=== PATIENT | female | born 1970 | race Two or more races ===

== ENCOUNTER → 2019-12-14 14:39 | Outpatient (BNVA) | payer MEDICAID, SELFPAY | PROVIDERS: PCP Internal Medicine; Visit Provider Student in an Organized Health Care Education/Training Program | DX: L40.50 Arthropathic psoriasis, unspecified (principal); M75.52 Bursitis of left shoulder; Z79.899 Other long term (current) drug therapy | CPT/HCPCS: 99214 ==

== ENCOUNTER 2020-03-20 13:41 | Outpatient (REF) | payer MEDICAID, SELFPAY ==
[2020-03-20 14:32] LABS: MANUAL DIFF FLAG NO
[2020-03-20 14:38] LABS: Basophils Absolute Auto 0.1 X10*3/uL (0.0-0.2); Basophils Percent Auto 0.8 % (0-2); Eosinophils Absolute Auto 0.1 X10*3/uL (0.0-0.4); Eosinophils Percent Auto 1.2 % (0-4); Hematocrit 41.3 % (37-47); Hemoglobin 13.9 g/dl (12.0-16.0); Imm Gran Abs Auto 0.02 X10*3/uL (0.00-0.03); Imm Gran Pct Auto 0.3 % (0.0-0.4); Lymphocytes Absolute Auto 2.5 X10*3/uL (1.2-4.9); Lymphocytes Percent Auto 42.2 % (20-40); Mean Corpuscular HGB Conc 33.7 g/dl (31.0-35.0); Mean Corpuscular Hemoglobin 29.8 pg (27.0-33.0); Mean Corpuscular Volume 88.6 fL (80-98); Mean Platelet Volume 9.7 fL (9.4-12.3); Monocytes Absolute Auto 0.6 X10*3/uL (0.1-1.2); Monocytes Percent Auto 10.8 % (2-11); Neutrophils Absolute Auto 2.6 X10*3/uL (2.0-8.3); Neutrophils Percent Auto 44.7 % (45-73); Platelet Count 314 X10*3/uL (160-400); Red Blood Count 4.66 X10*6/uL (4.20-5.50); Red Cell Distribution Width 12.4 % (11.0-16.0); White Blood Count 5.9 X10*3/uL (4.8-10.8)
[2020-03-20 15:12] LABS: Alanine Aminotransferase 42 U/L (0-31); Albumin Level 4.2 g/dL (3.5-5.0); Alkaline Phosphatase 78 U/L (39-117); Anion Gap 13 (12-20); Aspartate Amino Transferase 42 U/L (5-31); Bilirubin Total 0.5 mg/dL (0.0-1.0); Blood Urea Nitrogen 8 mg/dL (9-16); C Reactive Protein 0.76 mg/dL (< or = 0.50); Calcium 8.6 mg/dL (8.4-10.2); Carbon Dioxide 28 mmol/L (22-29); Chloride 103 mmol/L (96-108); Estimated Glomerular Filt Rate > 60; Glucose Random 114 mg/dL (60-115); Potassium 4.1 mmol/l (3.3-5.1); Sodium 140 mmol/L (135-145); Total Protein 7.3 g/dL (6.5-8.0)
[2020-03-20 15:28] LABS: Erythrocyte Sedimentation Rate 5 MM/HR (0-20)
== END 2020-03-20 13:42 | disposition home or self-care (01) ==
LOC: HO.LAB 13:41
PROVIDERS: PCP Internal Medicine; Visit Provider Student in an Organized Health Care Education/Training Program
DX: L40.50 Arthropathic psoriasis, unspecified (principal)
CPT/HCPCS: 36415; 80053; 85025; 85652; 86140

== ENCOUNTER → 2020-03-22 08:42 | Outpatient (BNVA) | payer MEDICAID, SELFPAY | PROVIDERS: PCP Internal Medicine; Visit Provider Student in an Organized Health Care Education/Training Program | DX: Z76.89 Persons encountering health services in other specified circumstances (principal) ==

== ENCOUNTER → 2020-04-19 13:47 | Outpatient (BNVA) | payer MEDICAID, SELFPAY | PROVIDERS: PCP Internal Medicine; Visit Provider Orthopaedic Surgery | DX: M19.019 Primary osteoarthritis, unspecified shoulder (principal) | CPT/HCPCS: 20610; 99212; J1100 ==

== ENCOUNTER 2020-04-29 16:42 | Emergency (ER) | payer MEDICAID, SELFPAY ==
[2020-04-29 17:00] VITALS: BP 135/90; PULSE 97; RESP 18; TEMP 36.2; O2SAT 97; BMI 30.9
--- NOTE | 2020-04-29 21:01 | PC.NURSE ---
Pt called second time- no answer
== END 2020-04-29 21:02 | disposition left against medical advice (07) ==
PROVIDERS: Emergency Provider Emergency Medicine
DX: M54.5 Low back pain (principal)
CPT/HCPCS: 99281; 99282

== ENCOUNTER 2020-05-07 14:51 | Outpatient (REF) | payer MEDICAID, SELFPAY ==
--- NOTE | ~2020-05-07 | XR_ITS ---
EXAMINATION: XR LUMBAR SPINE XR ANKLE, BILATERAL XR HAND, BILATERAL CLINICAL INFORMATION: Arthropathic psoriasis. COMPARISON: None TECHNIQUE: Lumbar spine 4 views. Bilateral ankle 3 views each. Bilateral hands 3 views each. FINDINGS: LUMBAR SPINE: There is maintained normal lumbar lordosis. There is disc prosthesis at the L5-S1 disc level. Mild loss of L3-L4 disc height is noted. Rest of the disc heights are normal. There is no pars defect or listhesis on oblique views. No acute fracture or lytic process. RIGHT ANKLE: The ankle mortise and subtalar joints are normal. No bony erosive changes or spurring seen. The soft tissues are normal. LEFT ANKLE: The ankle mortise and subtalar joints are normal. No bony erosive changes seen. No bony effusion seen either. LEFT HAND: There is mild loss of joint space DIP joints 2nd through 5th digits. Rest of the PIP and MCP joint space is preserved. No bony erosive changes seen. The soft tissues are normal. No acute fracture or dislocation seen. RIGHT HAND: There is loss of DIP joints 1st, 4th and 5th digits with periarticular spurring. Similarly there is loss of PIP joint 5th digit with periarticular spurring. Rest of the joints are normal. No bony erosive changes. No abnormal joint effusion. XR/XR ankle RT 2V IMPRESSION: Degenerative arthritic changes PIP and DIP joints both 4th and 5th digits right hand. No bony erosive changes. These findings are suggestive of degenerative arthritis. Mild loss of DIP joint space 2nd through 5th digits left hand. Mild loss of L3-L4 disc height and L5-S1 disc fusion. Otherwise unremarkable lumbar spine exam. Unremarkable bilateral ankle exam
--- NOTE | ~2020-05-07 | XR_ITS ---
EXAMINATION: XR LUMBAR SPINE XR ANKLE, BILATERAL XR HAND, BILATERAL CLINICAL INFORMATION: Arthropathic psoriasis. COMPARISON: None TECHNIQUE: Lumbar spine 4 views. Bilateral ankle 3 views each. Bilateral hands 3 views each. FINDINGS: LUMBAR SPINE: There is maintained normal lumbar lordosis. There is disc prosthesis at the L5-S1 disc level. Mild loss of L3-L4 disc height is noted. Rest of the disc heights are normal. There is no pars defect or listhesis on oblique views. No acute fracture or lytic process. RIGHT ANKLE: The ankle mortise and subtalar joints are normal. No bony erosive changes or spurring seen. The soft tissues are normal. LEFT ANKLE: The ankle mortise and subtalar joints are normal. No bony erosive changes seen. No bony effusion seen either. LEFT HAND: There is mild loss of joint space DIP joints 2nd through 5th digits. Rest of the PIP and MCP joint space is preserved. No bony erosive changes seen. The soft tissues are normal. No acute fracture or dislocation seen. RIGHT HAND: There is loss of DIP joints 1st, 4th and 5th digits with periarticular spurring. Similarly there is loss of PIP joint 5th digit with periarticular spurring. Rest of the joints are normal. No bony erosive changes. No abnormal joint effusion. XR/XR lumbar spine 4V min IMPRESSION: Degenerative arthritic changes PIP and DIP joints both 4th and 5th digits right hand. No bony erosive changes. These findings are suggestive of degenerative arthritis. Mild loss of DIP joint space 2nd through 5th digits left hand. Mild loss of L3-L4 disc height and L5-S1 disc fusion. Otherwise unremarkable lumbar spine exam. Unremarkable bilateral ankle exam
--- NOTE | ~2020-05-07 | XR_ITS ---
EXAMINATION: XR LUMBAR SPINE XR ANKLE, BILATERAL XR HAND, BILATERAL CLINICAL INFORMATION: Arthropathic psoriasis. COMPARISON: None TECHNIQUE: Lumbar spine 4 views. Bilateral ankle 3 views each. Bilateral hands 3 views each. FINDINGS: LUMBAR SPINE: There is maintained normal lumbar lordosis. There is disc prosthesis at the L5-S1 disc level. Mild loss of L3-L4 disc height is noted. Rest of the disc heights are normal. There is no pars defect or listhesis on oblique views. No acute fracture or lytic process. RIGHT ANKLE: The ankle mortise and subtalar joints are normal. No bony erosive changes or spurring seen. The soft tissues are normal. LEFT ANKLE: The ankle mortise and subtalar joints are normal. No bony erosive changes seen. No bony effusion seen either. LEFT HAND: There is mild loss of joint space DIP joints 2nd through 5th digits. Rest of the PIP and MCP joint space is preserved. No bony erosive changes seen. The soft tissues are normal. No acute fracture or dislocation seen. RIGHT HAND: There is loss of DIP joints 1st, 4th and 5th digits with periarticular spurring. Similarly there is loss of PIP joint 5th digit with periarticular spurring. Rest of the joints are normal. No bony erosive changes. No abnormal joint effusion. XR/XR hand RT min 3V IMPRESSION: Degenerative arthritic changes PIP and DIP joints both 4th and 5th digits right hand. No bony erosive changes. These findings are suggestive of degenerative arthritis. Mild loss of DIP joint space 2nd through 5th digits left hand. Mild loss of L3-L4 disc height and L5-S1 disc fusion. Otherwise unremarkable lumbar spine exam. Unremarkable bilateral ankle exam
--- NOTE | ~2020-05-07 | XR_ITS ---
EXAMINATION: XR LUMBAR SPINE XR ANKLE, BILATERAL XR HAND, BILATERAL CLINICAL INFORMATION: Arthropathic psoriasis. COMPARISON: None TECHNIQUE: Lumbar spine 4 views. Bilateral ankle 3 views each. Bilateral hands 3 views each. FINDINGS: LUMBAR SPINE: There is maintained normal lumbar lordosis. There is disc prosthesis at the L5-S1 disc level. Mild loss of L3-L4 disc height is noted. Rest of the disc heights are normal. There is no pars defect or listhesis on oblique views. No acute fracture or lytic process. RIGHT ANKLE: The ankle mortise and subtalar joints are normal. No bony erosive changes or spurring seen. The soft tissues are normal. LEFT ANKLE: The ankle mortise and subtalar joints are normal. No bony erosive changes seen. No bony effusion seen either. LEFT HAND: There is mild loss of joint space DIP joints 2nd through 5th digits. Rest of the PIP and MCP joint space is preserved. No bony erosive changes seen. The soft tissues are normal. No acute fracture or dislocation seen. RIGHT HAND: There is loss of DIP joints 1st, 4th and 5th digits with periarticular spurring. Similarly there is loss of PIP joint 5th digit with periarticular spurring. Rest of the joints are normal. No bony erosive changes. No abnormal joint effusion. XR/XR hand LT min 3V IMPRESSION: Degenerative arthritic changes PIP and DIP joints both 4th and 5th digits right hand. No bony erosive changes. These findings are suggestive of degenerative arthritis. Mild loss of DIP joint space 2nd through 5th digits left hand. Mild loss of L3-L4 disc height and L5-S1 disc fusion. Otherwise unremarkable lumbar spine exam. Unremarkable bilateral ankle exam
--- NOTE | ~2020-05-07 | XR_ITS ---
EXAMINATION: XR LUMBAR SPINE XR ANKLE, BILATERAL XR HAND, BILATERAL CLINICAL INFORMATION: Arthropathic psoriasis. COMPARISON: None TECHNIQUE: Lumbar spine 4 views. Bilateral ankle 3 views each. Bilateral hands 3 views each. FINDINGS: LUMBAR SPINE: There is maintained normal lumbar lordosis. There is disc prosthesis at the L5-S1 disc level. Mild loss of L3-L4 disc height is noted. Rest of the disc heights are normal. There is no pars defect or listhesis on oblique views. No acute fracture or lytic process. RIGHT ANKLE: The ankle mortise and subtalar joints are normal. No bony erosive changes or spurring seen. The soft tissues are normal. LEFT ANKLE: The ankle mortise and subtalar joints are normal. No bony erosive changes seen. No bony effusion seen either. LEFT HAND: There is mild loss of joint space DIP joints 2nd through 5th digits. Rest of the PIP and MCP joint space is preserved. No bony erosive changes seen. The soft tissues are normal. No acute fracture or dislocation seen. RIGHT HAND: There is loss of DIP joints 1st, 4th and 5th digits with periarticular spurring. Similarly there is loss of PIP joint 5th digit with periarticular spurring. Rest of the joints are normal. No bony erosive changes. No abnormal joint effusion. XR/XR ankle LT 2V IMPRESSION: Degenerative arthritic changes PIP and DIP joints both 4th and 5th digits right hand. No bony erosive changes. These findings are suggestive of degenerative arthritis. Mild loss of DIP joint space 2nd through 5th digits left hand. Mild loss of L3-L4 disc height and L5-S1 disc fusion. Otherwise unremarkable lumbar spine exam. Unremarkable bilateral ankle exam
[2020-05-07 15:59] LABS: MANUAL DIFF FLAG NO
[2020-05-07 16:17] LABS: Basophils Percent Auto 0.4 % (0-2); Eosinophils Percent Auto 0.4 % (0-4); Hematocrit 38.3 % (37-47); Hemoglobin 13.2 g/dl (12.0-16.0); Imm Gran Abs Auto 0.02 X10*3/uL (0.00-0.03); Imm Gran Pct Auto 0.3 % (0.0-0.4); Lymphocytes Absolute Auto 2.1 X10*3/uL (1.2-4.9); Lymphocytes Percent Auto 27.5 % (20-40); Mean Corpuscular HGB Conc 34.5 g/dl (31.0-35.0); Mean Corpuscular Hemoglobin 30.2 pg (27.0-33.0); Mean Corpuscular Volume 87.6 fL (80-98); Mean Platelet Volume 9.7 fL (9.4-12.3); Monocytes Absolute Auto 0.9 X10*3/uL (0.1-1.2); Monocytes Percent Auto 11.7 % (2-11); Neutrophils Absolute Auto 4.5 X10*3/uL (2.0-8.3); Neutrophils Percent Auto 59.7 % (45-73); Platelet Count 233 X10*3/uL (160-400); Red Blood Count 4.37 X10*6/uL (4.20-5.50); Red Cell Distribution Width 12.2 % (11.0-16.0); White Blood Count 7.5 X10*3/uL (4.8-10.8)
[2020-05-07 16:23] LABS: Alanine Aminotransferase 90 U/L (0-31); Albumin Level 3.9 g/dL (3.5-5.0); Alkaline Phosphatase 88 U/L (39-117); Anion Gap 12 (12-20); Aspartate Amino Transferase 87 U/L (5-31); Bilirubin Total 0.5 mg/dL (0.0-1.0); Blood Urea Nitrogen 8 mg/dL (9-16); C Reactive Protein 1.32 mg/dL (< or = 0.50); Calcium 8.3 mg/dL (8.4-10.2); Carbon Dioxide 26 mmol/L (22-29); Chloride 106 mmol/L (96-108); Estimated Glomerular Filt Rate > 60; Glucose Random 106 mg/dL (60-115); Potassium 3.9 mmol/L (3.3-5.1); Sodium 140 mmol/L (135-145); Total Protein 6.8 g/dL (6.5-8.0)
[2020-05-07 17:48] LABS: Erythrocyte Sedimentation Rate 7 MM/HR (0-20)
== END 2020-05-07 14:52 | disposition home or self-care (01) ==
LOC: HO.XRAY 14:51
PROVIDERS: PCP Internal Medicine; Visit Provider Student in an Organized Health Care Education/Training Program
DX: L40.50 Arthropathic psoriasis, unspecified (principal); M54.5 Low back pain
CPT/HCPCS: 36415; 72110; 73130; 73600; 80053; 85025; 85652; 86140

== ENCOUNTER → 2020-06-05 16:14 | Outpatient (BNVA) | payer MEDICAID, SELFPAY | PROVIDERS: Visit Provider Student in an Organized Health Care Education/Training Program | DX: L40.50 Arthropathic psoriasis, unspecified (principal); R79.89 Other specified abnormal findings of blood chemistry | CPT/HCPCS: 99212 ==

== ENCOUNTER → 2020-06-11 11:24 | Outpatient (BNVA) | payer MEDICAID, SELFPAY | PROVIDERS: Visit Provider Orthopaedic Surgery | DX: L40.50 Arthropathic psoriasis, unspecified (principal); M19.012 Primary osteoarthritis, left shoulder | CPT/HCPCS: 99212 ==

== ENCOUNTER 2020-06-12 09:02 | Outpatient (REF) | payer MEDICAID, SELFPAY ==
--- NOTE | ~2020-06-12 | US_ITS ---
EXAMINATION: US ABDOMEN COMPLETE CLINICAL INFORMATION: Other specified abnormal findings of blood chemistry. COMPARISON: CT abdomen and pelvis 05/13/2019. Ultrasound abdomen complete 11/18/2018 and 04/26/2015. TECHNIQUE: Real-time imaging of the abdominal viscera. Examination mildly limited secondary to overlying bowel gas. FINDINGS: PANCREAS: Visualized portions of pancreas are normal in appearance. ABDOMINAL AORTA: The proximal, mid, and distal segments are normal in caliber. INFERIOR VENA CAVA: Visualized portions are normal. LIVER: The liver is normal in size. The liver contour is normal. Heterogeneously increased liver echogenicity. No focal hepatic lesion. There is no intrahepatic biliary duct dilatation seen. GALLBLADDER: Normal. The gallbladder is physiologically distended without evidence of stones, sludge, polyps, wall thickening or pericholecystic fluid. COMMON BILE DUCT: Normal in caliber measuring 0.5 cm in diameter. RIGHT KIDNEY: Normal. No hydronephrosis. No renal calculi or focal parenchymal lesions. The kidney measures 12.6 cm in maximum dimension. LEFT KIDNEY: Normal. No hydronephrosis. No renal calculi or focal parenchymal lesions. The kidney measures 12.5 cm in maximum dimension. SPLEEN: Normal. The spleen measures 10.7 cm in maximum dimension. FREE FLUID: None. US/US abdomen complete IMPRESSION: Heterogeneously increased liver echogenicity. This is a nonspecific finding but most suggestive of hepatic steatosis. Correlation with liver enzymes recommended.
== END 2020-06-12 09:03 | disposition home or self-care (01) ==
LOC: HO.US 09:02
PROVIDERS: Visit Provider Student in an Organized Health Care Education/Training Program
DX: R79.89 Other specified abnormal findings of blood chemistry (principal)
CPT/HCPCS: 76700

== ENCOUNTER 2020-06-14 18:15 | Outpatient (REF) | payer MEDICAID, SELFPAY ==
--- NOTE | ~2020-06-14 | MR_ITS ---
EXAMINATION: MRI RIGHT SHOULDER WITHOUT CONTRAST, LEFT CLINICAL INFORMATION: Left shoulder pain radiating to hand. Arthropathic psoriasis. COMPARISON: Left shoulder radiographs dated 11/24/2019. TECHNIQUE: Multisequence MR imaging of the left shoulder was obtained on a high-field strength scanner without contrast. FINDINGS: ROTATOR CUFF: Mild supraspinatus tendinosis with minimal anterior bursal surface fraying. Minimal distal subscapularis tendinosis. No measurable rotator cuff tendon defect. No muscle atrophy or fatty infiltration. BICEPS: Normal CORACOACROMIAL ARCH: The undersurface of the acromion is curved with no subacromial spur. Mild acromioclavicular osteoarthritis. Mild edema within the subacromial-subdeltoid bursa, consistent with minimal bursitis. LABRUM/CAPSULE: Attenuation of the anterior labrum, which may indicate degenerative tearing. No displaced undersurface labral tear. Intact joint capsule. GLENOHUMERAL JOINT/MARROW: Full-thickness articular cartilage loss at the anterior aspect of the glenoid with adjacent humeral head articular cartilage thinning and signal heterogeneity. Marginal osteophytes. Underlying subchondral cystic change within the glenoid. Findings appear similar when compared to the most recent radiographs. Small glenohumeral joint effusion. MR/MR shoulder LT wo con IMPRESSION: 1. Mild supraspinatus tendinosis with minimal anterior bursal surface fraying. Distal subscapularis tendinosis. No measurable rotator cuff tendon defect. 2. Mild acromioclavicular osteoarthritis and minimal subacromial-subdeltoid bursitis. 3. Probable degenerative tearing of the anterior labrum. No displaced undersurface labral tear. 4. Moderate glenohumeral osteoarthritis, similar when compared to the recent radiographs. Small joint effusion.
== END 2020-06-14 18:16 | disposition home or self-care (01) ==
LOC: HO.MRI 18:15
PROVIDERS: Visit Provider Orthopaedic Surgery
DX: M19.012 Primary osteoarthritis, left shoulder (principal); L40.50 Arthropathic psoriasis, unspecified
CPT/HCPCS: 73221

== ENCOUNTER 2020-06-16 19:05 | Emergency (ER) | payer MEDICAID, SELFPAY ==
[2020-06-16 19:09] VITALS: BP 138/85; PULSE 89; RESP 18; TEMP 36.4; O2SAT 97; BMI 30.1
--- NOTE | 2020-06-16 20:09 | ED.SKABFB ---
HPI - Skin/Abscess/Foreign Bdy General Chief complaint: Skin/Abscess/Foreign Body Stated complaint: Itching all over for 3 days Time Seen by Provider: 06/16/20 19:49 Source: patient Mode of arrival: ambulatory Limitations: no limitations History of Present Illness HPI narrative: States has been having intermittent itching over her body without rash or past couple months. On off gets better with allergy medication. No cough runny nose, recent illness, fever, abdominal pain or nausea vomiting. MD complaint: other (Itching) Tetanus up to date: no Location: generalized Severity: mild Relieving factors: none Context: none Associated symptoms: denies other symptoms Treatments prior to arrival: none Related Data Home Medications Medication Instructions Recorded Confirmed acetaminophen 500 mg tablet 1,000 mg PO Q6H PRN 12/14/19 06/05/20 baclofen 5 mg tablet 5 mg PO TID 12/14/19 06/05/20 clonazepam 0.5 mg tablet 0.5 mg PO BID PRN 12/14/19 06/05/20 duloxetine 60 mg capsule,delayed 60 mg PO BID 12/14/19 06/05/20 release fluticasone propionate 50 1 spray INTRANASAL DAILY 12/14/19 06/05/20 mcg/actuation nasal spray,suspension montelukast 10 mg tablet 10 mg PO DAILY 12/14/19 06/05/20 pregabalin 50 mg capsule 50 mg PO TID 12/14/19 06/05/20 zolpidem 5 mg tablet 5 mg PO BEDTIME PRN 12/14/19 06/05/20 fexofenadine 60 mg tablet 60 mg PO DAILY tab 03/22/20 06/05/20 cholecalciferol (vitamin D3) 125 125 mcg PO DAILY 06/05/20 06/05/20 mcg (5,000 unit) capsule Previous Rx's Medication Instructions Recorded nabumetone 750 mg tablet 750 mg PO DAILY PRN #30 tab 12/23/19 secukinumab 150 mg/mL subcutaneous 300 mg SUBCUT Q4W #1 ml 03/22/20 syringe hydroxyzine HCl 10 mg PO BID PRN #20 tab 06/16/20 Allergies Allergy/AdvReac Type Severity Reaction Status Date / Time dog dander [DOG] Allergy Unknown HIVES Verified 06/16/20 19:07 ENVIRONMENTAL Allergy Unknown HIVES Uncoded 11/24/19 15:36 Review of Systems Review of Systems: Constitutional: No Weight loss, No Fever, No Chills, No Night Sweats, No Fatigue, No Malaise ENT/Mouth: No Hearing loss, No Ear Pain, No Nasal Congestion, No Sinus Pain, No Hoarseness, No sore throat, No Rhinorrhea, No Swallowing Difficulty Eyes: No Eye Pain, No Swelling, No Redness, No Foreign Body, No Discharge, No Vision Changes Cardiovascular: No Chest Pain, No SOB, No Dyspnea on Exertion, No Orthopnea, No Edema, No Palpitations Respiratory: No Cough, No Sputum, No Wheezing, No Smoke Exposure, No Dyspnea Gastrointestinal: No Nausea, No Vomiting, No Diarrhea, No Constipation, No abdominal Pain, No Hematochezia, No Melena Genitourinary: no irregular bleeding, No Dysuria, No Urinary Frequency, No Hematuria, No Urinary Incontinence, No Urgency, No Flank Pain, No Urinary Flow Changes, No Hesitancy Musculoskeletal: No joint pain, No Myalgias, No Joint Swelling Skin: No Skin Lesions, No rash Neuro: No Weakness, No Numbness, No Paresthesias, No Loss of Consciousness, No Dizziness, No Headache Psych: No Social Issues Heme/Lymph: No Bruising, No Bleeding,No Lymphadenopathy Endocrine: No Polyuria, No Polydipsia, No Temperature Intolerance Yes all other systems are reviewed and are negative [facility] Past Medical History Medical History Arthritis Fibromyalgia Osteoarthritis of left shoulder Family History Family History Mother No problems noted. 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 Physical Exam Vital Signs: Vital Signs: Last Vital Signs Temp 97.6 F 06/16/20 19:09 Pulse 89 06/16/20 19:09 Resp 18 06/16/20 19:09 BP 138/85 06/16/20 19:09 Pulse Ox 97 06/16/20 19:09 Body Mass Index 30.1 Reviewed Const: General: cooperative and healthy appearing; No acute distress or intoxicated appearing Nutritional Appearance: average body habitus Orientation/consciousness: patient oriented x3 HENMT: Head: Yes normal to inspection Ears: hearing grossly normal bilaterally Eyes: General: appearance normal, both eyes and all related structures Visual Stapleton: normal visual stapleton by confrontation Neck: Neck: Yes normal visual inspection, No positive Brudzinski's sign, No positive Kernig's sign and No tender Thyroid: Thyroid normal Chest: Chest palpation & inspection: normal inspection of the chest Resp: Effort & Inspection: normal respiratory effort Cardio: Jugular venous distension: no JVD Rhythm: regular rhythm Heart sounds: S1 normal heart sound present and S2 normal heart sound present GI: Inspection: Yes normal to inspection Palpation (GI): Soft to palpation Percussion: Yes normal to percussion Auscultation: normal bowel sounds : General: Yes no CVA tenderness Back/Spine/Pelvis: Back: no CVA tenderness Skin: General skin exam: no rashes or lesions noted Neuro: General: patient oriented x3 Extrem: General: Yes normal to inspection Course Course Course Narrative: No obvious rash on exam. Labs reviewed from previous. Hydroxyzine work well. Will likely benefit from follow-up with assistant corporate secretary question underlying anxiety as contributing factor. NAD. DIOMEDES Has appointment with her GP in 2 days. Stable for discharge. Discharge Plan Discharge Clinical Impression: Pruritus Patient Disposition: Home, Self-Care Instructions: Itchy Skin (ED) Prescriptions: New hydroxyzine HCl 10 mg tablet 10 mg PO BID PRN (Reason: itching) Qty: 20 RF: 0 No Action nabumetone 750 mg tablet 750 mg PO DAILY PRN (Reason: pain) Qty: 30 RF: 3 pregabalin [Lyrica] 50 mg capsule 50 mg PO TID RF: 0 baclofen 5 mg tablet 5 mg PO TID RF: 0 zolpidem 5 mg tablet 5 mg PO BEDTIME PRNRF: 0 montelukast [Singulair] 10 mg tablet 10 mg PO DAILY RF: 0 clonazepam 0.5 mg tablet 0.5 mg PO BID PRNRF: 0 duloxetine [Cymbalta] 60 mg capsule,delayed release(DR/EC) 60 mg PO BID RF: 0 fluticasone propionate [Flonase Allergy Relief] 50 mcg/actuation spray,suspension 1 spray intranasal DAILY RF: 0 acetaminophen [Tylenol Extra Strength] 500 mg tablet 1,000 mg PO Q6H PRNRF: 0 fexofenadine [Yamile Allergy] 60 mg tablet 60 mg PO DAILY RF: 0 Cosentyx 150 mg/mL syringe 300 mg subcut Q4W Qty: 1 RF: 3 cholecalciferol (vitamin D3) 125 mcg (5,000 unit) capsule 125 mcg PO DAILY RF: 0 Referrals: Christiana Thomas MD [Primary Care Provider] - 1 week
== END 2020-06-16 21:09 | disposition home or self-care (01) ==
PROVIDERS: Emergency Provider Internal Medicine; PCP Internal Medicine
DX: L29.9 Pruritus, unspecified (principal)
CPT/HCPCS: 99283; 99284

== ENCOUNTER → 2020-07-05 09:13 | Outpatient (BNVA) | payer MEDICAID, SELFPAY | PROVIDERS: PCP Internal Medicine; Visit Provider Orthopaedic Surgery | DX: M19.012 Primary osteoarthritis, left shoulder (principal); L40.50 Arthropathic psoriasis, unspecified; M79.7 Fibromyalgia | CPT/HCPCS: 99212 ==

== ENCOUNTER 2020-07-17 19:13 | Outpatient (REF) | payer MEDICAID, SELFPAY ==
--- NOTE | ~2020-07-17 | MR_ITS ---
EXAMINATION: MR LUMBAR SPINE WITHOUT CONTRAST CLINICAL INFORMATION: Low back pain. COMPARISON: None available. TECHNIQUE: MRI of the lumbar spine was obtained using routine sequences without contrast. FINDINGS: There are postoperative findings related to interbody fusion at the L5-S1 level. Mild disc height loss is seen at L3-L4 and L4-L5. There is no bone marrow edema. The distal spinal cord appears normal. The conus medullaris terminates normally at the L2 level. The extraspinal soft tissues appear normal. SPINAL LEVELS: L1-L2: No posterior disc abnormality. No spinal canal or neural foraminal stenosis. L2-L3: No posterior disc abnormality. Mild facet arthropathy. No spinal canal or neural foraminal stenosis. L3-L4: Disc bulging with left foraminal protrusion causing mild mass effect on the exiting left L3 nerve root. Left subarticular zone is minimally narrowed. Mild facet arthropathy. No spinal canal stenosis. No right-sided neural foraminal narrowing. L4-L5: Central extrusion results in focal indentation on the ventral thecal sac and mass effect on the traversing left L5 nerve root. Mild narrowing of the neural foramina without foraminal nerve root compression. Mild to moderate facet arthropathy. L5-S1: Interbody fusion. Osteophytic ridging narrows the left subarticular zone. Moderate facet arthropathy. No spinal canal stenosis. Osteophytic ridging narrows the left neural foramen with abutment of the exiting left L5 nerve root. MR/MR lumbar spine wo con IMPRESSION: At L5-S1 there are postoperative findings of interbody fusion. Osteophytic ridging narrows the left subarticular zone and left neural foramen. At L4-L5 there is central extrusion causing indentation on the ventral thecal sac and mass effect on the traversing left L5 nerve root. At L3-L4 there is left foraminal protrusion causing mild mass effect on the exiting left L3 nerve root.
== END 2020-07-17 19:14 | disposition home or self-care (01) ==
LOC: HO.MRI 19:13
PROVIDERS: Visit Provider Internal Medicine
DX: M54.5 Low back pain (principal)
CPT/HCPCS: 72148

== ENCOUNTER → 2020-09-05 12:43 | Outpatient (BNVA) | payer MEDICAID, SELFPAY | PROVIDERS: PCP Internal Medicine; Referring Provider Internal Medicine; Visit Provider Physician Assistant | DX: L40.50 Arthropathic psoriasis, unspecified (principal); R79.89 Other specified abnormal findings of blood chemistry; M77.12 Lateral epicondylitis, left elbow; E66.9 Obesity, unspecified; Z68.31 Body mass index [BMI] 31.0-31.9, adult | CPT/HCPCS: 99202; 99212 ==

== ENCOUNTER 2020-09-27 13:30 | Outpatient (RCR) | payer MEDICAID, SELFPAY ==
--- NOTE | 2020-09-13 14:00 | MHC.OT.OEV ---
[address] [phone] F: [phone] Occupational Therapy Evaluation Diagnosis: Left Lateral Epicondylitis Date of Onset: 03/09/20 Attending Provider: Dr Wilkins History of Current Condition: Pt reports pain in her elbow on and off again, increasing over the past six months. She has tried a nighttime brace with no relief. Referred to OT for assessment and management. 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) Enjoys doing arts and crafts (home decor) and spending time w/ grandkids (11, 10, 7, 5, 4 and 1) Living Situation, Family and/or Social Support: Lives w/ boyfriend Current Level of Function and Occupation Self Care, Employment, Leisure: Difficulty w/ lifting objects, picking up groceries, cleaning the bathtub, opening a jar Boyfriend assists w/ homecare and shopping Sleep: Painful sleeping Driving: Pain in left UE w/ steering wheel Vision: Balance: Pain Assessment Pain Score: 7 Pain Scale Used: Numeric (0 - 10) Pain Location and Description: Left lateral and posterior elbow, radiates to upper arm and down to forearm Tenderness in dorsal forearm and posterior elbow at distal tricep and between lat epi and olecronon Aggravating Factors: Forceful use of hand and arm, lifting/gripping Alleviating Factors: Using [place] No relief w/ elbow brace/sleeve Skin and Soft Tissue Assessment Skin and Soft Tissue: Comments: WNL Nerve assessment Ulnar Nerve: WFL Median Nerve: WFL Radial Nerve: WFL Comments: Sensory Assessment Temperature: Light Touch: Proprioception: Vibration: Comments: Reports nighttime numbness in radial forearm/wrist Keller Saud 3.61 B/L hands except 4.31 left ulnar nerve distribution Edema Assessment Upper Extremity: Lower Extremity: Comments: Arm circumference around elbow R 26.2 cm L 27.8 cm Dexterity Assessment Dexterity: WNL Comments: Special Tests Comments: (-) wrist extension test (+) middle finger extension test AROM(PROM) Strength Cervical Cervical Flexion: Cervical Extension: Cervical Lateral Flexion: Cervical Rotation: Comments: WFL Shoulder Flexion: R 160 L 135 Extension: Abduction: Internal Rotation: External Rotation: Comments: Tight w/ end range left shoulder int and ext rotation Hx of left shoulder bursitis Flexion: Extension: Abduction: Internal Rotation: External Rotation: Comments: Elbow Flexion: Extension: Pronation: Supination: Comments: WFL Flexion: Extension: Pronation: Supination: Comments: Wrist Flexion: Extension: Ulnar Deviation: Radial Deviation: Comments: WFL Flexion: Extension: Ulnar Deviation: Radial Deviation: Comments: Thumb Thumb CMC Flexion: Thumb MCP Flexion: Thumb IP Flexion: Radial Abduction: Palmar Abduction: [place] (K[place]andji 0-10): Comments: Digits Index MCP: PIP: DIP: Long MCP: PIP: DIP: Ring MCP: PIP: DIP: Small MCP: PIP: DIP: Comments: WFL Gross Grasp: R 43 L 20 Lateral Pinch: Two-Point Pinch: Three-Jaw Nolan: Comments: Increased pain/decreased strength w/ elbow flexed Patient Education Primary Language: Turkish Roll Picker Required: No Current Knowledge: Understands information with skills for self-management Teaching Method: Demonstration Handouts Verbal Education Needs Identified on Evaluation: ADL's Disease Information Equipment Use Exercise Pain Safety How did patient/family demonstrate learning? Patient demonstrates Patient verbalizes Barriers to Learning: None Readiness for Learning: Accepting Who was educated? Patient Comments: Plan of Care Assessment: 49 yo female right hand dominant female presents w/ left arm pain persistant over the past six months. She reports tenderness and sharp pain in dorsal forearm at mobile wad and radiate past lateral epicondyle to upper arm. 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 She has diminished protective sensation in ulnar aspect of left hand/palm and reports nighttime numbness in dorsal radial forearm. S/S may be consistent w/ radial tunnel syndrome or extensor tendinitis. She will benefit from continued therapy services for progression of stretching and strengthening w/ ed on joint protection, activity modification and pain management. STG Duration: 1 week Short Term Goals: Ind w/ HEP Ind w/ joint protection and activity modification Decreased forearm and upper arm radiating pain 5/10 resting pain in dorsal forearm and post elbow LTG Duration: 4 week Javascript Application Developer Goals: Left gross grasp >35lb <2/10 at rest Pt to report ease w/ sleeping Left shoulder flex to 150 degrees Quickdash score <40 pts Frequency and Duration: The patient will be seen 2x/wk for 4 weeks Treatment Plan: Therapeutic Exercise Therapeutic Activity Home Exercise Program Patient Education Edema Control ADL Training Ultrasound Iontophoresis MHP Cold Packs Soft Tissue Mobilization Kinesiotaping Electronically Signed By: Donna Humphrey OTR/L Reviewed/agree with student documentation: N/A Therapist: Please sign and return to therapist, Thank you for your referral.
--- NOTE | 2020-10-24 10:15 | MHC.OT.DC ---
[address] [phone] F: [phone] Occupational Therapy Discharge Note Provider: Dr Wilkins Diagnosis: Left Lateral Epicondylitis Date of Evaluation: 09/13/20 Date of Discharge: 10/24/20 Treatments to Date: 4 Cancellations to Date: 4 No Shows to Date: 2 Discharge Status: Visit Non-compliance Discharge Summary: At time of last OT visit, Yumiko had been noting decreased left arm pain over, all but still grading moderately. Good follow through w/ HEP and CFB. She has missed several appointments and we will discharge from therapy at this time. Electronically Signed By: Donna Humphrey OTR/L Please Sign and return to therapist, thank you for your referral.
== END 2020-10-24 10:15 | disposition home or self-care (01) ==
LOC: HO.OT 13:30
PROVIDERS: PCP Internal Medicine; Visit Provider Student in an Organized Health Care Education/Training Program
DX: M77.12 Lateral epicondylitis, left elbow (principal)
CPT/HCPCS: 97035; 97110; 97140; 97165

== ENCOUNTER 2020-10-04 12:02 | Outpatient (REF) | payer MEDICAID, SELFPAY ==
[2020-10-04 13:21] LABS: MANUAL DIFF FLAG NO
[2020-10-04 13:30] LABS: Basophils Absolute Auto 0.1 X10*3/uL (0.0-0.2); Basophils Percent Auto 0.9 % (0-2); Eosinophils Absolute Auto 0.1 X10*3/uL (0.0-0.4); Eosinophils Percent Auto 1.6 % (0-4); Hemoglobin 13.7 g/dl (12.0-16.0); Imm Gran Abs Auto 0.01 X10*3/uL (0.00-0.03); Imm Gran Pct Auto 0.2 % (0.0-0.4); Lymphocytes Percent Auto 35.4 % (20-40); Mean Corpuscular HGB Conc 33.4 g/dl (31.0-35.0); Mean Corpuscular Hemoglobin 29.5 pg (27.0-33.0); Mean Corpuscular Volume 88.4 fL (80-98); Mean Platelet Volume 9.8 fL (9.4-12.3); Monocytes Absolute Auto 0.6 X10*3/uL (0.1-1.2); Monocytes Percent Auto 10.1 % (2-11); Neutrophils Percent Auto 51.8 % (45-73); Platelet Count 317 X10*3/uL (160-400); Red Blood Count 4.64 X10*6/uL (4.20-5.50); Red Cell Distribution Width 12.6 % (11.0-16.0); White Blood Count 5.7 X10*3/uL (4.8-10.8)
[2020-10-04 14:12] LABS: Erythrocyte Sedimentation Rate 7 MM/HR (0-20)
[2020-10-04 14:31] LABS: Alanine Aminotransferase 46 U/L (0-31); Albumin Level 4.1 g/dL (3.5-5.0); Alkaline Phosphatase 80 U/L (39-117); Anion Gap 15 (12-20); Aspartate Amino Transferase 46 U/L (5-31); Bilirubin Total 0.7 mg/dL (0.0-1.0); Blood Urea Nitrogen 9 mg/dL (9-16); C Reactive Protein 0.83 mg/dL (< or = 0.50); Calcium 8.9 mg/dL (8.4-10.2); Carbon Dioxide 23 mmol/L (22-29); Chloride 107 mmol/L (96-108); Estimated Glomerular Filt Rate > 60; Glucose Random 115 mg/dL (60-115); Potassium 4.2 mmol/L (3.3-5.1); Sodium 141 mmol/L (135-145); Total Protein 7.3 g/dL (6.5-8.0)
== END 2020-10-04 12:03 | disposition home or self-care (01) ==
LOC: HO.LAB 12:02
PROVIDERS: PCP Internal Medicine; Visit Provider Student in an Organized Health Care Education/Training Program
DX: L40.50 Arthropathic psoriasis, unspecified (principal)
CPT/HCPCS: 36415; 80053; 85025; 85652; 86140

== ENCOUNTER 2020-11-06 14:05 | Outpatient (REF) | payer MEDICAID, SELFPAY ==
--- NOTE | ~2020-11-06 | US_ITS ---
EXAMINATION: US PELVIC AND TRANSVAGINAL CLINICAL INFORMATION: Pelvic pain. COMPARISON: Previous pelvic ultrasound most recent June [address] of the abdomen and pelvis May 2019 TECHNIQUE: Ultrasound of the pelvis is performed using both transabdominal and transvaginal transducers along with Doppler. Transvaginal imaging is performed due to inadequate visualization transabdominally. Exam is limited due to bowel gas. FINDINGS: The uterus is anteverted and measures 8.6 x 3.6 x 4.4 cm. There are 2 focal uterine lesions suggestive of fibroids measuring 1.3 x 1.4 x 1.2 cm in the anterior uterine fundus and 1.8 x 1.4 x 1.7 cm in the right uterine body. Additional fibroids seen on the previous exam are not appreciated. Endometrial thickness is normal measuring 0.6 cm. There are nabothian cysts in the cervix. The ovaries are normal-appearing. The right ovary measures 2.2 x 1.9 x 1.7 cm. The left ovary measures 1.8 x 1.6 x 1.7 cm. There is no fluid in the pelvis. US/US pelvic and transvaginal IMPRESSION: Limited exam. Fibroid uterus. Normal-appearing ovaries.
== END 2020-11-06 14:06 | disposition home or self-care (01) ==
LOC: HO.US 14:05
PROVIDERS: PCP Internal Medicine; Visit Provider Advanced Practice Midwife
DX: R10.2 Pelvic and perineal pain (principal); D25.9 Leiomyoma of uterus, unspecified
CPT/HCPCS: 76830; 76856

== ENCOUNTER → 2020-12-04 14:25 | Outpatient (BNVA) | payer MEDICAID, SELFPAY | PROVIDERS: PCP Internal Medicine; Visit Provider Nurse Practitioner Family | DX: L40.50 Arthropathic psoriasis, unspecified (principal); R79.89 Other specified abnormal findings of blood chemistry | CPT/HCPCS: 99212 ==

== ENCOUNTER 2021-03-18 12:04 | Outpatient (REF) | payer MEDICAID, SELFPAY ==
--- NOTE | ~2021-03-18 | XR_ITS ---
EXAMINATION: XR SHOULDER, LEFT CLINICAL INFORMATION: Pain. COMPARISON: MR of the left shoulder dated from 06/14/2020. TECHNIQUE: Three views of the left shoulder. FINDINGS: No acute fractures or malalignment. Mild acromioclavicular osteoarthritis and moderate glenohumeral osteoarthritis, best appreciated on a recent MRI of the left shoulder. Subacute to chronic appearing left posterior sixth rib fracture. Normal appearance of the soft tissues. Indeterminate overlying external foreign bodies. XR/XR shoulder LT min 2V IMPRESSION: No acute fractures or malalignment. Degenerative osteoarthritis as above. Subacute to chronic left-sided rib fracture.
== END 2021-03-18 12:05 | disposition home or self-care (01) ==
LOC: HO.HOSX 12:04
PROVIDERS: Visit Provider Orthopaedic Surgery
DX: M19.012 Primary osteoarthritis, left shoulder (principal)
CPT/HCPCS: 20610; 73030; 99212; J1100

== ENCOUNTER 2021-03-27 14:55 | Outpatient (REF) | payer MEDICAID, SELFPAY ==
[2021-03-27 15:19] LABS: MANUAL DIFF FLAG NO
[2021-03-27 15:36] LABS: Basophils Percent Auto 0.6 % (0-2); Eosinophils Absolute Auto 0.1 X10*3/uL (0.0-0.4); Eosinophils Percent Auto 1.7 % (0-4); Hematocrit 42.4 % (37.0-47.0); Hemoglobin 14.5 g/dl (12.0-16.0); Imm Gran Abs Auto 0.02 X10*3/uL (0.00-0.03); Imm Gran Pct Auto 0.3 % (0.0-0.4); Lymphocytes Absolute Auto 2.6 X10*3/uL (1.2-4.9); Lymphocytes Percent Auto 39.9 % (20-40); Mean Corpuscular HGB Conc 34.2 g/dl (31.0-35.0); Mean Corpuscular Hemoglobin 30.4 pg (27.0-33.0); Mean Corpuscular Volume 88.9 fL (80.0-98.0); Mean Platelet Volume 9.4 fL (9.4-12.3); Monocytes Absolute Auto 0.7 X10*3/uL (0.1-1.2); Monocytes Percent Auto 10.3 % (2-11); Neutrophils Absolute Auto 3.1 x10*3/uL (2.0-8.3); Neutrophils Percent Auto 47.2 % (45-73); Platelet Count 323 X10*3/uL (160-400); Red Blood Count 4.77 X10*6/uL (4.20-5.50); Red Cell Distribution Width 11.9 % (11.0-16.0); White Blood Count 6.5 X10*3/uL (4.8-10.8)
[2021-03-27 16:06] LABS: Alanine Aminotransferase 37 U/L (0-31); Albumin Level 4.1 g/dL (3.5-5.0); Alkaline Phosphatase 74 U/L (39-117); Anion Gap 11 (12-20); Aspartate Amino Transferase 31 U/L (5-31); Bilirubin Total 0.4 mg/dL (0.0-1.0); Blood Urea Nitrogen 8 mg/dL (9-16); C Reactive Protein 0.71 mg/dL (< or = 0.50); Calcium 9.7 mg/dL (8.4-10.2); Carbon Dioxide 27 mmol/L (22-29); Chloride 106 mmol/L (96-108); Estimated Glomerular Filt Rate > 60; Glucose Random 82 mg/dL (60-115); Potassium 4.3 mmol/L (3.3-5.1); Sodium 140 mmol/L (135-145); Total Protein 7.3 g/dL (6.5-8.0)
[2021-03-27 16:15] LABS: Erythrocyte Sedimentation Rate 7 MM/HR (0-20)
== END 2021-03-27 14:56 | disposition home or self-care (01) ==
LOC: HO.LAB 14:55
PROVIDERS: PCP Internal Medicine; Visit Provider Nurse Practitioner Family
DX: L40.50 Arthropathic psoriasis, unspecified (principal)
CPT/HCPCS: 36415; 80053; 85025; 85652; 86140

== ENCOUNTER → 2021-04-16 14:30 | Outpatient (BNVA) | payer MEDICAID, SELFPAY | PROVIDERS: PCP Internal Medicine; Visit Provider Nurse Practitioner Family | DX: L40.50 Arthropathic psoriasis, unspecified (principal); R79.89 Other specified abnormal findings of blood chemistry; Z79.899 Other long term (current) drug therapy | CPT/HCPCS: 99212 ==

== ENCOUNTER 2021-05-23 10:22 | Outpatient (REF) | payer MEDICAID, SELFPAY ==
--- NOTE | 2021-05-23 10:26 | EMG_ITS ---
Left median and ulnar motor and sensory studies were performed. Left radial sensory study was performed and paraspinal muscles were tested. IMPRESSION: Mild left median neuropathy across carpal tunnel. MD JOHANA Patterson/HEMALATHA / [id number]
== END 2021-05-23 10:23 | disposition home or self-care (01) ==
LOC: HO.NEURO 10:22
PROVIDERS: Visit Provider Internal Medicine
DX: R20.0 Anesthesia of skin (principal)
CPT/HCPCS: 95886; 95909

== ENCOUNTER → 2021-05-27 10:07 | Outpatient (BNVA) | payer MEDICAID, SELFPAY | PROVIDERS: PCP Internal Medicine; Visit Provider Anesthesiology | DX: M96.1 Postlaminectomy syndrome, not elsewhere classified (principal); M51.36 Other intervertebral disc degeneration, lumbar region; M54.16 Radiculopathy, lumbar region; G89.4 Chronic pain syndrome | CPT/HCPCS: 99202 ==

== ENCOUNTER 2021-06-15 10:29 | Emergency (ER) | payer MEDICAID, SELFPAY ==
[2021-06-15 10:31] VITALS: BP 132/80; PULSE 74; RESP 18; TEMP 36.1; O2SAT 97; BMI 31.8
--- NOTE | 2021-06-15 10:45 | ED.URI ---
HPI - URI/Sore Throat General Chief Complaint: Upper Respiratory Symptoms Stated Complaint: Sore throat/Cough/Headache Time Seen by Provider: 06/15/21 10:45 Source: patient Mode of arrival: ambulatory Limitations: no limitations History of Present Illness HPI Narrative: Patient is a 50 year old female presenting to the emergency department today with a cough. Patient states that she has had a productive cough and felt generally unwell over the last 6 days. Patient denies any dizziness, lightheadedness, abdominal pain, nausea, vomiting, fever, chills, blurry vision, double vision, loss of vision, chest pain, difficulty breathing, shortness of breath, back pain, night sweats, pain with urination, increased urinary frequency, increased urinary urgency, blood in her urine or stool, syncope or a near syncopal episode, recent trauma or falls, bowel incontinence, bladder incontinence, bowel retention, bladder retention, or any other complaints at this time. MD elicited complaint: cough Onset (ago): day(s) Consistency: constant Exacerbating factors: nothing Relieving factors: nothing Associated symptoms: cough Treatments prior to arrival: none Related Data Home Medications Medication Instructions Recorded Confirmed acetaminophen 500 mg tablet 1,000 mg PO Q6H PRN 12/14/19 04/16/21 (Tylenol Extra Strength) clonazepam 0.5 mg tablet 0.5 mg PO BID PRN 12/14/19 04/16/21 duloxetine 60 mg capsule,delayed 60 mg PO BID 12/14/19 04/16/21 release (Cymbalta) fluticasone propionate 50 1 spray INTRANASAL DAILY 12/14/19 04/16/21 mcg/actuation nasal spray,suspension (Flonase Allergy Relief) montelukast 10 mg tablet 10 mg PO DAILY 12/14/19 04/16/21 (Singulair) pregabalin 50 mg capsule (Lyrica) 50 mg PO TID 12/14/19 04/16/21 zolpidem 5 mg tablet 5 mg PO BEDTIME PRN 12/14/19 04/16/21 fexofenadine 60 mg tablet (Yamile 60 mg PO DAILY tab 03/22/20 04/16/21 Allergy) cholecalciferol (vitamin D3) 125 125 mcg PO DAILY 06/05/20 04/16/21 mcg (5,000 unit) capsule tizanidine 2 mg tablet 2 mg PO Q6-8H PRN 04/16/21 04/16/21 Previous Rx's Medication Instructions Recorded hydroxyzine HCl 10 mg tablet 10 mg PO BID PRN #20 tab 06/16/20 nabumetone 750 mg tablet 750 mg PO DAILY PRN #30 tab 10/05/20 secukinumab 150 mg/mL subcutaneous 300 mg (2 mL) SUBCUT Q4W #2 ml 04/01/21 syringe (Cosentyx 300 mg/2 Syringes () azithromycin 250 mg tablet See Rx Instructions .ROUTE 06/15/21 .COMPLEX #6 tab prednisone 20 mg tablet 20 mg PO DAILY 12 Days #26 tab 06/15/21 Allergies Allergy/AdvReac Type Severity Reaction Status Date / Time dog dander [DOG] Allergy Unknown HIVES Verified 05/27/21 10:39 pollen extracts AdvReac Severe Hives Verified 05/27/21 10:39 tree and shrub pollen AdvReac Intermediate Itchy Eyes Verified 05/27/21 10:39 ENVIRONMENTAL Allergy Unknown HIVES Uncoded 05/27/21 10:39 Review of Systems Constitutional: Constitutional: Reports no additional constitutional complaints, Denies chills, Denies fever(s) and Denies night sweats Eyes: Eyes: Reports no additional eye complaints, Denies blurry vision, Denies change in vision, Denies diplopia, Denies eye discharge, Denies loss of vision and Denies eye pain ENT: Denies dizziness Cardiovascular: Cardiovascular: Reports no additional cardiovascular complaints, Denies chest pain, Denies lightheadedness, Denies Loss of Consciousness and Denies dyspnea Respiratory: Respiratory: Reports no additional respiratory complaints, Reports cough and Denies dyspnea Gastrointestinal: Gastrointestinal: Reports no additional gastrointestinal complaints, Denies abdominal pain, Denies melena, Denies hematochezia, Denies change in bowel habits and Denies change in stool character Genitourinary: Genitourinary: Denies hematuria, Denies urinary frequency, Denies dysuria, Denies urinary incontinence, Denies urinary hesitancy and Denies urinary urgency Musculoskeletal: Musculoskeletal: Reports no additional musculoskeletal complaints, Denies numbness and Denies tingling Neurologic: Denies dizziness, Denies loss of vision, Denies numbness and Denies tingling Psychiatric: Psychiatric: Reports no additional psychiatric complaints Endocrine: Endocrine: Reports no additional endocrine complaints Hematologic/Lymphatic: Hematologic/Lymphatic: Reports no additional hematologic/lymphatic complaints Allergic/Immunologic: Allergic/Immunologic: Reports no additional allergic/immunologic complaints [facility] Past Medical History Attestation statement: The following information was validated with the patient. Source: old records reviewed Medical History Arthritis Chronic pain syndrome Disc degeneration, lumbar Fibromyalgia Osteoarthritis of left shoulder Postlaminectomy syndrome of lumbosacral region Radiculopathy, lumbar region Surgical History History of back surgery Hx of straightening of nasal septum Family History Family History Mother No problems noted. Mother Advanced cirrhosis of liver Diabetes Low blood pressure Colon polyps Father Aneurysm Sister No problems noted. Sister No problems noted. Brother No problems noted. Son No problems noted. Son No problems noted. Daughter No problems noted. 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 Physical Exam Vital Signs: Vital Signs: Last Vital Signs Temp 96.9 F 06/15/21 10:31 Pulse 74 06/15/21 10:31 Resp 18 06/15/21 10:31 BP 132/80 06/15/21 10:31 Pulse Ox 97 06/15/21 10:31 BMI result Body Mass Index 31.8 Const: General: cooperative, no acute distress, alert and awake Nutritional Appearance: well nourished Orientation/consciousness: patient oriented x3 Limitations: no limitations HEENT: Head: Yes normal to inspection and Yes atraumatic Ears: hearing grossly normal bilaterally and external ears normal General nose exam: Normal external nose present, no nasal discharge noted and no epistaxis Face and sinus: Yes normal facial exam, No abrasion and No laceration Mouth: Normal oral and palatal mucosa present, no drooling and no muffled voice Eyes: General: appearance normal, both eyes and all related structures Periorbital: periorbital findings normal Eyelids: Yes eyelids normal Conjunctivae: conjunctivae normal Pupils: Equal, round and reactive pupils present EOM: EOMs intact bilaterally Neck: Neck: Yes normal visual inspection, Yes full ROM and Yes no lymphadenopathy Chest: Chest palpation & inspection: normal inspection of the chest Resp: Effort & Inspection: normal respiratory effort and able to speak in complete sentences Auscultation: clear to auscultation bilaterally Cardio: Rate: regular rate Rhythm: regular rhythm GI: Inspection: Yes normal to inspection Neuro: General: patient oriented x3 and moves all extremities Cranial nerves: Yes Equal, round and reactive pupils present Cognition (Neuro): normal cognition Motor exam (neuro): 5/5 motor strength present throughout Sensory Exam: Normal double simultaneous stimulation for sensation Coordination: [id number] test normal Extrem: General: Yes normal to inspection, Yes full ROM and Yes capillary refill normal Psych: Appearance: grossly normal Mental Status: mental status grossly normal Affect: normal affect Attitude: cooperative Thought process: Normal thought process present Thought content: Normal thought content present Insight: Good insight present (Psych) MDM - URI/Sore Throat MDM Narrative Medical decision making narrative: Patient is a 50 year old female presenting to the emergency department today with a cough. Patient's physical exam was unremarkable. Patient's rapid COVID-19 and influenza swabs were negative. I explained my physical exam findings as well as all test results to the patient. I answered all questions asked by the patient. I stressed the importance of the patient taking her medication as prescribed. I stressed the importance of the patient following up with her primary care provider. I stressed the importance of the patient returning to the emergency department immediately if her symptoms were to worsen or if she were to develop any dizziness, shortness of breath, difficulty breathing, chest pain, blurry vision, loss of vision, nausea, vomiting, abdominal pain, fever, chills, back pain, or any other complaints. Patient verbalized agreement and understanding with this treatment plan and discharge. Differential Diagnosis Differential diagnosis: Likely upper respiratory infection and bronchitis Medical Records Attestation: I reviewed the patient's medical records. Lab Data Attestation: I reviewed the patient's lab results. Labs: Lab Results 06/15/21 06/15/21 Range/Units 10:58 10:58 COVID-19 (LINDA) Negative (Negative) COVID-19 Clin Com See Note Influenza Type A (ANUP) Negative (Negative) Influenza Type B (ANUP) Negative (Negative) Influenza A & B Note See Note Discharge Plan Discharge Clinical Impression: Bronchitis Patient Disposition: Home, Self-Care Instructions: Acute Bronchitis (ED) Additional Instructions: Follow up with your primary care provider. Return to the emergency department immediately if your symptoms worsen or if you develop any dizziness, shortness of breath, difficulty breathing, chest pain, blurry vision, loss of vision, nausea, vomiting, abdominal pain, fever, chills, back pain, or any other complaints. Prescriptions: New azithromycin 250 mg tablet See Rx Instructions .ROUTE .COMPLEX Qty: 6 0RF Rx Instructions: For 250 mg dose pack: take 500 mg today (day 1), then 250 mg for 4 days (days 2-5) prednisone 20 mg tablet 20 mg PO DAILY 12 Days Qty: 26 0RF Rx Instructions: Take 3 tablets for 5 days THEN; Take 2 tablets for 4 days THEN; Take 1 tablet for 3 days No Action nabumetone 750 mg tablet 750 mg PO DAILY PRN (Reason: for pain) Qty: 30 3RF Cosentyx (2 Syringes) 150 mg/mL syringe 300 mg subcut Q4W Qty: 2 3RF hydroxyzine HCl 10 mg tablet 10 mg PO BID PRN (Reason: itching) Qty: 20 0RF pregabalin [Lyrica] 50 mg capsule 50 mg PO TID 0RF zolpidem 5 mg tablet 5 mg PO BEDTIME PRN0RF montelukast [Singulair] 10 mg tablet 10 mg PO DAILY 0RF clonazepam 0.5 mg tablet 0.5 mg PO BID PRN0RF duloxetine [Cymbalta] 60 mg capsule,delayed release(DR/EC) 60 mg PO BID 0RF fluticasone propionate [Flonase Allergy Relief] 50 mcg/actuation spray,suspension 1 spray intranasal DAILY 0RF Rx Instructions: administer into each nostril acetaminophen [Tylenol Extra Strength] 500 mg tablet 1,000 mg PO Q6H PRN0RF fexofenadine [Yamile Allergy] 60 mg tablet 60 mg PO DAILY 0RF cholecalciferol (vitamin D3) 125 mcg (5,000 unit) capsule 125 mcg PO DAILY 0RF tizanidine 2 mg tablet 2 mg PO Q6-8H PRN0RF Referrals: Physician,Unknown J [Primary Care Provider] - (Follow up with your PCP. ) Print Language: Comoran
[2021-06-15 11:37] LABS: COVID-19 Test Negative (Negative); IDNOW Serial# 55D5AD1C; Influenza A Negative (Negative); Influenza B2 Negative (Negative)
== END 2021-06-15 11:49 | disposition home or self-care (01) ==
PROVIDERS: Physician Assistant Medical; Emergency Provider Emergency Medicine
DX: J40 Bronchitis, not specified as acute or chronic (principal); Z20.822 Contact with and (suspected) exposure to COVID-19; J02.9 Acute pharyngitis, unspecified
CPT/HCPCS: 87502; 87635; 99283

== ENCOUNTER 2021-06-18 06:14 | Outpatient (REF) | payer MEDICAID, SELFPAY | END 2021-06-18 06:15 | disposition home or self-care (01) | LOC: HO.RADIR 06:14 | PROVIDERS: Visit Provider Anesthesiology | DX: Z13.89 Encounter for screening for other disorder (principal) ==

== ENCOUNTER 2021-07-23 08:56 | Outpatient (REF) | payer MEDICAID, SELFPAY ==
--- NOTE | ~2021-07-23 | XR_ITS ---
EXAMINATION: XR WRIST, LEFT CLINICAL INFORMATION: Pain COMPARISON: Previous x-ray of the left hand May 2020 TECHNIQUE: PA, lateral, and oblique views of the left wrist. FINDINGS: Bone alignment is normal. No fracture or dislocation is seen. Joint spaces are normal. Soft tissues are normal. XR/XR wrist LT min 3V IMPRESSION: Normal left wrist.
== END 2021-07-23 08:57 | disposition home or self-care (01) ==
LOC: HO.HOSX 08:56
PROVIDERS: Visit Provider Orthopaedic Surgery
DX: G56.02 Carpal tunnel syndrome, left upper limb (principal)
CPT/HCPCS: 73110; 99212

== ENCOUNTER → 2021-07-25 12:25 | Outpatient (BNVA) | payer MEDICAID, SELFPAY | PROVIDERS: PCP Internal Medicine; Visit Provider Nurse Practitioner Family | DX: L40.50 Arthropathic psoriasis, unspecified (principal); M51.36 Other intervertebral disc degeneration, lumbar region; R79.89 Other specified abnormal findings of blood chemistry | CPT/HCPCS: 99212 ==

== ENCOUNTER 2021-08-12 14:53 | Outpatient (REF) | payer MEDICAID, SELFPAY ==
[2021-08-12 15:12] LABS: MANUAL DIFF FLAG NO
[2021-08-12 16:10] LABS: Basophils Percent Auto 0.7 % (0-2); Eosinophils Absolute Auto 0.1 X10*3/uL (0.0-0.4); Eosinophils Percent Auto 1.7 % (0-4); Hematocrit 40.1 % (37.0-47.0); Hemoglobin 13.4 g/dl (12.0-16.0); Imm Gran Abs Auto 0.01 X10*3/uL (0.00-0.03); Imm Gran Pct Auto 0.2 % (0.0-0.4); Lymphocytes Percent Auto 36.2 % (20-40); Mean Corpuscular HGB Conc 33.4 g/dl (31.0-35.0); Mean Corpuscular Hemoglobin 29.4 pg (27.0-33.0); Mean Corpuscular Volume 87.9 fL (80.0-98.0); Mean Platelet Volume 9.6 fL (9.4-12.3); Monocytes Absolute Auto 0.4 X10*3/uL (0.1-1.2); Monocytes Percent Auto 7.8 % (2-11); Neutrophils Absolute Auto 2.9 x10*3/uL (2.0-8.3); Neutrophils Percent Auto 53.4 % (45-73); Platelet Count 271 X10*3/uL (160-400); Red Blood Count 4.56 X10*6/uL (4.20-5.50); Red Cell Distribution Width 12.2 % (11.0-16.0); White Blood Count 5.4 X10*3/uL (4.8-10.8)
[2021-08-12 16:35] LABS: Alanine Aminotransferase 37 U/L (0-31); Albumin Level 3.9 g/dL (3.5-5.0); Alkaline Phosphatase 80 U/L (39-117); Anion Gap 13 (12-20); Aspartate Amino Transferase 45 U/L (5-31); Bilirubin Total 0.6 mg/dL (0.0-1.0); Blood Urea Nitrogen 4 mg/dL (9-16); Calcium 8.5 mg/dL (8.4-10.2); Carbon Dioxide 24 mmol/L (22-29); Chloride 104 mmol/L (96-108); Estimated Glomerular Filt Rate > 60; Glucose Random 157 mg/dL (60-115); Sodium 137 mmol/L (135-145); Total Protein 6.9 g/dL (6.5-8.0)
[2021-08-12 16:59] LABS: Erythrocyte Sedimentation Rate 6 MM/HR (0-20)
== END 2021-08-12 14:54 | disposition home or self-care (01) ==
LOC: HO.LAB 14:53
PROVIDERS: PCP Internal Medicine; Visit Provider Nurse Practitioner Family
DX: L40.50 Arthropathic psoriasis, unspecified (principal)
CPT/HCPCS: 36415; 80053; 85025; 85652; 86140

== ENCOUNTER 2021-09-17 18:08 | Emergency (ER) | payer MEDICAID, SELFPAY ==
--- NOTE | ~2021-09-17 | XR_ITS ---
EXAMINATION: XR CHEST CLINICAL INFORMATION: Chest pain COMPARISON: None TECHNIQUE: 2 views of the chest were obtained. FINDINGS: No significant abnormality is noted involving the heart, lungs, mediastinum, bony thorax or soft tissues. XR/XR chest 2V IMPRESSION: Unremarkable examination.
--- NOTE | 2021-09-17 18:10 | ECG_ITS ---
Test Reason : CHEST PAIN Blood Pressure : / mmHG Vent. Rate : 073 BPM Atrial Rate : 073 BPM P-R Int : 116 ms QRS Dur : 076 ms QT Int : 386 ms P-R-T Axes : -29 -28 -39 degrees QTc Int : 425 ms Normal sinus rhythm Minimal voltage criteria for LVH, may be normal variant ( R in aVL ) Borderline ECG When compared to the previous EKG of No significant changes seen Referred By: Generic ED Physician Electronically Signed By:ZEB HOLT MD
[2021-09-17 18:32] VITALS: BP 126/50; PULSE 77; RESP 28; TEMP 37.1; O2SAT 100; BMI 32.9
[2021-09-17 21:01] LABS: MANUAL DIFF FLAG NO
[2021-09-17 21:03] LABS: Basophils Absolute Auto 0.1 X10*3/uL (0.0-0.2); Basophils Percent Auto 0.8 % (0-2); Eosinophils Absolute Auto 0.2 X10*3/uL (0.0-0.4); Eosinophils Percent Auto 2.1 % (0-4); Hematocrit 39.3 % (37.0-47.0); Hemoglobin 13.3 g/dl (12.0-16.0); Imm Gran Abs Auto 0.02 X10*3/uL (0.00-0.03); Imm Gran Pct Auto 0.3 % (0.0-0.4); Lymphocytes Percent Auto 38.9 % (20-40); Mean Corpuscular HGB Conc 33.8 g/dl (31.0-35.0); Mean Corpuscular Hemoglobin 29.7 pg (27.0-33.0); Mean Corpuscular Volume 87.7 fL (80.0-98.0); Mean Platelet Volume 9.1 fL (9.4-12.3); Monocytes Absolute Auto 0.8 X10*3/uL (0.1-1.2); Monocytes Percent Auto 10.4 % (2-11); Neutrophils Absolute Auto 3.7 x10*3/uL (2.0-8.3); Neutrophils Percent Auto 47.5 % (45-73); Platelet Count 351 X10*3/uL (160-400); Red Blood Count 4.48 X10*6/uL (4.20-5.50); Red Cell Distribution Width 12.2 % (11.0-16.0); White Blood Count 7.8 X10*3/uL (4.8-10.8)
[2021-09-17 21:19] LABS: Alanine Aminotransferase 33 U/L (0-31); Albumin Level 4.1 g/dL (3.5-5.0); Alkaline Phosphatase 85 U/L (39-117); Anion Gap 10 (12-20); Aspartate Amino Transferase 38 U/L (5-31); Bilirubin Total 0.3 mg/dL (0.0-1.0); Blood Urea Nitrogen 9 mg/dL (9-16); Calcium 8.6 mg/dL (8.4-10.2); Carbon Dioxide 28 mmol/L (22-29); Chloride 105 mmol/L (96-108); Creatinine Clr Calc Pharmacy 98.7; Estimated Glomerular Filt Rate > 60; Glucose Random 120 mg/dL (60-115); Potassium 3.7 mmol/L (3.3-5.1); Sodium 139 mmol/L (135-145); Total Protein 6.9 g/dL (6.5-8.0)
[2021-09-17 21:23] LABS: Troponin-I High Sensitivity < 3.5 ng/L (<3.5-17.0)
== END 2021-09-18 01:40 | disposition left against medical advice (07) ==
LOC: HO.ED 09-18 01:34
PROVIDERS: Emergency Provider Emergency Medicine; PCP Internal Medicine
DX: R07.9 Chest pain, unspecified (principal)
CPT/HCPCS: 36415; 71046; 80053; 84484; 85025; 93005; 99283

== ENCOUNTER → 2021-10-30 13:28 | Outpatient (BNVA) | payer MEDICAID, SELFPAY | PROVIDERS: PCP Internal Medicine; Visit Provider Nurse Practitioner Family | DX: L40.50 Arthropathic psoriasis, unspecified (principal); R79.89 Other specified abnormal findings of blood chemistry; M51.36 Other intervertebral disc degeneration, lumbar region; M19.012 Primary osteoarthritis, left shoulder; G56.02 Carpal tunnel syndrome, left upper limb; Z79.899 Other long term (current) drug therapy | CPT/HCPCS: 99212 ==

== ENCOUNTER → 2021-12-12 12:48 | Outpatient (BNVA) | payer MEDICAID, SELFPAY | PROVIDERS: PCP Internal Medicine; Referring Provider Internal Medicine; Visit Provider Internal Medicine Cardiovascular Disease | DX: R07.2 Precordial pain (principal); R00.2 Palpitations | CPT/HCPCS: 99202 ==

== ENCOUNTER → 2022-01-06 09:41 | Outpatient (REF) | payer MEDICAID, SELFPAY ==
--- NOTE | 2022-01-06 09:46 | CA_ITS ---
Transthoracic Echocardiogram Patient (Last, First, Middle): Yumiko Pugh, Gender: Female Date of : 1970 Age: 51 Procedure Date: 01/06/2022 Procedure Type: Transthoracic Echocardiogram Location: OP Height: 160.02 cm Weight: 80.74 kg BSA: 1.84 m2 Heart Rate: bpm BP: 118 / 70 mmHg Tube Backer: MURPHY Referring MD: Mohit Vargas MD Symptoms: R00.2 - Palpitations Study Quality: Fair/contrast ECG Rhythm: Sinus Conclusions: - The left ventricular systolic function is normal. The calculated ejection fraction is 59% by biplane method. - No obvious valvular pathology seen on this study. Findings Procedure Information Contrast agent, definity, is being given per protocol without apparent complications. Left Ventricle Normal left ventricular cavity size. The left ventricular systolic function is normal. The calculated ejection fraction is 59% by biplane method. There is no evidence of regional wall motion abnormalities. Diastolic function is normal for age. There is mild septal asymmetric hypertrophy. Right Ventricle Normal right ventricular cavity size and systolic function. Atria Both atria are normal in size. Aortic Valve There is a normal trileaflet aortic valve. There is no aortic valve stenosis. There is no aortic valve regurgitation. Mitral Valve The mitral valve appears normal. There is no mitral valve regurgitation. There is no mitral valve stenosis. Pulmonic Valve The pulmonic valve is likely normal. Tricuspid Valve Normal tricuspid valve structure. There is trace tricuspid valve regurgitation. There is no evidence of pulmonary hypertension. Great Vessels The aortic annulus, sinuses of valsalva, and asc aorta are normal in size. Venous The inferior vena cava is normal in size and collapses greater than 50% with inspiration. Pericardium/Pleural There is no evidence of pericardial effusion. Prior Study Comparison No significant change compared to prior study dated: 02/24/2013. Recommendations, Care & Conclusions No obvious valvular pathology seen on this study. Measurements 2D Linear Measurements IVSd: 1.15 0.6-0.9/0.6-1.0 cm LVIDd: 4.59 3.9-5.3/4.2-5.9 cm LVIDd Index: 2.49 2.4-3.2/2.2-3.1 cm/m2 LVIDs: 3.04 2.0-3.6 cm LVPWd: 0.94 0.7-1.1 cm LA Diam: 3.60 2.7-3.8/3.0-4.0 cm LAIDs Index: 1.96 1.5-2.3 cm/m2 LV Mass: 209.57 67-162/88-224 g LV Mass Index: 113.90 43-95/49-115 g/m2 LVOT Diam: 2.10 3.0+(-)1.3 cm 2D Systolic Function EF 4C: 56.90 >55% EF 2C: 59.50 >55% EF BiP: 59.00 >55% Mitral Valve MV Pk E: 0.88 MV PK A: 0.78 MV Decel Time: 235.00 E/A: 1.10 E'Lateral: 11.90 E'Medial: 8.92 E/E' Med: 9.90 E/E' Lat: 7.40 PHT: 69.00 MVA PHT: 3.19 Decel Milam: 3.75 Aortic Valve AoV Pk Sotero: 1.23 AoV Mn Sotero: 0.88 AoV VTI: 0.28 AoV Pk Grad: 6.00 Aov Mn Grad: 3.00 FRANNY Cont.VTI: 2.52 LVOT LVOT Pk Sotero: 0.98 LVOT Mn Sotero: 0.64 LVOT VTI: 0.20 LVOT Pk Grad: 4.00 LVOT Mn Grad: 2.00 LVOT Diam: 2.10 LVOT Area: 3.46 Diastolic Function MV Pk E: 0.88 MV Pk A: 0.78 E/A: 1.10 E'Medial: 8.92 E/E' Med: 9.90 E' Laterial: 11.90 E/E' Lat: 7.40 Right Ventricle TAPSE (mm): 26.70 TVS' Sotero: 12.50 Tricuspid Valve TR Pk Sotero: 1.41 TR Pk Grad: 8.00 RA Press: 3.00 RVSP: 11.00 Great Vessels Aorta Sinus of Valsalva: 3.19 2.0-3.[address] [place]: 2.79 1.7-3.4 cm Ao Asc: 3.10 2.1-3.4 cm Updated in Other Vendor System with Status of Final Pedrito Peterson MD electronically signed on 01/07/2022 11:07:05 AM with status of Final
== END ==
LOC: HO.CARD 09:41
PROVIDERS: PCP Internal Medicine; Visit Provider Internal Medicine Cardiovascular Disease
DX: R07.2 Precordial pain (principal); R00.2 Palpitations
CPT/HCPCS: 93306; Q9957

== ENCOUNTER 2022-01-24 12:41 | Outpatient (REF) | payer MEDICAID, SELFPAY ==
--- NOTE | ~2022-01-24 | MM_ITS ---
EXAMINATION: MM SCREENING DIGITAL BREAST TOMOSYNTHESIS, BILATERAL CLINICAL INFORMATION: Screening. Asymptomatic. The lifetime risk of breast cancer based on the Tyrer-Cuzick Model is 7%. COMPARISON: Mammography: 04/14/2018, 09/04/2016, 07/10/2015, 11/29/2014 TECHNIQUE: Digital breast tomosynthesis is performed in both the craniocaudal and mediolateral oblique views along with computer-aided detection (CAD). Synthesized 2D images are generated from the tomosynthesis. FINDINGS: There are scattered areas of fibroglandular density (ACR BI-RADS breast composition Category b). There are no significant masses, abnormal calcifications, or other abnormalities. Parenchymal pattern is similar to prior studies. MM/MM tomosynthesis screening BI IMPRESSION: No mammographic evidence of malignancy. ASSESSMENT: BI-RADS 1: Negative RECOMMENDATION: Routine annual mammography screening. This patient's information was entered into a reminder system with a target due date for their next mammogram.
== END 2022-01-24 12:42 | disposition home or self-care (01) ==
LOC: HO.MAMMO 12:41
PROVIDERS: PCP Internal Medicine; Visit Provider Internal Medicine
DX: Z12.31 Encounter for screening mammogram for malignant neoplasm of breast (principal)
CPT/HCPCS: 77063; 77067

== ENCOUNTER → 2022-04-03 10:00 | Outpatient (BNVA) | payer MEDICAID, SELFPAY | PROVIDERS: Visit Provider Orthopaedic Surgery | DX: M19.012 Primary osteoarthritis, left shoulder (principal) | CPT/HCPCS: 20610; 99212; J1100 ==

== ENCOUNTER → 2022-04-08 10:08 | Outpatient (REF) | payer MEDICAID, SELFPAY ==
--- NOTE | 2022-04-08 10:12 | CA_ITS ---
Acquisition Time: 2022-04-08 10:38:33 Total Exercise Time: 00:06:22 Test Indications: R07.2 - Precordial pain Medications: Protocol: RICARDO Max HR: 146 BPM 85% of Pred: 171 BPM Max BP: 140/070 mmHG Max Work Load: 7.5 METS Exercise stress test with exercise 6 min 22 sec of Ricardo protocol, achieving 85% MPHR, with moderate sob, no chest discomfort, without arrythmia, with normotensive response to exercise, without EKG changes meeting criteria for ischemia. Test reviewed with Dr Armijo Referred By: Mohit Vargas Overread By: EMIL MAGAÑA
== END ==
LOC: HO.CARD 10:08
PROVIDERS: PCP Internal Medicine; Visit Provider Internal Medicine Cardiovascular Disease
DX: R07.2 Precordial pain (principal)
CPT/HCPCS: 93017

== ENCOUNTER → 2022-04-14 09:29 | Outpatient (REF) | payer MEDICAID, SELFPAY ==
[2022-04-14 09:47] LABS: MANUAL DIFF FLAG NO
[2022-04-14 10:22] LABS: Basophils Absolute Auto 0.1 X10*3/uL (0.0-0.2); Basophils Percent Auto 1.1 % (0-2); Eosinophils Absolute Auto 0.2 X10*3/uL (0.0-0.4); Eosinophils Percent Auto 2.4 % (0-4); Hematocrit 43.4 % (37.0-47.0); Hemoglobin 14.5 g/dl (12.0-16.0); Imm Gran Abs Auto 0.01 X10*3/uL (0.00-0.03); Imm Gran Pct Auto 0.2 % (0.0-0.4); Lymphocytes Absolute Auto 2.6 X10*3/uL (1.2-4.9); Lymphocytes Percent Auto 41.2 % (20-40); Mean Corpuscular HGB Conc 33.4 g/dl (31.0-35.0); Mean Corpuscular Hemoglobin 29.2 pg (27.0-33.0); Mean Corpuscular Volume 87.5 fL (80.0-98.0); Mean Platelet Volume 9.5 fL (9.4-12.3); Monocytes Absolute Auto 0.6 X10*3/uL (0.1-1.2); Monocytes Percent Auto 8.8 % (2-11); Neutrophils Absolute Auto 2.9 x10*3/uL (2.0-8.3); Neutrophils Percent Auto 46.3 % (45-73); Platelet Count 306 X10*3/uL (160-400); Red Blood Count 4.96 X10*6/uL (4.20-5.50); Red Cell Distribution Width 12.1 % (11.0-16.0); White Blood Count 6.2 X10*3/uL (4.8-10.8)
[2022-04-14 11:11] LABS: Erythrocyte Sedimentation Rate 5 MM/HR (0-20)
[2022-04-14 11:18] LABS: Alanine Aminotransferase 34 U/L (0-31); Aspartate Amino Transferase 39 U/L (5-31); C Reactive Protein 0.66 mg/dL (< or = 0.50); Estimated Glomerular Filt Rate > 60
--- NOTE | 2022-04-14 14:02 | HM_ITS ---
* Total monitoring dates 04/14/2022 to 04/15/2022- (however, described as 30 day monitor). * Overall monitoring time only 2 days. * Average ventricular rate 73/Min. Range 54 to 120/Min. * Rare supraventricular ectopy. * No sustained arrhythmias. * Patient activity the symptom button 3 times correlating with normal sinus rhythm. MTDD
== END ==
LOC: HO.CARD 09:29
PROVIDERS: Absent Provider Nurse Practitioner Family; PCP Internal Medicine; Visit Provider Internal Medicine Cardiovascular Disease
DX: R00.2 Palpitations (principal); L40.50 Arthropathic psoriasis, unspecified; Z79.899 Other long term (current) drug therapy
CPT/HCPCS: 36415; 82565; 84450; 84460; 85025; 85652; 86140; 93270

== ENCOUNTER → 2022-04-15 13:05 | Outpatient (BNVA) | payer MEDICAID, SELFPAY | PROVIDERS: PCP Internal Medicine; Visit Provider Nurse Practitioner Family | DX: L40.50 Arthropathic psoriasis, unspecified (principal); M51.36 Other intervertebral disc degeneration, lumbar region; M19.012 Primary osteoarthritis, left shoulder; G56.02 Carpal tunnel syndrome, left upper limb; Z79.899 Other long term (current) drug therapy | CPT/HCPCS: 99212 ==

== ENCOUNTER 2022-05-27 06:12 | Outpatient (REF) | payer MEDICAID, SELFPAY | END 2022-05-27 06:13 | disposition home or self-care (01) | LOC: CF 06:12 | PROVIDERS: Visit Provider Anesthesiology | DX: Z13.89 Encounter for screening for other disorder (principal) ==

== ENCOUNTER 2022-06-24 06:05 | Outpatient (REF) | payer MEDICAID, SELFPAY | END 2022-06-24 06:06 | disposition home or self-care (01) | LOC: CF 06:05 | PROVIDERS: Visit Provider Anesthesiology | DX: Z13.89 Encounter for screening for other disorder (principal) | CPT/HCPCS: J3301 ==

== ENCOUNTER → 2022-07-03 09:16 | Outpatient (BNVA) | payer MEDICAID, SELFPAY | PROVIDERS: PCP Internal Medicine; Visit Provider Nurse Practitioner Family | DX: L40.50 Arthropathic psoriasis, unspecified (principal); M79.641 Pain in right hand; M79.642 Pain in left hand; G56.02 Carpal tunnel syndrome, left upper limb; M19.012 Primary osteoarthritis, left shoulder; M51.36 Other intervertebral disc degeneration, lumbar region | CPT/HCPCS: 99212 ==

== ENCOUNTER 2022-07-15 07:32 | Outpatient (REF) | payer MEDICAID, SELFPAY | END 2022-07-15 07:33 | disposition home or self-care (01) | LOC: CF 07:32 | PROVIDERS: Visit Provider Anesthesiology | DX: M19.012 Primary osteoarthritis, left shoulder (principal); Z53.9 Procedure and treatment not carried out, unspecified reason | CPT/HCPCS: J2795; J3301; Q9965 ==

== ENCOUNTER → 2022-08-11 09:57 | Outpatient (BNVA) | payer MEDICAID, SELFPAY | PROVIDERS: PCP Internal Medicine; Visit Provider Internal Medicine Rheumatology | DX: L40.50 Arthropathic psoriasis, unspecified (principal); M96.1 Postlaminectomy syndrome, not elsewhere classified; M19.012 Primary osteoarthritis, left shoulder; M19.041 Primary osteoarthritis, right hand; M19.042 Primary osteoarthritis, left hand; M79.7 Fibromyalgia; G56.02 Carpal tunnel syndrome, left upper limb; Z79.60 Long term (current) use of unspecified immunomodulators and immunosuppressants | CPT/HCPCS: 99212 ==

== ENCOUNTER 2022-08-12 05:56 | Outpatient (REF) | payer MEDICAID, SELFPAY ==
--- NOTE | ~2022-08-12 | FL_ITS ---
EXAMINATION: XR FLUOROSCOPY WITH IMAGES CLINICAL INFORMATION: Primary osteoarthritis, left shoulder. COMPARISON: None available. TECHNIQUE: Fluoroscopy Supervised By: Dr. Carmona. Fluoroscopy Time: 0.2. Cumulative Dose: 0.715 mGy. DAP: 0.0124 Gycm2. Images: 1. FINDINGS: Images demonstrate needle placement and contrast injection of the left shoulder joint. FL/FL guidance in treatment room IMPRESSION: Thoracic findings for left shoulder injection.
== END 2022-08-12 05:57 | disposition home or self-care (01) ==
LOC: CF 05:56
PROVIDERS: Visit Provider Anesthesiology
DX: M19.012 Primary osteoarthritis, left shoulder (principal)
CPT/HCPCS: 20610; J3301

== ENCOUNTER 2022-09-15 13:42 | Outpatient (AMB) | payer MEDICAID, SELFPAY ==
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
[2022-09-15 13:59] VITALS: BP 138/62; PULSE 75; RESP 16; O2SAT 98
== END 2022-09-15 14:15 | disposition home or self-care (01) ==
PROVIDERS: PCP Internal Medicine; Visit Provider Anesthesiology
DX: M96.1 Postlaminectomy syndrome, not elsewhere classified (principal); M51.36 Other intervertebral disc degeneration, lumbar region; M54.16 Radiculopathy, lumbar region; G89.4 Chronic pain syndrome; M46.1 Sacroiliitis, not elsewhere classified; M53.3 Sacrococcygeal disorders, not elsewhere classified; M16.12 Unilateral primary osteoarthritis, left hip
CPT/HCPCS: 99214

== ENCOUNTER → 2022-09-15 13:42 | Outpatient (BNVA) | payer MEDICAID, SELFPAY | PROVIDERS: PCP Internal Medicine; Visit Provider Anesthesiology | DX: M19.012 Primary osteoarthritis, left shoulder (principal); M16.12 Unilateral primary osteoarthritis, left hip; M51.16 Intervertebral disc disorders with radiculopathy, lumbar region; M79.7 Fibromyalgia; M46.1 Sacroiliitis, not elsewhere classified; M53.3 Sacrococcygeal disorders, not elsewhere classified; M96.1 Postlaminectomy syndrome, not elsewhere classified | CPT/HCPCS: 99212 ==

== ENCOUNTER 2022-09-29 12:52 | Outpatient (REF) | payer MEDICAID, SELFPAY ==
--- NOTE | ~2022-09-29 | XR_ITS ---
EXAMINATION: XR WRIST, LEFT CLINICAL INFORMATION: Pain COMPARISON: Wrist radiographs 07/23/2021 TECHNIQUE: PA, lateral, and oblique views of the left wrist. FINDINGS: Suspect a possible nondisplaced fracture of the waist of the scaphoid suboptimally evaluated given lack of dedicated scaphoid views. Joint spaces are maintained. Soft tissues are unremarkable. XR/XR wrist LT min 3V IMPRESSION: Suspect a possible nondisplaced fracture of the waist of the scaphoid suboptimally evaluated. Recommend correlation with point tenderness and dedicated scaphoid views.
== END 2022-09-29 12:53 | disposition home or self-care (01) ==
LOC: HO.HOSX 12:52
PROVIDERS: Visit Provider Orthopaedic Surgery
DX: Z13.89 Encounter for screening for other disorder (principal)

== ENCOUNTER 2022-10-01 10:26 | Outpatient (AMB) | payer MEDICAID, SELFPAY ==
--- NOTE | 2022-10-01 10:40 | MHC.OFFVIS ---
Intake Vital Signs 10/01/22 10:50 Height 5 ft 5 in Weight 180 lb BMI 30.0 Intake Visit Reasons: Ov- left wrist pain Intake Note: Yumiko 51 yr old female presents today for her left CTS and dequervain pain. States numbness has increase and cont's to have pain in wrist. States she uses her comfort cool brace with some relief. Patient would like to discuss treatment vs surgical intervention. Allergies dog dander [DOG] Allergy (Unknown, Verified 10/01/22 10:51) HIVES pollen extracts Adverse Reaction (Severe, Verified 10/01/22 10:51) Hives tree and shrub pollen Adverse Reaction (Intermediate, Verified 10/01/22 10:51) Itchy Eyes ENVIRONMENTAL Allergy (Unknown, Uncoded 10/01/22 10:51) HIVES HPI Ov- left wrist pain HPI Details Yumiko is a 51 year old right hand dominant woman who presents to discuss her left carpal tunnel syndrome. She complains today of numbness in the median nerve distribution of her left hand. Symptoms intermittent and occasional, worse with some activity. At her last visit she was given a Comfort Cool brace for symptoms of de Quervain tenosynovitis. She refused an injection. She is not complaining of pain in the radial aspect of her left wrist today She reports a small lump on the volar radial of her right wrist. She also had a bump on the dorsal aspect of her right ring finger and says this has ruptured and a clear jelly comes out sometimes. She has a hx of Fibromyalgia and chronic pain syndrome, as well as lumbar spine issues. She follows with Pain management for this [facility] Medical History Arthritis Chronic pain syndrome Disc degeneration, lumbar Fibromyalgia Osteoarthritis of left shoulder Postlaminectomy syndrome of lumbosacral region Radiculopathy, lumbar region Surgical History History of back surgery Hx of straightening of nasal septum Family History Mother No problems noted. Mother Advanced cirrhosis of liver Diabetes Low blood pressure Colon polyps Father Aneurysm Sister No problems noted. Sister No problems noted. Brother No problems noted. Son No problems noted. Son No problems noted. Daughter No problems noted. 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 Review of Systems Const All systems reviewed & are unremarkable except as noted in HPI and below Physical Exam Vital Signs: BMI result Body Mass Index 30.0 Const General: no acute distress and alert Orientation/consciousness: patient oriented x3 Neuro General: patient oriented x3 Extrem Other: Evaluation of Left Upper Extremity: The patient is alert, oriented, and in no acute distress Neuro: Median, Ulnar, Radial nerves motor and sensory intact and sensation is normal to the tips of all digits No thenar or intrinsic wasting Good APB muscle belly firing and good finger cross Vascular: Cap refill brisk ROM: She can make a fist and extend all her digits No locking or catching No tenderness over the 1st dorsal compartment Negative Jama test Mass on the dorsal ulnar side of the right ring finger, just distal to DIP joint, measuring ~3mm in diameter. this appears to be a mucous cyst that ruptured several days ago and is healing. Small mass over the left wrist FCR tendon, just proximal to the distal wrist crease, measuring ~2-3mm in diameter. Most likely consistent with a small ganglion, possibly associated with the FCR tendon. Radiographs: 3 views of left wrist reviewed by me today in clinic. No fractures or dislocations. Shows mild early arthritic changes in the radial carpal joint & mild early arthritic changes in the basal joint Nerve Conduction study: Mild left median neuropathy across carpal tunnel. Skylar Valadez MD 05/27/21 Psych Appearance: grossly normal Affect: normal affect Attitude: cooperative Assessment & Plan Assessment & Plan (1) Carpal tunnel syndrome of left wrist: Code(s): G56.02 - Carpal tunnel syndrome, left upper limb (2) Digital mucous cyst of finger of right hand: Code(s): M67.441 - Ganglion, right hand (3) Mass of left wrist: Code(s): R22.32 - Localized swelling, mass and lump, left upper limb (4) De Quervain's tenosynovitis, left: Code(s): M65.4 - Radial styloid tenosynovitis [de Quervain] Plan Assessment & Plan 1. Left Carpal Tunnel syndrome, mild Symptoms intermittent and occasional, perhaps a couple times a week I educated her about this condition I discussed operative and non-operative treatment options No surgical intervention warranted at this time If her symptoms persist or worsen she can follow up to discuss treatment. 2. Right ring finger mucous cyst Measuring ~3mm in diameter, dorsal ulnar side just distal to DIP joint The patient states this ruptures on its own before draining, and is now healing I educated her about this condition I discussed operative and non-operative treatment options If this returns she can follow up to discuss treatment 3. Left De Quervain Tenosynovitis Negative Jama test This appears to have resolved on its own 4. Small left volar wrist mass Over the FCR tendon, just proximal to the distal wrist crease Measuring ~2mm in diameter This may be a small ganglion associated with the FCR tendon. Again it is perhaps 2 mm in diameter. I am recommending conservative management at this time. Scribed for Rosanna Cardona MD by Phillip Doyle, medical laboratory specialist, on 10/01/22 at 11:20 AM, EST. Orders: Orders XR wrist LT min 3V Today M25.532 - Pain in left wrist Coding Level of Care Code Est Pt Level 4 (61649) Diagnoses Carpal tunnel syndrome of left wrist G56.02 Digital mucous cyst of finger of right hand M67.441 Mass of left wrist R22.32 De Quervain's tenosynovitis, left M65.4
== END 2022-10-01 11:42 | disposition home or self-care (01) ==
PROVIDERS: PCP Internal Medicine; Visit Provider Orthopaedic Surgery
DX: G56.02 Carpal tunnel syndrome, left upper limb (principal); M67.441 Ganglion, right hand; R22.32 Localized swelling, mass and lump, left upper limb; M65.4 Radial styloid tenosynovitis [de Quervain]
CPT/HCPCS: 99214

== ENCOUNTER → 2022-10-01 10:26 | Outpatient (BNVA) | payer MEDICAID, SELFPAY | PROVIDERS: PCP Internal Medicine; Visit Provider Orthopaedic Surgery | DX: G56.02 Carpal tunnel syndrome, left upper limb (principal); M67.441 Ganglion, right hand; M65.4 Radial styloid tenosynovitis [de Quervain]; R22.32 Localized swelling, mass and lump, left upper limb | CPT/HCPCS: 73110; 99212 ==

== ENCOUNTER 2022-10-02 14:25 | Outpatient (REF) | payer MEDICAID, SELFPAY ==
[2022-10-02 16:11] LABS: MANUAL DIFF FLAG NO
[2022-10-02 16:22] LABS: Basophils Absolute Auto 0.1 X10*3/uL (0.0-0.2); Basophils Percent Auto 1.5 % (0-2); Eosinophils Absolute Auto 0.1 X10*3/uL (0.0-0.4); Eosinophils Percent Auto 2.3 % (0-4); Hematocrit 43.3 % (37.0-47.0); Hemoglobin 14.6 g/dl (12.0-16.0); Imm Gran Abs Auto 0.02 X10*3/uL (0.00-0.03); Imm Gran Pct Auto 0.3 % (0.0-0.4); Lymphocytes Absolute Auto 2.4 X10*3/uL (1.2-4.9); Lymphocytes Percent Auto 40.1 % (20-40); Mean Corpuscular HGB Conc 33.7 g/dl (31.0-35.0); Mean Corpuscular Hemoglobin 29.4 pg (27.0-33.0); Mean Corpuscular Volume 87.1 fL (80.0-98.0); Monocytes Absolute Auto 0.6 X10*3/uL (0.1-1.2); Monocytes Percent Auto 9.8 % (2-11); Neutrophils Absolute Auto 2.8 x10*3/uL (2.0-8.3); Platelet Count 284 X10*3/uL (160-400); Red Blood Count 4.97 X10*6/uL (4.20-5.50); Red Cell Distribution Width 11.9 % (11.0-16.0)
[2022-10-02 17:21] LABS: Alanine Aminotransferase 41 U/L (0-31); Albumin Level 4.1 g/dL (3.5-5.0); Alkaline Phosphatase 87 U/L (39-117); Anion Gap 18 (12-20); Aspartate Amino Transferase 51 U/L (5-31); Bilirubin Total 0.5 mg/dL (0.0-1.0); Blood Urea Nitrogen 8 mg/dL (9-16); C Reactive Protein 0.91 mg/dL (< or = 0.50); Calcium 9.6 mg/dL (8.4-10.2); Carbon Dioxide 24 mmol/L (22-29); Chloride 102 mmol/L (96-108); Estimated Glomerular Filt Rate > 60; Glucose Random 123 mg/dL (60-115); Potassium 3.8 mmol/L (3.3-5.1); Sodium 140 mmol/L (135-145); Total Protein 7.7 g/dL (6.5-8.0)
[2022-10-02 17:25] LABS: Cholesterol 237 mg/dL; HDL Cholesterol 47 mg/dL; LDL Cholesterol Calculated 164 mg/dl; Triglycerides 134 mg/dL
[2022-10-02 17:28] LABS: Creatinine Urine 181.67 mg/dL; Microalbum/Creatinine Ratio Ur 9.9 ug/mg cr
[2022-10-02 17:50] LABS: Erythrocyte Sedimentation Rate 12 MM/HR (0-20)
== END 2022-10-02 14:26 | disposition home or self-care (01) ==
LOC: HO.HHCL 14:25
PROVIDERS: Nurse Practitioner Family; Visit Provider Registered Nurse
DX: L40.50 Arthropathic psoriasis, unspecified (principal); E11.65 Type 2 diabetes mellitus with hyperglycemia
CPT/HCPCS: 36415; 80053; 80061; 82043; 85025; 85652; 86140

== ENCOUNTER 2022-10-21 06:01 | Outpatient (REF) | payer MEDICAID, SELFPAY ==
--- NOTE | ~2022-10-21 | FL_ITS ---
EXAMINATION: XR FLUOROSCOPY WITH IMAGES CLINICAL INFORMATION: Sacrococcygeal disorders, not elsewhere classified. Left SI injection. COMPARISON: None available. TECHNIQUE: Fluoroscopy Supervised By: Dr. Roc Carmona. Fluoroscopy Time: 0.1 minutes. Cumulative Dose: 5.12 mGy. DAP: 0.0890 mGy-m2. Images: 1. FINDINGS: Image demonstrates needle placement and contrast injection of the left sacroiliac joint. There are postsurgical changes to the visualized spine. FL/FL guidance in treatment room IMPRESSION: Fluoroscopy guidance for pain management procedure.
== END 2022-10-21 06:02 | disposition home or self-care (01) ==
LOC: CF 06:01
PROVIDERS: Visit Provider Anesthesiology
DX: M53.3 Sacrococcygeal disorders, not elsewhere classified (principal); M96.1 Postlaminectomy syndrome, not elsewhere classified; M51.36 Other intervertebral disc degeneration, lumbar region; M54.16 Radiculopathy, lumbar region; M46.1 Sacroiliitis, not elsewhere classified
CPT/HCPCS: 27096; J2795; J3301

== ENCOUNTER 2022-10-21 10:35 | Outpatient (AMB) | payer MEDICAID, SELFPAY ==
[2022-10-21 10:46] VITALS: BP 108/58; PULSE 77; RESP 16; O2SAT 95
--- NOTE | 2022-10-21 10:46 | MHC.OFFVIS ---
Intake Vital Signs 10/21/22 10:46 10/21/22 11:40 Height 5 ft 5 in 5 ft 5 in Weight 180 lb 180 lb BMI 30.0 30.0 BP 108/58 L 114/72 Blood Pressure Location Lt brachial Rt brachial Position Sitting Sitting Respiration 16 16 Pulse 77 71 Pulse Source Pulse Oximeter Pulse Oximeter Pulse Oximetry (%) 95 96 Oxygen Delivery Method Room Air Room Air Comment pre-op post-op Intake Visit Reasons: LEFT SIJ INJECTION Allergies dog dander [DOG] Allergy (Unknown, Verified 10/21/22 10:46) HIVES pollen extracts Adverse Reaction (Severe, Verified 10/21/22 10:46) Hives tree and shrub pollen Adverse Reaction (Intermediate, Verified 10/21/22 10:46) Itchy Eyes ENVIRONMENTAL Allergy (Unknown, Uncoded 10/01/22 10:51) HIVES [facility] Medical History Arthritis Chronic pain syndrome Disc degeneration, lumbar Fibromyalgia Osteoarthritis of left shoulder Postlaminectomy syndrome of lumbosacral region Radiculopathy, lumbar region Surgical History History of back surgery Hx of straightening of nasal septum Family History Mother No problems noted. Mother Advanced cirrhosis of liver Diabetes Low blood pressure Colon polyps Father Aneurysm Sister No problems noted. Sister No problems noted. Brother No problems noted. Son No problems noted. Son No problems noted. Daughter No problems noted. 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 Jacinto August 2021. Code(s): M96.1 - Postlaminectomy syndrome, not elsewhere classified (2) Disc degeneration, lumbar: Code(s): M51.36 - Other intervertebral disc degeneration, lumbar region (3) Radiculopathy, lumbar region: Code(s): M54.16 - Radiculopathy, lumbar region (4) Chronic pain syndrome: Code(s): G89.4 - Chronic pain syndrome (5) Sacroiliitis: Code(s): M46.1 - Sacroiliitis, not elsewhere classified (6) Sacroiliac joint dysfunction of left side: Code(s): M53.3 - Sacrococcygeal disorders, not elsewhere classified Plan: Left therapeutic sacroiliac joint injection. Informed consent was explained thoroughly to the patient. All questions about benefits and risks for the procedure were answered. Patient came to the operating room and was positioned prone on the operating table with the pillow under the pelvis. Time out was performed delineating name and of the patient, allergies and the nature of the procedure. The lower back and buttocks of the patient were prepped with ChloraPrep prepped and draped with sterile utility towels. C-arm was brought over the operating field and sq picture of patient's pelvis was demonstrated on the screen. For the left joint tilting C-arm contralateral to the site of the joint the most posterior portion of the joints was superimposed with anterior silhouette of the joint. Skin was injected in the projection of the joint slightly medial to the location of the joint with 25 gauge 1/2 inch needle using local lidocaine 2% .After that 22 gauge 3 and 1/2 inch needle was driven to the right joint in tunnel vision fashion. When needle entered the joint capsule injection of the contrast was performed demonstrating intra-articular and minimally periarticular spread of the contrast. After that 4 cc. of ropivacaine 0.5% mixed with kenalog 40 mg was injected into the joint. Upon completion of the injections the needle was removed Sterile dressing was applied. (7) Arthritis of left hip: Code(s): M16.12 - Unilateral primary osteoarthritis, left hip Plan This patient is suffering from postlaminectomy syndrome L5-S1 as well as degenerative disc disease of levels above the fusion. Was planning - to perform L3-L4 and L4-5 transforaminal epidural steroid injection on the left. She wanted to discuss the situation in her spine with her spinal surgeon. She went to Dr. Jacinto who performed bilateral CT-guided SI joint injection. Patient reports 3 months of pain relief. I offered her today no sticks sacroiliac joint injection on the left because I see sacroiliac signs only on the left side. She also may suffer from left hip arthritis.. In the past we discussed spinal cord stimulator as well. As of left shoulder injection results are acceptable more than 50% pain improvement. Patient is informed that she can continue to have injections as long they were helping her more than once in 3 months. Orders: Orders FL guidance in treatment room Today M53.3 - Sacrococcygeal disorders, not elsewhere classified Coding Level of Care Code Procedure Only Diagnoses Postlaminectomy syndrome of lumbosacral region M96.1 Disc degeneration, lumbar M51.36 Radiculopathy, lumbar region M54.16 Chronic pain syndrome G89.4 Sacroiliitis M46.1 Sacroiliac joint dysfunction of left side M53.3 Arthritis of left hip M16.12
[2022-10-21 11:40] VITALS: BP 114/72; PULSE 71; RESP 16; O2SAT 96
== END 2022-10-21 11:33 | disposition home or self-care (01) ==
PROVIDERS: PCP Nurse Practitioner Primary Care; Visit Provider Anesthesiology
DX: M46.1 Sacroiliitis, not elsewhere classified (principal); M53.3 Sacrococcygeal disorders, not elsewhere classified
CPT/HCPCS: 27096

== ENCOUNTER 2022-11-17 10:44 | Outpatient (AMB) | payer MEDICAID, SELFPAY ==
[2022-11-17 11:00] VITALS: BP 165/95; PULSE 64; O2SAT 98; BMI 29.0
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
== END 2022-11-17 11:28 | disposition home or self-care (01) ==
PROVIDERS: PCP Nurse Practitioner Primary Care; Visit Provider Anesthesiology
DX: M96.1 Postlaminectomy syndrome, not elsewhere classified (principal); M51.36 Other intervertebral disc degeneration, lumbar region; M54.16 Radiculopathy, lumbar region; G89.4 Chronic pain syndrome; M46.1 Sacroiliitis, not elsewhere classified; M53.3 Sacrococcygeal disorders, not elsewhere classified; M16.12 Unilateral primary osteoarthritis, left hip; M25.512 Pain in left shoulder; M19.012 Primary osteoarthritis, left shoulder
CPT/HCPCS: 99214

== ENCOUNTER → 2022-11-17 10:44 | Outpatient (BNVA) | payer MEDICAID, SELFPAY | PROVIDERS: PCP Nurse Practitioner Primary Care; Visit Provider Anesthesiology | DX: M96.1 Postlaminectomy syndrome, not elsewhere classified (principal); M51.36 Other intervertebral disc degeneration, lumbar region; M54.16 Radiculopathy, lumbar region; G89.4 Chronic pain syndrome; M46.1 Sacroiliitis, not elsewhere classified; M53.3 Sacrococcygeal disorders, not elsewhere classified; M16.12 Unilateral primary osteoarthritis, left hip; M19.012 Primary osteoarthritis, left shoulder | CPT/HCPCS: 99212 ==

== ENCOUNTER 2022-12-02 06:02 | Outpatient (REF) | payer MEDICAID, SELFPAY ==
--- NOTE | ~2022-12-02 | FL_ITS ---
EXAMINATION: XR FLUOROSCOPY WITH IMAGES CLINICAL INFORMATION: Primary osteoarthritis, left shoulder. COMPARISON: None available. TECHNIQUE: Fluoroscopy Supervised By: Dr. Roc Carmona. Fluoroscopy Time: 0.1 minute. Cumulative Dose: 1.54 mGy. DAP: 0.0267 Gycm2. Images: 1. FINDINGS: Images demonstrate needle placement and contrast injection of the left shoulder FL/FL guidance in treatment room IMPRESSION: Fluoroscopy guidance for pain management procedure
== END 2022-12-02 06:03 | disposition home or self-care (01) ==
LOC: CF 06:02
PROVIDERS: Visit Provider Anesthesiology
DX: M19.012 Primary osteoarthritis, left shoulder (principal)
CPT/HCPCS: 20610; J2795; J3301

== ENCOUNTER 2022-12-02 10:13 | Outpatient (AMB) | payer MEDICAID, SELFPAY ==
--- NOTE | 2022-12-02 10:34 | MHC.OFFVIS ---
Intake Vital Signs 12/02/22 10:49 12/02/22 10:50 Height 5 ft 5 in 5 ft 5 in Weight 174 lb 174 lb BMI 29.0 29.0 BP 112/88 120/60 Blood Pressure Location Rt brachial Rt brachial Position Sitting Sitting Respiration 16 16 Pulse 83 71 Pulse Source Pulse Oximeter Pulse Oximeter Pulse Oximetry (%) 97 99 Oxygen Delivery Method Room Air Room Air Comment pre-op post-op Intake Visit Reasons: L SHOULDER STEROID INJ/LOCAL Allergies dog dander [DOG] Allergy (Unknown, Verified 12/02/22 10:50) HIVES pollen extracts Adverse Reaction (Severe, Verified 12/02/22 10:50) Hives tree and shrub pollen Adverse Reaction (Intermediate, Verified 12/02/22 10:50) Itchy Eyes ENVIRONMENTAL Allergy (Unknown, Uncoded 11/17/22 11:01) HIVES [facility] Medical History Arthritis Chronic pain syndrome Disc degeneration, lumbar Fibromyalgia Osteoarthritis of left shoulder Postlaminectomy syndrome of lumbosacral region Radiculopathy, lumbar region Surgical History History of back surgery Hx of straightening of nasal septum Family History Mother No problems noted. Mother Advanced cirrhosis of liver Diabetes Low blood pressure Colon polyps Father Aneurysm Sister No problems noted. Sister No problems noted. Brother No problems noted. Son No problems noted. Son No problems noted. Daughter No problems noted. 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 Informed consent was explained to the patient. All questions were explained and answered. The patient was taken inside of the operating room where she was positioned prone on operating table.. Time-out was performed delineating patient's name and date of , correct site, side, the nature of the procedure, patient's allergy, preoperative antibiotic if needed, need for VT prophylaxis.. All operating room staff was participating in OR time-out procedure. Left shoulder and the left upper back area of the patient was prepped with ChloraPrep and draped with sterile towels. C-arm was brought over the operating field and picture of left glenohumeral joint was delineated on the screen. Projection of the upper medial portion of the humeral head to the skin was chosen as the initial needle insertion point. After that the skin and subcutaneous tissues was anesthetized with 2% lidocaine 2.5 mL. 22 gauge 3.5 in long needle was inserted through the skin and started to advance to the joint space under ianterior posterior views. When needle entered the capsule of the joint small amount of the contrast was injected delineating intra-articular space. After that treatment solution containing 3 ropivacaine 0.5% and 40 mg of Kenalog was injected into the joint. The needle was withdrawn sterile dressing was applied.The patient tolerated procedure well Orders: Orders FL guidance in treatment room Today M19.012 - Primary osteoarthritis, left shoulder Coding Level of Care Code Procedure Only Diagnoses Arthritis of left shoulder region M19.012 Left shoulder pain M25.512
[2022-12-02 10:49] VITALS: BP 112/88; PULSE 83; RESP 16; O2SAT 97; BMI 29.0
[2022-12-02 10:50] VITALS: BP 120/60; PULSE 71; RESP 16; O2SAT 99; BMI 29.0
== END 2022-12-02 10:40 | disposition home or self-care (01) ==
LOC: HO.PMCPRC 10:13
PROVIDERS: PCP Nurse Practitioner Primary Care; Visit Provider Anesthesiology
DX: M19.012 Primary osteoarthritis, left shoulder (principal); M25.512 Pain in left shoulder
CPT/HCPCS: 20610; 77002

== ENCOUNTER 2022-12-23 09:03 | Outpatient (AMB) | payer MEDICAID, SELFPAY ==
[2022-12-23 09:06] VITALS: BP 130/92; PULSE 79; TEMP 36.2; O2SAT 98; BMI 28.8
--- NOTE | 2022-12-23 09:06 | A.OFFVIS_ITS ---
Intake Vital Signs 12/23/22 09:06 Height 5 ft 5 in Weight 172 lb 13.478 oz BMI 28.8 BP 130/92 H Blood Pressure Location Lt brachial Position Sitting Pulse 79 Pulse Source Pulse Oximeter Temp 97.2 F Temp Source Skin Pulse Oximetry (%) 98 Oxygen Delivery Method Room Air Intake Visit Reasons: PSA Intake Note: Patient presents today to follow up on PsA. c/o left sided low back pain, neck pain, left shoulder pain Director [employer] Required: No Accompanied by: Self / Same As Patient Allergies dog dander [DOG] Allergy (Unknown, Verified 12/23/22 09:08) HIVES pollen extracts Adverse Reaction (Severe, Verified 12/23/22 09:08) Hives tree and shrub pollen Adverse Reaction (Intermediate, Verified 12/23/22 09:08) Itchy Eyes ENVIRONMENTAL Allergy (Unknown, Uncoded 12/23/22 09:08) HIVES Medication List - Last Reconciled 12/23/22 by Justus Quijano MD acetaminophen (Tylenol Extra Strength) 1,000 mg PO Q6H PRN cholecalciferol (vitamin D3) 50 mcg PO DAILY clonazepam 0.5 mg PO BID PRN dulaglutide (Trulicity) mg subcut QWEEK duloxetine (Cymbalta) 60 mg PO BID fexofenadine 180 mg PO DAILY fluticasone propionate 50 mcg/actuation (Flonase Allergy Relief) 1 spray intranasal DAILY hydroxyzine HCl 25 - 50 mg PO Q6H PRN lidocaine 5% (Lidoderm) 1 - 2 patches topical DAILY PRN montelukast (Singulair) 10 mg PO DAILY naproxen 500 mg PO BID pregabalin (Lyrica) 50 mg PO BID secukinumab (Cosentyx 300 mg/2 Syringes () 300 mg (2 mL) subcut Q4W HPI HPI Comments History of Present Illness Details The patient returns for evaluation of her psoriatic arthritis, osteoarthritis, and fibromyalgia. She remains on the Cosentyx at 300 mg every 4 weeks, 60 mg daily duloxetine, tizanidine, Lyrica 50 b.i.d. and naproxen 500 mg twice a day. The nabumetone was switched to the naproxen by her primary doctor. She does not recall any recent problems with psoriasis. Her joint pain symptoms seemingly are worse with more active use. These include pain in the lower back and base of the thumbs. She did receive a corticosteroid injection in the back from pain management but found it very painful so does not want to receive any further injections. She says it gave her about 6 weeks of moderate relief. [facility] Medical History (Updated 12/23/22 @ 09:31 by Justus Quijano MD) Chronic pain syndrome Radiculopathy, lumbar region Disc degeneration, lumbar Postlaminectomy syndrome of lumbosacral region Osteoarthritis of left shoulder Fibromyalgia Arthritis Surgical History Hx of straightening of nasal septum History of back surgery Family History Mother No problems noted. Mother Advanced cirrhosis of liver Diabetes Low blood pressure Colon polyps Father Aneurysm Sister No problems noted. Sister No problems noted. Brother No problems noted. Son No problems noted. Son No problems noted. Daughter No problems noted. 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 Negative for appetite change, weight change, fever, chills, malaise Eyes Details: Negative for vision change, dry eyes,headaches and dizziness GI Details: Negative indigestion/heartburn, nausea, abdominal pain, bowel changes, diarrhea, constipation and bloody stool. Skin/Breast Details: Negative for itching, rash, hives, Raynaud's symptoms, sun sensitivity, and skin cancer Endo Details: Negative for polyuria and polydypsia Minh/Lymph Details: Negative for excessive bruising or bleeding. Physical Exam Vital Signs: Last Vital Signs Temp 97.2 F 12/23/22 09:06 Pulse 79 12/23/22 09:06 BP 130/92 H 12/23/22 09:06 Pulse Ox 98 12/23/22 09:06 Oxygen Delivery Method Room Air 12/23/22 09:06 BMI result Body Mass Index 28.8 APPEARANCE: Patient in no acute distress EYES no redness, pupils equal and reactive to light, eyelids normal EXTREMITIES: No edema, no calf tenderness, normal peripheral pulses. Gait normal. SKIN: No inflammatory or neoplastic lesions. Normal color and turgor JOINT EXAM: Cervical Spine:.? Full range of motion without pain; no tenderness. Thoracic Spine:.? No scoliosis.? No tenderness on palpation. Lumbar Spine:.? Alignment normal.? lumbar pain with flexion at 45 degrees with some paraspinal muscle tenderness. Straight leg raising on the left causes some left buttock and thigh pain.. Chest Wall:.? No tenderness, swelling, increased warmth or erythema. Hands: Right: Mild pain with range of motion of the thumb. There is mild tenderness at the base of the thumb with no swelling. There is no triggering, thenar atrophy or sensory loss. There is some slight tenderness across the MCPs without swelling. Left: Mild pain with range of motion of the thumb. There is tenderness along the thumb extensor tendon at the base of the thumb. There is slight tenderness across the MCPs without swelling. There is no other areas of tenderness or swelling. There is no thenar atrophy or sensory loss. Wrists:.? Normal pain-free range of motion without tenderness, swelling, increased warmth or erythema. Elbows:. Normal pain-free range of motion without tenderness, swelling, increased warmth or erythema. Shoulders: Left: Moderate pain with abduction 75 degrees more than 10 degrees of internal or external rotation. There is mild anterior, posterior and subacromial tenderness. There is no axillary or supraclavicular adenopathy. Right:? Full range of motion without pain. No tenderness, weakness, swelling, increased warmth or erythema. Hips:.? Full range of motion without pain. Hip bursa:.? No tenderness. Knees:.?? Normal pain-free range of motion without tenderness, swelling, increased warmth or erythema.? There is no effusion or crepitation Ankles:.? Left: Slight pain with extremes of range of motion with some mild medial and lateral tenderness but no swelling. Right: Normal pain-free range of motion without tenderness, swelling, increased warmth or erythema. Feet:.? Left: Mild tenderness in the instep anteriorly and medially. No apparent soft tissue swelling, redness or warmth. Right: Normal pain-free range of motion without tenderness, swelling, increased warmth or erythema. Tender points: Mild tenderness to digital palpation at the occiput, left t rapezius, both second rib, both knees, greater trochanterl area bilaterally. Results Reviewed Results Reviewed: Laboratory Tests 10/02/22 14:30 WBC 6.0 Hgb 14.6 ESR 12 Creatinine 0.69 AST 51 H ALT 41 H C-Reactive Protein 0.91 H Assessment & Plan Assessment & Plan (1) Osteoarthritis of hands, bilateral: Code(s): M19.041 - Primary osteoarthritis, right hand; M19.042 - Primary osteoarthritis, left hand (2) Long-term use of immunosuppressant medication: Code(s): Z79.60 - assisted (current) use of unspecified immunomodulators and immunosuppressants (3) Postlaminectomy syndrome of lumbosacral region: Comment: Left-sided L4-5 minimally invasive microdiscectomy with Dr. Jacinto August 2021. Code(s): M96.1 - Postlaminectomy syndrome, not elsewhere classified (4) Psoriatic arthritis: Comment: methotrexate 02/2017-04/2017 (hair loss), Humira 05/2017-09/2017 (ineffective), Enbrel 09/2017-10/2018 (failed).Cosentyx 300mg monthly since August 2018 Code(s): L40.50 - Arthropathic psoriasis, unspecified Plan So it does not appear like she has much in the way of active inflammatory arthritis from the psoriatic arthritis. Much of her pain syndrome is due to post-laminectomy osteoarthritis in the lower back. She also has certainly some element of fibromyalgia. She already is receiving pregabalin, naproxen, lidocaine patches and 2 antidepressants so I do not think we have additional medicines right now that would be advisable. Light aerobic activity is encouraged. A follow-up in 5 months or so seems reasonable. Coding Level of Care Code Est Pt Level 3 (48675) Diagnoses Osteoarthritis of hands, bilateral M19.041; M19.042 Long-term use of immunosuppressant medication Z79.60 Postlaminectomy syndrome of lumbosacral region M96.1 Psoriatic arthritis L40.50
== END 2022-12-23 09:46 | disposition home or self-care (01) ==
LOC: HO.RHE 09:04
PROVIDERS: PCP Nurse Practitioner Primary Care; Visit Provider Internal Medicine Rheumatology
DX: M19.041 Primary osteoarthritis, right hand (principal); M19.042 Primary osteoarthritis, left hand; Z79.60 Long term (current) use of unspecified immunomodulators and immunosuppressants; M96.1 Postlaminectomy syndrome, not elsewhere classified; L40.50 Arthropathic psoriasis, unspecified
CPT/HCPCS: 99213

== ENCOUNTER → 2022-12-23 09:03 | Outpatient (BNVA) | payer MEDICAID, SELFPAY | PROVIDERS: PCP Nurse Practitioner Primary Care; Visit Provider Internal Medicine Rheumatology | DX: L40.50 Arthropathic psoriasis, unspecified (principal); M96.1 Postlaminectomy syndrome, not elsewhere classified; M19.042 Primary osteoarthritis, left hand; M19.041 Primary osteoarthritis, right hand; G89.4 Chronic pain syndrome; Z79.60 Long term (current) use of unspecified immunomodulators and immunosuppressants | CPT/HCPCS: 99212 ==

== ENCOUNTER 2023-01-05 10:12 | Outpatient (AMB) | payer MEDICAID, SELFPAY ==
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
[2023-01-05 10:44] VITALS: BP 140/80; PULSE 60; RESP 16; O2SAT 99; BMI 29.0
== END 2023-01-05 10:48 | disposition home or self-care (01) ==
PROVIDERS: PCP Nurse Practitioner Primary Care; Visit Provider Anesthesiology
DX: G89.4 Chronic pain syndrome (principal); M96.1 Postlaminectomy syndrome, not elsewhere classified; M51.36 Other intervertebral disc degeneration, lumbar region; M54.16 Radiculopathy, lumbar region; M46.1 Sacroiliitis, not elsewhere classified; M53.3 Sacrococcygeal disorders, not elsewhere classified; M16.12 Unilateral primary osteoarthritis, left hip; M25.512 Pain in left shoulder; M19.012 Primary osteoarthritis, left shoulder
CPT/HCPCS: 99214

== ENCOUNTER → 2023-01-05 10:12 | Outpatient (BNVA) | payer MEDICAID, SELFPAY | PROVIDERS: PCP Nurse Practitioner Primary Care; Visit Provider Anesthesiology | DX: M96.1 Postlaminectomy syndrome, not elsewhere classified (principal); M51.36 Other intervertebral disc degeneration, lumbar region; M54.16 Radiculopathy, lumbar region; M46.1 Sacroiliitis, not elsewhere classified; M53.3 Sacrococcygeal disorders, not elsewhere classified; M16.12 Unilateral primary osteoarthritis, left hip; M25.512 Pain in left shoulder; M19.012 Primary osteoarthritis, left shoulder; G89.4 Chronic pain syndrome | CPT/HCPCS: 99212 ==

== ENCOUNTER 2023-02-16 11:29 | Outpatient (AMB) | payer MEDICAID, SELFPAY ==
--- NOTE | 2023-02-16 11:31 | A.OFFVIS_ITS ---
Intake Intake Visit Reasons: OV- LT shoulder OA Intake Note: Yumiko is a 52 year old right hand dominant female who presnets today for a follow up of her left shoulder OA. Last injection done 04/03/22. She reports that this injection was not helpful. She did have an injection done with Dr. Carmona but she is unable to repeat this injection until Mar. She explains that she is having severe pain in the left shoulder. She also complaints of left sided shoulder pain, she explains that both shoulders radiate to the neck. Allergies dog dander [DOG] Allergy (Unknown, Verified 01/05/23 10:45) HIVES pollen extracts Adverse Reaction (Severe, Verified 01/05/23 10:45) Hives tree and shrub pollen Adverse Reaction (Intermediate, Verified 01/05/23 10:45) Itchy Eyes ENVIRONMENTAL Allergy (Unknown, Uncoded 12/23/22 09:08) HIVES HPI OV- LT shoulder OA HPI Details Yumiko is a 52 year old Diabetic woman who returns to discuss her left shoulder OA. She was last seen, and injected, on 04/03/22, which she says was not helpful. She was seen by Pain Management for a left GH joint injection on 12/02/22, with good relief according to the note by Dr. Carmona. She says she is unable to have an injection done by Pain Management again until at least next month. She complains of severe pain in her shoulder with daily activity, which she says occasionally radiates into her neck. She says her pain is unbearable and she wants to discuss surgery. She finds limited relief from topical creams such as Biofreeze, and is concerned that her shoulder is becoming more stiff. She says her pain has been present for years, and it hurts constantly . She reports doing heavy lifting in the past and is unsure if this has caused her shoulder pain. She is no longer doing any lifting activities, she says she struggles to lift a bag of potatoes without pain & difficulty. She says she is moving in March. She has a hx of Fibromyalgia and chronic pain syndrome, as well as lumbar spine issues. She follows with Pain management for this. [facility] Medical History (Updated 02/16/23 @ 12:00 by Bobo Orta MD) Osteoarthritis of left shoulder Chronic pain syndrome Radiculopathy, lumbar region Disc degeneration, lumbar Postlaminectomy syndrome of lumbosacral region Fibromyalgia Arthritis Surgical History Hx of straightening of nasal septum History of back surgery Family History Mother No problems noted. Mother Advanced cirrhosis of liver Diabetes Low blood pressure Colon polyps Father Aneurysm Sister No problems noted. Sister No problems noted. Brother No problems noted. Son No problems noted. Son No problems noted. Daughter No problems noted. Social History Alcohol intake: former Year quit: 7 Patient Tobacco Use Status: Former Tobacco user Years Smoked: 10 YEARS e-Cigarette/Vaping Use: Never Used Current occupational status: employed Current occupation: works as [employer] part-time- right handed Review of Systems Const All systems reviewed & are unremarkable except as noted in HPI and below Physical Exam Const General: no acute distress, alert and awake Orientation/consciousness: patient oriented x3 HEENT Head: Yes normocephalic and Yes atraumatic Eyes EOM: EOMs intact bilaterally Resp Effort & Inspection: normal respiratory effort and able to speak in complete sentences Cardio Jugular venous distension: no JVD Skin General skin exam: turgor normal Rashes: no rashes Neuro General: patient oriented x3 Extrem Other: Pain with ER to 30 deg. pain in mid arc of abduction Psych Appearance: grossly normal Affect: normal affect Attitude: cooperative Results Reviewed Results Reviewed: I personally reviewed relevant radiographs. I personally reviewed the MR images. Glenohumeral osteoarthritis./Moderate with severe.. Moderate AC joint arthritis. Assessment & Plan Assessment & Plan (1) Osteoarthritis of left shoulder: Code(s): M19.012 - Primary osteoarthritis, left shoulder Plan: Chronic left shoulder osteoarthritis that has been assisted with injections but they are short-lived and she has been dealing with this for years. She would like to have some permanent relief that would lower to get through her day without pain and would allow her to sleep at night. We had a long discussion regarding treatment options and I recommend left shoulder arthroplasty. I discussed the risks benefits and alternatives including but not limited to the risk of pain, infection, stiffness, need for further surgery as well as potential medical complications such as blood clots, pulmonary embolism and cardiac complications. Plan Scribed for Bobo Orta MD by Phillip Doyle, medical technologist microbiology, on 02/16/23 at 11:50 AM, EST. Coding Level of Care Code Est Pt Level 4 (16799) Diagnoses Osteoarthritis of left shoulder M19.012
== END 2023-02-16 12:31 | disposition home or self-care (01) ==
PROVIDERS: PCP Nurse Practitioner Primary Care; Visit Provider Orthopaedic Surgery
DX: M19.012 Primary osteoarthritis, left shoulder (principal)
CPT/HCPCS: 99214

== ENCOUNTER → 2023-02-16 11:29 | Outpatient (BNVA) | payer MEDICAID, SELFPAY | PROVIDERS: PCP Nurse Practitioner Primary Care; Visit Provider Orthopaedic Surgery | DX: M19.012 Primary osteoarthritis, left shoulder (principal) | CPT/HCPCS: 99212 ==

== ENCOUNTER 2023-04-07 06:09 | Outpatient (REF) | payer MEDICAID, SELFPAY | END 2023-04-07 06:10 | disposition home or self-care (01) | LOC: CF 06:09 | PROVIDERS: Visit Provider Anesthesiology | DX: Z13.89 Encounter for screening for other disorder (principal) ==

== ENCOUNTER 2023-04-14 09:39 | Outpatient (REF) | payer MEDICAID, SELFPAY ==
[2023-04-14 11:46] LABS: Estimated Average Glucose 108 mg/dL; Hemoglobin A1c % 5.4 % (<6.0)
[2023-04-14 12:00] LABS: HIV AB/AG Nonreactive (Nonreactive); HIV Num 1 0.06 S/CO (0.00-0.99)
[2023-04-14 12:03] LABS: Alanine Aminotransferase 14 U/L (0-31); Albumin Level 3.9 g/dL (3.5-5.0); Alkaline Phosphatase 81 U/L (39-117); Anion Gap 12 (12-20); Aspartate Amino Transferase 24 U/L (5-31); Bilirubin Total 0.2 mg/dL (0.0-1.0); Blood Urea Nitrogen 8 mg/dL (9-16); Calcium 8.9 mg/dL (8.4-10.2); Carbon Dioxide 24 mmol/L (22-29); Chloride 108 mmol/L (96-108); Cholesterol 210 mg/dL (<200); Estimated Glomerular Filt Rate > 60; Glucose Random 112 mg/dL (60-115); HDL Cholesterol 50 mg/dL (>40); LDL Cholesterol Calculated 132 mg/dL (<100); Potassium 3.9 mmol/L (3.3-5.1); Sodium 140 mmol/L (135-145); Total Protein 6.8 g/dL (6.5-8.0); Triglycerides 142 mg/dL (<150)
[2023-04-14 12:05] LABS: TSH reflex Free T4 1.11 uIU/mL (0.32-4.0)
[2023-04-14 12:14] LABS: Creatinine Urine 149.93 mg/dL; Microalbum/Creatinine Ratio Ur 7.3 ug/mg cr (<30)
== END 2023-04-14 09:40 | disposition home or self-care (01) ==
LOC: HO.HHCL 09:39
PROVIDERS: Referring Provider Orthopaedic Surgery; Visit Provider Registered Nurse
DX: Z01.812 Encounter for preprocedural laboratory examination (principal); Z11.4 Encounter for screening for human immunodeficiency virus [HIV]; E11.65 Type 2 diabetes mellitus with hyperglycemia
CPT/HCPCS: 36415; 80053; 80061; 82043; 82570; 83036; 84443; 87389

== ENCOUNTER 2023-05-01 15:39 | Outpatient (REF) | payer MEDICAID, SELFPAY ==
--- NOTE | ~2023-05-01 | XR_ITS ---
EXAMINATION: XR KNEE, RIGHT CLINICAL INFORMATION: 2 weeks of pain with flexion COMPARISON: None available. TECHNIQUE: Four views of the right knee. FINDINGS: There is mild loss of medial and patellofemoral compartment joint space. No bony erosive changes, loose bodies or joint effusion seen. No visible acute fracture or dislocation seen. XR/XR knee RT 3V IMPRESSION: Mild degenerative changes medial and patellofemoral compartment. No visible acute fracture or dislocation seen.
== END 2023-05-01 15:40 | disposition home or self-care (01) ==
LOC: HO.HHCX 15:39
PROVIDERS: Visit Provider Emergency Medicine
DX: M25.561 Pain in right knee (principal)
CPT/HCPCS: 73562

== ENCOUNTER 2023-05-05 14:16 | Outpatient (AMB) | payer MEDICAID, SELFPAY ==
--- NOTE | 2023-05-05 14:22 | MHC.OFFVIS ---
Intake Vital Signs 05/05/23 14:23 Height 5 ft 5 in Weight 178 lb 2.136 oz BMI 29.6 BP 142/90 H Blood Pressure Location Lt brachial Position Sitting Pulse 64 Pulse Source Monitor Intake Visit Reasons: Preop clearance Architectural Representative Required: No Allergies dog dander [DOG] Allergy (Unknown, Verified 05/05/23 14:24) HIVES pollen extracts Adverse Reaction (Severe, Verified 05/05/23 14:24) Hives tree and shrub pollen Adverse Reaction (Intermediate, Verified 05/05/23 14:24) Itchy Eyes ENVIRONMENTAL Allergy (Unknown, Uncoded 05/05/23 14:24) HIVES Medication List - Last Reconciled 05/05/23 by BEREKET Mensah acetaminophen (Tylenol Extra Strength) 1,000 mg PO Q6H PRN cholecalciferol (vitamin D3) 50 mcg PO DAILY clonazepam 0.5 mg PO BID PRN dulaglutide (Trulicity) mg subcut QWEEK duloxetine (Cymbalta) 60 mg PO BID fexofenadine 180 mg PO DAILY fluticasone propionate 50 mcg/actuation (Flonase Allergy Relief) 1 spray intranasal DAILY hydroxyzine HCl 25 - 50 mg PO Q6H PRN lidocaine 5% (Lidoderm) 1 - 2 patches topical DAILY PRN montelukast (Singulair) 10 mg PO DAILY pregabalin 50 mg PO BID secukinumab (Cosentyx 300 mg/2 Syringes () 300 mg (2 mL) subcut Q4W tizanidine 2 mg PO Q6-8H PRN HPI Preop clearance HPI Details Yumiko is a 52-year-old female with past medical history of obesity, fibromyalgia, left shoulder osteoarthritis who was previously evaluated for chest discomfort without cardiac findings. She now presents for follow-up. Her last cardiology office visit was 12/12/2021. Today she reports that she continues to get a cold sensation in her body with a pain in her left chest region then heart palpitations when she is anxious and upset. She says this symptom has been going on intermittently for the last 30 years, since her child was a baby. She says it is the same symptom that she has always had an it has not changed recently. She knows that it is related to anxiety as she has had other tests in the past as well. She describes herself as active and is currently moving from the 2nd floor up to the 3rd floor apartment. She has been climbing stairs and carrying boxes. She is complaining of significant discomfort in her left shoulder and tells me that she will be needing surgery in the near future. She does not get her chest symptom with stair climbing or other physical activity. She has some shortness of breath with exertion which is not new. No lightheadedness, presyncope, syncope, falls. No PND, orthopnea or edema. Young grandchild is present. [facility] Medical History Osteoarthritis of left shoulder Chronic pain syndrome Radiculopathy, lumbar region Disc degeneration, lumbar Postlaminectomy syndrome of lumbosacral region Fibromyalgia Arthritis Surgical History Hx of straightening of nasal septum History of back surgery Family History Mother No problems noted. Mother Advanced cirrhosis of liver Diabetes Low blood pressure Colon polyps Father Aneurysm Sister No problems noted. Sister No problems noted. Brother No problems noted. Son No problems noted. Son No problems noted. Daughter No problems noted. 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 Review of Systems Const All systems reviewed & are unremarkable except as noted in HPI and below ENT Denies dizziness Card Details: palpitations when anxious Reports chest pain, Denies chest pain at rest, Denies chest pain with activity, Denies rapid heart rate, Denies pedal edema, Denies edema, Denies leg edema, Denies lightheadedness, Denies palpitations, Denies dyspnea, Reports dyspnea on exertion and Denies orthopnea Resp Denies cough, Denies dyspnea and Reports dyspnea on exertion GI Denies hematochezia and Denies change in stool character Musc Denies abnormal gait, Denies limited range of motion, Denies muscle cramps, Denies muscle weakness, Denies numbness, Reports radiating pain into limb (left shoulder pain), Reports stiffness and Denies tingling Neuro Denies abnormal gait, Denies dizziness, Denies numbness and Denies tingling Endo Denies palpitations Physical Exam Vital Signs: Last Vital Signs Pulse 64 05/05/23 14:23 BP 142/90 H 05/05/23 14:23 BMI result Body Mass Index 29.6 Const General: cooperative, healthy appearing, comfortable and no acute distress Orientation/consciousness: patient oriented x3 Neck Neck: Yes normal visual inspection and Yes no JVD Resp Effort & Inspection: normal respiratory effort Auscultation: clear to auscultation bilaterally, no crackles, no rales, no rhonchi and no wheezes Cardio Jugular venous distension: no JVD Rate: regular rate Rhythm: regular rhythm Heart sounds: S1 normal heart sound present, S2 normal heart sound present, no murmurs and no rubs Neuro General: patient oriented x3 Extrem Other: limited ROM left shoulder due to pain General: Yes normal to inspection and No no pedal edema Psych Appearance: grossly normal Mental Status: mental status grossly normal Speech and movement: Normal speech and movement present Office Procedures EKG Details: Today, read by me, normal sinus rhythm, no acute ST or T-wave abnormalities, rate 64, QTC 433 millisecond [id number], Complete Assessment & Plan Assessment & Plan (1) Chest pain: Code(s): R07.9 - Chest pain, unspecified Plan: Atypical sounding chest discomfort as described above. No chest discomfort clearly brought on by exertional activities. She is cardiac risk factors of age and female. Prior cardiac evaluation with echocardiogram 01/06/2022 showed EF 59%, no regional wall motion abnormalities and no valve abnormalities. Exercise stress test done 04/08/2022 with exercise over 6 minutes with moderate shortness of breath and no EKG changes of ischemia. She did have a Holter monitor done 04/14/2022 for 2 days showing sinus rhythm with average heart rate 73, rare SVE. EKG done today showing normal sinus rhythm, no acute ST or T-wave abnormalities, rate 64. Patient has reports of chronic chest discomfort which seems atypical for angina. Her symptom is brought on by stress and anxiety. Cardiac testing reviewed with her in detail. No need for further testing at present time as her symptom is unchanged in the last 30 years according to her. Signs and symptoms of angina reviewed. Emergency care if ever needed for her symptoms. (2) Palpitation: Code(s): R00.2 - Palpitations Plan: Reported heart palpitation along with her symptoms during stress and anxiety. Holter monitor as above. Echocardiogram had shown normal EF. No history presyncope, syncope, falls. Offered reassurance that symptoms are likely related to sinus tachycardia and could be possible extrasystoles as rare SVE seen on Holter monitor. (3) Osteoarthritis of left shoulder: Code(s): M19.012 - Primary osteoarthritis, left shoulder Plan: Report of significant left shoulder discomfort and need for upcoming surgery. (4) Preop cardiovascular exam: Code(s): Z01.810 - Encounter for preprocedural cardiovascular examination Plan: Patient reports having upcoming orthopedic surgery left shoulder with Dr. Orta. No date yet. Patient has no known history of CAD. May proceed with low cardiac risk. Call/consult Cardiology if needed (5) Elevated blood pressure reading: Code(s): R03.0 - Elevated blood-pressure reading, without diagnosis of hypertension Plan: Blood pressure this visit mildly elevated at 140 2/90. Recheck done by me after sitting for greater than 10 minutes was 136/62. She tells me she is on olmesartan for blood pressure control but is unsure of the dose. This is managed by her PCP. No med changes made Plan Time spent on chart review, documentation, interview and assessment Coding Level of Care Code Est Pt Level 4 (21675) Diagnoses Chest pain R07.9 Palpitation R00.2 Osteoarthritis of left shoulder M19.012 Preop cardiovascular exam Z01.810 Elevated blood pressure reading R03.0 CPT Codes EKG - CPT: 30190-[id number], Complete ([id number]) Time Spent (min) 30
[2023-05-05 14:23] VITALS: BP 142/90; PULSE 64; BMI 29.6
== END 2023-05-05 14:57 | disposition home or self-care (01) ==
PROVIDERS: PCP Registered Nurse; Visit Provider Nurse Practitioner Family
DX: R07.9 Chest pain, unspecified (principal); R00.2 Palpitations; M19.012 Primary osteoarthritis, left shoulder; Z01.810 Encounter for preprocedural cardiovascular examination; R03.0 Elevated blood-pressure reading, without diagnosis of hypertension
CPT/HCPCS: 93010; 99214

== ENCOUNTER → 2023-05-05 14:16 | Outpatient (BNVA) | payer MEDICAID, SELFPAY | PROVIDERS: PCP Nurse Practitioner Primary Care; Visit Provider Nurse Practitioner Family | DX: Z01.810 Encounter for preprocedural cardiovascular examination (principal); R07.9 Chest pain, unspecified; R00.2 Palpitations; R03.0 Elevated blood-pressure reading, without diagnosis of hypertension; M19.012 Primary osteoarthritis, left shoulder | CPT/HCPCS: 93005; 99212 ==

== ENCOUNTER 2023-05-12 06:14 | Outpatient (REF) | payer MEDICAID, SELFPAY ==
--- NOTE | ~2023-05-12 | FL_ITS ---
EXAMINATION: XR FLUOROSCOPY WITH IMAGES CLINICAL INFORMATION: Left shoulder pain injection. COMPARISON: Fluoroscopy dated 12/02/2022. TECHNIQUE: Fluoroscopy Supervised By: Dr. Lauren Mccarthy. Fluoroscopy Time: 0.1 minutes. Cumulative Dose: 0.66 mGy. DAP: 0.128 Gycm2. Images: 2. FINDINGS: The 2 submitted images show an injection needle and injected contrast, situated in the vicinity of the left subacromial/subdeltoid bursa. FL/FL guidance in treatment room IMPRESSION: Intraoperative fluoroscopy is provided during left shoulder pain injection. Please see the patient's Operative Report for full procedural details.
== END 2023-05-12 06:15 | disposition home or self-care (01) ==
LOC: CF 06:14
PROVIDERS: Visit Provider Anesthesiology
DX: M19.012 Primary osteoarthritis, left shoulder (principal)
CPT/HCPCS: 20610; J2795; J3301; Q9967

== ENCOUNTER 2023-05-12 10:52 | Outpatient (AMB) | payer MEDICAID, SELFPAY ==
[2023-05-12 11:02] VITALS: BP 120/78; PULSE 78; RESP 16; O2SAT 97; BMI 29.0
--- NOTE | 2023-05-12 11:02 | MHC.OFFVIS ---
Intake Vital Signs 05/12/23 11:02 05/12/23 11:19 Height 5 ft 5 in 5 ft 5 in Weight 174 lb 174 lb BMI 29.0 29.0 BP 120/78 120/72 Blood Pressure Location Lt brachial Lt brachial Position Sitting Sitting Respiration 16 16 Pulse 78 79 Pulse Source Pulse Oximeter Pulse Oximeter Pulse Oximetry (%) 97 98 Oxygen Delivery Method Room Air Room Air Comment Pre-Op Post-Op Intake Visit Reasons: LEFT SHOULDER INJECTION Marketing Data Specialist Required: No Accompanied by: Self / Same As Patient Allergies dog dander [DOG] Allergy (Unknown, Verified 05/12/23 11:04) HIVES pollen extracts Adverse Reaction (Severe, Verified 05/12/23 11:04) Hives tree and shrub pollen Adverse Reaction (Intermediate, Verified 05/12/23 11:04) Itchy Eyes ENVIRONMENTAL Allergy (Unknown, Uncoded 05/05/23 14:24) HIVES [facility] Medical History Osteoarthritis of left shoulder Chronic pain syndrome Radiculopathy, lumbar region Disc degeneration, lumbar Postlaminectomy syndrome of lumbosacral region Fibromyalgia Arthritis Surgical History Hx of straightening of nasal septum History of back surgery Family History Mother No problems noted. Mother Advanced cirrhosis of liver Diabetes Low blood pressure Colon polyps Father Aneurysm Sister No problems noted. Sister No problems noted. Brother No problems noted. Son No problems noted. Son No problems noted. Daughter No problems noted. Social History Alcohol intake: former Year quit: 7 Patient Tobacco Use Status: Former Tobacco user Years Smoked: 10 YEARS e-Cigarette/Vaping Use: Never Used Current occupational status: employed Current occupation: works as [employer] part-time- right handed Physical Exam Vital Signs: Last Vital Signs Pulse 79 05/12/23 11:19 Resp 16 05/12/23 11:19 BP 120/72 05/12/23 11:19 Pulse Ox 98 05/12/23 11:19 Oxygen Delivery Method Room Air 05/12/23 11:19 BMI result Body Mass Index 29.0 Assessment & Plan Assessment & Plan (1) Arthritis of shoulder region, left, degenerative: Code(s): M19.012 - Primary osteoarthritis, left shoulder (2) Left shoulder pain: Code(s): M25.512 - Pain in left shoulder Plan Left shoulder injection therapeutic. ? ?Informed consent was explained to the patient. All questions were explained and? answered.? The patient was taken inside the operating room where she was positioned prone on the operating table. Time-out was performed delineating correct site, side, the nature of the procedure, patient's allergy, . All operating room staff was participating in OR time-out procedure. ? ? The back of the left shoulder was prepped with ChloraPrep and draped with self adhesive utility towels. C-arm was brought over the operating field and the picture of the silhouette of the right glenohumeral joint was demonstrated on the screen.? Projection of the glenohumeral joint silhouette the skin was injected with small amount of lidocaine. After that 22 gauge during 1/2 inch needle was inserted through the skin and advanced to the silhouette of the glenohumeral joint. When loss of resistance felt and the tip of the needle went into the joint injections of the contrast was performed demonstrating intra-articular spread of the contrast. After that 4 cc of ropivacaine mixed with Kenalog 40 mg was injected into the joint. The patient tolerated procedure well. The needle was removed Band-Aid was applied. Orders: Orders FL guidance in treatment room Today M19.012 - Primary osteoarthritis, left shoulder Coding Level of Care Code Procedure Only Diagnoses Arthritis of shoulder region, left, degenerative M19.012 Left shoulder pain M25.512
[2023-05-12 11:19] VITALS: BP 120/72; PULSE 79; RESP 16; O2SAT 98; BMI 29.0
== END 2023-05-12 11:14 | disposition home or self-care (01) ==
LOC: HO.PMCPRC 10:52
PROVIDERS: PCP Registered Nurse; Visit Provider Anesthesiology
DX: M19.012 Primary osteoarthritis, left shoulder (principal); M25.512 Pain in left shoulder
CPT/HCPCS: 20610; 77002

== ENCOUNTER 2023-06-10 12:35 | Outpatient (REF) | payer MEDICAID, SELFPAY ==
--- NOTE | ~2023-06-10 | XR_ITS ---
EXAMINATION: XR KNEE, RIGHT CLINICAL INFORMATION: Primary osteoarthritis of right knee, right knee arthritis. COMPARISON: 05/01/2023. TECHNIQUE: Four views of the right knee. FINDINGS: Moderate joint effusion. Moderate narrowing of the medial compartment. Small medial marginal osteophytes. XR/XR knee RT 3V IMPRESSION: Moderate joint effusion. Moderate degenerative changes.
== END 2023-06-10 12:36 | disposition home or self-care (01) ==
LOC: HO.HHCX 12:35
PROVIDERS: Visit Provider Internal Medicine
DX: M17.11 Unilateral primary osteoarthritis, right knee (principal)
CPT/HCPCS: 73562

== ENCOUNTER 2023-06-15 10:40 | Outpatient (AMB) | payer MEDICAID, SELFPAY ==
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
[2023-06-15 11:07] VITALS: BP 134/90; PULSE 84; RESP 16; O2SAT 98; BMI 28.1
== END 2023-06-15 11:53 | disposition home or self-care (01) ==
PROVIDERS: PCP Registered Nurse; Visit Provider Anesthesiology
DX: M96.1 Postlaminectomy syndrome, not elsewhere classified (principal); M51.36 Other intervertebral disc degeneration, lumbar region; M54.16 Radiculopathy, lumbar region; G89.4 Chronic pain syndrome; M46.1 Sacroiliitis, not elsewhere classified; M53.3 Sacrococcygeal disorders, not elsewhere classified; M16.12 Unilateral primary osteoarthritis, left hip; M25.512 Pain in left shoulder; M19.012 Primary osteoarthritis, left shoulder
CPT/HCPCS: 99213

== ENCOUNTER → 2023-06-15 10:40 | Outpatient (BNVA) | payer MEDICAID, SELFPAY | PROVIDERS: PCP Registered Nurse; Visit Provider Anesthesiology | DX: M96.1 Postlaminectomy syndrome, not elsewhere classified (principal); M51.36 Other intervertebral disc degeneration, lumbar region; M54.16 Radiculopathy, lumbar region; M46.1 Sacroiliitis, not elsewhere classified; M53.3 Sacrococcygeal disorders, not elsewhere classified; M16.12 Unilateral primary osteoarthritis, left hip; M25.512 Pain in left shoulder; M19.012 Primary osteoarthritis, left shoulder; G89.4 Chronic pain syndrome | CPT/HCPCS: 99212 ==

== ENCOUNTER 2023-07-06 10:38 | Outpatient (RCR) | payer MEDICAID, SELFPAY ==
--- NOTE | 2023-07-06 12:03 | MHC.PT.EP ---
[facility] [place] Office [place] Office [place] Office [address] Toan Thomas [address] [phone] F: [phone] F: [phone] F: [phone] F: [phone] Physical Therapy Plan of Care Date of Evaluation: 07/06/23 Date of Surgery: N/A Diagnosis: OA of R knee (RL) Assessment: pt is a 52 y/o female presenting to physical therapy w/ referring diagnosis of OA of R knee. Impairments include pain, decreased range of motion, decreased strength, impaired functional mobility, impaired postural awareness, and altered ambulation mechanics. pt is a good candidate for skilled PT due to age, potential remediation of impairments, typical disease/condition progression and prognosis, comorbidities, and motivation. pt would benefit from skilled PT intervention to provide a tailored strengthening and stretching exercise program, functional training, gait training, postural re-training, neuromuscular re-education, modalities as needed for pain, equipment safety demonstration. Frequency and Duration: The patient will be seen 2x/wk for 6 wks Short Term Goals: pt will be I w/ HEP to promote self-management of condition. pt will improve R knee extension to 0 degrees to normalize gait on even ground. Residential Goals: pt will report a statistically significant improvement in self-reported outcome measure, LEFI, to promote return to PLOF. pt will ascend/descend 12 stairs using railing and reciprocal pattern to access her apartment. Treatment Plan: Modalities to reduce pain, spasms and effusion. Manual therapy to restore motion and function. Therapeutic exercise to improve strength and flexibility. Neuromuscular re-education for posture and balance. Therapeutic activities to return to functional activities of daily living. Electronically signed by: Lizzy Lewis PT, DPT Please sign and return to therapist. Thank you for your referral.
--- NOTE | 2023-07-31 08:37 | MHC.PT.DC ---
[facility] [place] [facility] [place] Office [place] Office [address] Toan Thomas 140 [facility] [phone] F: [phone] F: [phone] F: [phone] F: [phone] Physical Therapy Discharge Report Diagnosis: OA of R knee (RL) Date of Surgery: N/A Date of Evaluation: 07/06/23 Date of Discharge: 07/31/23 Treatments to Date: 1 Cancellations to Date: 2 No Shows to Date: 3 Discharge Status: Visit Non-compliance Discharge Summary: The patient did not attend any scheduled appointments after her initial evaluation. She is discharged for non-compliance. Electronically signed by: Lizzy Lewis PT, DPT Please sign and return to therapist. Thank you for your referral.
== END 2023-07-31 08:37 | disposition home or self-care (01) ==
LOC: HO.PT 10:38
PROVIDERS: PCP Registered Nurse; Visit Provider Internal Medicine
DX: M17.11 Unilateral primary osteoarthritis, right knee (principal)
CPT/HCPCS: 97110; 97162

== ENCOUNTER 2023-07-08 12:54 | Outpatient (AMB) | payer MEDICAID, SELFPAY ==
--- NOTE | 2023-07-08 13:04 | A.OFFVIS_ITS ---
Vital Signs 07/08/23 13:05 Height 5 ft 5 in Weight 169 lb 12.095 oz BMI 28.2 BP 122/68 Blood Pressure Location Rt brachial Position Sitting Pulse 80 Pulse Source Pulse Oximeter Pulse Oximetry (%) 98 Oxygen Delivery Method Room Air Intake Visit Reasons: PSA Intake Note: Pt last seen by Dr Quijano 12/23/22 presents today with complaints of bl shoulder pain worse when relaxed . Doing PT for her knee Photo Technician Required: No Accompanied by: Self / Same As Patient Allergies dog dander [DOG] Allergy (Unknown, Verified 07/08/23 13:07) HIVES pollen extracts Adverse Reaction (Severe, Verified 07/08/23 13:07) Hives tree and shrub pollen Adverse Reaction (Intermediate, Verified 07/08/23 13:07) Itchy Eyes ENVIRONMENTAL Allergy (Unknown, Uncoded 07/08/23 13:07) HIVES Medication List - Last Reconciled 07/08/23 by Kenan Foster MD acetaminophen (Tylenol Extra Strength) 1,000 mg PO Q6H PRN albuterol sulfate 90 mcg/actuation (Ventolin HFA) 2 puffs inhalation Q6H PRN cholecalciferol (vitamin D3) 50 mcg PO DAILY clonazepam 0.5 mg PO BID PRN dulaglutide (Trulicity) mg subcut QWEEK duloxetine (Cymbalta) 60 mg PO BID fexofenadine 180 mg PO DAILY fluticasone propionate 50 mcg/actuation (Flonase Allergy Relief) 1 spray intranasal DAILY hydroxyzine HCl 25 - 50 mg PO Q6H PRN ibuprofen 600 mg PO Q8H PRN lidocaine 5% (Lidoderm) 1 - 2 patches topical DAILY PRN montelukast (Singulair) 10 mg PO DAILY olmesartan 5 mg PO QAM pregabalin 50 mg PO BID secukinumab (Cosentyx 300 mg/2 Syringes () 300 mg (2 mL) subcut Q4W tizanidine 2 mg PO Q6-8H PRN zolpidem 5 mg PO BEDTIME PRN HPI Comments Details: 52-year-old female with psoriasis and psoriatic arthritis who returns for follow-up. Pains on Cosentyx 300 mg every 4 weeks. States that her psoriasis and psoriatic arthritis have been well controlled recently. 05/05 she was walking to her car in the parking lot when suddenly her right knee snapped, she did not fall, there was no injury she did not slip and fall. Since then her right knee has been painful and swollen. She to physical therapy, she went to 1 session so far and is working on quadriceps strengthening exercises. She is limping and sometimes uses a cane to walk. Sometimes she feels that her right knee arabella especially as she is getting up from her bed. She states that she has pain in the anterior aspect of both shoulders, worse on the right. Left shoulder replacement was recommended by Orthopedics but patient could not proceed as she has to take care of her mother who has liver cirrhosis. Most recent history by Dr. Quijano 12/2022: The patient returns for evaluation of her psoriatic arthritis, osteoarthritis, and fibromyalgia. She remains on the Cosentyx at 300 mg every 4 weeks, 60 mg daily duloxetine, tizanidine, Lyrica 50 b.i.d. and naproxen 500 mg twice a day. The nabumetone was switched to the naproxen by her primary doctor. She does not recall any recent problems with psoriasis. Her joint pain symptoms seemingly are worse with more active use. These include pain in the lower back and base of the thumbs. She did receive a corticosteroid injection in the back from pain management but found it very painful so does not want to receive any further injections. She says it gave her about 6 weeks of moderate relief. FORMERLY [facility] Medical History Osteoarthritis of left shoulder Chronic pain syndrome Radiculopathy, lumbar region Disc degeneration, lumbar Postlaminectomy syndrome of lumbosacral region Fibromyalgia Arthritis Surgical History Hx of straightening of nasal septum History of back surgery Family History Mother No problems noted. Mother Advanced cirrhosis of liver Diabetes Low blood pressure Colon polyps Father Aneurysm Sister No problems noted. Sister No problems noted. Brother No problems noted. Son No problems noted. Son No problems noted. Daughter No problems noted. 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 Review of Systems Musc Reports arthralgias, Reports joint swelling, Reports limited range of motion and Reports stiffness Skin/Breast Details: Dry skin Neuro Reports Sensory deficit (Neuro) Physical Exam Vital Signs: Last Vital Signs Pulse 80 07/08/23 13:05 BP 122/68 07/08/23 13:05 Pulse Ox 98 07/08/23 13:05 Oxygen Delivery Method Room Air 07/08/23 13:05 BMI result Body Mass Index 28.2 Const General: cooperative, healthy appearing and comfortable Nutritional Appearance: overweight Orientation/consciousness: patient oriented x3 Limitations: no limitations HEENT Head: Yes normocephalic and Yes atraumatic Mouth: moist mucous membranes Resp Effort & Inspection: normal respiratory effort and able to speak in complete sentences Auscultation: clear to auscultation bilaterally Cardio Rate: regular rate Rhythm: regular rhythm Skin Other: Dry skin patches on extensor aspect of both hands Neuro General: patient oriented x3 Sensory Exam: Sensory deficit (Neuro) Extrem Other: Normal range of motion of both shoulders Positive Speed's test bilaterally Left shoulder muscle weakness with all maneuvers Significant right knee swelling and warmth and pain with any range of motion Equivocal Laurel's madai on the right Assessment & Plan Assessment & Plan (1) Psoriatic arthritis: Comment: methotrexate 02/2017-04/2017 (hair loss), Humira 05/2017-09/2017 (ineffective), Enbrel 09/2017-10/2018 (failed).Cosentyx 300mg monthly since August 2018 Code(s): L40.50 - Arthropathic psoriasis, unspecified Category: Medical Plan: 52-year-old female with psoriasis and psoriatic arthritis returns for follow-up. This is her 1st visit with me. She used to follow-up with Dr. Quijano. On exam I do not see any active psoriasis. Do not see any swollen joints except for the right knee which was recently injured. Continue with Cosentyx 300 mg monthly Labs today. Follow-up in 2 months (2) Osteoarthritis of hands, bilateral: Code(s): M19.041 - Primary osteoarthritis, right hand; M19.042 - Primary osteoarthritis, left hand Category: Medical Qualifiers: Osteoarthritis type: primary Qualified Code(s): M19.041 - Primary osteoarthritis, right hand; M19.042 - Primary osteoarthritis, left hand Plan: Minimal symptoms. Mild morning stiffness and pain (3) Internal derangement of right knee: Code(s): M23.91 - Unspecified internal derangement of right knee Category: Medical Plan: 05/05/2023 patient was walking to her car in the parking lot when suddenly her right knee snapped without any injury or fall. Since then her right knee has been swollen associated with intermittent buckling. Right knee x-ray showed moderate joint effusion as well as osteoarthritis. She started doing PT. On exam patient is limping and has significant swelling. I would like to rule out internal derangement such as a meniscal tear. Right knee MRI ordered Plan I spent 48 minutes reviewing patient's chart, looking at old records, evaluating patient, ordering diagnostic workup, counseling patient and documenting in the chart Orders: Orders Complete Blood Count Auto Diff Today L40.50 - Arthropathic psoriasis, unspecified Comprehensive Met. Panel Today L40.50 - Arthropathic psoriasis, unspecified C Reactive Protein Today L40.50 - Arthropathic psoriasis, unspecified MR knee RT wo con Today M23.91 - Unspecified internal derangement of right knee Erythrocyte Sedimentation Rate Today L40.50 - Arthropathic psoriasis, unspecified Hepatitis A,B,C Profile Today L40.50 - Arthropathic psoriasis, unspecified T Spot TB Today L40.50 - Arthropathic psoriasis, unspecified Coding Level of Care Code Est Pt Level 5 (96610) Diagnoses Psoriatic arthritis L40.50 Primary osteoarthritis of both hands M19.041; M19.042 Osteoarthritis type: primary Internal derangement of right knee M23.91
[2023-07-08 13:05] VITALS: BP 122/68; PULSE 80; O2SAT 98; BMI 28.2
== END 2023-07-08 13:36 | disposition home or self-care (01) ==
PROVIDERS: PCP Registered Nurse; Referring Provider Nurse Practitioner Primary Care; Visit Provider Student in an Organized Health Care Education/Training Program
DX: L40.50 Arthropathic psoriasis, unspecified (principal); M19.041 Primary osteoarthritis, right hand; M19.042 Primary osteoarthritis, left hand; M23.91 Unspecified internal derangement of right knee
CPT/HCPCS: 99215

== ENCOUNTER → 2023-07-08 12:54 | Outpatient (BNVA) | payer MEDICAID, SELFPAY | PROVIDERS: PCP Registered Nurse; Visit Provider Student in an Organized Health Care Education/Training Program | DX: L40.50 Arthropathic psoriasis, unspecified (principal); M19.041 Primary osteoarthritis, right hand; M19.042 Primary osteoarthritis, left hand; M23.91 Unspecified internal derangement of right knee; M25.561 Pain in right knee | CPT/HCPCS: 99212 ==

== ENCOUNTER 2023-08-21 18:33 | Outpatient (REF) | payer MEDICAID, SELFPAY ==
[2023-08-22 03:06] LABS: CT PCR NOT DETECTED (Not Detect.); NG PCR NOT DETECTED (Not Detect.)
[2023-08-22 11:00] LABS: Bacterial Vaginosis PCR POSITIVE (Negative); Candida Group PCR NOT DETECTED (Not Detect); Candida glab krusei PCR NOT DETECTED (Not Detect); Trichomonas vaginalis PCR NOT DETECTED (Not Detect)
[2023-08-26 20:44] LABS: HPV mRNA E6/E7 rflx Not Detected (Not Detected)
== END 2023-08-21 18:34 | disposition home or self-care (01) ==
LOC: HO.HHCLNP 18:33
PROVIDERS: Visit Provider Registered Nurse
DX: Z12.4 Encounter for screening for malignant neoplasm of cervix (principal)
CPT/HCPCS: 0352U; 0353U; 87624; 88142

== ENCOUNTER 2023-08-31 11:48 | Emergency (ER) | payer MEDICAID, SELFPAY ==
[2023-08-31 12:37] VITALS: BP 154/95; PULSE 70; RESP 18; TEMP 36.5; O2SAT 98; BMI 29.6
--- NOTE | 2023-08-31 12:37 | ED.GENADULT ---
HPI - General Adult General Chief complaint: Upper Respiratory Symptoms Stated complaint: Body pain 3 days Time Seen by Provider: 08/31/23 15:19 Source: patient Mode of arrival: ambulatory Limitations: no limitations History of Present Illness HPI narrative: 52-year-old female with a past medical history of fibromyalgia and arthritis presents to the emergency department with complaints of generalized body pain for the past 3 days. She reports she has been having primarily joint pain in her shoulders, wrists, knees, ankles, and feet. She states she has been taking her prescribed Cymbalta and Lyrica in addition to as needed Tylenol with little relief of symptoms. She denies any known sick contacts or recent illnesses, recent travel, or insect bites. She also denies any headache, vision changes, dizziness, lightheadedness, shortness of breath, chest pain, abdominal pain Pertinent positives and negatives discussed in HPI Related Data Home Medications ?Medication ?Instructions ?Recorded ?Confirmed acetaminophen 500 mg tablet 1,000 mg PO Q6H PRN 12/14/19 07/08/23 (Tylenol Extra Strength) clonazepam 0.5 mg tablet 0.5 mg PO BID PRN 12/14/19 07/08/23 duloxetine 60 mg capsule,delayed 60 mg PO BID 12/14/19 07/08/23 release (Cymbalta) fluticasone propionate 50 1 spray intranasal DAILY 12/14/19 07/08/23 mcg/actuation nasal spray,suspension (Flonase Allergy Relief) montelukast 10 mg tablet 10 mg PO DAILY 12/14/19 07/08/23 (Singulair) fexofenadine 180 mg tablet 180 mg PO DAILY 07/23/21 07/08/23 hydroxyzine HCl 25 mg tablet 25 - 50 mg PO Q6H PRN anxiety 04/15/22 07/08/23 lidocaine 5 % topical patch 1 - 2 patch topical DAILY PRN pain 04/15/22 07/08/23 (Lidoderm) cholecalciferol (vitamin D3) 50 50 mcg PO DAILY 12/05/22 07/08/23 mcg (2,000 unit) tablet dulaglutide 1.5 mg/0.5 mL mg subcut QWEEK 12/05/22 07/08/23 subcutaneous pen injector (Trulicity) tizanidine 2 mg tablet 2 mg PO Q6-8H PRN muscle spasm 05/05/23 07/08/23 albuterol sulfate 90 mcg/actuation 2 puff inhalation Q6H PRN wheezing 05/12/23 07/08/23 aerosol inhaler (Ventolin HFA) ibuprofen 600 mg tablet 600 mg PO Q8H PRN fever 05/12/23 07/08/23 olmesartan 5 mg tablet 5 mg PO QAM 05/12/23 07/08/23 zolpidem 5 mg tablet 5 mg PO BEDTIME PRN insomnia 06/15/23 07/08/23 Previous Rx's ?Medication ?Instructions ?Recorded pregabalin 50 mg capsule 50 mg PO BID #60 caps 02/17/23 secukinumab 150 mg/mL subcutaneous 300 mg (2 mL) subcut Q4W #2 mL 03/03/23 syringe (Cosentyx 300 mg/2 Syringes () prednisone 20 mg tablet 20 mg PO DAILY 7 days #7 tabs 08/31/23 Allergies Allergy/AdvReac Type Severity Reaction Status Date / Time dog dander [DOG] Allergy Unknown HIVES Verified 08/31/23 12:39 pollen extracts AdvReac Severe Hives Verified 08/31/23 12:39 tree and shrub pollen AdvReac Intermediate Itchy Eyes Verified 08/31/23 12:39 ENVIRONMENTAL Allergy Unknown HIVES Uncoded 07/08/23 13:07 Review of Systems Review of Systems: Yes all other systems are reviewed and are negative FORMERLY [facility], [facility] Past Medical History Medical History Osteoarthritis of left shoulder Chronic pain syndrome Radiculopathy, lumbar region Disc degeneration, lumbar Postlaminectomy syndrome of lumbosacral region Fibromyalgia Arthritis Surgical History Hx of straightening of nasal septum History of back surgery Family History Family History Mother No problems noted. Mother Advanced cirrhosis of liver Diabetes Low blood pressure Colon polyps Father Aneurysm Sister No problems noted. Sister No problems noted. Brother No problems noted. Son No problems noted. Son No problems noted. Daughter No problems noted. 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 GENERAL APPEARANCE: A&0 x 4, generally well appearing, no acute distress HENMT: Normal to inspection, atraumatic, face symmetrical. Normal external ears, nose, and oropharynx clear. EYE: PERRLA, EOM intact, structures appear normal NECK: Supple without stiffness or restricted ROM. HEART: Normal rate and regular rhythm, normal S1/S2, no M/R/G LUNGS: LS CTA, moving air well. Able to speak in complete sentences. No crackles, wheezes, or rhonchi auscultated BACK: No CVAT, no obvious deformity EXTREMITIES: Moving all extremities without difficulty. Normal capillary refill. NEUROLOGICAL: Alert and oriented, moving all 4 extremities with equal strength. CN not formally tested but appearing grossly intact. Observed to ambulate with normal gait. Cognition normal SKIN: Warm and dry without any lesions, rash, or visible sores Course Course Course Narrative: This is a Rapid Medical Exam performed in triage by Donna Roldan PA-C. Full HPI, ROS and PE to be performed by primary ED provider. 52 year-old F w/ PMHx psoriatic arthritis, fibromyalgias presenting to the ED c/o diffuse body pain, chills & sore throat. denies sick contacts PE: oropharynx wnl, congested Plan: viral testing, rapid strep Medications Administered Discontinued Medications Generic Name Dose Route Start Last Admin Trade Name Freq PRN Reason Stop Dose Admin Acetaminophen 975 mg 08/31/23 16:16 08/31/23 16:22 Acetaminophen 325 Mg Tablet PO 08/31/23 16:17 975 mg ONCE ONE Administration Prednisone 40 mg 08/31/23 16:25 08/31/23 16:28 Prednisone 20 Mg Tablet PO 08/31/23 16:26 40 mg ONCE ONE Administration Medical Decision Making Medical Decision Making [facility] Narrative: Old records reviewed for previous imaging, lab studies, ECGs, and notes. Patient was assessed the emergency department with no acute distress or toxicity noted. Serology negative COVID, flu, and RSV, and strep and patient's symptoms are consistent with an acute viral syndrome with associated arthralgias. Low-dose prednisone sent to patient's preferred pharmacy for further management of pain and patient educated to follow-up with her PCP in addition to any specialists. Patient is safe for discharge at this time with plan for [id number] Tylenol and/or NSAID such as ibuprofen or naproxen for fever/discomfort with dosing as per packaging. HPI, PE, diagnostics, and plan discussed with patient and family with no unanswered questions at this time. Strict return precautions given to return to the emergency department with new, worsening, or concerning emergent symptoms. Recommended to follow-up with there primary care provider in 24-48 hours for further treatment and management. Differential Diagnosis Differential Diagnoses: The differential diagnosis associated with the presentation includes But not limited to viral syndrome, pneumonia, peritonsillar abscess, tonsillitis, pharyngitis, myositis, Lyme disease, insect borne illness, arthritis, sepsis, malignancy Lab Data [facility] Lab Attestation statement: I reviewed the patient's lab results. Labs: Lab Results 08/31/23 Range/Units 15:36 COVID-19 (LINDA) Negative (Negative) COVID-19 Clin Com See Note Influenza Type A (ANUP) Negative (Negative) Influenza Type B (ANUP) Negative (Negative) Influenza A & B Note See Note S. pyogenes GrpA ANUP Negative (Negative) External Record Review External record reviewed: Prior outpatient labs Prescription Management I considered prescription management with: Pain Medication Narcotic pain medication was considered, however; based on exam, side effects, and high-risk of addiction was deemed necessary at this time. Discharge Plan Discharge Clinical Impression: Acute viral syndrome, Arthralgia Patient Disposition: Home, Self-Care Instructions: Viral Syndrome (ED), Arthralgia (ED), Warm Compress or Soak (ED) Prescriptions: New prednisone 20 mg tablet 20 mg PO DAILY 7 Days Qty: 7 0RF No Action pregabalin 50 mg capsule 50 mg PO BID Qty: 60 2RF Cosentyx (2 Syringes) 150 mg/mL syringe 300 mg subcut Q4W Qty: 2 5RF montelukast [Singulair] 10 mg tablet 10 mg PO DAILY clonazepam 0.5 mg tablet 0.5 mg PO BID PRN duloxetine [Cymbalta] 60 mg capsule,delayed release(DR/EC) 60 mg PO BID fluticasone propionate [Flonase Allergy Relief] 50 mcg/actuation spray,suspension 1 spray intranasal DAILY Rx Instructions: administer into each nostril acetaminophen [Tylenol Extra Strength] 500 mg tablet 1,000 mg PO Q6H PRN fexofenadine 180 mg tablet 180 mg PO DAILY lidocaine [Lidoderm] 5 % adhesive patch,medicated 1 - 2 patch topical DAILY PRN (Reason: pain) hydroxyzine HCl 25 mg tablet 25 - 50 mg PO Q6H PRN (Reason: anxiety) Trulicity 1.5 mg/0.5 mL pen injector subcut QWEEK cholecalciferol (vitamin D3) 50 mcg (2,000 unit) tablet 50 mcg PO DAILY ibuprofen 600 mg tablet 600 mg PO Q8H PRN (Reason: fever) olmesartan 5 mg tablet 5 mg PO QAM albuterol sulfate [Ventolin HFA] 90 mcg/actuation HFA aerosol inhaler 2 puff inhalation Q6H PRN (Reason: wheezing) tizanidine 2 mg tablet 2 mg PO Q6-8H PRN (Reason: muscle spasm) zolpidem 5 mg tablet 5 mg PO BEDTIME PRN (Reason: insomnia) Interventions: ED Discharge Assessment Last Done: 08/31/23 16:31 Discharge Date/Time: 08/31/23 16:38 Print Language: Chinese
[2023-08-31 15:28] VITALS: BP 148/88; PULSE 72; RESP 18; TEMP 36.8; O2SAT 98
[2023-08-31 15:53] LABS: IDNOW Serial# 08D9AD1C; Strep A Nucleic Acid Negative (Negative)
[2023-08-31 16:12] LABS: COVID-19 Test Negative (Negative); IDNOW Serial# 152EDE1D; IDNOW Serial# 9DB6401D; Influenza A Negative (Negative); Influenza B2 Negative (Negative)
[2023-08-31] MEDS: Acetaminophen 325 MG TABLET 975 MG PO (16:22)
[2023-08-31] MEDS: predniSONE 20 MG TABLET 40 MG PO (16:28)
[2023-08-31 16:31] VITALS: BP 148/88; PULSE 72; RESP 18; TEMP 36.8; O2SAT 98
== END 2023-08-31 16:38 | disposition home or self-care (01) ==
PROVIDERS: Physician Assistant; Emergency Provider Emergency Medicine; PCP Registered Nurse
DX: B34.9 Viral infection, unspecified (principal); M79.10 Myalgia, unspecified site; Z11.52 Encounter for screening for COVID-19; Z79.899 Other long term (current) drug therapy
CPT/HCPCS: 87502; 87635; 87651; 99283; 99284

== ENCOUNTER 2023-09-07 10:46 | Outpatient (REF) | payer MEDICAID, SELFPAY ==
--- NOTE | ~2023-09-07 | XR_ITS ---
EXAMINATION: XR BILATERAL WRISTS/HANDS XR BILATERAL ANKLES/FEET CLINICAL INFORMATION: Bilateral hand/wrist and ankle/foot pain. Patient states she is dealing with osteoarthritis, especially in her hands and wrists. COMPARISON: Left wrist 10/01/2022 and 07/23/2021. Bilateral hands 05/07/2020. Bilateral ankles 05/07/2020. TECHNIQUE: 4 views of each hand. 2 views of each ankle. 3 views of each foot. RIGHT ANKLE: Bone mineralization is normal. Ankle mortise is maintained. Mild soft tissue swelling at the ankle. No displaced fracture appreciated. LEFT ANKLE: Bone mineralization is normal. Ankle mortise is maintained. Mild soft tissue swelling at the ankle. No displaced fracture appreciated. RIGHT FOOT: Bone mineralization is normal. Moderate degenerative changes with joint space narrowing and hypertrophic change in the first metatarsophalangeal joint. LEFT FOOT: Bone mineralization is normal. Moderate degenerative changes with joint space narrowing and hypertrophic change in the first metatarsophalangeal joint. Concavity along the lateral aspect of the left third metatarsal head is suggestive of ulceration. RIGHT HAND: Moderate degenerative changes in the first carpometacarpal joint with joint space narrowing and hypertrophic change. Advanced degenerative changes in the DIP joints with joint space narrowing and hypertrophic change. Amorphous calcifications with focal soft tissue swelling adjacent to the second digit DIP joint. Amorphous calcifications adjacent to the second metacarpophalangeal joint. LEFT HAND: Moderate degenerative changes in the first carpometacarpal joint with joint space narrowing and hypertrophic change. Mild degenerative changes with loss of joint spaces in the DIP joints. Amorphous calcifications adjacent to the DIP joint of the third digit. XR/XR ankle LT min 3V IMPRESSION: 1. Moderate degenerative changes bilateral first metatarsophalangeal joints. 2. Moderate degenerative changes bilateral first carpometacarpal joints. 3. Amorphous calcifications adjacent to the DIP joints of the second digit right hand and third digit left hand. 4. Amorphous calcifications adjacent to the second metacarpophalangeal joint of the right hand. 5. Concavity along the lateral aspect of the left third metatarsal head is suggestive of ulceration.
--- NOTE | ~2023-09-07 | XR_ITS ---
EXAMINATION: XR BILATERAL WRISTS/HANDS XR BILATERAL ANKLES/FEET CLINICAL INFORMATION: Bilateral hand/wrist and ankle/foot pain. Patient states she is dealing with osteoarthritis, especially in her hands and wrists. COMPARISON: Left wrist 10/01/2022 and 07/23/2021. Bilateral hands 05/07/2020. Bilateral ankles 05/07/2020. TECHNIQUE: 4 views of each hand. 2 views of each ankle. 3 views of each foot. RIGHT ANKLE: Bone mineralization is normal. Ankle mortise is maintained. Mild soft tissue swelling at the ankle. No displaced fracture appreciated. LEFT ANKLE: Bone mineralization is normal. Ankle mortise is maintained. Mild soft tissue swelling at the ankle. No displaced fracture appreciated. RIGHT FOOT: Bone mineralization is normal. Moderate degenerative changes with joint space narrowing and hypertrophic change in the first metatarsophalangeal joint. LEFT FOOT: Bone mineralization is normal. Moderate degenerative changes with joint space narrowing and hypertrophic change in the first metatarsophalangeal joint. Concavity along the lateral aspect of the left third metatarsal head is suggestive of ulceration. RIGHT HAND: Moderate degenerative changes in the first carpometacarpal joint with joint space narrowing and hypertrophic change. Advanced degenerative changes in the DIP joints with joint space narrowing and hypertrophic change. Amorphous calcifications with focal soft tissue swelling adjacent to the second digit DIP joint. Amorphous calcifications adjacent to the second metacarpophalangeal joint. LEFT HAND: Moderate degenerative changes in the first carpometacarpal joint with joint space narrowing and hypertrophic change. Mild degenerative changes with loss of joint spaces in the DIP joints. Amorphous calcifications adjacent to the DIP joint of the third digit. XR/XR hand wrist RT IMPRESSION: 1. Moderate degenerative changes bilateral first metatarsophalangeal joints. 2. Moderate degenerative changes bilateral first carpometacarpal joints. 3. Amorphous calcifications adjacent to the DIP joints of the second digit right hand and third digit left hand. 4. Amorphous calcifications adjacent to the second metacarpophalangeal joint of the right hand. 5. Concavity along the lateral aspect of the left third metatarsal head is suggestive of ulceration.
--- NOTE | ~2023-09-07 | XR_ITS ---
EXAMINATION: XR BILATERAL WRISTS/HANDS XR BILATERAL ANKLES/FEET CLINICAL INFORMATION: Bilateral hand/wrist and ankle/foot pain. Patient states she is dealing with osteoarthritis, especially in her hands and wrists. COMPARISON: Left wrist 10/01/2022 and 07/23/2021. Bilateral hands 05/07/2020. Bilateral ankles 05/07/2020. TECHNIQUE: 4 views of each hand. 2 views of each ankle. 3 views of each foot. RIGHT ANKLE: Bone mineralization is normal. Ankle mortise is maintained. Mild soft tissue swelling at the ankle. No displaced fracture appreciated. LEFT ANKLE: Bone mineralization is normal. Ankle mortise is maintained. Mild soft tissue swelling at the ankle. No displaced fracture appreciated. RIGHT FOOT: Bone mineralization is normal. Moderate degenerative changes with joint space narrowing and hypertrophic change in the first metatarsophalangeal joint. LEFT FOOT: Bone mineralization is normal. Moderate degenerative changes with joint space narrowing and hypertrophic change in the first metatarsophalangeal joint. Concavity along the lateral aspect of the left third metatarsal head is suggestive of ulceration. RIGHT HAND: Moderate degenerative changes in the first carpometacarpal joint with joint space narrowing and hypertrophic change. Advanced degenerative changes in the DIP joints with joint space narrowing and hypertrophic change. Amorphous calcifications with focal soft tissue swelling adjacent to the second digit DIP joint. Amorphous calcifications adjacent to the second metacarpophalangeal joint. LEFT HAND: Moderate degenerative changes in the first carpometacarpal joint with joint space narrowing and hypertrophic change. Mild degenerative changes with loss of joint spaces in the DIP joints. Amorphous calcifications adjacent to the DIP joint of the third digit. XR/XR hand wrist LT IMPRESSION: 1. Moderate degenerative changes bilateral first metatarsophalangeal joints. 2. Moderate degenerative changes bilateral first carpometacarpal joints. 3. Amorphous calcifications adjacent to the DIP joints of the second digit right hand and third digit left hand. 4. Amorphous calcifications adjacent to the second metacarpophalangeal joint of the right hand. 5. Concavity along the lateral aspect of the left third metatarsal head is suggestive of ulceration.
[2023-09-07 11:10] LABS: MANUAL DIFF FLAG NO
[2023-09-07 12:04] LABS: Basophils Absolute Auto 0.1 X10*3/uL (0.0-0.2); Basophils Percent Auto 0.5 % (0-2); Eosinophils Absolute Auto 0.1 X10*3/uL (0.0-0.4); Eosinophils Percent Auto 0.7 % (0-4); Hematocrit 39.7 % (37.0-47.0); Hemoglobin 13.4 g/dl (12.0-16.0); Imm Gran Abs Auto 0.05 X10*3/uL (0.00-0.03); Imm Gran Pct Auto 0.5 % (0.0-0.4); Mean Corpuscular HGB Conc 33.8 g/dl (31.0-35.0); Mean Corpuscular Hemoglobin 29.2 pg (27.0-33.0); Mean Corpuscular Volume 86.5 fL (80.0-98.0); Mean Platelet Volume 9.5 fL (9.4-12.3); Monocytes Absolute Auto 0.8 X10*3/uL (0.1-1.2); Monocytes Percent Auto 7.5 % (2-11); Neutrophils Absolute Auto 4.7 x10*3/uL (2.0-8.3); Neutrophils Percent Auto 43.8 % (45-73); Platelet Count 319 X10*3/uL (160-400); Red Blood Count 4.59 X10*6/uL (4.20-5.50); Red Cell Distribution Width 12.5 % (11.0-16.0); White Blood Count 10.6 X10*3/uL (4.8-10.8)
[2023-09-07 12:54] LABS: Erythrocyte Sedimentation Rate 5 MM/HR (0-20)
[2023-09-07 12:57] LABS: Alanine Aminotransferase 14 U/L (0-31); Albumin Level 3.7 g/dL (3.5-5.0); Alkaline Phosphatase 64 U/L (39-117); Anion Gap 12 (12-20); Aspartate Amino Transferase 19 U/L (5-31); Bilirubin Total 0.4 mg/dL (0.0-1.0); Blood Urea Nitrogen 10 mg/dL (9-16); C Reactive Protein 0.21 mg/dL (< or = 0.50); Calcium 8.6 mg/dL (8.4-10.2); Carbon Dioxide 28 mmol/L (22-29); Chloride 105 mmol/L (96-108); Estimated Glomerular Filt Rate > 60; Glucose Random 117 mg/dL (60-115); Potassium 3.1 mmol/L (3.3-5.1); Sodium 142 mmol/L (135-145); Total Protein 6.5 g/dL (6.5-8.0)
[2023-09-07 13:03] LABS: Free T4 (Free Thyroxine) 0.73 ng/dL (0.71-1.85); Thyroid Stimulating Hormone 2.61 uIU/mL (0.32-4.0)
[2023-09-07 13:05] LABS: Free T4 (Free Thyroxine) 0.75 ng/dL (0.71-1.85); Thyroid Stimulating Hormone 2.58 uIU/mL (0.32-4.0)
[2023-09-08 07:33] LABS: HBS Num1 2.98 mIU/mL (0-7.99); HBc Num1 0.14 S/CO (0.00-0.79); HBsAGNum1 0.35 S/CO (0.00-0.99); Hepatitis A Antibody IgM 0.17 Index (0-0.79); Hepatitis B Core Antibody Nonreactive (Nonreactive); Hepatitis B Surface Antigen Negative (Negative); ~HepC Num1 0.09 S/CO (0.00-0.79); ~Hepatitis A Antibody IgM Nonreactive (Nonreactive); ~Hepatitis B Surface Antibody NONREACTIVE (Nonreactive); ~Hepatitis C Antibody Nonreactive (Nonreactive)
[2023-09-09 19:24] LABS: TS Negative Control Passed; TS Panel A 0; TS Panel B 0; TS Positive Control Passed; TSpotTB Negative (Negative)
== END 2023-09-07 10:47 | disposition home or self-care (01) ==
LOC: HO.XRAY 10:46
PROVIDERS: Registered Nurse; Absent Provider Family Medicine; PCP Family Medicine; Visit Provider Student in an Organized Health Care Education/Training Program
DX: L40.50 Arthropathic psoriasis, unspecified (principal); M25.50 Pain in unspecified joint; L65.9 Nonscarring hair loss, unspecified
CPT/HCPCS: 36415; 73110; 73130; 73610; 73630; 80053; 84439; 84443; 85025; 85652; 86140; 86481; 86704; 86706; 86709; 86803; 87340

== ENCOUNTER 2023-09-08 10:15 | Outpatient (AMB) | payer MEDICAID, SELFPAY ==
--- NOTE | 2023-09-08 10:16 | A.OFFVIS_ITS ---
Vital Signs 09/08/23 10:18 Height 5 ft 3 in Weight 168 lb 10.458 oz BMI 29.9 BP 132/80 Blood Pressure Location Lt brachial Position Sitting Respiration 18 Pulse 66 Pulse Source Pulse Oximeter Pulse Oximetry (%) 97 Oxygen Delivery Method Room Air Intake Visit Reasons: PsA /CONFIRMED Intake Note: Patient presents for PsA. Allergies dog dander [DOG] Allergy (Unknown, Verified 08/31/23 12:39) HIVES pollen extracts Adverse Reaction (Severe, Verified 08/31/23 12:39) Hives tree and shrub pollen Adverse Reaction (Intermediate, Verified 08/31/23 12:39) Itchy Eyes ENVIRONMENTAL Allergy (Unknown, Uncoded 07/08/23 13:07) HIVES Medication List - Last Reconciled 09/08/23 by Kenan Foster MD acetaminophen (Tylenol Extra Strength) 1,000 mg PO Q6H PRN albuterol sulfate 90 mcg/actuation (Ventolin HFA) 2 puffs inhalation Q6H PRN cholecalciferol (vitamin D3) 50 mcg PO DAILY clonazepam 0.5 mg PO BID PRN dulaglutide (Trulicity) mg subcut QWEEK duloxetine (Cymbalta) 60 mg PO BID fexofenadine 180 mg PO DAILY fluticasone propionate 50 mcg/actuation (Flonase Allergy Relief) 1 spray intranasal DAILY hydroxyzine HCl 25 - 50 mg PO Q6H PRN ibuprofen 600 mg PO Q8H PRN lidocaine 5% (Lidoderm) 1 - 2 patches topical DAILY PRN montelukast (Singulair) 10 mg PO DAILY olmesartan 5 mg PO QAM prednisone 20 mg PO DAILY 7 days pregabalin 50 mg PO BID secukinumab (Cosentyx 300 mg/2 Syringes () 300 mg (2 mL) subcut Q4W tizanidine 2 mg PO Q6-8H PRN zolpidem 5 mg PO BEDTIME PRN HPI Comments Details: 52-year-old female with psoriasis and psoriatic arthritis who returns for follow-up. Remains n Cosentyx 300 mg every 4 weeks. States that her psoriasis has been well controlled. She continues to have diffuse pain. She has pain in her lower back bilaterally as well as upper back pain in her muscles. The swelling of her right knee has come down. Patient is under plenty of stress recently as she has to take care of her mother. She also has to walk a friend's dog twice a day. She denied any recent vomiting or diarrhea. No new medications. Most recent history by Dr. Quijano 12/2022: The patient returns for evaluation of her psoriatic arthritis, osteoarthritis, and fibromyalgia. She remains on the Cosentyx at 300 mg every 4 weeks, 60 mg daily duloxetine, tizanidine, Lyrica 50 b.i.d. and naproxen 500 mg twice a day. The nabumetone was switched to the naproxen by her primary doctor. She does not recall any recent problems with psoriasis. Her joint pain symptoms seemingly are worse with more active use. These include pain in the lower back and base of the thumbs. She did receive a corticosteroid injection in the back from pain management but found it very painful so does not want to receive any further injections. She says it gave her about 6 weeks of moderate relief. [facility] Medical History Osteoarthritis of left shoulder Chronic pain syndrome Radiculopathy, lumbar region Disc degeneration, lumbar Postlaminectomy syndrome of lumbosacral region Fibromyalgia Arthritis Surgical History Hx of straightening of nasal septum History of back surgery Family History Mother No problems noted. Mother Advanced cirrhosis of liver Diabetes Low blood pressure Colon polyps Father Aneurysm Sister No problems noted. Sister No problems noted. Brother No problems noted. Son No problems noted. Son No problems noted. Daughter No problems noted. 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 Review of Systems ENT Reports neck pain Musc Reports back pain, Reports arthralgias, Reports neck pain and Reports stiffness Neuro Reports Sensory deficit (Neuro) Physical Exam Vital Signs: Last Vital Signs Pulse 66 09/08/23 10:18 Resp 18 09/08/23 10:18 BP 132/80 09/08/23 10:18 Pulse Ox 97 09/08/23 10:18 Oxygen Delivery Method Room Air 09/08/23 10:18 BMI result Body Mass Index 29.9 Const General: cooperative, healthy appearing and comfortable Nutritional Appearance: overweight Orientation/consciousness: patient oriented x3 Limitations: no limitations HEENT Head: Yes normocephalic and Yes atraumatic Mouth: moist mucous membranes Resp Effort & Inspection: normal respiratory effort and able to speak in complete sentences Auscultation: clear to auscultation bilaterally Cardio Rate: regular rate Rhythm: regular rhythm Skin Other: Dry skin patches on extensor aspect of both hands Neuro General: patient oriented x3 Sensory Exam: Sensory deficit (Neuro) Extrem Other: Normal range of motion of both shoulders Few fibromyalgia tender points Assessment & Plan Assessment & Plan (1) Psoriatic arthritis: Comment: methotrexate 02/2017-04/2017 (hair loss), Humira 05/2017-09/2017 (ineffective), Enbrel 09/2017-10/2018 (failed).Cosentyx 300mg monthly since August 2018 Code(s): L40.50 - Arthropathic psoriasis, unspecified Category: Medical Plan: 52-year-old female with psoriasis and psoriatic arthritis returns for follow-up. On exam I do not see any active psoriasis. I Do not see any swollen joints. Inflammatory markers are normal. Continue with Cosentyx 300 mg monthly Labs before next visit in 3 months (2) Internal derangement of right knee: Code(s): M23.91 - Unspecified internal derangement of right knee Category: Medical Plan: 05/05/2023 patient was walking to her car in the parking lot when suddenly her right knee snapped without any injury or fall. Since then her right knee has been swollen associated with intermittent buckling. Right knee x-ray showed moderate joint effusion as well as osteoarthritis. She started doing PT. right knee MRI scheduled to rule out internal derangement (3) Fibromyalgia: Code(s): M79.7 - Fibromyalgia Category: Medical Plan: Think the majority of patient's complaints today are due to fibromyalgia. Advised patient to start speak with her therapist. She is on duloxetine 60 mg daily, tizanidine 2 mg twice daily and Lyrica 50 mg Twice daily She states that she had a sleep study over the last 2 years and it was unremarkable. (4) Hypokalemia: Code(s): E87.6 - Hypokalemia Category: Medical Plan: Mild hypokalemia 3.1 No recent history of vomiting, diarrhea or new medications. Will recheck next visit Plan I spent 45 minutes reviewing patient's chart, looking at old records, evaluating patient, ordering diagnostic workup, counseling patient and documenting in the chart Orders: Orders Complete Blood Count Auto Diff 3 Months L40.50 - Arthropathic psoriasis, unspecified Comprehensive Met. Panel 3 Months L40.50 - Arthropathic psoriasis, unspecified C Reactive Protein 3 Months L40.50 - Arthropathic psoriasis, unspecified Erythrocyte Sedimentation Rate 3 Months L40.50 - Arthropathic psoriasis, unspecified Coding Level of Care Code Est Pt Level 5 (19683) Diagnoses Psoriatic arthritis L40.50 Internal derangement of right knee M23.91 Fibromyalgia M79.7 Hypokalemia E87.6
[2023-09-08 10:18] VITALS: BP 132/80; PULSE 66; RESP 18; O2SAT 97; BMI 29.9
== END 2023-09-08 10:41 | disposition home or self-care (01) ==
PROVIDERS: PCP Registered Nurse; Referring Provider Registered Nurse; Visit Provider Student in an Organized Health Care Education/Training Program
DX: L40.50 Arthropathic psoriasis, unspecified (principal); M23.91 Unspecified internal derangement of right knee; M79.7 Fibromyalgia; E87.6 Hypokalemia
CPT/HCPCS: 99215

== ENCOUNTER → 2023-09-08 10:15 | Outpatient (BNVA) | payer MEDICAID, SELFPAY | PROVIDERS: PCP Registered Nurse; Visit Provider Student in an Organized Health Care Education/Training Program | DX: L40.50 Arthropathic psoriasis, unspecified (principal); M23.91 Unspecified internal derangement of right knee; M79.7 Fibromyalgia; E87.6 Hypokalemia | CPT/HCPCS: 99212 ==

== ENCOUNTER 2023-10-01 18:51 | Outpatient (REF) | payer MEDICAID, SELFPAY ==
--- NOTE | ~2023-10-01 | MR_ITS ---
EXAMINATION: MR KNEE WITHOUT CONTRAST, RIGHT CLINICAL INFORMATION: Right knee pain. COMPARISON: Radiographs 06/10/2023. TECHNIQUE: MRI of the knee without contrast was performed using routine sequences on a high-field scanner. FINDINGS: MENISCI: Medial Meniscus: Ill-defined degenerative tearing at the root of the posterior horn with inner margin tearing extending medially approximately 1.4 cm. The meniscal body is extruded with a portion of the periphery displaced into the meniscotibial recess. Lateral Meniscus: Intact. LIGAMENTS: Cruciate: Intact. Collateral: Intact. EXTENSOR MECHANISM: Intact. ARTICULAR CARTILAGE/BONE: Patellofemoral Compartment: Mild cartilage thinning and surface irregularity of the medial patellar facet and medial trochlea. Medial Compartment: Cartilage thinning with [id number] loss at the peripheral weightbearing aspect medially with subchondral edema and marginal osteophyte formation. Lateral Compartment: Focal cartilage irregularity at the posterior weightbearing aspect of the femoral condyle. JOINT FLUID AND BURSAE: Moderate joint effusion. MR/MR knee RT wo con IMPRESSION: 1. Ill-defined degenerative tearing at the root of the posterior horn of the medial meniscus with inner margin tearing extending along the posterior horn, with extrusion of the meniscal body. 2. Moderate-severe medial compartment and mild patellofemoral/lateral compartment osteoarthritis. Moderate joint effusion.
== END 2023-10-01 18:52 | disposition home or self-care (01) ==
LOC: HO.MRI 18:51
PROVIDERS: PCP Family Medicine; Visit Provider Student in an Organized Health Care Education/Training Program
DX: M23.91 Unspecified internal derangement of right knee (principal)
CPT/HCPCS: 73721

== ENCOUNTER 2023-12-07 10:36 | Outpatient (REF) | payer MEDICAID, SELFPAY ==
[2023-12-07 11:08] LABS: MANUAL DIFF FLAG NO
[2023-12-07 12:21] LABS: Basophils Percent Auto 0.8 % (0-2); Eosinophils Absolute Auto 0.1 X10*3/uL (0.0-0.4); Eosinophils Percent Auto 2.3 % (0-4); Hematocrit 39.7 % (37.0-47.0); Hemoglobin 13.1 g/dl (12.0-16.0); Imm Gran Abs Auto 0.01 X10*3/uL (0.00-0.03); Imm Gran Pct Auto 0.2 % (0.0-0.4); Lymphocytes Absolute Auto 2.1 X10*3/uL (1.2-4.9); Lymphocytes Percent Auto 41.9 % (20-40); Mean Corpuscular Hemoglobin 29.1 pg (27.0-33.0); Mean Corpuscular Volume 88.2 fL (80.0-98.0); Mean Platelet Volume 9.7 fL (9.4-12.3); Monocytes Absolute Auto 0.5 X10*3/uL (0.1-1.2); Monocytes Percent Auto 10.4 % (2-11); Neutrophils Absolute Auto 2.3 x10*3/uL (2.0-8.3); Neutrophils Percent Auto 44.4 % (45-73); Platelet Count 264 X10*3/uL (160-400); Red Cell Distribution Width 12.4 % (11.0-16.0); White Blood Count 5.1 X10*3/uL (4.8-10.8)
[2023-12-07 12:36] LABS: Alanine Aminotransferase 11 U/L (0-31); Albumin Level 3.4 g/dL (3.5-5.0); Alkaline Phosphatase 55 U/L (39-117); Anion Gap 9 (12-20); Aspartate Amino Transferase 18 U/L (5-31); Bilirubin Total 0.3 mg/dL (0.0-1.0); Blood Urea Nitrogen 6 mg/dL (9-16); C Reactive Protein 0.26 mg/dL (< or = 0.50); Calcium 8.8 mg/dL (8.4-10.2); Carbon Dioxide 28 mmol/L (22-29); Chloride 107 mmol/L (96-108); Estimated Glomerular Filt Rate > 60; Glucose Random 109 mg/dL (60-115); Potassium 3.6 mmol/L (3.3-5.1); Sodium 140 mmol/L (135-145); Total Protein 5.7 g/dL (6.5-8.0)
[2023-12-07 13:00] LABS: Erythrocyte Sedimentation Rate 2 MM/HR (0-20)
== END 2023-12-07 10:37 | disposition home or self-care (01) ==
LOC: HO.LAB 10:36
PROVIDERS: PCP Registered Nurse; Visit Provider Student in an Organized Health Care Education/Training Program
DX: L40.50 Arthropathic psoriasis, unspecified (principal)
CPT/HCPCS: 36415; 80053; 85025; 85652; 86140

== ENCOUNTER 2023-12-08 06:21 | Outpatient (REF) | payer MEDICAID, SELFPAY | END 2023-12-08 06:22 | disposition home or self-care (01) | LOC: CF 06:21 | PROVIDERS: Visit Provider Anesthesiology | DX: M25.512 Pain in left shoulder (principal) | CPT/HCPCS: 20610; J2003; J2795; J3301; Q9967 ==

== ENCOUNTER 2023-12-08 14:41 | Outpatient (AMB) | payer MEDICAID, SELFPAY ==
--- NOTE | 2023-12-08 14:42 | MHC.OFFVIS ---
Vital Signs 12/08/23 15:12 12/08/23 15:13 Height 5 ft 3 in 5 ft 3 in Weight 168 lb 168 lb BMI 29.8 29.8 BP 105/89 120/88 Blood Pressure Location Lt brachial Lt brachial Position Sitting Sitting Respiration 14 14 Pulse 92 95 Pulse Source Pulse Oximeter Pulse Oximeter Pulse Oximetry (%) 100 94 Oxygen Delivery Method Room Air Room Air Comment pre-op post-op Intake Visit Reasons: LEFT GLENOHUMERAL JOINT INJECTION Allergies dog dander [DOG] Allergy (Unknown, Verified 12/08/23 15:14) HIVES pollen extracts Adverse Reaction (Severe, Verified 12/08/23 15:14) Hives tree and shrub pollen Adverse Reaction (Intermediate, Verified 12/08/23 15:14) Itchy Eyes ENVIRONMENTAL Allergy (Unknown, Uncoded 07/08/23 13:07) HIVES [facility] Medical History (Updated 10/07/23 @ 12:42 by Kenan Foster MD) Osteoarthritis of left shoulder Chronic pain syndrome Radiculopathy, lumbar region Disc degeneration, lumbar Postlaminectomy syndrome of lumbosacral region Fibromyalgia Arthritis Surgical History Hx of straightening of nasal septum History of back surgery Family History Mother No problems noted. Mother Advanced cirrhosis of liver Diabetes Low blood pressure Colon polyps Father Aneurysm Sister No problems noted. Sister No problems noted. Brother No problems noted. Son No problems noted. Son No problems noted. Daughter No problems noted. 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 The patient came to the operating room and was positioned prone on the operating table with left shoulder slightly elevated. Informed consent was explained thoroughly to the patient.? All questions about benefits and risks for the procedure were answered. Time-out was performed and name and date of of the patient's, patient's allergies were stated. The patient came to the operating room and was positioned prone on the operating table with a small pillow under the left shoulder. The left neck and left shoulder were prepped with ChloraPrep and draped with sterile utility towels. Sterilely draped C-arm was brought over the operating field and picture of the left shoulder joint/glenohumeral joint was demonstrated on the screen. 22 gauge 3 and 1/2 inch needle was driven to the left joint in tunnel vision fashion.? When needle entered the joint capsule injection of the contrast was performed demonstrating intra-articular and minimally periarticular spread of the contrast.? After that 4 cc. of ropivacaine 0.5% mixed with Kenalog 40 mg was injected into the joint.? Upon completion of the injections the needles were removed and sterile dressing was applied.? Upon completion of the injection patient was taken outside of the operating room to the recovery room where she recovered uneventfully. Orders: Orders FL guidance in treatment room 12/08/23 M25.512 - Pain in left shoulder Coding Level of Care Code Procedure Only Diagnoses Left shoulder pain M25.512
[2023-12-08 15:12] VITALS: BP 105/89; PULSE 92; RESP 14; O2SAT 100; BMI 29.8
[2023-12-08 15:13] VITALS: BP 120/88; PULSE 95; RESP 14; O2SAT 94; BMI 29.8
== END 2023-12-08 15:10 | disposition home or self-care (01) ==
LOC: HO.PMCPRC 14:41
PROVIDERS: PCP Registered Nurse; Visit Provider Anesthesiology
DX: M25.512 Pain in left shoulder (principal)
CPT/HCPCS: 20610; 77002

== ENCOUNTER 2024-01-04 14:02 | Outpatient (AMB) | payer MEDICAID, SELFPAY ==
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
[2024-01-04 14:07] VITALS: BP 134/78; PULSE 62; RESP 16; O2SAT 98; BMI 29.8
== END 2024-01-04 14:18 | disposition home or self-care (01) ==
LOC: HO.PMC 14:02
PROVIDERS: PCP Registered Nurse; Visit Provider Anesthesiology
DX: M96.1 Postlaminectomy syndrome, not elsewhere classified (principal); M51.369 Other intervertebral disc degeneration, lumbar region without mention of lumbar back pain or lower extremity pain; M54.16 Radiculopathy, lumbar region; G89.4 Chronic pain syndrome; M46.1 Sacroiliitis, not elsewhere classified; M53.3 Sacrococcygeal disorders, not elsewhere classified; M16.12 Unilateral primary osteoarthritis, left hip; M25.512 Pain in left shoulder; M19.012 Primary osteoarthritis, left shoulder
CPT/HCPCS: 99213

== ENCOUNTER → 2024-01-04 14:02 | Outpatient (BNVA) | payer MEDICAID, SELFPAY | PROVIDERS: PCP Registered Nurse; Visit Provider Anesthesiology | DX: M96.1 Postlaminectomy syndrome, not elsewhere classified (principal); M51.369 Other intervertebral disc degeneration, lumbar region without mention of lumbar back pain or lower extremity pain; M54.16 Radiculopathy, lumbar region; G89.4 Chronic pain syndrome; M46.1 Sacroiliitis, not elsewhere classified; M53.3 Sacrococcygeal disorders, not elsewhere classified; M16.12 Unilateral primary osteoarthritis, left hip; M19.012 Primary osteoarthritis, left shoulder | CPT/HCPCS: 99212 ==

== ENCOUNTER 2024-01-15 15:05 | Outpatient (AMB) | payer MEDICAID, SELFPAY ==
[2024-01-15 15:26] VITALS: BP 132/74; PULSE 78; O2SAT 98; BMI 30.1
--- NOTE | 2024-01-15 15:26 | A.OFFVIS_ITS ---
Vital Signs 01/15/24 15:26 Height 5 ft 3 in Weight 169 lb 12.095 oz BMI 30.1 BP 132/74 Blood Pressure Location Lt brachial Position Sitting Pulse 78 Pulse Source Pulse Oximeter Pulse Oximetry (%) 98 Oxygen Delivery Method Room Air Intake Visit Reasons: PsA/CM Intake Note: Patient last seen by Doctor Kenan Foster on 09/08/23. Presents today for PsA follow up and test results. Allergies dog dander [DOG] Allergy (Unknown, Verified 01/15/24 15:27) HIVES pollen extracts Adverse Reaction (Severe, Verified 01/15/24 15:27) Hives tree and shrub pollen Adverse Reaction (Intermediate, Verified 01/15/24 15:27) Itchy Eyes ENVIRONMENTAL Allergy (Unknown, Uncoded 01/15/24 15:27) HIVES Medication List - Last Reconciled 01/15/24 by Kenan Foster MD acetaminophen (Tylenol Extra Strength) 1,000 mg PO Q6H PRN albuterol sulfate 90 mcg/actuation (Ventolin HFA) 2 puffs inhalation Q6H PRN bupropion HCl 300 mg PO BID cholecalciferol (vitamin D3) 50 mcg PO DAILY clonazepam 0.5 mg PO BID PRN Cosentyx (2 Syringes) (secukinumab) 300 mg (2 mL) subcut Q4W NS dulaglutide (Trulicity) mg subcut QWEEK duloxetine (Cymbalta) 60 mg PO BID fexofenadine 180 mg PO DAILY fluticasone propionate 50 mcg/actuation (Flonase Allergy Relief) 1 spray intranasal DAILY hydroxyzine HCl 25 - 50 mg PO Q6H PRN ibuprofen 600 mg PO Q8H PRN lidocaine 5% (Lidoderm) 1 - 2 patches topical DAILY PRN montelukast (Singulair) 10 mg PO DAILY olmesartan 5 mg PO QAM pregabalin 75 mg PO TID tizanidine 2 mg PO Q6-8H PRN zolpidem 5 mg PO BEDTIME PRN HPI Comments Details: 53-year-old female with psoriasis and psoriatic arthritis who returns for follow-up. Remains on Cosentyx 300 mg every 4 weeks. States that her psoriasis has been well controlled. She continues to have diffuse pain. I had referred her to Orthopedics for her right knee meniscal tear. She states that she was evaluated by [facility] and had right knee arthrocentesis and steroid injection 3 months ago, the injection was repeated yesterday. She states that the injections helpful. She states that she continues to have left shoulder pain she had she has been evaluated by pain management. She is going back for another injection soon. She states that she takes Lyrica 50 mg t.i.d.. Most recent history by Dr. Quijano 12/2022: The patient returns for evaluation of her psoriatic arthritis, osteoarthritis, and fibromyalgia. She remains on the Cosentyx at 300 mg every 4 weeks, 60 mg daily duloxetine, tizanidine, Lyrica 50 b.i.d. and naproxen 500 mg twice a day. The nabumetone was switched to the naproxen by her primary doctor. She does not recall any recent problems with psoriasis. Her joint pain symptoms seemingly are worse with more active use. These include pain in the lower back and base of the thumbs. She did receive a corticosteroid injection in the back from pain management but found it very painful so does not want to receive any further injections. She says it gave her about 6 weeks of moderate relief. [facility] Medical History Osteoarthritis of left shoulder Chronic pain syndrome Radiculopathy, lumbar region Disc degeneration, lumbar Postlaminectomy syndrome of lumbosacral region Fibromyalgia Arthritis Surgical History Hx of straightening of nasal septum History of back surgery Family History Mother No problems noted. Mother Advanced cirrhosis of liver Diabetes Low blood pressure Colon polyps Father Aneurysm Sister No problems noted. Sister No problems noted. Brother No problems noted. Son No problems noted. Son No problems noted. Daughter No problems noted. 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 Review of Systems ENT Reports neck pain Musc Reports back pain, Reports arthralgias, Reports neck pain and Reports stiffness Skin/Breast Denies rash Neuro Reports Sensory deficit (Neuro) Physical Exam Vital Signs: Last Vital Signs Pulse 78 01/15/24 15:26 BP 132/74 01/15/24 15:26 Pulse Ox 98 01/15/24 15:26 Oxygen Delivery Method Room Air 01/15/24 15:26 BMI result Body Mass Index 30.1 Const General: cooperative, healthy appearing and comfortable Nutritional Appearance: overweight Orientation/consciousness: patient oriented x3 Limitations: no limitations HEENT Head: Yes normocephalic and Yes atraumatic Mouth: moist mucous membranes Resp Effort & Inspection: normal respiratory effort and able to speak in complete sentences Auscultation: clear to auscultation bilaterally Cardio Rate: regular rate Rhythm: regular rhythm Skin General skin exam: no rashes or lesions noted Neuro General: patient oriented x3 Sensory Exam: Sensory deficit (Neuro) Extrem Other: Normal range of motion of significant osteoarthritic changes both shoulders Significant osteoarthritic changes of both hands with no active synovitis No knee swelling, warmth or pain with full flexion-extension bilaterally Few fibromyalgia tender points Assessment & Plan Assessment & Plan (1) Psoriatic arthritis: Comment: methotrexate 02/2017-04/2017 (hair loss), Humira 05/2017-09/2017 (ineffective), Enbrel 09/2017-10/2018 (failed).Cosentyx 300mg monthly since August 2018 Code(s): L40.50 - Arthropathic psoriasis, unspecified Category: Medical Plan: 52-year-old female with psoriasis and psoriatic arthritis returns for follow-up. On exam I do not see any active psoriasis. I Do not see any swollen joints. Inflammatory markers are normal. Continue with Cosentyx 300 mg every 4 weeks Labs before next visit in 3 months (2) Internal derangement of right knee: Code(s): M23.91 - Unspecified internal derangement of right knee Category: Medical Plan: Right knee meniscal tear, she was evaluated by [facility]. She had right knee arthrocentesis followed by steroid injection 3 months ago and another injection yesterday with improvement (3) Fibromyalgia: Code(s): M79.7 - Fibromyalgia Category: Medical Plan: I Think the majority of patient's complaints today are due to fibromyalgia. Patient has a psychotherapist. Advised patient to seek evaluation by a psychiatrist. She is on duloxetine 60 mg mau Twice daily, tizanidine 2 mg twice daily and Lyrica 50 mg t.i.d.. Increase Lyrica to 75 mg t.i.d. Advised patient to try to exercise. She states that she can not exercise much due to her right knee pain. We discussed pool exercises. She states that she is allergic. Advised patient to do some light home exercises. Follow along a you tube video, try to exercise 30-40 minutes 4 times a week She states that she had a sleep study over the last 2 years and it was unremarkable. Plan I spent 30 minutes reviewing patient's chart, evaluating patient, ordering diagnostic workup, counseling patient and documenting in the chart Orders: Orders Complete Blood Count Auto Diff 3 Months L40.50 - Arthropathic psoriasis, unspecified C Reactive Protein 3 Months L40.50 - Arthropathic psoriasis, unspecified Comprehensive Met. Panel 3 Months L40.50 - Arthropathic psoriasis, unspecified Erythrocyte Sedimentation Rate 3 Months L40.50 - Arthropathic psoriasis, unspecified Medications: Changed From pregabalin 50 mg PO DAILY 30 caps 2RF M79.7 - Fibromyalgia To pregabalin 75 mg PO TID 90 caps 2RF M79.7 - Fibromyalgia Discontinued prednisone Discontinued Reason: Patient Completed Course 20 mg PO DAILY 7 days 7 tabs 0RF Coding Level of Care Code Est Pt Level 4 (75170) Complex EM visit Add On G2211 Diagnoses Psoriatic arthritis L40.50 Internal derangement of right knee M23.91 Fibromyalgia M79.7
== END 2024-01-15 16:24 | disposition home or self-care (01) ==
PROVIDERS: PCP Registered Nurse; Visit Provider Student in an Organized Health Care Education/Training Program
DX: L40.50 Arthropathic psoriasis, unspecified (principal); M23.91 Unspecified internal derangement of right knee; M79.7 Fibromyalgia
CPT/HCPCS: 99214

== ENCOUNTER → 2024-01-15 15:05 | Outpatient (BNVA) | payer MEDICAID, SELFPAY | PROVIDERS: PCP Registered Nurse; Visit Provider Student in an Organized Health Care Education/Training Program | DX: L40.50 Arthropathic psoriasis, unspecified (principal); M23.91 Unspecified internal derangement of right knee; M79.7 Fibromyalgia | CPT/HCPCS: 99212 ==

== ENCOUNTER 2024-02-15 08:02 | Outpatient (REF) | payer MEDICAID, SELFPAY | END 2024-02-15 08:03 | disposition home or self-care (01) | LOC: HO.US 08:02 | PROVIDERS: PCP Registered Nurse; Visit Provider Internal Medicine | DX: K76.0 Fatty (change of) liver, not elsewhere classified (principal); R10.13 Epigastric pain | CPT/HCPCS: 76700; 76981 ==

== ENCOUNTER → 2024-02-15 08:06 | Outpatient (BNV) | payer MEDICAID, SELFPAY | PROVIDERS: PCP Registered Nurse; Visit Provider Radiology Diagnostic Radiology | DX: K76.0 Fatty (change of) liver, not elsewhere classified (principal) | CPT/HCPCS: 76700 ==

== ENCOUNTER 2024-02-16 18:03 | Outpatient (REF) | payer MEDICAID, SELFPAY | END 2024-02-16 18:04 | disposition home or self-care (01) | LOC: HO.HHCLNP 18:03 | PROVIDERS: Visit Provider Internal Medicine | DX: J02.0 Streptococcal pharyngitis (principal) | CPT/HCPCS: 87070 ==

== ENCOUNTER 2024-02-17 17:59 | Outpatient (REF) | payer MEDICAID, SELFPAY | END 2024-02-17 18:00 | disposition home or self-care (01) | LOC: HO.HHCLNP 17:59 | PROVIDERS: Visit Provider Emergency Medicine | DX: R21 Rash and other nonspecific skin eruption (principal) | CPT/HCPCS: 36415; 87255 ==

== ENCOUNTER 2024-02-24 12:00 | Outpatient (REF) | payer MEDICAID, SELFPAY ==
[2024-02-24 14:02] LABS: Hematocrit 40.8 % (37.0-47.0); Hemoglobin 13.7 g/dl (12.0-16.0); Mean Corpuscular HGB Conc 33.6 g/dl (31.0-35.0); Mean Corpuscular Hemoglobin 28.7 pg (27.0-33.0); Mean Corpuscular Volume 85.5 fL (80.0-98.0); Mean Platelet Volume 9.6 fL (9.4-12.3); Platelet Count 308 X10*3/uL (160-400); Red Blood Count 4.77 X10*6/uL (4.20-5.50); Red Cell Distribution Width 12.5 % (11.0-16.0); White Blood Count 4.8 X10*3/uL (4.8-10.8)
[2024-02-24 14:08] LABS: Anion Gap 12 (12-20); Blood Urea Nitrogen 7 mg/dL (9-16); Calcium 8.5 mg/dL (8.4-10.2); Carbon Dioxide 26 mmol/L (22-29); Chloride 107 mmol/L (96-108); Estimated Glomerular Filt Rate > 60; Glucose Random 163 mg/dL (60-115); Potassium 3.5 mmol/L (3.3-5.1); Sodium 141 mmol/L (135-145)
== END 2024-02-24 12:01 | disposition home or self-care (01) ==
LOC: HO.HHCL 12:00
PROVIDERS: Visit Provider Family Medicine
DX: M25.50 Pain in unspecified joint (principal)
CPT/HCPCS: 36415; 80048; 85027

== ENCOUNTER 2024-02-25 09:24 | Outpatient (REF) | payer MEDICAID, SELFPAY | END 2024-02-25 09:25 | disposition home or self-care (01) | LOC: HO.HHCL 09:24 | PROVIDERS: Visit Provider Emergency Medicine | DX: R30.0 Dysuria (principal) | CPT/HCPCS: 87086; 87147 ==

== ENCOUNTER 2024-03-15 06:17 | Outpatient (REF) | payer MEDICAID, SELFPAY ==
--- NOTE | ~2024-03-15 | FL_ITS ---
EXAMINATION: FLUOROSCOPY GUIDANCE FOR NEEDLE PLACEMENT CLINICAL INFORMATION: M25.512 - Pain in left shoulder COMPARISON: None available. TECHNIQUE: Intraoperative fluoroscopy guidance, left shoulder. 2 images provided. FINDINGS: Physician present. Patient positioning prone. Intraoperative fluoroscopy guidance for a left shoulder procedure. FLUOROSCOPY TIME: 0.2 minutes. DOSE AREA PRODUCT: 1.39 uGy-m2 (microgray-meter squared) FL/FL guidance in treatment room IMPRESSION: Intraoperative fluoroscopy guidance for a left shoulder procedure. Electronically signed by: Haroldo Hess MD 03/23/2024 02:51 PM JACOBY MENENDEZ
== END 2024-03-15 06:18 | disposition home or self-care (01) ==
LOC: CF 06:17
PROVIDERS: Visit Provider Anesthesiology
DX: M25.512 Pain in left shoulder (principal)
CPT/HCPCS: 64418; J2003; J2795; Q9967

== ENCOUNTER 2024-03-15 08:09 | Outpatient (AMB) | payer MEDICAID, SELFPAY ==
--- NOTE | 2024-03-15 08:10 | MHC.OFFVIS ---
Vital Signs 03/15/24 08:13 03/15/24 08:51 BP 134/82 129/82 Blood Pressure Location Rt brachial Lt brachial Position Sitting Sitting Pulse 65 64 Pulse Source Pulse Oximeter Pulse Oximeter Pulse Oximetry (%) 100 99 Oxygen Delivery Method Room Air Room Air Comment Pre procedure Post procedure Intake Visit Reasons: LEFT DIAGNOSTIC SUPRASCAPULAR NERVE INJECTION Allergies environmental allergies Allergy (Intermediate, Verified 01/20/24 13:17) hives/eye itchiness dog dander [DOG] Allergy (Unknown, Verified 01/15/24 15:27) HIVES [facility] Medical History (Updated 01/20/24 @ 13:20 by Pauline Hanks RN) Hepatic steatosis Psoriatic arthritis Palpitations GERD (gastroesophageal reflux disease) Fatty liver Chronic pain syndrome Radiculopathy, lumbar region Disc degeneration, lumbar Postlaminectomy syndrome of lumbosacral region Osteoarthritis of left shoulder Fibromyalgia Arthritis Surgical History Hx of straightening of nasal septum History of back surgery Family History Mother No problems noted. Mother Advanced cirrhosis of liver Diabetes Low blood pressure Colon polyps Father Aneurysm Sister No problems noted. Sister No problems noted. Brother No problems noted. Son No problems noted. Son No problems noted. Daughter No problems noted. 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 The patient came to the operating room and was positioned prone on the operating table with left shoulder slightly elevated. Informed consent was explained thoroughly to the patient.? All questions about benefits and risks for the procedure were answered. Time-out was performed and name and date of of the patient's, patient's allergies were stated. The patient came to the operating room and was positioned prone on the operating table with a small pillow under the left shoulder. The left neck and left shoulder were prepped with ChloraPrep and draped with sterile utility towels. Sterilely draped C-arm was brought over the operating field and picture of the left shoulder joint/glenohumeral joint was demonstrated on the screen. Scapular spine on the left and suprascapular notch were demonstrated on the screen. 22 gauge 3 and 1/2 inch needle was driven to the suprascapular notch in tunnel vision fashion.? When the needle was positioned in the suprascapular notch injection of the contrast was performed demonstrating no intravascular spread of the contrast, no pleural spread of the contrast was not as well? After that 5 cc. of ropivacaine 0.5% was injected into the area.? Upon completion of the injections the needles were removed and sterile dressing was applied.? Upon completion of the injection patient was taken outside of the operating room to the recovery room where she recovered uneventfully. Orders: Orders FL guidance in treatment room Today M25.512 - Pain in left shoulder Coding Level of Care Code Procedure Only Diagnoses Left shoulder pain M25.512
[2024-03-15 08:13] VITALS: BP 134/82; PULSE 65; O2SAT 100
[2024-03-15 08:51] VITALS: BP 129/82; PULSE 64; O2SAT 99
== END 2024-03-15 08:54 | disposition home or self-care (01) ==
LOC: HO.PMCPRC 08:09
PROVIDERS: PCP Registered Nurse; Visit Provider Anesthesiology
DX: M25.512 Pain in left shoulder (principal)
CPT/HCPCS: 64418; 77002

== ENCOUNTER 2024-05-13 09:23 | Outpatient (AMB) | payer MEDICAID, SELFPAY ==
[2024-05-13 09:37] VITALS: BP 138/82; PULSE 61; BMI 29.2
--- NOTE | 2024-05-13 09:37 | MHC.OFFVIS ---
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 Accompanied by: Self / Same As Patient Allergies environmental allergies Allergy (Intermediate, Verified 01/20/24 13:17) hives/eye itchiness dog dander [DOG] Allergy (Unknown, Verified 01/15/24 15:27) HIVES Medication List - Last Reconciled 05/13/24 by BEREKET Mensah acetaminophen (Tylenol Extra Strength) 1,000 mg PO Q6H PRN albuterol sulfate 90 mcg/actuation (Ventolin HFA) 2 puffs inhalation Q6H PRN bupropion HCl 300 mg PO ONCE cholecalciferol (vitamin D3) 50 mcg PO DAILY clonazepam 0.5 mg PO BID PRN dulaglutide (Trulicity) 1.5 mg subcut QWEEK duloxetine (Cymbalta) 60 mg PO BID fexofenadine 180 mg PO DAILY fluticasone propionate 50 mcg/actuation (Flonase Allergy Relief) 1 spray intranasal DAILY hydroxyzine HCl 25 - 50 mg PO Q6H PRN ibuprofen 600 mg PO Q8H PRN lidocaine 5% (Lidoderm) 1 - 2 patches topical DAILY PRN montelukast (Singulair) 10 mg PO DAILY pregabalin 75 mg PO TID secukinumab (Cosentyx 300 mg/2 Syringes () 300 mg (2 mL) subcut Q4W tizanidine 4 mg PO Q6-8H PRN zolpidem 5 mg PO BEDTIME PRN HPI HPI 1 yr f/up: Details: Yumiko is a 53-year-old female with past medical history of obesity, fibromyalgia, left shoulder osteoarthritis who was previously evaluated for chest discomfort without cardiac findings. She now presents for follow-up. Her last cardiology office visit was 05/05/2023. Today she reports that she has been getting heart palpitations where she feels her heart beating fast and hard. She does state that her mother on [place] and her symptoms have been occurring since that time. She has not had any lightheadedness, presyncope, syncope. No chest discomfort at rest or with activity. No shortness of breath, PND, orthopnea or edema. She he does report high stress and anxiety levels. She lives on the 3rd floor and has to climb 2 flights of stairs to get to her apartment which she tolerates well. Grandchild is present. [facility] Medical History Hepatic steatosis Psoriatic arthritis Palpitations GERD (gastroesophageal reflux disease) Fatty liver Chronic pain syndrome Radiculopathy, lumbar region Disc degeneration, lumbar Postlaminectomy syndrome of lumbosacral region Osteoarthritis of left shoulder Fibromyalgia Arthritis Surgical History Hx of straightening of nasal septum History of back surgery Family History Mother No problems noted. Mother Advanced cirrhosis of liver Diabetes Low blood pressure Colon polyps Father Aneurysm Sister No problems noted. Sister No problems noted. Brother No problems noted. Son No problems noted. Son No problems noted. Daughter No problems noted. Social History Alcohol intake: former Year quit: 7 Patient Tobacco Use Status: Former Tobacco user Years Smoked: 10 YEARS e-Cigarette/Vaping Use: Never Used Current occupational status: employed Current occupation: works as [employer] part-time- right handed Review of Systems Const All systems reviewed & are unremarkable except as noted in HPI and below Denies chills, Denies fatigue, Denies fever(s), Denies weight gain and Denies weight loss ENT Denies dizziness Card Denies chest pain, Reports rapid heart rate, Denies leg edema, Denies lightheadedness, Denies palpitations, Denies dyspnea on exertion, Denies orthopnea and Denies other Resp Denies cough and Denies dyspnea on exertion GI Denies hematochezia and Denies change in stool character Musc Denies abnormal gait, Denies muscle weakness, Denies numbness, Denies radiating pain into limb and Denies tingling Neuro Denies abnormal gait, Denies dizziness, Denies numbness and Denies tingling Endo Denies fatigue and Denies palpitations Physical Exam Vital Signs: Last Vital Signs Pulse 61 05/13/24 09:37 BP 138/82 05/13/24 09:37 BMI result Body Mass Index 29.2 Const General: cooperative, healthy appearing, comfortable and no acute distress Orientation/consciousness: patient oriented x3 Neck Neck: Yes normal visual inspection and Yes no JVD Resp Effort & Inspection: normal respiratory effort Auscultation: clear to auscultation bilaterally, no crackles, no rales, no rhonchi and no wheezes Cardio Rate: regular rate Rhythm: regular rhythm Heart sounds: S1 normal heart sound present, S2 normal heart sound present, no gallops, no murmurs and no rubs Neuro General: patient oriented x3 Extrem General: Yes normal to inspection, No no pedal edema and No calf tenderness Psych Appearance: grossly normal Mental Status: mental status grossly normal Speech and movement: Normal speech and movement present Office Procedures EKG Details: Today, read by me, normal sinus rhythm, minimal voltage criteria for LVH, rate 61, QTC 455 milliseconds [id number], Complete Assessment & Plan Assessment & Plan (1) Palpitation: Code(s): R00.2 - Palpitations Category: Medical Plan: Reported heart palpitations that feel like her heart is beating fast and hard. She has recently been under high stress and reports feelings of anxiety, which she is on medication for. She was previously evaluated for heart palpitations without any concerning findings. Holter monitor done 04/14/2022 for 2 days showing sinus rhythm with average heart rate 73, rare SVE. No indication to repeat monitor at this time. Offered reassurance that symptoms are likely related to sinus tachycardia and could be possible extrasystoles as rare SVE seen on Holter monitor. Reduce caffeinated beverages, maintain good hydration, stress reduction activities reviewed, exercise as tolerated. Cardiology follow-up as needed. (2) Chest pain: Code(s): R07.9 - Chest pain, unspecified Category: Medical Plan: Previous reports of atypical chest discomfort with cardiac evaluation showing no significant abnormalities. She has cardiac risk factors of age and female. Echocardiogram 01/06/2022 showed EF 59%, no regional wall motion abnormalities and no valve abnormalities. Exercise stress test done 04/08/2022 with exercise over 6 minutes with moderate shortness of breath and no EKG changes of ischemia. Currently no concerning symptoms. Signs and symptoms of angina reviewed. Emergency care if ever needed for her symptoms. Plan Time spent on chart review, documentation, interview and assessment Coding Level of Care Code Est Pt Level 3 (30118) Complex EM visit Add On G2211 Diagnoses Palpitation R00.2 Chest pain R07.9 CPT Codes EKG - CPT: 96018-[id number], Complete ([id number]) Time Spent (min) 24
--- OUTSIDE RECORDS SUMMARY | 2024-05-13 10:08 | XMS_ITS ---
Author Organization [facility] Address [address] [place] [id number] Care Team Providers Care Desk Top Publisher Name Role Phone [facility] SERVICE GIRL, Flor Primary Care Provider Unava Chaz Roberts Unavailable [phone] REASON FOR VISIT r/f request omeprazole Medications Medication SIG (Take, Route, Fr equency, Duration) Notes Start Date End Date Status Omeprazole 40 MG 1 Orally Once a day in the morning for 30 day(s) 09/22/2023 Active Encounters Encounter Location Date Provider Diagnosis [facility] [address] [phone] 04/19/2024 Chaz Reynaga GERD (gastroesophageal reflux disease) K21.9 Assessments Encounter Date Diagnosis (ICD Code) Assessment Notes Treatment Notes Treatment Clinical Notes Section Notes 04/19/2024 GERD (gastroesophage al reflux disease) (ICD-10 - K21.9) Plan Of Treatment Medication Medication Name Sig Start Date Stop Date Notes Omeprazole 40 MG 1 Orally Once a day in the morning for 30 day(s) 09/22/2023 Next Appt Details Provider Name:Chaz Reynaga , 08/29/2024 09:30:00 AM, [address] [place] [address] , [place], [place], [phone], Progress Notes * GISELL PARKSDOB:1970 (53 yo F)Acc No.[id number]:04/19/2024 Patient:?PARKSSELENAGISELL :1970???Age:53 Y???Sex:Female Address:[address] [place] [id number] * Refills? Refill Omeprazole Capsule Delayed Release, 40 MG, Orally, 30, 1, Once a day in the morning, 30 day(s), Refills=6 * true * Date:? Generated for Cherise mehta/Joe/Stephonsmitting on:?05/13/2024 10:08 AM EST
--- OUTSIDE RECORDS SUMMARY | 2024-05-13 10:08 | XMS_ITS | Encounter Summary ---
Author Organization [employer] Address [address] [place] [address] Care Team Providers Care Games Dealer Name Role Phone Viktoria Gage MD Primary Care Provide r [facility] COMPRESSOR STATIONS SUPERINTENDENT Primary Care Provider Devi Live COMPRESSOR STATIONS SUPERINTENDENT Primary Care Provider [phone] [facility] COMPRESSOR STATIONS SUPERINTENDENT Primary Care Provider [phone] Elder Wheatley COMPRESSOR STATIONS SUPERINTENDENT Unavailable Unavailable Reason for Visit * Reason Onset Date Comments Appointment Request 05/30/2022 Encounter Details Date Type Department Care Team (Late st Contact Info) Description 05/30/2022 Telephone [facility] [address] [place], [place] [phone] Viktoria Gage MD [address] [place], [place] [phone] Appointment Request Social History Tobacco Use Types Packs/Day Years Used Date Smoking Tobacco: Never Passive Smoke Exposure: Never Smokeless Tobacco: Never Comments Unknown Sex and Gender Information Value Date Recorded Sex Assigned at Female 01/06/2022 10:14 AM EDT Legal Sex Female 10:14 AM EDT Gender Identity Female 01/06/2022 10:14 AM EDT Sexual Orientation Straight 01/06/2022 10 :14 AM EDT COVID-19 Exposure Response Date Recorded In the last 10 days, have yo u been in contact with someone who was confirmed or suspected to have Coronavirus/COVID-19? No / Unsure 05/21/2022 5:35 PM EDT documented as of this encounter Miscellaneous Notes * Telephone Encounter - Sher Coles - 05/30/2022 8:27 AM EDT Tc from pt requesting to r/s appt for 05/30/2022 at 9:00 AM. Please contact pt at [phone] documented in this encounter Plan of Treatment Upcoming Encounters Date Type Department Care Team (Late st Contact Info) Description 05/13/2024 11:15 AM EST Office Visit [facility] [address] [place] [address] Flor Jacinto FNP [address] [place] [address] documented as of this encounter Visit Diagnoses Not on filedocumented in this encounter Additional Health Concerns Assessment Noted Time PHQ-9 Depression Total Score: 5 04/10/19 11:06 AM EST documented as of this encounter Care Teams Games Dealer Relationship Specialty Start Date End Date Viktoria Gage MD [address] [place] [id number] PCP - General Internal Medicine 05/23/22 06/23/22 Flor Jacinto FNP [address] [place] [phone] PCP - General Family Medicine 06/24/22 08/07/22 Devi Live FNP [address] [place] [phone] PCP - General Family Medicine 08/08/22 08/12/22 Flor Jacinto FNP [address] [place] [phone] PCP - General Family Medicine 08/13/22 Elder Wheatley FNP [address] [place] [address] Nurse Practitioner Family Medicine 02/10/23 Marisela Bowling Resolution ManagerRecords Associate 08/06/23 documented as of this encounter
--- OUTSIDE RECORDS SUMMARY | 2024-05-13 10:08 | XMS_ITS | Patient Health Record ---
Author Organization [facility] Address [address] [place] [address] Care Team Providers Care Geophysics Professor Name Role Phone [facility] Primary Care Provider Chaz Garcia [phone] Allergies Allergen (clinical drug ingredient) Drug/Non Drug Allergy documented on EMR Reaction Allergy Type Onset Date Status pet dander (uncoded) Unknown Allergy Active enviromental allergi es (uncoded) Unknown Allergy Active Results Component Value Reference Range Notes US abdomen comp w elastograp hy (Not yet reviewed by provider) Interpretation: Performing Lab: Notes/Report: [address] [address] Ultrasound Report Signed Patient: Gisell Pugh MR #: [id number] : 1970 Acct:[id number] Age/Sex: 53 / F ADM Date: 02/15/24 Loc: HO.US Attending Dr: Chaz Reynaga MD Ordering Physician: Chaz Reynaga MD Date of Service: 02/15/24 Procedure(s): US abdomen comp w elastography Accession Number(s): [id number] cc: Chaz Reynaga MD; [facility] EXAMINATION: US COMPLETE ABDOMEN WITH LIVER ELASTOGRAPHY CLINICAL INFORMATION: History of fatty liver and epigastric abdominal pain. COMPARISON: 06/12/2020, 11/18/2018. No prior elastography. TECHNIQUE: Real-time imaging of the abdominal viscera. Noninvasive ultrasound liver fibrosis assessment is performed using Siemens shear wave elastography (pSWE) with a C5-2 MHz transducer. Multiple elastography samples are obtained. Exam submitted for review 04/01/2024 3:05 PM ATTORNEY LAW CLERK. FINDINGS: PANCREAS: The visualized pancreatic head and body are normal in appearance. The remainder of the pancreas is obscured from visualization by the overlying bowel gas. ABDOMINAL AORTA: No aortic aneurysm is seen. INFERIOR VENA CAVA: Visualized portions are normal. LIVER: The liver demonstrates normal size, contour and mildly increased diffuse echogenicity. No focal lesion or intrahepatic biliary duct dilatation. The right lobe measures 16.1 cm in length. The left lobe measures 11.4 cm in length. Portal flow is hepatopedal. Shear wave liver elastography median stiffness is 1.42 m/s (reference: normal median stiffness is 1.2 m/s or less). IQR/median stiffness to assess sampling precision is 0.09 (reference: good quality data set is IQR/median stiffness of 0.3 or less). GALLBLADDER: The gallbladder is physiologically distended without evidence of stones, sludge, polyps, wall thickening or pericholecystic fluid. COMMON BILE DUCT: Normal in caliber measuring 0.4 cm in diameter. RIGHT KIDNEY: No hydronephrosis. No renal calculi or focal parenchymal lesions. The kidney measures 12.7 cm in maximum dimension. LEFT KIDNEY: No hydronephrosis. No renal calculi or focal parenchymal lesions. The kidney measures 12.1 cm in maximum dimension. SPLEEN: Unremarkable. The spleen measures 10.0 cm in maximum dimension. FREE FLUID: None seen. US/US abdomen comp w elastography IMPRESSION: 1. Mildly increased hepatic echogenicity, findings suggestive of diffuse fatty infiltration. No suspicious focal hepatic lesion. Normal hepatic size. 2. Liver elastography: In the absence of other known clinical signs, measurements rule out compensated advanced chronic liver disease. If there are known clinical signs, further testing may be needed for confirmation. 3. Remainder of the examination is normal. REFERENCE: Society of Radiologists in Ultrasound Liver Stiffness Thresholds (2020): (Siemens unit) LIVER STIFFNESS THRESHOLDS: *Liver Stiffness equal or less than 1.2 m/s: High probability of being normal. *Liver Stiffness less than 1.5 m/s: In the absence of other known clinical signs, rules out compensated advanced chronic liver disease. *Liver Stiffness between 1.5 and 1.7 m/s: Suggestive of compensated advanced chronic liver disease but need further test for confirmation. *Liver Stiffness over or equal to 1.7 m/s: Rules in compensated advanced chronic liver disease. QUALITY OF DATA SET: *IQR/Median value equal or less than 0.3 implies a quality data set. *IQR/Median value over 0.3 implies a poor quality data set. SIGNIFICANT CHANGE FROM PRIOR EXAM: Significant change if liver stiffness measurement is 10% or greater from prior exam. OTHER CONSIDERATIONS: The stage of liver fibrosis may be overestimated in the setting of acute hepatitis, liver inflammation, elevated liver function tests, hepatic vascular congestion, obstructive cholestasis, non-fasting state, and infiltrative diseases such as amyloidosis and lymphoma. In some patients with NAFLD, the liver stiffness thresholds for compensated advanced chronic liver disease may be lower. In causes other than viral hepatitis and NAFLD, liver stiffness thresholds are not well established. Electronically signed by: Anup Jarrett MD 04/01/2024 04:[address] [facility] Dictated By: Anup Jarrett MD Signed By: <Electronically signed by Anup Jarrett MD in OV> 04/01/24 1606 DD/ 0811 TD/TT: 02/15/24 0836 Veterinarian Helper: [place] [address] Ultrasound Report Signed Patient: Gisell Pugh MR #: [id number] : 1970 Acct:[id number] Age/Sex: 53 / F ADM Date: 02/15/24 Loc: HO.US Attending Dr: Chaz Reynaga MD Ordering Physician: Chaz Reynaga MD Date of Service: 02/15/24 Procedure(s): US abd omen comp w elastography Accession Number(s): [id number] cc: Chaz Reynaga MD; [facility] EXAMINATION: US COMPLETE ABDOMEN WITH LIVER ELASTOGRAPHY CLINICAL INFORMATION: History of fatty cherie er and epigastric abdominal pain. COMPARISON: 06/12/2020, 11/18/2018. No prior elastography. TECHNIQUE: Real-time imaging of the abdominal viscera. Noninvasive ultrasound liver fibrosis asses sment is performed using Siemens shear wave elastography (pSWE) with a C5-2 MHz transducer. Multiple elastography samples are obtained. Exam submitted for shaina carterw 04/01/2024 3:05 PM ATTORNEY LAW CLERK. FINDINGS: PANCREAS: The visual ized pancreatic head and body are normal in appearance. The mayra zac of the pancreas is obscured from visualization by the overlying bowel gas. ABDOMINAL AORTA: No aortic aneurysm is seen. INFERIOR VENA CAVA: Visualized portions are normal. LIVER: The liver dem onstrates normal size, contour and mildly increased diffuse echogenicity . No focal lesion or intrahepatic biliary duct dilatation. The right lobe measu res 16.1 cm in length. The left lobe measures 11.4 cm in length. Portal flow is hepatopedal. Shear wave liver tala stography median stiffness is 1.42 m/s (reference: normal median stiffn ess is 1.2 m/s or less). IQR/median stiffness to assess sampling precision is 0.09 (reference: good quality data se t is IQR/median stiffness of 0.3 or less). GALLBLADDER: The gal lbladder is physiologically distended without evidence of stones, sludge, polyps, wall thickening or pericholecystic fluid. COMMON BILE DUCT: No rmal in caliber measuring 0.4 cm in diameter. RIGHT KIDNEY: No hydronephrosis. No renal calculi or focal parenchymal lesions. The kidney measures 12.7 cm in maximum dimension. LEFT KIDNEY: No hydr onephrosis. No renal calculi or focal parenchymal lesions. The kidney measures 12.1 cm in maximum dimension. SPLEEN: Unremarkable . The spleen measures 10.0 cm in maximum dimension. FREE FLUID: None seen. U S/US abdomen comp w elastography IMPRESSION: 1. Mildly increased hepatic echogenicity, findings suggestive of diffuse fatty infilt ration. No suspicious focal hepatic lesion. Normal hepatic size. 2. Liver elastograph y: In the absence of other known clinical signs, measurements rule ou t compensated advanced chronic liver disease. If there are known clin ical signs, further testing may be needed for confirmation. 3. Remainder of the examination is normal. REFERENCE: Society of Radiologi sts in Ultrasound Liver Stiffness Thresholds (2020): (Siemens unit) LIVER STIFFNESS THRESHOLDS: *Liver Stiffness equ al or less than 1.2 m/s: High probability of being normal. *Liver Stiffness les s than 1.5 m/s: In the absence of other known clinical signs, rule s out compensated advanced chronic liver disease. *Liver Stiffness bet ween 1.5 and 1.7 m/s: Suggestive of compensated advanced chronic cherie er disease but need further test for confirmation. *Liver Stiffness ove r or equal to 1.7 m/s: Rules in compensated advanced chronic liver disease. QUALITY OF DATA SET: *IQR/Median value eq ual or less than 0.3 implies a quality data set. *IQR/Median value ov er 0.3 implies a poor quality data set. SIGNIFICANT CHANGE F ROM PRIOR EXAM: Significant change i f liver stiffness measurement is 10% or greater from prior exam. OTHER CONSIDERATIONS: The stage of liver f ibrosis may be overestimated in the setting of acute hepatitis, cherie er inflammation, elevated liver function tests, hepatic vascular con gestion, obstructive cholestasis, non-fasting state, and infiltrat carmelo diseases such as amyloidosis and lymphoma. In some patients with N AFLD, the liver stiffness thresholds for compensated advanced chronic liver disease may be lower. In causes other than viral hep atitis and NAFLD, liver stiffness thresholds are not well established. Electronically blas d by: Anup Jarrett MD 04/01/2024 04:[address] [facility] Dictated By: Anup Jarrett MD Signed By: <Mary Alice clark signed by Anup Jarrett MD in OV> 04/01/24 1606 DD/ 0811 TD/TT: 02/15/24 0836 Veterinarian Helper: Reason For Referral No Information Medications Medication SIG (Take, Route, Frequency, Duration) Notes Start Date End Date Status Trulicity 1.5 MG/0.5ML INJECT ONE PEN (=1.5MG) SUBCUTANEOUSLY ONCE A WEEK DIRECTED Subcutaneous for 28 E1165,Unavaila ble Active Cosentyx (300 MG Dose) 150 MG/ML Subcutaneous for 28 Activ e Cymbalta 60 MG 1 capsule Orally Twi ce a day Active Fexofenadine HCl 180 MG TAKE 1 TABLET BY MOUTH ONCE DAILY Oral for 30 Active Omeprazole 40 MG 1 Orally Once a day in the morning for 30 day(s) 09/22/2023 Active tiZANidine HCl Activ e buPROPion HCl Active Lyrica Active Immunizations Vaccine Route Administration Date Status Comme nts Influenza Unknown 11/11/2018 Refused Influenza Unknown 03/14/2020 Refused Social History Tobacco Use: Social History Observation Description Date Details (start date - stop date) Former Smoker NA - NA Tobacco Use/Smoking Question Answer Notes Patient is a former smoker How long has it been since you last smoked? 5-10 years Section Notes: Nonsmoker; no alcohol Nonsmoker; no alcohol Nonsmoker; no alcohol 3 cans of regular Coke every day Nonsmoker; no alcohol 3 cans of regular Coke every day Nonsmoker; no alcohol 1 or 2 cans of regular Coke every day Problems Problem Type SNOMED Code ICD Code Onset Dates Problem Status W/U Status Risk Notes Problem Colon cancer screening (755619158) Colon cancer screening (Z12.11) Active confirmed Problem 14921716 Epigastric abdominal pain (R10.13) Active confirmed Problem 418675643 Abdominal bloating (R14.0) Active confirmed Problem 07846857 Abdominal pain, epigastric (R10.13) Active confirmed Problem 260937188 Blood in stool (K92.1) Active confirmed Problem 826550613 Elevated liver enzymes (R74.8) Active confirmed Problem 682429727 Fatty liver (K76.0) Active confirmed Problem Family History of Cancer of Colon (Situation) (888749426) Family history of colon cancer (Z80.0) Active confirmed Problem 372300039 Helicobacter pylori ab+ (R76.8) Active confirmed Problem 40481291 Constipation, unspecified constipation type (K59.00) Active confirmed Problem Gastroesophageal reflux disease (224144218) GERD (gastroesophage al reflux disease) (K21.9) Active confirmed Problem 779521258 Irritable bowel syndrome with constipation (K58.1) Active confirmed Problem 451625255 RUQ pain (R10.11) Active confirmed Vital Signs Blood pressure diastolic 00 mm Hg 09/22/2023 Height 62 in 09/22/2023 Blood pressure systolic 00 mm Hg 09/22/2023 Weight 169 lbs 09/22/2023 BMI 30.91 kg/m2 09/22/2023 Encounters Encounter Location Date Provider Diagnosis [facility] [address] [place] [address] 09/22/2023 Chaz Reynaga Fatty liver K76.0 ; Abdominal pain, epigastric R10.13 ; Family history of colon cancer Z80.0 ; GERD (gastroesophageal reflux disease) K21.9 and Colon cancer screening Z12.11 [facility] [address] [place] [address] 05/19/2023 Chaz Reynaga [facility] [address] [place] [address] 10/01/2023 Chaz Reynaga [facility] [address] [place] [address] 01/21/2024 Chaz Reynaga [facility] [address] [place] [address] 04/19/2024 Chaz Reynaga GERD (gastroesophageal reflux disease) K21.9 [facility] [address] [place], [place] [address] [place] [address] 05/04/2024 Chaz Reynaga Assessments Encounter Date Diagnosis (ICD Code) Assessment Notes Treatment Notes Treatment Clinical Notes Section Notes 09/22/2023 Abdominal pain, epigastric (ICD-10 - R10.13) Overall, Gisell appears well from a clinical standpoint. We did review that her current symptoms seem most consistent with chronic reflux. I shall start her on omeprazole 40 mg daily to see if that can give her some symptomatic improvement. She did have a negative upper endoscopy in 2015 and I did recommend that we repeat that given her ongoing and persistent symptoms. I also recommended a screening colonoscopy the same day given her last exam being 8 years ago and her family history of colorectal cancer and polyps. We did review the rationale for that in regard to colon cancer prevention. The procedures will be done with monitored anesthesia care. She was advised to be sure to stay off her Trulicity at least 7 days before the procedure. All her recent laboratories look very reassuring, as does her physical exam. However, I shall check a followup abdominal ultrasound, alpha-fetoprotei n level, and liver fibrosis panel. I did advise her to contact me prior to procedures if she has any problems or questions I can be of assistance with. Gisell was comfortable with this plan. Thank you again for allowing me to participate in Gisell's care. I shall continue to keep you advised of her progress. 09/22/2023 Fatty liver (ICD-10 - K76.0) Overall, Gisell appears well from a clinical standpoint. We did review that her current symptoms seem most consistent with chronic reflux. I shall start her on omeprazole 40 mg daily to see if that can give her some symptomatic improvement. She did have a negative upper endoscopy in 2015 and I did recommend that we repeat that given her ongoing and persistent symptoms. I also recommended a screening colonoscopy the same day given her last exam being 8 years ago and her family history of colorectal cancer and polyps. We did review the rationale for that in regard to colon cancer prevention. The procedures will be done with monitored anesthesia care. She was advised to be sure to stay off her Trulicity at least 7 days before the procedure. All her recent laboratories look very reassuring, as does her physical exam. However, I shall check a followup abdominal ultrasound, alpha-fetoprotei n level, and liver fibrosis panel. I did advise her to contact me prior to procedures if she has any problems or questions I can be of assistance with. Gisell was comfortable with this plan. Thank you again for allowing me to participate in Gisell's care. I shall continue to keep you advised of her progress. 04/19/2024 GERD (gastroesophag eal reflux disease) (ICD-10 - K21.9) 09/22/2023 Family history of colon cancer (ICD-10 - Z80.0) Overall, Gisell appears well from a clinical standpoint. We did review that her current symptoms seem most consistent with chronic reflux. I shall start her on omeprazole 40 mg daily to see if that can give her some symptomatic improvement. She did have a negative upper endoscopy in 2016 and I did recommend that we repeat that given her ongoing and persistent symptoms. I also recommended a screening colonoscopy the same day given her last exam being 8 years ago and her family history of colorectal cancer and polyps. We did review the rationale for that in regard to colon cancer prevention. The procedures will be done with monitored anesthesia care. She was advised to be sure to stay off her Trulicity at least 7 days before the procedure. All her recent laboratories look very reassuring, as does her physical exam. However, I shall check a followup abdominal ultrasound, alpha-fetoprotei n level, and liver fibrosis panel. I did advise her to contact me prior to procedures if she has any problems or questions I can be of assistance with. Gisell was comfortable with this plan. Thank you again for allowing me to participate in Gisell's care. I shall continue to keep you advised of her progress. 09/22/2023 GERD (gastroesophag eal reflux disease) (ICD-10 - K21.9) Overall, Gisell appears well from a clinical standpoint. We did review that her current symptoms seem most consistent with chronic reflux. I shall start her on omeprazole 40 mg daily to see if that can give her some symptomatic improvement. She did have a negative upper endoscopy in 2016 and I did recommend that we repeat that given her ongoing and persistent symptoms. I also recommended a screening colonoscopy the same day given her last exam being 8 years ago and her family history of colorectal cancer and polyps. We did review the rationale for that in regard to colon cancer prevention. The procedures will be done with monitored anesthesia care. She was advised to be sure to stay off her Trulicity at least 7 days before the procedure. All her recent laboratories look very reassuring, as does her physical exam. However, I shall check a followup abdominal ultrasound, alpha-fetoprotei n level, and liver fibrosis panel. I did advise her to contact me prior to procedures if she has any problems or questions I can be of assistance with. Gisell was comfortable with this plan. Thank you again for allowing me to participate in Gisell's care. I shall continue to keep you advised of her progress. 09/22/2023 Colon cancer screening (ICD-10 - Z12.11) STOP TRULICITY FOR 1 WEEK BEFORE THE PROCEDURES Overall, Gisell appears well from a clinical standpoint. We did review that her current symptoms seem most consistent with chronic reflux. I shall start her on omeprazole 40 mg daily to see if that can give her some symptomatic improvement. She did have a negative upper endoscopy in 2016 and I did recommend that we repeat that given her ongoing and persistent symptoms. I also recommended a screening colonoscopy the same day given her last exam being 8 years ago and her family history of colorectal cancer and polyps. We did review the rationale for that in regard to colon cancer prevention. The procedures will be done with monitored anesthesia care. She was advised to be sure to stay off her Trulicity at least 7 days before the procedure. All her recent laboratories look very reassuring, as does her physical exam. However, I shall check a followup abdominal ultrasound, alpha-fetoprotei n level, and liver fibrosis panel. I did advise her to contact me prior to procedures if she has any problems or questions I can be of assistance with. Gisell was comfortable with this plan. Thank you again for allowing me to participate in Gisell's care. I shall continue to keep you advised of her progress. Plan Of Treatment Pending Test Test Name Order Date LIVER PROFILE 04/18/2019 AMYLASE 04/18/2019 LIPASE 04/18/2019 CBC w DIFF 04/18/2019 PROTHROMBIN TIME (PT, INR) 11/11/2018 ALPHA-FETOPROTEIN,TUMOR MARKER 9 ALPHA-FETOPROTEIN,TUMOR MARKER 0 NUC HIDA SCAN 11/05/2015 HCV LIVER FIBROSIS, FIBRO TEST 9 Alpha Fetoprotein 09/22/2023 Liver Fibrosis Pnl 09/22/2023 US abdomen comp w elastography 4 US abdomen comp w elastography 4 Future Test Test Name Order Date UPPER GI ENDOSCOPY 09/20/2015 UPPER GI ENDOSCOPY 09/22/2023 COLONOSCOPY 09/22/2023 Next Appt Details Provider Name:Chaz Reynaga , 08/29/2024 09:30:00 AM, [address] [place] [address] , [place], [place], [phone], Insurance Providers Payer Name Payer Address Payer Phone Subscriber Number Group Number Insured Name Patient Relationship to Insured Coverage Start Date Coverage End Date MEDICAID OF [employer] [address] [place] [address] [phone] [id number] careplus plan LUANN Dominic GISELL Self - patient is the insured Medical (General) History Medical History History ICD Code 4-7-2007 Colonoscopy--small internal hem orrhoids Fatty liver-biopsy in 2003-- the workup for her liver disease was otherwise negative including viral serologies, autoimmune studies, iron studies, and ceruloplasmin level--- her liver biopsy in 2003 showed fatty changes, mild portal chronic inflammation, centrilobular sclerosis, and portal fibrosis----negative liver ultrasound, normal alpha-fetoprotein level, and normal liver profile in 2016; she had been on Jami in the past. Denies TN,DM,CVA,Lung disease,renal dise ase Fibromyalgia Psoriasis Anxiety/depression Colonoscopy in May of 2015 revealed on ly external hemorrhoids Positive H. pylori serology in July Osteoarthritis Bursitis in left shoulder EGD in 10/2015--small HH, otherwise WNL-- normal gastric biopies--no H.pylori Neg GB U/S and HIDA with CCK in 2016 allergies Surgical History Surgery Date(Month/Year) Lower back surgeries x 3--transabdominal approach in 2009 Hemorrhoidectomy in 11/[address] Keenan garcia
--- OUTSIDE RECORDS SUMMARY | 2024-05-13 10:09 | XMS_ITS ---
Author Organization [facility] Address [address] [place] [address] Care Team Providers Care Television Engineer Name Role Phone Hosmer` TOOL PLANNER, Flor Primary Care Provider Unava ilable Chaz Reynaga Unavailable [phone] Encounters Encounter Location Date Provider Diagnosis [facility] [address] [place] [address] 05/04/2024 Chaz Reynaga Plan Of Treatment Next Appt Details Provider Name:Chaz Reynaga , 08/29/2024 09:30:00 AM, [address] [place] [address] , [place], [place], [phone], Progress Notes * SELENA PARKSVIRGINIADOB:1970 (53 yo F)Acc No.[id number]:05/04/2024 Patient:?GISELL PARKS :1970???Age:53 Y???Sex:Female Address:[address] [place] [address] [address], [place] [address] * true * Date:? Generated for Reynaldoi janine/Joe/eTransmitting on:?05/13/2024 10:09 AM EST
--- OUTSIDE RECORDS SUMMARY | 2024-05-13 10:09 | XMS_ITS | Encounter Summary ---
Author Organization [employer] Address [address] [facility] 7t [place] [address] Care Team Providers Care Weaving Supervisor Name Role Phone LaddFlor [facility] Primary Care Provider [phone] Elder Wheatley Unavailable Unavailable Reason for Visit * Reason Onset Date Comments Nurse Triage 01/01/2023 Encounter Details Date Type Department Care Team (Late st Contact Info) Description 01/01/2023 Telephone [facility] MEDICINE [address] [place] [address] Ladd Flor, [facility] [address] [place] [address] Nurse Triage Social History Tobacco Use Types Packs/Day Years Used Date Smoking Tobacco: Never Passive Smoke Exposure: Never Smokeless Tobacco: Never Alcohol Use Standard Drinks/Week Comments Never 0 (1 standard drink = 0.6 oz pur e alcohol) Depression Answer Date Recorded Patient Health Questionnaire-9 Score 0 01/05/2023 Patient Health Questionnaire-9 Score 0 01/05/2023 Last PHQ-9: Questionnaire Data Not on file 1 Housing Stability Answer Date Recorded What is your housing situation today? I am not s ure 12/23/[address] you li ve. Do you have problems with any of the following? None of the above 12/23/2022 Food Insecurity Answer Date Recorded Within the past 12 months, y ou worried that your food would run out before you got money to buy more: Never True 12/23/2022 Within the past 12 months,th e food you bought just didn't last and you didn't have enough money to get more: Never True Transportation Answer Date Recorded In the past 12 months, has l ack of transportation kept you from medical appts, meetings, work or from getting things needed for daily living? No 12/23/2022 Utilities Answer Date Recorded In the past 12 months, has t he electric, gas, oil or water company threatened to shut off services in your home? No 12/23/2022 Depression Answer Date Recorded Patient Health Questionnaire-2 Score 0 01/05/2023 Comments Unknown Sex and Gender Information Value Date Recorded Sex Assigned at Female 01/06/2022 10:14 AM EDT Legal Sex Female 10:14 AM EDT Gender Identity Female 01/06/2022 10:14 AM EDT Sexual Orientation Straight 01/06/2022 10 :14 AM EDT documented as of this encounter Miscellaneous Notes * Telephone Encounter - Chloe Whitehead - 01/01/2023 1:22 PM EDT Symptom: High Blood Pressure - Caller Reports Outcome: Transfer to a nurse or provider NOW! Reason: Chest pain The caller accepted this outcome documented in this encounter Plan of Treatment Upcoming Encounters Date Type Department Care Team (Late st Contact Info) Description 05/13/2024 11:15 AM EST Office Visit [facility] MEDICINE [address] [place] [address] Flor Jacinto FNP [address] [place] [address] documented as of this encounter Visit Diagnoses Not on filedocumented in this encounter Additional Health Concerns Assessment Noted Time PHQ-9 Depression Total Score: 1 10/21/19 9:11 AM EDT documented as of this encounter Care Teams Weaving Supervisor Relationship Specialty Start Date End Date Flor Jacinto FNP [address] [place] [id number] PCP - General Family Medicine 08/13/22 Elder Wheatley FNP [address] [place] [address] Nurse Practitioner Family Medicine 02/10/23 Marisela Bowling Cable SplicerVocational Auto Body Instructor 08/06/23 documented as of this encounter
--- OUTSIDE RECORDS SUMMARY | 2024-05-13 10:09 | XMS_ITS | Clinical Summary ---
Author Organization [facility] Address [address] [place] [address] Phone Care Team Providers Care Blasting Entryman Name Role Phone Monika Nagelfer Skyla STRONG Primary Care Provider [phone] Allergies No known active allergies Medications dexAMETHasone (DECADRON) 4 mg tablet Take 1 Tablet by mouth 4 Times daily with meals and nightly for 16 days. 10/30/2021 Active DULoxetine (CYMBALTA) [address] capsule Take 30 mg by mouth daily. Active famotidine (PEPCID) 20 mg tablet Take 1 Tablet by mouth 2 times daily for 10 days. 08/13/2021 Active nabumetone (RELAFEN) 500 mg tablet Take 500 mg by mouth 2 times daily. Active pregabalin (LYRICA) 25 mg capsule Take 25 mg by mouth 2 times daily. Active tiZANidine (ZANAFLEX) 2 mg tablet Take 2 mg by mouth every 6 hours as needed. Active Active Problems Problem Noted Date Diagnosed Date Bilateral sacroiliitis 03/17/2022 Overview (02/07/2024): Last Assessment & Plan: Ms. Taylor is reporting ongoing transverse lower back pain and demonstrates this below the lumbosacral junction. She had short-term improvement on oral steroids. She has trouble on stairs, describes that her legs hurt doing a stationary bicycle and that she is unable to sleep on her sides at night. This is different than what she was experiencing prior to her microdiscectomy last year. This is unremitting and though she continues to take tizanidine, there seems to be no relief from it. On exam, she is acutely tender over the SI joints right greater than left. There is no tenderness in the midline of her spine. Seated SLR is positive bilaterally at 90 degrees, strength 5/5, gait is slow and steady. I am going to send her for bilateral SI joint injections as this is fairly common after an L5-S1 fusion and is in keeping with her exam. Fibromyalgia 09/03/2021 Lumbar disc herniation with radiculopathy 2021 Overview (02/07/2024): Last Assessment & Plan: Patient reports significant improvement after her left L4-5 minimally invasive microdiscectomy. Some good days and some bad, but overall much better. She will f/u on an as needed basis. Immunizations Name Administration Dates Next Due Hepatitis A Adult (Havrix; V aqta) 19yo and older 01/25/2004,08/24/2003,03/09/2003 Hepatitis B (Xkdgyqh-V-Krfgs , Recombivax HB-Adult) 19yo and older 01/08/2004,10/03/2003,08/24/2003,2003,08/08/2002 Influenza trivalent, 0.5mL, preservative free (Fluarix; FluLaval; Fluzone) ages 6mo and older (Afluria) 3 years and older 12/27/2007 Pneumococcal conjugate 13 va lent (Prevnar 13, PCV13) 2mo and older 11/25/2017 Td Tetanus diptheria (Tdvax) 7yo and older 01/25/2004,03/09/1993 Tdap Tetanus diptheria acell ular pertussis (Boostrix; Adacel) 7yo and older 01/14/2013 Surgical History Surgery Date Site/Laterality Comments BACK SURGERY N/A PROCEDURE: HISTORICAL BACK SURGERY Medical History Medical History Date Comments Arthritis DX:Arthritis Chronic pain syndrome DX:Chronic pain syndrome Disc degeneration, lumbar DX:Dis c degeneration, lumbar Fibromyalgia DX:Fibromyalgia Osteoarthritis of left shoulder DX:Osteoarthritis of left shoulder Postlaminectomy syndrome of lumbosacral region DX:Postlaminectomy syndrome of lumbosacral region Lumbar radiculopathy DX:Lumbar r adiculopathy Family History Medical History Relation Name Comments Other: Other Father Diabetes Mother Hypertension Mother Other: Other Mother Relation Name Status Comments Father Mother Social History Tobacco Use Types Packs/Day Years Used Date Smoking Tobacco: Former Smokeless Tobacco: Former Alcohol Use Standard Drinks/Week Comments Not Currently 0 (1 standard drink = 0.6 oz pur e alcohol) Comments Unknown Sex and Gender Information Value Date Recorded Sex Assigned at Not on file Legal Sex Female 11:13 PM EST Gender Identity Not on file Sexual Orientation Not on file Obstetrics History Last Filed Vital Signs Vital Sign Reading Time Taken Comments Blood Pressure - - Pulse - - Temperature - - Respiratory Rate - - Oxygen Saturation - - Inhaled Oxygen Concentration - - Weight 81.6 kg (180 lb) 03/17/2022 4:11 PM EST Height 160 cm (5' 3 ) 09/03/2021 1:21 PM EDT Body Mass Index 31.89 09/03/2021 1:21 PM EDT Plan of Treatment Health Maintenance Due Date Last Done Comments Breast Cancer Screening 1972 Cervical Cancer Screening: Pap Smear 1993 Colorectal Cancer Screening: Colonoscopy 02/09/2022 Depression Screening 02/09/2022 HIV Screening 02/09/2022 Hepatitis C Screening 02/09/2022 Social Influencers of Health Screening 02/09/2022 Pneumococcal Vaccine: 50+ Years (2 of 2 - PPSV23) 2022 11/25/2017 Zoster Vaccines (1 of 2) 2022 DTaP,Tdap,and Td Vaccines (4 - Td or Tdap) 01/14/2023 01/14/2013, 01/25/2004, 03/09/1993 COVID-19 Vaccine ( - season) 2023 Influenza Vaccine (#1) 2023 12/27/2007 Hepatitis B Vaccines Completed 01/08/2004, 10/03/2003, 08/24/2003, Additional history exists Hepatitis A Vaccines Aged Out 01/25/2004, 08/24/2003, 03/09/2003 No longer eligible based on patient's age to complete this topic Pneumococcal Vaccine: Pediatrics (0 to 5 Years) and At-Risk Patients (6 to 64 Years) Aged Out 11/25/2017 No longer eligible based on patient's age to complete this topic HIB Vaccines Aged Out No longer eligi ble based on patient's age to complete this topic HPV Vaccines Aged Out No longer eligi ble based on patient's age to complete this topic IPV Vaccines Aged Out No longer eligi ble based on patient's age to complete this topic MMR Vaccines Aged Out No longer eligi ble based on patient's age to complete this topic Meningococcal ACWY Vaccine Aged Out N o longer eligible based on patient's age to complete this topic Meningococcal B Vacine Aged Out No lo nger eligible based on patient's age to complete this topic RSV Immunization Patients Under 20 months Aged Out No longer eligible based on patient's age to complete this topic Varicella Vaccines Aged Out No longer eligible based on patient's age to complete this topic Insurance MEDICAID - [place] Care Teams Blasting Entryman Relationship Specialty Start Date End Date Alessandra Nagel DO [address] [place], [place] PCP - General 11/17/23
--- OUTSIDE RECORDS SUMMARY | 2024-05-13 10:09 | XMS_ITS ---
Author Organization [facility] Address [address] [place] [address] Care Team Providers Care Labor Utilization Superintendent Name Role Phone Ella العلي, Flor Primary Care Provider Unava Chaz Roberts [phone] REASON FOR VISIT epigastric pain,gerd Encounters Encounter Location Date Provider Diagnosis [facility] Outpatient [address] [place] [id number] 05/04/2024 Chaz Reynaga Plan Of Treatment Next Appt Details Provider Name:Chaz Reynaga , 08/29/2024 09:30:00 AM, [address] [place] [address], [phone], Progress Notes * GISELL PARKSDOB:1970 (53 yo F)Acc No.[id number]:05/04/2024 EGD&COL/MAC Patient:?SELENA PARKSARIS Provider:?Chaz Reynaga MD :1970???Age:53 Y???Sex:Female D ate:05/04/2024 Address:[address] [place] [address] [address], [place], [place] Pcp:ZOHRA Michael Subjective: * Chief Complaints: * ???1. Epigastric pain,gerd. * Medical History:? Objective: * Vitals:? Assessment: Plan: * Treatment: * * The named appointment provid er may or may not be the originator of this progress note, and it is not deemed complete until electronically signed by the appointment provider. Sign off status: Pending * Provider:?Chaz Reynaga MD Date:? 025 Generated for Cherise mehta/Joe/Wooditting on:?05/13/2024 10:08 AM EST
--- OUTSIDE RECORDS SUMMARY | 2024-05-13 10:09 | XMS_ITS | Encounter Summary ---
Author Organization [employer] Address [address] [facility] 7 [place] [address] Care Team Providers Care Cd Manufacturing Supervisor Name Role Phone Christiana Thomas MD Primary Care Provider Kirstie Gould Primary Care Provider Viktoria Gage MD Primary Care Provide r Viktoria Gage MD Primary Care Provide r [facility] Primary Care Provider [phone] Devi Live SENIOR PROJECT LEADER/TEAM LEAD Primary Care Provider [phone] [facility] Primary Care Provider [phone] Elder Wheatley [facility] Unavailable Unavailable Reason for Visit * Reason Onset Date Comments Med Refill 03/11/2022 Encounter Details Date Type Department Care Team (Late st Contact Info) Description 03/11/[address] [facility] MEDICINE [address] [place] [address] Christiana Thomas MD Med Refill Social History Tobacco Use Types Packs/Day Years Used Date Smoking Tobacco: Never Assessed Comments Unknown Sex and Gender Information Value Date Recorded Sex Assigned at Female 01/06/2022 10:14 AM EDT Legal Sex Female 10:14 AM EDT Gender Identity Female 01/06/2022 10:14 AM EDT Sexual Orientation Straight 01/06/2022 10 :14 AM EDT documented as of this encounter Miscellaneous Notes * Telephone Encounter - Bryan Koch - 03/11/2022 9:29 AM EST Tc from pt requesting med refill Tizanidine 2 mg documented in this encounter Plan of Treatment Upcoming Encounters Date Type Department Care Team (Late st Contact Info) Description 05/13/2024 11:15 AM EST Office Visit [facility] MEDICINE [address] [place] [address] Flor Jacinto FNP [address] [place] [address] documented as of this encounter Visit Diagnoses Not on filedocumented in this encounter Care Teams Cd Manufacturing Supervisor Relationship Specialty Start Date End Date Christiana Thomas MD PCP - General Family Medicine 09/28/19 03/19/22 K[place] [address] PCP - General Family Medicine 03/20/22 05/05/22 Vik[place] [address] PCP - General Internal Medicine 05/06/22 05/22/22 Viktoria Gage MD [address] [place] [address] PCP - General Internal Medicine 05/23/22 06/23/22 OrvilleFlor motley FNP [address] [place] [address] PCP - General Family Medicine 06/24/22 08/07/22 Devi Live FNP [address] [place] [address] PCP - General Family Medicine 08/08/22 08/12/22 ColwellFlor FNP [address] [place] [address] PCP - General Family Medicine 08/13/22 Elder Wheatley FNP [address] [place] [address] Nurse Practitioner Family Medicine 02/10/23 Marisela Bowling Oil Heater OperatorPatents Examiner 08/06/23 documented as of this encounter
--- OUTSIDE RECORDS SUMMARY | 2024-05-13 10:09 | XMS_ITS | Clinical Summary ---
Author Organization [facility] Address [address] [place] [address] Care Team Providers Care Director Employment Name Role Phone Unavailable Primary Care Provider Unavailabl e Source Comments PLEASE NOTE, if this patient is a minor, it may be UNLAWFUL to discuss sensitive information that is contained in these records (such as FAMILY PLANNING, MENTAL HEALTH or SUBSTANCE ABUSE) with the minor patient's parent or other person without the patient's specific authorization.[facility] Allergies No known active allergies Medications clonazePAM (KLONOPIN) 0.5 mg tablet Take 0.5 mg by mouth 2 (two) times daily as needed for anxiety 09/22/2023 Active hydrOXYzine HCL (ATARAX) 25 mg tablet Take 50 mg by mouth nightly at bedtime as needed for sleep or anxiety 09/22/2023 Active buPROPion XL (WELLBUTRIN XL) 150 mg 24 hr tablet Take 150 mg by mouth every morning 09/22/2023 Active DULoxetine (CYMBALTA) [address] capsule Take 60 mg by mouth twice a day 09/22/2023 Active zolpidem (AMBIEN) 5 mg tablet Take 5 mg by mouth nightly at bedtime as needed for sleep 09/22/2023 Active pregabalin (LYRICA) 50 mg capsule Take 50 mg by mouth 2 (two) times daily Active TRULICITY 1.5 mg/0.5 mL pen injector Inject 1.5 mg into the skin once a week 10/23/2023 Active omeprazole (PRILOSEC) [address] capsule Take 20 mg by mouth 2 (two) times daily 07/10/2023 Active tiZANidine (ZANAFLEX) 4 mg capsule Take 4 mg by mouth 3 (three) times daily as needed 09/02/2023 5 Active Active Problems Problem Noted Date Diagnosed Date Chronic low back pain 07/09/2023 Overview (11/25/2023): postlaminectomy syndrome L5-S1 as well as degenerative disc disease of levels above the fusion - Followed by [facility] Healthcare maintenance 04/13/2023 Overview (11/25/2023): Mammo: Upcoming 01/2023 [facility]: [facility]. No hx of abnormal pap. Need records C-scope: UTD thorugh [facility]. Need records BMD: Routine age 67 Fibromyalgia 02/10/2023 Overview (11/25/2023): ? Chronic pain/fibromyalgia-neck/back/feet/shoulders. Followed by [facility]. Sx improvement with left SI joint injection 06/2022. On duloxetine, tizandine, pregabalin Assessment & Plan (11/25/2023 7:50 AM EDT): Per pt well controlled with medication. No changes made today. Essential hypertension 09/24/2022 Overview (11/25/2023): - echocardiogram 01/06/2022 showed EF 59%, no regional wall motion abnormalities and no valve abnormalities. Exercise stress test done 04/08/2022 with exercise over 6 minutes with moderate shortness of breath and no EKG changes of ischemia. She did have a Holter monitor done 04/14/2022 for 2 days showing sinus rhythm with average heart rate 73, rare SVE. EKG done today showing normal sinus rhythm, no acute ST or T-wave abnormalities, rate 64. Patient has reports of chronic chest discomfort which seems atypical for angina. Her symptom is brought on by stress and anxiety. No need for further testing at present time as her symptom is unchanged in the last 30 years according to her. Signs and symptoms of angina reviewed. Last Assessment & Plan: ?? Pt meets diagnostic criteria for HTN. Discussed dx ?? START olmesartan 5mg once daily. Reviewed administration, risks, side effects ?? RN BP check 2 weeks ?? Reviewed ED precautions to include chest pain, shortness of breath, severe headache, sudden vision changes or BP ?180/?120 mmHg. Contact HC if three or more BP readings >140/90. ?? 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 Grieving the recent murder of a close friend. Reviewed that new Wellbutrin XL 150 mg should be taken in the morning. Continue Duloxetine 60 mg BID and Zolpidem 5 mg prn at bedtime, Hydroxyzine prn anxiety, and may also take Clonazepam 0.5 mg 1/2 or 1 tab BID. F/U with therapist as usual. Since this provider will be retiring, patient will be referred to new [facility] psychiatric provider. Pt is aware that appts will be via [facility] and that provider will not be an employee of [facility]. She gives permission to share PHI. Any issues or concerns, contact the health center. All her questions were answered and I have wished her well. She agrees with the plan. Assessment & Plan (11/25/2023 7:58 AM EDT): Reports feeling overwhelmed with caring for others but denies current depressed mood or acute anxiety. Mood improved since adding Wellbutrin-XL 150 mg qam in September 2023. Will continue Wellbutrin XL 150 mg po qam. Continue Duloxetine 60 mg BID for mood, anxiety and fibromyalgia. Continue Zolpidem 5 mg prn qhs prn sleep, Hydroxyzine 25-50 mg qhs prn anxiety or sleep. Rarely taking Clonazepam 0.5 mg 1/2 or 1 tab BID prn anxiety/panic. Pt wishes to defer therapy due to time constraints. Pt is welcome to return should she need med adjustments. Family History Medical History Relation Name Comments Depression Father Depression Mother Anxiety disorder Sister Bipolar disorder Sister Relation Name Status Comments Father Mother Alive Sister Social History Tobacco Use Types Packs/Day Years Used Date Smoking Tobacco: Never Assessed Smokeless Tobacco: Former Comments:Stopped to care for grandughter, 13 years ago Alcohol Use Standard Drinks/Week Comments Not Currently 0 (1 standard drink = 0.6 oz pure alcohol) 12 yrs ago, socially; hitial hernia Social Connections Answer Date Recorded Connectedness 0 11/23/2023 Financial Resource Strain Answer Date R ecorded Financial Resource Strain 0 2023 Stress Answer Date Recorded Stress 0 10/19/2023 Physical Activity Answer Date Recorded Physical Activity 0 10/19/2023 Food Insecurity Answer Date Recorded Food 0 12/03/2023 Transportation Needs Answer Date Record ed Transportation 0 10/19/2023 Housing Stability Answer Date Recorded Housing 0 10/19/2023 Safety and Environment Answer Date Marco Antonio rded Safety 0 10/19/2023 Utilities Answer Date Recorded Utilities 0 10/19/2023 Employment Answer Date Recorded Stress 0 11/23/2023 Comments Unknown Sex and Gender Information Value Date Recorded Sex Assigned at Female 10/19/2023 6:49 AM PDT Legal Sex Female 6:49 AM PDT Gender Identity Female 10/19/2023 6:49 AM PDT Sexual Orientation Not on file Plan of Treatment Health Maintenance Due Date Last Done Comments Depression Monitoring 1970 HPV Screening 1972 Hepatitis C Screening 1972 Pap + HPV 1972 Cervical Cancer Screening 1993 Pap Smear 1993 Breast Cancer Screening (Mammogram) 2012 CT Colonography 2017 Colonoscopy 2017 Colorectal Cancer Screening 2017 FIT/gFOBT 2017 Fecal DNA 2017 Flexible Sigmoidoscopy 2017 Imm-Zoster, Recombinant (1 of 2) 2022 Imm-DTaP/Tdap/Td (2 - Td or Tdap) 01/14/2023 01/14/2013, 01/25/2004, 03/09/1993 Vut-UTMLD-13 ( - ) 11/08/2023 Imm-Influenza (#1) 2023 12/27/2007 Alcohol and Drug Screen 03/09/2024 Tobacco Screening 11/23/2024 11/24/2023 Diabetes Screening 04/14/2026 04/14/2023 Lipid Screening 04/14/2026 04/14/2023 Imm-Hepatitis B Completed 01/08/2004, 09/07, 08/24/2003, Additional history exists HIV Screening Completed 04/14/2023, 04/14/2023 Cervical Ablation/Cold-Knife Conization Discontinued Cervical Cryotherapy Discontinued Colposcopy Discontinued Endometrial Biopsy Discontinued Excision/Leep Discontinued HPV Genotyping Discontinued Vaginal Pap Discontinued Vulvoscopy Discontinued Insurance ID MEDICAID [facility]
--- OUTSIDE RECORDS SUMMARY | 2024-05-13 10:09 | XMS_ITS | Encounter Summary ---
Author Organization [employer] Address [address] [facility] 7t [place] [address] Care Team Providers Care Barrel And Receiver Aligner Name Role Phone [facility] Primary Care Provider [phone] Elder Wheatley Unavailable Unavailable Reason for Visit * Reason Onset Date Comments Referral 08/31/2023 Encounter Details Date Type Department Care Team (Late st Contact Info) Description 08/31/2023 Telephone [facility] MEDICINE [address] [place] [address] Falkner [facility] [address] [place] [address] Referral Social History Tobacco Use Types Packs/Day Years Used Date Smoking Tobacco: Never Passive Smoke Exposure: Never Smokeless Tobacco: Never Alcohol Use Standard Drinks/Week Comments Never 0 (1 standard drink = 0.6 oz pur e alcohol) Depression Answer Date Recorded Patient Health Questionnaire-9 Score 0 07/10/2023 Patient Health Questionnaire-9 Score 0 07/10/2023 Last PHQ-9: Questionnaire Data Not on file 0 07/10/2023 Housing Stability Answer Date Recorded What is your housing situation today? I have ulises lam 07/03/[address] you li ve. Do you have problems with any of the following? None of the above 07/03/2023 Food Insecurity Answer Date Recorded Within the [...] Date Recorded Patient Health Questionnaire-2 Score 0 07/10/2023 Comments Unknown Sex and Gender Information Value Date Recorded Sex Assigned at Female 01/06/2022 10:14 AM EDT Legal Sex Female 10:14 AM EDT Gender Identity Female 01/06/2022 10:14 AM EDT Sexual Orientation Straight 01/06/2022 10 :14 AM EDT documented as of this encounter Miscellaneous Notes * Telephone Encounter - Rosangela Gaines - 08/31/2023 3:41 PM EDT Tc from pt requesting for orthopedic referral to be faxed to [phone] documented in this encounter Plan of Treatment Upcoming Encounters Date Type Department Care Team (Late st Contact Info) Description 05/13/2024 11:15 AM EST Office Visit [facility] MEDICINE [address] [place] [address] Flor Jacinto FNP [address] [place] [address] documented as of this encounter Visit Diagnoses Not on filedocumented in this encounter Additional Health Concerns Assessment Noted Time PHQ-9 Depression Total Score: 0 07/10/19 24 2:37 PM EDT documented as of this encounter Care Teams Barrel And Receiver Aligner Relationship Specialty Start Date End Date Flor Jacinto FNP [address] [place] [address] PCP - General Family Medicine 08/13/22 Elder Wheatley FNP [address] [place] [address] Nurse Practitioner Family Medicine 02/10/23 Marisela Bowling White Sugar BoilerUrologist Physician 08/06/23 documented as of this encounter
--- OUTSIDE RECORDS SUMMARY | 2024-05-13 10:09 | XMS_ITS | Clinical Summary ---
Author Organization [employer] Address [address] [facility] [address] [facility] [address] [place] [address] Care Team Providers Care [employer] Name Role Phone Flor Jacinto PULLEY MORTISER OPERATOR Primary Care Provider [phone] Elder Wheatley PULLEY MORTISER OPERATOR Unavailable Unavailable Allergies No known active allergies Medications * This document contains information received from the source organization and may not represent a complete record from that organization. pregabalin (Lyrica) 50 MG capsule take 1 capsule by oral route 3 times every day 90 capsule 1 3 Active secukinumab (Cosentyx) 150 MG/ML syringe Inject under the skin. 2 Active Alcohol Swabs (Alcohol Prep) padsIndications :Type 2 diabetes mellitus with hyperglycemia, without long-term current use of insulin ([facility]) Use one pad each to prep skin prior to injection as directed 100 each 11 3 Active montelukast (Singulair) 10 MG tablet Take 1 tablet (10 mg) by mouth in the evening. 90 tablet 3 3 Active fexofenadine (Allergy Relief) 180 MG tablet TAKE 1 TABLET BY MOUTH EVERY DAY 90 tablet 1 3 Active olmesartan (Benicar) 5 MG tabletIndicatio ns:Type 2 diabetes mellitus with hyperglycemia, without long-term current use of insulin (CMS/HCC) Take 1 tablet (5 mg) by mouth in the morning. 90 tablet 3 4 Active albuterol 108 (90 Base) MCG/ACT inhalerIndicati ons:Cough in adult Inhale 2 puffs every 6 (six) hours if needed for wheezing. 18 g 11 4 Active Spacer/Aero-Hol ding Chambers deviceIndicatio ns:Cough in adult Use with inhaler 1 each 4 Active Cholecalciferol (Vitamin D) 50 MCG (2000 UT) capsule TAKE 1 TABLET BY MOUTH EVERY DAY 90 capsule 1 4 Active fluticasone (Flonase) 50 MCG/ACT nasal spray Administer 2 sprays into each nostril in the morning. Shake gently. Before first use, prime pump. After use, clean tip and replace cap. 16 g 2 4 Active azithromycin (Zithromax Z-Vasquez) 250 MG tablet Take 2 tabs day 1 and then 1 tab daily to finish 6 tablet 4 Active albuterol 108 (90 Base) MCG/ACT inhaler Inhale 2 puffs every 4 (four) hours if needed for wheezing. 18 g 4 05/29/19 25 Active Omeprazole 20 MG tablet delayed-release Indications:Dys pepsia Take 20 mg by mouth 2 times daily. 30 tablet 2 4 07/10/19 25 Active dulaglutide (Trulicity) 1.5 MG/0.5ML solution pen-injectorInd ications:Type 2 diabetes mellitus with hyperglycemia, without long-term current use of insulin ([facility]) Inject 1.5 mg under the skin 1 (one) time per week. 4 pen 11 4 Active Diclofenac Sodium 1 % gel Apply 2 g topically if needed in the morning, at noon, in the evening, and at bedtime (pain). 150 g 3 4 Active tiZANidine (Zanaflex) 4 MG capsule Take 1 capsule (4 mg) by mouth if needed in the morning, at noon, and at bedtime for muscle spasms. 60 capsule 3 4 09/02/19 25 Active lidocaine (Lidoderm) 5 % patch Apply 2 patches topically Once per day. Remove & discard patch within 12 hours or as directed by MD. 60 patch 3 4 Active TRUEplus Lancets 33G miscIndications :Type 2 diabetes mellitus with hyperglycemia, without long-term current use of insulin (CMS/HCC) USE DIRECTED TO TEST BLOOD SUGAR FOUR TIMES DAILY 100 each 11 4 Active clonazePAM (KlonoPIN) 0.5 MG tabletIndicatio ns:Anxious depression Take 1 tablet (0.5 mg) by mouth every 12 (twelve) hours if needed for anxiety. 60 tablet 5 4 Active DULoxetine (Cymbalta) [address] capsuleIndicati ons:Anxious depression Take 1 capsule (60 mg) by mouth 2 times daily. 180 capsule 3 4 Active zolpidem (Ambien) 5 MG tabletIndicatio ns:Anxious depression Take 1 tablet (5 mg) by mouth if needed at bedtime for sleep. 30 tablet 5 4 Active hydrOXYzine HCl (Atarax) 25 MG tabletIndicatio ns:Anxious depression Take 1-2 tablets (25-50 mg) by mouth every 6 (six) hours if needed for anxiety. 150 tablet 5 4 Active buPROPion XL (Wellbutrin XL) 300 MG 24 hr tabletIndicatio ns:Mixed anxiety and depressive disorder Take 1 tablet (300 mg) by mouth in the morning. Do not crush, chew, or split. 90 tablet 3 4 01/04/20 25 Active acetaminophen (Tylenol) 500 MG tablet Take 2 tablets (1,000 mg) by mouth every 6 (six) hours if needed for moderate pain or fever for up to 25 doses. 50 tablet 4 Active dexAMETHasone (Decadron) 4 MG tablet Take 4 mg by mouth with breakfast, with lunch, with evening meal, and at bedtime. 2 Active famotidine (Pepcid) 20 MG tablet Take 1 tablet by mouth 2 times daily. 2 Active nabumetone (Relafen) 500 MG tablet Take 500 mg by mouth 2 times daily. Active [employer] (BD [employer]) [facility] 4 Active Active Problems Problem Noted Date Diagnosed Date Chronic left shoulder pain 03/23/2024 Assessment & Plan (03/23/2024 9:53 AM EST): Advised pt to continue with RICE She may continue taking motrin 200 mg q4-6 hrs prn, tizanidine at bedtime, topical lidocaine patches and topical diclofenac gel for pain control. Pt plans to attend ortho appointment 04/18/24 for evaluation and will RTC prn for new or worsening condition. 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 Due to symptoms, advised pt to elevate her legs and apply ice for at least 15 minutes daily. Use hinged knee brace with straps. Use Meloxicam daily for one or two weeks. Refer to PT and follow up with PCP. Healthcare maintenance 04/13/2023 Overview (04/13/2023): Mammo: Upcoming 01/2023 Pap: [facility]. No hx of abnormal pap. Need records C-scope: [facility]. Need records BMD: Routine age 67 Fibromyalgia 02/10/2023 02/10/2023 Overview (04/13/2023): ? Chronic pain/fibromyalgia-neck/back/feet/shoulders. Followed by [facility] pain mngmt. Sx improvement with left SI joint injection 06/2022. On duloxetine, tizandine, pregabalin Essential hypertension 09/24/2022 Overview (07/14/2023): - echocardiogram 01/06/2022 showed EF 59%, no [...] her. Signs and symptoms of angina reviewed. Assessment & Plan (04/13/2023 9:48 AM EST): ?? Pt meets diagnostic criteria for HTN. Discussed dx ?? START olmesartan 5mg once daily. Reviewed administration, risks, side effects ?? RN BP check 2 weeks ?? Reviewed ED precautions to include chest pain, shortness of breath, severe headache, sudden vision changes or BP >=180/>=120 mmHg. Contact HC if three or more BP readings >140/90. ?? Assessment & Plan (09/24/2022 11:50 AM EDT): no history of HTN, seems to have elevated BPs this month Counseled re low salt diet/increase moderate physical activity. Check home BP BIW and prn CP/STOCKTON/HYATT Non smoking patient. FU with PCP next week Muscle spasm 09/24/2022 Assessment & Plan (09/24/2022 11:53 AM EDT): Most likely lumbar sprain/ r/o lumbar disc herniation FU with pain clinic next month use nabumentone + tizanidine 2-4 mg Bid x 1 week with meals and then PRN cautioned with GI toxicity Recommended to come to acupunture clinic FU with neurosurgery [facility] 09/23/2022 Type 2 diabetes mellitus 05/05/2022 Overview (04/13/2023): ?? New dx-09/2022 ?? Trulicity 1.5mg Microalbumin: negative Foot Exam: Complete at follow up Eye Exam: Discuss at follow up ASCVD: 5.0% Statin: No, borderline risk ASA: No CHANCE/ARB: Yes Encouraged regular aerobic exercise for improved glycemic control Encouraged daily foot checks Encouraged lean protein snacks and to avoid foods high in sugar and simple carbohydrates Treatment Goals: A1c goal: <7% FBG goal: <130 2 hour post prandial goal: <180 Assessment & Plan (04/13/2023 9:13 AM EST): Lab Results Component Value Date HGBA1C 6.0 04/03/2023 Well controlled Continue current regimen ?? Repeat fasting lipid panel. If remain elevated will consider statin start at follow up Assessment & Plan (09/24/2022 11:54 AM EDT): Uncontrolled, she hasn't seen her primary in more than 6 months FU with primary next week Counseled re more frequent low calorie/carb meals. Encouraged physical activity as tolerated. 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 Grieving [...] as usual. Since this provider will be retiringm, patient will be referred to new [facility] psychiatric provider. Pt is aware that appts will be via televisit and that provider will not be an employee of [facility]. She gives permission to share PHI. Any issues or concerns, contact the health center. All her questions were answered and I have wished her well. She agrees with the plan. Assessment & Plan (07/09/2023 4:25 PM EDT): With chronic pain and mobility limitations. Not doing as well with depressed mood. Will add Wellbutrin XL 150 mg in the morning. Continue Duloxetine 60 mg BID and Zolpidem 5 mg prn at bedtime, Hydroxyzine prn anxiety, and may also take Clonazepam 0.5 mg 1/2 or 1 tab BID. F/U with therapist as usual. On 01/05/2023 provider informed pt that I would be retiring. At our next appt in 6 weeks will review plan for continuity of care. She agrees with the plan. Assessment & Plan (05/07/2023 2:54 PM EST): With chronic pain and mobility limitations. Continue Duloxetine 60 mg BID and Zolpidem 5 mg prn at bedtime, Hydroxyzine prn anxiety, and may also take Clonazepam 0.5 mg 1/2 or 1 tab BID. F/U with therapist as usual. On 01/05/2023 provider informed pt that I would be retiring. At our next appt in 2 months will review plan for continuity of care. She agrees with the plan. Assessment & Plan (03/05/2023 11:08 AM EST): With chronic pain and mobility limitations. Stress and anxiety r/t family and friends. No med changes, continue Hydroxyzine prn anxiety, and may also take Clonazepam 0.5 mg 1/2 or 1 tab BID. She also has Duloxetine 60 mg BID and Zolpidem 5 mg prn at bedtime. F/U with therapist as usual. On 01/05/2023 provider informed pt that I would be retiring. At our next appt in 2 months will review plan for continuity of care. She agrees with the plan. Assessment & Plan (01/05/2023 9:35 AM EDT): With chronic pain and mobility limitations. Needs to move from current apartment r/t environmental allergies and would not tolerate studio apartment r/t anxiety. We will write a letter for her as desired. No med changes, continue Hydroxyzine prn anxiety, and may also take Clonazepam 0.5 mg 1/2 or 1 tab BID. She also has Duloxetine 60 mg BID and Zolpidem 5 mg prn at bedtime. Will refer for counseling. Today 01/05/2023 provider informed pt that I would be retiring within the next year or so, but we would make every effort to ensure smooth transition of care. F/U with me in 2 months. She agrees with the plan. Assessment & Plan (10/20/2022 9:35 AM EDT): With chronic pain and mobility limitations, also stress r/t her mother's advanced cancer and need for extensive care and support. No med changes, vontinue Hydroxyzine prn anxiety, and may also take Clonazepam 0.5 mg 1/2 or 1 tab BID. She also has Duloxetine 60 mg BID and Zolpidem 5 mg prn at bedtime. She plans to look on her own for counseling. F/U with me in 2-3 months. She agrees with the plan. Assessment & Plan (08/18/2022 12:16 PM EDT): With chronic pain and mobility limitations, also stress r/t her mother's advanced cancer and need for extensive care and support. No med changes, but urged to take the Hydroxyzine prn anxiety, and may also take Clonazepam 0.5 mg 1/2 or 1 tab BID. She will F/U for counseling when convenient. F/U with me in 2 months. She agrees with the plan. Assessment & Plan (06/12/2022 10:02 AM EDT): With chronic pain and mobility limitations, also stress r/t her mother's advanced cancer and need for extensive care and support. No med changes. Referring for outpatient counseling. F/U with me in 2 months. She agrees with the plan. Assessment & Plan (04/10/2022 11:24 AM EST): With chronic pain and mobility limitations, also stress r/t her mother's advanced cancer and need for extensive care and support. No med changes. We will give her the list of local counseling agencies so she can call if she would like to access counseling. F/U with me in 2 months. She agrees with the plan. Bilateral sacroiliitis 03/17/2022 Overview (03/23/2024): Last Assessment & Plan: Ms. Taylor is [...] and is in keeping with her exam. Lumbar disc herniation with radiculopathy 2021 Overview (03/23/2024): Last Assessment & Plan: Patient reports significant improvement after her left L4-5 minimally invasive microdiscectomy. Some good days and some bad, but overall much better. She will f/u on an as needed basis. Steatosis of liver 01/08/2015 Hemorrhoids 01/08/2015 Hypercholesterolemia 01/08/2015 Psoriasis 01/08/2015 Vitamin D deficiency 01/08/2015 Mixed anxiety and depressive disorder 01/08/2015 Resolved Problems Problem Noted Date Diagnosed Date Resolved Date Influenza-like symptoms 09/23/2022/2 05/2023 Fibromyositis 01/08/2015 09/02/2023 Encounters Date Type Department Care Team Description 03/23/2024 9:45 AM EST Office Visit [facility] [address] [place] [phone] Sweta Donato, PRASHANTH Chronic left shoulder pain (Primary Dx) 03/22/2024 Telephone [facility] [address] [place] [phone] Flor Jacinto FNP Chart Prep 03/22/[address] [address] Flor Jacinto FNP Nurse Triage; No Show (Pt no show to sick on site for Worsened pain with left shoulder and no relief from recent injection.Current pain medication not helpful. Message forward to [facility] red team nurses. ) 03/21/2024 Telephone [facility] [address] [place] [phone] Flor Jacinto FNP Nurse Triage 02/26/[address] [address] Flor Jacinto FNP Results 02/24/2024 [facility] [address] [address] Jason Nguyen MD Dysuria (Primary Dx) 02/24/2024 [facility] [address] [address] Jason Nguyen MD 02/24/2024 Telephone [facility] [address] [address] Jason Nguyen MD 02/22/[address] [address] Flor Jacinto FNP ER Follow-up 02/17/2024 11:00 AM EST [facility] [address] [address] Jason Nguyen MD Acute conjunctivitis of left eye, unspecified acute conjunctivitis type (Primary Dx); Rash; Pain of gingiva; Pharyngitis, unspecified etiology 02/17/[address] [address] Flor Jacinto FNP Nurse Triage 02/16/2024 3:00 PM EST [facility] [address] [address] Elizabeth Lyles MD Viral URI (Primary Dx) 02/15/2024 Orders Only [facility] External Provider, [facility] from Last 3 Months Immunizations Name Administration Dates Next Due Hep A, Adult 01/25/2004,08/24/2003,03/09/2003 Hep B, adult 01/08/2004, 4,08/24/2003,2003,08/08/2002 Influenza, IIV3, injectable 12/27/2007 Influenza, seasonal, injecta ble, preservative free 12/27/2007 Pneumococcal Conjugate PCV 13 11/25/2017 Pneumococcal Conjugate PCV 20 10/21/2022 TD (adult), 2 Lf tetanus tox oid, preservative free, adsorbed 01/25/2004,03/09/1993 Tdap 01/14/2013 Social History Tobacco Use Types Packs/Day Years Used Date Smoking Tobacco: Never Passive Smoke Exposure: Never Smokeless Tobacco: Never Tobacco Cessation:Counseling Given: Not Answered Alcohol Use Standard Drinks/Week Comments Never 0 (1 standard drink = 0.6 oz pur e alcohol) Depression Answer Date Recorded Patient Health Questionnaire-9 Score 17 01/04/2024 Patient Health Questionnaire-9 Score 17 01/04/2024 Last PHQ-9: Questionnaire Data Not on file [...] Answer Date Recorded Patient Health Questionnaire-2 Score 5 01/04/2024 Comments Unknown Sex and Gender Information Value Date Recorded Sex Assigned at Female 01/06/2022 10:14 AM EDT Legal Sex Female 10:14 AM EDT Gender Identity Female 01/06/2022 10:14 AM EDT Sexual Orientation Straight 01/06/2022 10 :14 AM EDT Last Filed Vital Signs Vital Sign Reading Time Taken Comments Blood Pressure 133/94 03/23/2024 9:14 AM EST Pulse 80 03/23/2024 9:14 AM EST Temperature 36.7 ??C (98 ??F) 03/23/2024 9:14 AM EST Respiratory Rate 18 03/23/2024 9:14 AM EST Oxygen Saturation 99% 03/23/2024 9:14 AM EST Inhaled Oxygen Concentration - - Weight 77 kg (169 lb 12.8 oz) 03/23/2024 9:14 AM EST Height 160 cm (5' 3 ) 01/04/2024 11:27 AM EDT Body Mass Index 30.08 01/04/2024 11:27 AM EDT Plan of Treatment Upcoming Encounters Date Type Department Care Team (Late st Contact Info) Description 05/13/2024 11:15 AM EST Office Visit [facility] [address] [place] [address] [facility], [facility] [address] [place] [address] Health Maintenance Due Date Last Done Comments CT Colonography 1972 Colonoscopy 1972 Colorectal Cancer Screening 1972 FIT DNA/Cologuard 1972 FIT 1972 FOBT 1972 Sigmoidoscopy 1972 Eye Exam 1982 Family Planning (PISQ) 01/01/1988 Zoster Vaccines (1 of 2) 2022 DTaP/Tdap/Td Vaccines (2 - Td or Tdap) 01/14/2023 01/14/2013, 01/25/2004, 03/09/1993 COVID-19 Vaccine (1 - season) 2023 Influenza Vaccine (#1) 2023 12/27/2007, 2007 Mammogram 01/25/2024 01/24/2022, 04/15/2018 Diabetes: Urine Protein Screening 04/14/2024 04/14/2023, 10/02/2022 Lipid Panel 04/14/2024 04/14/2023, 10/02/2022 Depression Monitoring (PHQ-9) 07/04/2024 01/04/2024, 01/04/2024 Diabetes: Hemoglobin A1C 07/04/2024 024, 07/10/2023, 04/14/2023, Additional history exists Alcohol/Substance Use Screening 07/09/2024 07/10/2023 Diabetes: Foot Exam 07/09/2024 07/10/2023, 07/10/2023, 07/10/2023, Additional history exists SDOH Screening 07/09/2024 07/10/2023 Depression Screening 01/03/2025 01/04/2024, 01/04/20 Tobacco Screening 03/23/2025 03/23/2024 Cervical Cancer Screening 08/20/2028 HPV/Cotest 08/20/2028 08/21/2023, 08/07, 06/23/2018 Pap Smear 08/20/2028 08/21/2023 RSV Patients and Patients Aged 60 years or older (1 - 1-dose 75+ series) 01/01/2048 Hepatitis B Vaccines Completed 01/08/2004, 10/03/2003, 08/24/2003, Additional history exists Hepatitis A Vaccines Completed 01/25/2004, 08/24/2003, 03/09/2003 Pneumococcal Vaccine: 50+ Years Completed 10/21/2022, 11/25/2017 HIV Screening Completed 04/14/2023 Hepatitis C Screening Completed 09/07/2023 HIB Vaccines Aged Out No longer eligi ble based on patient's age to complete this topic HPV Vaccines Aged Out No longer eligi ble based on patient's age to complete this topic IPV Vaccines Aged Out No longer eligi ble based on patient's age to complete this topic Meningococcal Vaccine Aged Out No suhail latoya eligible based on patient's age to complete this topic RSV under 20 months Aged Out No longe r eligible based on patient's age to complete this topic Rotavirus Vaccines Aged Out No longer eligible based on patient's age to complete this topic Procedures Procedure Name Priority Date/Time Associated Diagnosis Comments CULTURE, URINE, ROUTINE Routine 02/25/2024 9:25 AM EST Dysuria BASIC METABOLIC PANEL Routine 02/24/2024 12:03 PM EST Polyarthralgia CBC Routine 02/24/2024 12:03 PM EST Polyarthralgia HERPES CULTURE WITH REFLEX TYPING Routine 02/17/2024 12:00 AM EST Rash CULTURE, THROAT Routine 02/16/2024 3:49 PM EST Viral URI POCT INFLUENZA B (ID NOW RAPID MOLECULAR) Routine 02/16/2024 3:42 PM EST Viral URI POCT INFLUENZA A (ID NOW RAPID MOLECULAR) Routine 02/16/2024 3:42 PM EST Viral URI POCT RAPID STREP A Routine 02/16/2024 3: 42 PM EST Viral URI POCT RAPID COVID ANTIGEN Routine 02/16/2024 3:42 PM EST Viral URI US ABDOMEN COMPLETE WITH ELASTOGRAPHY Routine 02/15/2024 8:11 AM EST POCT GLYCATED HEMOGLOBIN, TOTAL Routine 01/04/2024 11:59 AM EDT Type 2 diabetes mellitus with hyperglycemia, without long-term current use of insulin (CMS/HCC) HEPATITIS PANEL, GENERAL Routine 09/07/2023 11:08 AM EDT HPV MRNA E6/E7 REFLEX TO HPV 16, 18/45 Routine 08/21/2023 2:47 PM EDT PAP SMEAR Routine 08/21/2023 2:47 PM EDT Papanicolaou smear for cervical cancer screening ALBUMIN, RANDOM URINE W/CREATININE Routine 04/14/2023 9:45 AM EST Type 2 diabetes mellitus with hyperglycemia, without long-term current use of insulin (CMS/HCC) HIV 1/2 ANTIGEN/ANTIBODY, FOURTH GENERATION W/RFL Routine 04/14/2023 9:41 AM EST Routine screening for STI (sexually transmitted infection) LIPID PANEL, STANDARD Routine 04/14/2023 9:41 AM EST Type 2 diabetes mellitus with hyperglycemia, without long-term current use of insulin (CMS/HCC) MAMMOGRAM GENERIC Routine 01/24/2022 1:0 4 PM EST from Last 3 Months or Most Recently Relevant to Health Maintenance Results * Culture, Urine, Routine (02/25/2024 9:25 AM EST) Urine Urine specimen obtained by clean catch procedure / Unknown 02/25/2024 9:25 AM EST 02/25/2024 11:24 AM EST Comment:[facility] Narrative [facility] - 02/27/2024 2:56 PM EST Strep agalactiae (Grp B) Quant < 10,000 cfu/mL Susc N/A Susceptibility not routinely performed on this isolate. Specimen Source: Urine clean catch us Jason Nguyen MD LAB MICROBIOLOGY - GENERAL ORDER MANDA Final Result [facility] [address] [place] [phone] * CBC (02/24/2024 12:03 PM EST) White Blood Count 4.8 4.8 - 10.8 X10*3/uL [facility] Red Blood Count 4.77 4.20 - 5.50 X10*6/uL [facility] Hemoglobin 13.7 12.0 - 16.0 g/dl [facility] Hematocrit 40.8 37.0 - 47.0 % [facility] Mean Corpuscular Volume 85.5 80.0 - 98.0 fL [facility] Mean Corpuscular Hemoglobin 28.7 27.0 - 33.0 pg [facility] Mean Corpuscular HGB Conc 33.6 31.0 - 35.0 g/dl [facility] Red Cell Distribution Width 12.5 11.0 - 16.0 % [facility] Platelet Count 308 160 - 400 X10*3/uL [facility] Mean Platelet Volume 9.6 9.4 - 12.3 fL [facility] NRBC Pct Auto 0.0 0.0 - 0.2 /100WBC [facility] NRBC Abs Auto 0.000 0.0 - 0.012 X10*3/uL [facility] Blood Venous blood specimen / Unknown 02/24/2024 12:03 PM EST 02/24/2024 1:50 PM EST Alessandra Nagel DO LAB BLOOD ORDERABLES Final R esult Performing Organization Address [facility] Co de Phone Number [facility] [address] [place] [address] [phone] * (ABNORMAL) Basic Metabolic Panel (02/24/2024 12:03 PM EST) Sodium 141 135 - 145 mmol/L [facility] Potassium 3.5 3.3 - 5.1 mmol/L [facility] Chloride 107 96 - 108 mmol/L [facility] Carbon Dioxide 26 22 - 29 mmol/L [facility] Anion Gap 12 12 - 20 [facility] Urea Nitrogen (BUN) 7(L) 9 - 16 mg/dL [facility] Creatinine, Serum 0.63 0.5 - 1.4 mg/dL [facility] Estimated Glomerular Filt Rate >60 [facility] Comment:Chronic Kidney Disea se: Estimated GFR < 60 mL/min/[id number] Kidney Disease: Estimated GFR < 15 mL/min/1.73m2 Glucose 163(H) 60 - 115 mg/dL [facility] Calcium 8.5 8.4 - 10.2 mg/dL [facility] Blood Venous blood specimen / Unknown 02/24/2024 12:03 PM EST 02/24/2024 1:50 PM EST us Alessandra Nagel DO LAB BLOOD ORDERABLES Final R esult Performing Organization Address [facility] [place] Co de Phone Number [facility] [address] [place] [address] [phone] * Herpes Simplex Virus Culture with Reflex Typing (02/17/2024 12:00 AM EST) HSV Culture/Type SEE NOTE [facility] Comment:HERPES SIMPLEX VIRUS CULTURE W/RFL TO TYPING Micro Number: [id number] Test Status: Final Specimen Source: Not given Specimen Quality: Adequate HSV Culture: Not IsolatedTHIS TEST WAS PERFORMED AT:[employer] [id number] MERATI,MD Swab Topography unknown / Unknown 02/17/2024 02/17/2024 Jason Nguyen MD LAB MICROBIOLOGY - GENERAL ORDER MANDA Final Result Performing Organization Address [facility]/ZIP Co de Phone Number [facility] [address] [place] [phone] * Culture, Throat (02/16/2024 3:49 PM EST) Throat Structure of anterior portion of neck / Unknown 02/16/2024 3:49 PM EST 02/16/2024 6:04 PM EST Comment:Throat Narrative [facility] - 02/18/2024 10:28 AM EST Throat Culture No Group A Beta-hemolytic Streptococci isolated. Specimen Source: Throat Elizabeth Lyles MD LAB MICROBIOLOGY - GENER AL ORDERABLES Final Result Performing Organization Address [facility] Co de Phone Number [facility] [address] [place] [phone] * Influenza B (ID NOW Rapid Molecular) (02/16/2024 3:42 PM EST) Pathologist [facility] [place] Influenza B Negative Negative, Indeterminate [facility] Swab 02/16/2024 3:42 PM EST Elizabeth Lyles MD POINT OF CARE TEST ENTER /EDIT ORDERABLES Final Result Performing Organization Address [facility] Co de Phone Number [facility] [address] [place] [phone] * Influenza A (ID NOW Rapid Molecular) (02/16/2024 3:42 PM EST) [facility] Influenza A Negative Negative, Indeterminate [facility] Swab 02/16/2024 3:42 PM EST Elizabeth Lyles MD POINT OF CARE TEST ENTER /EDIT ORDERABLES Final Result Performing Organization Address [facility] de Phone Number [facility] [address] [place] [address] [phone] * POCT Rapid COVID Ag (02/16/2024 3:42 PM EST) Rapid COVID Ag Negative [facility] Swab 02/16/2024 3:42 PM EST Elizabeth Lyles MD POINT OF CARE TEST ENTER /EDIT ORDERABLES Final Result Performing Organization Address [facility] Phone Number [facility] [address] [place] [phone] * POCT rapid strep A manually resulted (02/16/2024 3:42 PM EST) [facility] Rapid Strep A Screen Negative Negative, None Detected [facility] Swab 02/16/2024 3:42 PM EST Result [facility] Elizabeth Lyles MD POINT OF CARE TEST ENTER /EDIT ORDERABLES Final Result Performing Organization Address [facility] Phone Number [facility] [address] [place] [phone] * US Abdomen Comp w elastography (02/15/2024 8:11 AM EST) Anatomical Region Laterality Modality Abdomen Ultrasound 02/15/2024 8:11 AM EST Narrative 04/01/2024 4:09 PM EST ? [facility] ?[address] ?[place] [address] ? Ultrasound Report ? Signed ? Patient: Taylor Kingston,Bernardo ?MR ?? #: [id number] ? : 1970 ?Acct:[id number] ? Age/Sex: 53 / F ?ADM Date: 12/09/24 ? Loc: HO.US ? Attending Dr: Chaz Reynaga MD ? Ordering Physician: Chaz Reynaga MD ?? Date of Service: 02/15/24 ?? Procedure(s): US abdomen comp w elastography ?? Accession Number(s): [id number] ? cc: Chaz Reynaga MD; Flor Jacinto [facility] ? EXAMINATION: ?? US COMPLETE ABDOMEN WITH LIVER ELASTOGRAPHY ? CLINICAL INFORMATION: ?? History of fatty liver and epigastric abdominal pain. ? COMPARISON: ?? 06/12/2020, 11/18/2018. ?? No prior elastography. ? TECHNIQUE: ?? Real-time imaging of the abdominal viscera. Noninvasive ultrasound ?? liver fibrosis assessment is performed using [employer] shear wave ?? elastography (pSWE) with a C5-2 MHz transducer. ??Multiple elastography ?? samples are obtained. ? Exam submitted for review 04/01/2024 3:05 PM FIELD ACCOUNT MANAGER. ? FINDINGS: ? PANCREAS: The visualized pancreatic head and body are normal in ?? appearance. The remainder of the pancreas is obscured from ?? visualization by the overlying bowel gas. ? ABDOMINAL AORTA: No aortic aneurysm is seen. ? INFERIOR VENA CAVA: Visualized portions are normal. ? LIVER: The liver demonstrates normal size, contour and mildly increased ?? diffuse echogenicity. No focal lesion or intrahepatic biliary duct ?? dilatation. ? The right lobe measures 16.1 cm in length. ??The left lobe measures 11.4 ?? cm in length. ? Portal flow is hepatopedal. ? Shear wave liver elastography median stiffness is 1.42 m/s (reference: ? normal median stiffness is 1.2 m/s or less). ? IQR/median stiffness to assess sampling precision is 0.09 (reference: ?? good quality data set is IQR/median stiffness of 0.3 or less). ? GALLBLADDER: The gallbladder is physiologically distended without ?? evidence of stones, sludge, polyps, wall thickening or pericholecystic ?? fluid. ? COMMON BILE DUCT: Normal in caliber measuring 0.4 cm in diameter. ? RIGHT KIDNEY: No hydronephrosis. No renal calculi or focal parenchymal ?? lesions. The kidney measures 12.7 cm in maximum dimension. ? LEFT KIDNEY: No hydronephrosis. No renal calculi or focal parenchymal ?? lesions. The kidney measures 12.1 cm in maximum dimension. ? SPLEEN: Unremarkable. The spleen measures 10.0 cm in maximum dimension. ? FREE FLUID: None seen. ? US/US abdomen comp w elastography ?? IMPRESSION: ?? 1. Mildly increased hepatic echogenicity, findings suggestive of ?? diffuse fatty infiltration. No suspicious focal hepatic lesion. Normal ?? hepatic size. ? 2. Liver elastography: ??In the absence of other known clinical signs, ?? measurements rule out compensated advanced chronic liver disease. ??If ?? there are known clinical signs, further testing may be needed for ?? confirmation. ? 3. Remainder of the examination is normal. ? REFERENCE: ?? Society of Radiologists in Ultrasound Liver Stiffness Thresholds ?? (2019): (Siemens unit) ? LIVER STIFFNESS THRESHOLDS: ?? *Liver Stiffness equal or less than 1.2 m/s: ??High probability of being ?? normal. ?? *Liver Stiffness ??less than 1.5 m/s: ??In the absence of other known ?? clinical signs, rules out compensated advanced chronic liver disease. ?? *Liver Stiffness between 1.5 and 1.7 m/s: ??Suggestive of compensated ?? advanced chronic liver disease but need further test for confirmation. ?? *Liver Stiffness over or equal to 1.7 m/s: ??Rules in compensated ?? advanced chronic liver disease. ? QUALITY OF DATA SET: ?? *IQR/Median value equal or less than 0.3 implies a quality data set. ?? *IQR/Median value over 0.3 implies a poor quality data set. ? SIGNIFICANT CHANGE FROM PRIOR EXAM: ?? Significant change if liver stiffness measurement is 10% or greater ?? from prior exam. ? OTHER CONSIDERATIONS: ?? The stage of liver fibrosis may be overestimated in the setting of ?? acute hepatitis, liver inflammation, elevated liver function tests, ?? hepatic vascular congestion, obstructive cholestasis, non-fasting ?? state, and infiltrative diseases such as amyloidosis and lymphoma. ??In ?? some patients with NAFLD, the liver stiffness thresholds for ?? compensated advanced chronic liver disease may be lower. ??In causes ?? other than viral hepatitis and NAFLD, liver stiffness thresholds are ?? not well established. ? Electronically signed by: ??Anup Jarrett MD ??04/01/2024 04:06 PM EST RP ? Dictated By: ?Anup Jarrett MD ? Signed By: ?<Electronically signed by Anup Jarrett MD in OV> ?04/01/24 1606 ? DD/ 0811 ? TD/TT: 02/15/24 0836 ? Pickler Helper: ? Procedure Note Donfedericoter, Image - 04/01/2024 [place] [address] Ultrasound Report Signed Patient: Bernardo PughMR #: [id number] : 1970Acct:[id number] Age/Sex: 53 / FADM Date: 02/15/24 Loc: HO.US Attending Dr: Chaz Reynaga MD Ordering Physician: Chaz Reynaga MD Date of Service: 02/15/24 Procedure(s): US abdomen comp w elastography Accession Number(s): [id number] cc: Chaz Reynaga MD; [facility] EXAMINATION: US COMPLETE ABDOMEN WITH LIVER ELASTOGRAPHY CLINICAL INFORMATION: History of fatty liver and epigastric abdominal pain. COMPARISON: 06/12/2020, 11/18/2018. No prior elastography. TECHNIQUE: Real-time imaging of the abdominal viscera. Noninvasive ultrasound liver fibrosis assessment is performed using [employer] shear wave elastography (pSWE) with a C5-2 MHz transducer. Multiple elastography samples are obtained. Exam submitted for review 04/01/2024 3:05 PM FIELD ACCOUNT MANAGER. FINDINGS: PANCREAS: The visualized pancreatic head and [...] by: Anup Jarrett MD 04/01/2024 04:06 PM [facility] Dictated By: Anup Jarrett MD Signed By: <Electronically signed by Anup Jarrett MD in OV> 04/01/24 1606 DD/ 0811 TD/TT: 02/15/24 0836 Pickler Helper: [facility] External Provider IMG US PROCEDURES Final Result * (ABNORMAL) POCT HGB A1C (01/04/2024 11:59 AM EDT) Hemoglobin A1C 6.2(A) 4.0 - 6.0 % Blood 01/04/2024 11:5 9 AM EDT [facility] PULLEY MORTISER OPERATOR POINT OF CARE TEST ENTER/EDIT ORDERABLES Final Result * Hepatitis Panel, General (09/07/2023 11:08 AM EDT) Hepatitis A IgM Nonreactive Nonreactive [facility] Comment:IgM antibodies to STOCKTON V not detected; does not exclude earlyacute or recovered HAV infection. ~Hepatitis B Surface Antibody NONREACTIVE Nonreactive [facility] Comment:Nonreactive: < 8.00 mIU/mL Hepatitis B Core Antibody Nonreactive Nonreactive [facility] Hepatitis C Antibody Nonreactive Nonreactive [facility] Comment:Antibodies to HCV no t detected; does not exclude early acuteHCV infection. Hepatitis B Surface Ag Negative Negative [facility] 09/07/2023 11:0 8 AM EDT 09/07/2023 11:08 AM EDT Generic External Data Provider LAB BLOOD ORDERAB LES Final Result [facility] [address] [place] [phone] * HPV mRNA E6/E7 w/Reflex to HPV Genotypes 16, 18/45 (08/21/2023 2:47 PM EDT) HPV nRNA E6/E7 Not Detected Not Detected [facility] Comment:Methodology: Transcr iption-Mediated AmplificationThis assay detects E6/E7 viral messenger RNA (mRNA) from 14high-risk HPV types (16,18,31,33,35,39,45,51,52,56,58,59,66,68).Cervical sources are required for HPV testing.If a vaginal source from a patient who has had atotal hysterectomy with removal of cervix wassubmitted, please contact the testing laboratoryfor alternative testing options.For additional information, please refer tohttp://[email or web address].com/faq/YOR705g5(This link if provided for information/educational purposes only.)THIS TEST WAS PERFORMED AT:[facility] [place] [phone] PRICE MD HPV mRNA E6/E7 [facility] HPV 16 RNA [facility] HPV 18/45 RNA [facility] 08/21/2023 2:47 PM EDT 08/24/2023 10:40 AM EDT [facility] PULLEY MORTISER OPERATOR LAB CYTOLOGY ORDERABLES Final Result Performing Organization Address [facility]/ZIP Co de Phone Number [facility] [address] [place] [address] [phone] * Pap Smear (08/21/2023 2:47 PM EDT) Swab Cervical swab / Unknown 08/21/2023 2:47 PM EDT 08/24/2023 10:40 AM EDT Narrative [facility] - 09/07/2023 11:45 AM EDT ----- ------- Name: Bernardo Pugh ?Age/Sex: 52/F ? : 1970 Unit#: [id number] ?? Attend Dr: Flor Jacinto PULLEY MORTISER OPERATOR ?Re08/21/23 ?Status: DEP REF ? Location: HO.HHCLNP ? Disch: ? ----- ------- SPEC : [id number] ?RECD: 08/24/23-1040 ? STATUS: ??SOUT ? REQ NUM: [id number] ? HUE: 08/21/23-2637 ? SUBM DR: Flor Jacinto PULLEY MORTISER OPERATOR ? ENTERED: ??08/24/23-110 ?SP TYPE: Pap Smr ?OTHR DR: ? ORDERED: ??Pap Smear ? Interpretation ?? Satisfactory for evaluation. ?? No endocervical cells seen. ?? Negative for intraepithelial lesion or malignancy. ? HPV mRNA E6/E7: ?NOT DETECTED ? This assay detects E6/E7 viral messenger RNA (mRNA) from 14 high-risk HPV types (16, 18, ?? 31, 33, 35, 39, 45, 51, 52, 56, 58, 59, 66, 68) ? HPV testing performed by [employer], [place], [place]. ??See reference laboratory ?? portion of the EMR for entire report. ?Clinical Information LMP: Postmenopausal Previous PAP test: Unknown date, Unknown findings ? Material Received ?? ThinPrep-Cervical ----- ------- Signed (signature on file) Ludy Crum Harmeet 09/07/23 4755 ? ----- ------- ? END OF REPORT ? [facility] LAB CYTOLOGY ORDERABLES Final Result Performing Organization Address [facility] de Phone Number [facility] [address] [place] [phone] * Albumin, Random Urine W/Creatinine (04/14/2023 9:45 AM EST) Creatinine, Urine 149.93 mg/dL [facility] Microalbumin Urine 11.0 mg/L [facility] Microalbum Creatinine Ratio Ur 7.3 <30 ug/mg cr [facility] Comment:Albumin/Creatinine R atio Reference Ranges: Normal: < 30 ug/mg creatinine Microalbuminuria: 30 - 300 ug/mg creatinineClinical Albuminuria: > 300 ug/mg creatinine Urine 04/14/2023 9:45 AM EST 04/14/2023 11:14 AM EST [facility] LAB URINE ORDERABLES Final Re sult Performing Organization Address [facility] de Phone Number [facility] [address] [place] [address] [phone] * HIV-1/2 Antigen and Antibodies, Fourth Generation, with Reflexes (04/14/2023 9:41 AM EST) HIV AB/AG Nonreactive Nonreactive [facility] Comment:HIV-1 p24 Ag and/or HIV-1/HIV-2 Ab not detected.A test result that is nonreactive does not exclude thepossibility of exposure to or infection with HIV-1 and/orHIV-2. Nonreactive results in this assay for individualswith prior exposure to HIV-1 and/or HIV-2 may be due toantigen and antibody levels that are below the limit ofdetection of this assay.The [employer] HIV Ag/Ab Combo assay result andsupplemental assay results should be interpreted inconjunction with the patient's clinical presentation,history and other laboratory results. If the results areinconsistent with clinical evidence, additional testing issuggested to confirm the result. Blood Venous blood specimen / Unknown 04/14/2023 9:41 AM EST 04/14/2023 11:16 AM EST [facility] LAB BLOOD ORDERABLES Final Re sult Performing Organization Address [facility] Co de Phone Number [facility] [address] [place] [phone] * (ABNORMAL) Lipid Panel, Standard (04/14/2023 9:41 AM EST) Triglycerides 142 <150 mg/dL [facility] Comment:Desirable Triglyceri de: less than 150 mg/dLBorderline High Triglyceride 150-199 mg/dLHigh Triglyceride: 200-499 mg/dLVery High Triglyceride: greater than or equal to 5OO mg/dL Cholesterol 210(H) <200 mg/dL [facility] Comment:Desirable Cholestero l: less than 200 mg/dLBorderline High Cholesterol: 200-239 mg/dLHigh Cholesterol: greater than 239 mg/dL LDL Cholesterol Calculated 132(H) <100 mg/dL [facility] Comment:Desirable LDL: less than 100 mg/dLNear Optimal/Above Optimal LDL: 110- 129 mg/dLBorderline High LDL: 130-159 mg/dLHigh LDL: 160-189 mg/dLVery High LDL: greater than or equal to 190 mg/dL HDL Cholesterol 50 >40 mg/dL [facility] Comment:Desirable HDL: great er than 40 mg/dL Note: This HDL assay may give artificially low results in patients with liver disease. Blood Venous blood specimen / Unknown 04/14/2023 9:41 AM EST 04/14/2023 11:16 AM EST [facility] LAB BLOOD ORDERABLES Final Re sult Performing Organization Address [facility] Co de Phone Number [facility] [address] [place] [phone] * Mammography Report 1 (01/24/2022 1:04 PM EST) Anatomical Region Laterality Modality Breast Bilateral Mammography 01/24/2022 1:04 PM EST Narrative 01/28/2022 9:22 AM EST Refer to the Notes tab for result details [facility] Procedure: Mammography Report 1 Procedure Note Provider, MD Nishi - 06/01/2022 Refer to the Notes tab for result details [facility] Procedure: Mammography Report 1 [facility] BI PROCEDURES Final Result from Last 3 Months or Most Recently Relevant to Health Maintenance Insurance [facility] C3 HSN FULL Care Teams Sql Server Dba Relationship Specialty Start Date End Date Flor Jacinto FNP [address] [place] [phone] PCP - General Family Medicine 08/13/22 Elder Wheatley FNP [address] [place] [phone] Nurse Practitioner Family Medicine 02/10/23 Marisela Bowling Delinquent Account ClerkCcna 08/06/23
--- OUTSIDE RECORDS SUMMARY | 2024-05-13 10:09 | XMS_ITS | Encounter Summary ---
Author Organization [employer] Address [address] [facility] [address] [place] [address] Care Team Providers Care Packaging Design Engineer Name Role Phone Flor Jacinto WELT RANDER Primary Care Provider [phone] Elder Wheatley Unavailable Unavailable Reason for Visit * Reason Comments Med Change Request Encounter Details Date Type Department Care Team ([facility] st Contact Info) Description 07/09/2023 Refill [facility] [address] [place] [address] Elder Wheatley FNP Anxious depression Social History Tobacco Use Types Packs/Day Years [...] AM EDT documented as of this encounter Plan of Treatment Upcoming Encounters Date Type Department Care Team (Late st Contact Info) Description 05/13/2024 11:15 AM EST Office Visit [facility] [address] [place] [phone] Flor Jacinto FNP [address] [place] [address] documented as of this encounter Visit Diagnoses Diagnosis Anxious depression documented in this encounter Additional Health Concerns Assessment Noted Time PHQ-9 Depression Total Score: 6 07/09/19 24 3:28 PM EDT documented as of this encounter Care Teams Packaging Design Engineer Relationship Specialty Start Date End Date Flor Jacinto FNP [address] [place] [phone] PCP - General Family Medicine 08/13/22 Elder Wheatley FNP [address] [place] [phone] Nurse Practitioner Family Medicine 02/10/23 Marisela Bowling Order Checker Packer ProcesserStaff Radiographer 08/06/23 documented as of this encounter
== END 2024-05-13 10:07 | disposition home or self-care (01) ==
PROVIDERS: PCP Registered Nurse; Visit Provider Nurse Practitioner Family
DX: R00.2 Palpitations (principal); R07.9 Chest pain, unspecified
CPT/HCPCS: 93010; 99213

== ENCOUNTER → 2024-05-13 09:23 | Outpatient (BNVA) | payer MEDICAID, SELFPAY | PROVIDERS: PCP Registered Nurse; Visit Provider Nurse Practitioner Family | DX: R00.2 Palpitations (principal); R07.9 Chest pain, unspecified | CPT/HCPCS: 93005; 99212 ==

== ENCOUNTER 2024-07-05 09:59 | Outpatient (AMB) | payer MEDICAID, SELFPAY ==
--- NOTE | 2024-07-05 10:03 | A.OFFVIS_ITS ---
Vital Signs 07/05/24 10:05 Height 5 ft 3 in Weight 164 lb BMI 29.0 Intake Visit Reasons: OV: left wrist carpal tunnel syndrome Intake Note: Yumiko is a 53 year old right hand dominant female who presents today for a follow up visit for her left wrist Carpal Tunnel Syndrome. At her last visit on 10/01/[address] Rosanna Cardona' educated her about her condition, discussed operative and non-operative treatment options. At this time no surgical intervention was warranted. Allergies environmental allergies Allergy (Intermediate, Verified 01/20/24 13:17) hives/eye itchiness dog dander [DOG] Allergy (Unknown, Verified 01/15/24 15:27) HIVES HPI HPI OV: left wrist carpal tunnel syndrome: Details: Yumiko is a 53 year old right hand dominant female who presents today for a follow up visit for her left wrist Carpal Tunnel Syndrome. At her last visit on 10/01/[address] Rosanna Cardona' educated her about her condition, discussed operative and non-operative treatment options. At this time no surgical intervention was warranted. Today, the patient reports that her symptoms have worsened, and she would like to pursue operative intervention [facility] Medical History Hepatic steatosis Psoriatic arthritis Palpitations GERD (gastroesophageal reflux disease) Fatty liver Chronic pain syndrome Radiculopathy, lumbar region Disc degeneration, lumbar Postlaminectomy syndrome of lumbosacral region Osteoarthritis of left shoulder Fibromyalgia Arthritis Surgical History Hx of straightening of nasal septum History of back surgery Family History Mother No problems noted. Mother Advanced cirrhosis of liver Diabetes Low blood pressure Colon polyps Father Aneurysm Sister No problems noted. Sister No problems noted. Brother No problems noted. Son No problems noted. Son No problems noted. Daughter No problems noted. Social History Alcohol intake: former Year quit: 7 Patient Tobacco Use Status: Former Tobacco user Years Smoked: 10 YEARS e-Cigarette/Vaping Use: Never Used Current occupational status: employed Current occupation: works as [employer] part-time- right handed Review of Systems Const All systems reviewed & are unremarkable except as noted in HPI and below Physical Exam Vital Signs: BMI result Body Mass Index 29.0 Extrem Other: Neuro: Decreased sensation in the median nerve distribution of the left hand. Normal sensation to all other digits in the left hand today. Normal sensation in the tips of all digits of the right hand today. No thenar or intrinsic wasting. Good APB muscle firing and good finger cross. Vascular: Capillary refill brisk. ROM: Patient can make a fist and extend all their digits. Skin: No lacerations or abrasions noted. General: No ecchymosis. No erythema or evidence of infection. Assessment & Plan Assessment & Plan (1) Carpal tunnel syndrome of left wrist: Code(s): G56.02 - Carpal tunnel syndrome, left upper limb Category: Medical Plan 1. Left carpal tunnel syndrome Symptoms intermittent, daily, worse at night I educated the patient about the condition. I discussed both operative and n onoperative treatment options. The patient would like to proceed with surgery. The risks and benefits of operative treatment were discussed with the patient and the patient wishes to proceed with surgery. These risks include, but are not limited to, risk of damage to blood vessels, nerves, tendons, infection, recurrence, incomplete relief of preoperative symptoms, persistent pain, possible need for further surgery, and the risks associated with regional blocks and/or anesthesia. Plan is to take the patient to the operating room at some point in the next few weeks for the following procedures: 1. Left carpal tunnel release under local All of the preoperative paperwork including the consent was discussed today. All of the patient's questions were answered in the clinic today. The patient understands that they will be in contact with our instructor adjunct surgical technician to discuss scheduling their procedure. Patient denies diabetes, blood thinners, asthma, heart issues, lung issues, kidney issues, or current smoking. Coding Level of Care Code Est Pt Level 4 (17117) Diagnoses Carpal tunnel syndrome of left wrist G56.02
[2024-07-05 10:05] VITALS: BMI 29.0
--- OUTSIDE RECORDS SUMMARY | 2024-07-05 11:19 | XMS_ITS | Clinical Summary ---
Author Organization [facility] Address [address] [place] [address] Phone Care Team Providers Care Sociology Faculty Member Name Role Phone Monika Nagelfer Skyla STRONG Primary Care Provider [phone] Allergies No known active allergies Medications dexAMETHasone [...] Problem Noted Date Diagnosed Date Bilateral sacroiliitis ([facility] V24) 03/17/2022 Overview (02/07/2024): Last Assessment & Plan: [...] aqta) 19yo and older 01/25/2004,08/24/2003,03/09/2003 Hepatitis B (Mqgkakh-T-Rhitv , Recombivax HB-Adult) 19yo and older 01/08/2004,10/03/2003,08/24/2003,2003,08/08/2002 [...] 01/14/2023 01/14/2013, 01/25/2004, 03/09/1993 COVID-19 Vaccine ( season) 2023 Influenza Vaccine (Season Ended) 2024 12/27/2007 Hepatitis B Vaccines Completed 01/08/2004, 10/03/2003, [...] age to complete this topic Meningococcal B Vaccine Aged Out No l onger eligible based on patient's age to complete this topic RSV Immunization Patients Under 20 months Aged Out No longer eligible based on patient's age to complete this topic Varicella Vaccines Aged Out No longer eligible based on patient's age to complete this topic Insurance MEDICAID - [place] Care Teams Sociology Faculty Member Relationship Specialty Start Date End Date Alessandra Nagel DO [address], [place] PCP - General 11/17/23
--- OUTSIDE RECORDS SUMMARY | 2024-07-05 11:19 | XMS_ITS | Clinical Summary ---
Author Organization [facility] Address [address] [place] [address] Care Team Providers Care Highway Patrol Pilot Name Role Phone Unavailable Primary Care Provider [...] levels above the fusion - Followed [place] [facility] [place] [facility] Healthcare maintenance 04/13/2023 Overview (11/25/2023): Mammo: Upcoming 01/2023 [facility] No hx of abnormal pap. Need records C-scope: U[facility] thorugh [facility] Need records BMD: Routine age 67 Fibromyalgia 02/10/2023 Overview (11/25/2023): ? Chronic pain/fibromyalgia-neck/back/feet/shoulders. Followed by [facility] [place] [facility]. Sx improvement with left SI [...] retiring, patient will be referred to new [facility] psychiatric provider. Pt is aware that appts will be via [employer] and that provider will not be an employee of [facility]. She gives permission to share PHI. [...] Health Maintenance Due Date Last Done Comments Anxiety Screening 1972 Depression Monitoring 1972 HPV Screening 1972 Hepatitis C Screening 1972 Pap + HPV 1972 Cervical Cancer Screening 1993 Pap Smear 1993 Breast Cancer Screening (Mammogram) 2012 CT Colonography 2017 Colonoscopy 2017 Colorectal Cancer Screening 2017 FIT/gFOBT 2017 Fecal DNA 2017 Flexible Sigmoidoscopy 2017 Imm-Zoster, Recombinant (1 of 2) 2022 Imm-DTaP/Tdap/Td (2 - Td or Tdap) 01/14/2023 01/14/2013, 01/25/2004, 03/09/1993 Aov-USVRF-76 (1 - season) 2023 Imm-Influenza (#1) 2023 12/27/2007 Alcohol and Drug Screen 03/09/2024 Tobacco Screening 11/23/2024 11/24/2023 Lipid Screening 04/14/2026 04/14/2023 Diabetes Screening 09/06/2026 09/07/2023, 0 07/10/2023, 04/14/2023 Imm-Hepatitis B Completed 01/08/2004, 09/07, 08/24/2003, Additional history exists HIV Screening Completed 04/14/2023, 04/14/2023 Cervical Ablation/Cold-Knife Conization Discontinued Cervical Cryotherapy Discontinued Colposcopy Discontinued Endometrial Biopsy Discontinued Excision/Leep Discontinued HPV Genotyping Discontinued Vaginal Pap Discontinued Vulvoscopy Discontinued Insurance [place] MEDICAID [facility]
== END 2024-07-05 10:43 | disposition home or self-care (01) ==
LOC: HO.HOS 10:00
PROVIDERS: PCP Registered Nurse
DX: G56.02 Carpal tunnel syndrome, left upper limb (principal)
CPT/HCPCS: 99214

== ENCOUNTER → 2024-07-05 09:59 | Outpatient (BNVA) | payer MEDICAID, SELFPAY | PROVIDERS: PCP Registered Nurse | DX: G56.02 Carpal tunnel syndrome, left upper limb (principal) | CPT/HCPCS: 99212 ==

== ENCOUNTER 2024-08-11 08:48 | Day surgery (SDC) | payer MEDICAID, SELFPAY ==
--- OUTSIDE RECORDS SUMMARY | 2024-07-18 13:17 | XMS_ITS ---
Author Organization [facility] Address [address] [place] [address] Care Team Providers Care Reed Maker Name Role Phone Ella العلي, Flor Primary Care Provider Unava Chaz Roberts [phone] REASON FOR VISIT epigastric pain,gerd Encounters Encounter Location Date Provider Diagnosis [facility] Outpatient [address] [place] [phone] 05/04/2024 Chaz Reynaga Plan Of Treatment Next Appt Details Provider Name:Chaz Reynaga , 08/29/2024 09:30:00 AM, [address] [place] [address], [phone], Progress Notes * PARKS GISELLDOB:1970 (53 yo F)Acc No.[id number]:05/04/2024 EGD and COL/MAC Patient:?PARKS GISELL Provider:?Chaz Reynaga MD :1970???Age:53 Y???Sex:Female D ate:05/04/2024 Address:[address] [place] [address] [address], [place], [place] Pcp:ZOHRA Michael Subjective: * Chief Complaints: * [...] MD Date:? 025 Generated for Cherise mehta/Joe/Wooditting on:?07/18/2024 01:17 PM EDT
--- OUTSIDE RECORDS SUMMARY | 2024-07-18 13:17 | XMS_ITS | Clinical Summary ---
Author Organization [facility] Address [address] [place] [address] Care Team Providers Care Shipwright Supervisor Name Role Phone Unavailable Primary Care Provider [...] levels above the fusion - Followed by [facility] pain mngmt Healthcare maintenance 04/13/2023 Overview (11/25/2023): Mammo: Upcoming 01/2023 [facility] No hx of abnormal pap. Need records C-scope: UTD thorugh [facility]. Need records BMD: Routine age 67 Fibromyalgia 02/10/2023 Overview (11/25/2023): ? Chronic pain/fibromyalgia-neck/back/feet/shoulders. Followed by [facility] pain mngmt. Sx improvement with [...] retiring, patient will be referred to new [facility] psychiatric provider. Pt is aware that appts will be via [employer] and that provider will not be an employee of [facility]. She gives permission to share PHI. Any [...] Td or Tdap) 01/14/2023 01/14/2013, 01/25/2004, 03/09/1993 Sqb-EPCCM-14 (1 - season) 2023 Imm-Influenza (#1) 2023 [...] Discontinued Vaginal Pap Discontinued Vulvoscopy Discontinued [place] [facility]
--- OUTSIDE RECORDS SUMMARY | 2024-07-18 13:17 | XMS_ITS ---
Author Organization [facility] Address [address] [place] [address] Care Team Providers Care Covering Machine Operator Name Role Phone [facility] DELI COOK, Flor Primary Care Provider Unava Chaz Roberts Unavailable [phone] REASON FOR VISIT r/f request omeprazole Medications Medication SIG (Take, Route, Fr equency, Duration) Notes Start Date End Date Status Omeprazole 40 MG 1 Orally Once a day in the morning for 30 day(s) 09/22/2023 Active Encounters Encounter Location Date Provider Diagnosis [facility] [address] [address] 04/19/2024 Chaz Reynaga GERD (gastroesophageal reflux disease) [...] Provider Name:Chaz Reynaga , 08/29/2024 09:30:00 AM, [address] [place] [address] , [place], [place], [phone], Progress Notes * GISELL PARKSDOB:1970 (53 yo F)Acc No.[id number]:04/19/2024 Patient:?PARKSSELENAGISELL :1970???Age:53 Y???Sex:Female Address:[address] [place] [address] * Refills? Refill Omeprazole Capsule Delayed Release, 40 MG, Orally, 30, 1, Once a day in the morning, 30 day(s), Refills=6 * true * Date:? Generated for Cherise mehta/Joe/Wooditting on:?07/18/2024 01:17 PM EDT
--- OUTSIDE RECORDS SUMMARY | 2024-07-18 13:17 | XMS_ITS | Continuity of Care Document ---
Author Organization [facility] Address [address] [place] [address] Care Team Providers Care Manager Data Warehousing Name Role Phone RADHA SHEA Primary Care Provider Assessment No assessment recorded. Plan of Treatment Reminders Order Date Submit Date Provider Last Modified By Organization Details Last Modified Time Details Appointments NEW PROBLEM 2024 01:00P M Roselyn Sebastian PA-C Not available Not available Not available NEW PATIENT 20 2024 09:30A M Donta Garcia MD Not available Not available Not available Lab None recorded . Referral None recorded . Procedures None recorded . Surgeries None recorded . Imaging None recorded . Medication Orders None recorded . Patient TargetsNo targets recorded. Patient InstructionsNo instructions recorded. Reason for Referral None Reported. Problems Name Problem SNOMED Code Status Onset Date Resolution Date Notes Provider Name and Address Organization Details Recorded Time Pain of right knee joint 0148238412067 00 Active 2023 SHEILA BOJORQUEZ [facility] 4 13:17:28 Osteoarthri tis of right knee joint 7113657301157 00 Active 2023 Roselyn Sebastian PA-C [address], [place], [address], [facility] 4 14:04:32 Pain in left foot 1126334278937 07 Active 2024 Matt Maldonado PA-C [address], [place], [address], [facility] 5 11:45:39 Plantar fasciitis of left foot 6326668016387 9101 Active 2024 Matt Maldonado PA-C [address], [place], [address], [facility] 5 11:45:39 Problem Notes None recorded. Procedures Surgical History Date Name Laterality Status Provider Name and Address Organization Details Recorded Time 5 Sports Shoulder active Roselyn Sebastian PA-C [address], [place], [address], [facility] 07/18/2024 11:38:14 5 Sports Knee 4&1 completed Roselynpipo Sebastian PA-C [address], [place], [address], [facility] 07/14/2024 10:14:43 5 Sports Shoulder cancelled Roselyn Sebastian PA-C [address], [place], [address], [facility] 04/15/2024 14:29:35 5 Sports Knee 4&1 completed Roselyn Sebastian PA-C [address], [place], [address], [facility] 04/12/2024 09:43:00 5 Gel-One Knee Injection completed Roselyn Sebastian PA-C [address], [place], [address], [facility] 03/17/2024 15:28:46 4 Sports Knee 4&1 completed Roselynpipo Sebastian PA-C [address], [place], [address], [facility] 01/11/2024 19:04:16 4 Knee Kenalog 40mg 1cc Asp & Inj, L/R completed RoselynCOURTNEY Desir-C [address], [place], [address], [facility] 10/09/2023 14:02:48 Imaging Results None recorded. Procedure Notes None recorded. Medical Equipment None Reported. Allergies Allergen ID Allergen Name Allergen Category Reaction Reaction Severity Criticality Documentation Date Start Date Code Code System Note Provider Name and Address Organization Details Recorded Time 652578 POLLEN EXTRACTS environme nt,medica tion Not available Not available Not available 10/09/[address] [facility] 13:10:43 [id number] Canis lupus familiari s extract environme nt Not available Not available Not available 10/09/2023 76487 4 RxNorm Replaced by [facility] 13:10:50 [id number] tree and shrub pollen environme nt,medica tion Not available Not available Not available 10/09/2023 84144 UNK Replaced by [facility] 13:10:58 Medications Name Sig Start Date Stop Date Status Note LastModified by Organization Details LastModified Time tizanidine 2 mg tablet TAKE 1 TABLET BY MOUTH EVERY 6 TO 8 HOURS NEEDED FOR MUSCLE SPASMS NO MORE THAN 3 TABLETS DAILY 04/12 completed Not Available Not Available Not Available azithromyci n 250 mg tablet TAKE 2 TABLETS BY MOUTH ON DAY 1, THEN TAKE 1 TABLET DAILY ON DAYS 2-5 04/12 completed Not Available Not Available Not Available ibuprofen 800 mg tablet TAKE 1 TABLET BY MOUTH EVERY 8 HOURS NEEDED FOR MILD PAIN active Not Available Not Available No t Available tizanidine 4 mg tablet TAKE 1 TABLET BY MOUTH THREE TIMES DAILY IN THE MORNING, AT NOON, AND AT BEDTIME NEEDED FOR MUSCLE SPASMS active Not Available Not Available No t Available valacyclovi r 1 gram tablet TAKE 1 TABLET BY MOUTH TWICE DAILY FOR 10 DAYS 04/12 completed Not Available Not Available Not Available meloxicam 15 mg tablet TAKE 1 TABLET BY MOUTH EVERY DAY AFTER MEALS active Not Available Not Available No t Available metronidazo le 0.75 % (37.5 mg/5 gram) vaginal gel INSERT 1 APPLICATO RFUL VAGINALLY EVERY DAY AT BEDTIME FOR 5 DAYS 04/12 completed Not Available Not Available Not Available prednisone 20 mg tablet TAKE 2 TABLETS BY MOUTH ONCE DAILY FOR 5 DAYS 04/12 completed Not Available Not Available Not Available clonazepam 0.5 mg tablet TAKE 1 TABLET BY MOUTH EVERY TWELVE HOURS NEEDED FOR ANXIETY active Not Available Not Available No t Available omeprazole 40 mg capsule,del ayed release TAKE 1 CAPSULE BY MOUTH EVERY MORNING 04/21 completed Not Available Not Available Not Available acetaminoph en 500 mg tablet TAKE 2 TABLETS BY MOUTH EVERY 6 HOURS NEEDED FOR MODERATE PAIN OR FEVER active Not Available Not Available No t Available oseltamivir 75 mg capsule TAKE 1 CAPSULE BY MOUTH TWICE DAILY FOR 5 DAYS 04/12 completed Not Available Not Available Not Available lidocaine 5 % topical patch APPLY 2 PATCHES TOPICALLY TO SKIN, LEAVE ON FOR 12 HOURS AND OFF FOR 12 HOURS DIRECTED active Not Available Not Available No t Available polymyxin B sulfate 10,000 unit-trimet hoprim 1 mg/mL eye drops INSTILL 1 DROP IN EACH EYE FOUR TIMES DAILY FOR 7 DAYS 04/12 completed Not Available Not Available Not Available diclofenac potassium 50 mg tablet TAKE 1 TABLET BY MOUTH THREE TIMES DAILY FOR 7 DAYS. START ON 03/21/2304/21 completed Not Available Not Available Not Available omeprazole 20 mg capsule,del ayed release TAKE 1 CAPSULE BY MOUTH TWICE DAILY 04/12 completed Not Available Not Available Not Available montelukast 10 mg tablet TAKE 1 TABLET BY MOUTH EVERY EVENING 04/21 completed Not Available Not Available Not Available hydroxyzine HCl 25 mg tablet TAKE 1 TO 2 TABLETS BY MOUTH EVERY 6 HOURS NEEDED FOR ANXIETY active Not Available Not Available No t Available zolpidem 5 mg tablet TAKE 1 TABLET BY MOUTH AT BEDTIME NEEDED FOR SLEEP active Not Available Not Available No t Available ibuprofen 600 mg tablet TAKE 1 TABLET BY MOUTH EVERY 8 HOURS NEEDED FOR PAIN OR FEVER 04/21 completed Not Available Not Available Not Available fluticasone propionate 50 mcg/actuati on nasal spray,suspe nsion INSTILL 2 SPRAYS IN EACH NOSTRIL ONCE DAILY IN THE MORNING, SHAKE GENTLY 04/21 completed Not Available Not Available Not Available naproxen 500 mg tablet TAKE 1 TABLET BY MOUTH TWICE DAILY 04/12 completed Not Available Not Available Not Available Ventolin HFA 90 mcg/actuati on aerosol inhaler INHALE 2 PUFFS BY MOUTH EVERY 6 HOURS NEEDED FOR WHEEZING active Not Available Not Available No t Available olmesartan 5 mg tablet TAKE 2 TABLETS BY MOUTH EVERY DAY active Not Available Not Available No t Available Sharps Container active Not Available Not Available No t Available rosuvastati n 20 mg tablet TAKE 1 TABLET BY MOUTH EVERY DAY active Not Available Not Available No t Available bupropion HCl XL 300 mg 24 hr tablet, extended release TAKE 1 TABLET BY MOUTH EVERY MORNING. DO NOT BREAK, CRUSH, DISSOLVE OR CHEW active Not Available Not Available No t Available bupropion HCl XL 150 mg 24 hr tablet, extended release TAKE 1 TABLET BY MOUTH EVERY MORNING DO NOT BREAK, CRUSH, DISSOLVE OR CHEW 04/12 completed Not Available Not Available Not Available Alcohol Prep Pads USE DIRECTED TO TEST BLOOD SUGAR FOUR TIMES DAILY AND BEFORE Trulicity INJECTION 04/21 completed Not Available Not Available Not Available duloxetine 60 mg capsule,del ayed release TAKE 1 CAPSULE BY MOUTH TWICE DAILY active Not Available Not Available No t Available pregabalin 50 mg capsule TAKE 1 CAPSULE BY MOUTH EVERY DAY 04/12 completed Not Available Not Available Not Available pregabalin 75 mg capsule TAKE 1 CAPSULE BY MOUTH THREE TIMES DAILY active Not Available Not Available No t Available FreeStyle Lite Strips USE TO TEST BLOOD SUGAR ONCE DAILY active Not Available Not Available No t Available diclofenac 1 % topical gel APPLY 2 GRAMS TOPICALLY 4 TIMES A DAY IN THE MORNING, AT NOON, IN THE EVENING, AND AT BEDTIME NEEDED FOR PAIN active Not Available Not Available No t Available cholecalcif ciro (vitamin D3) 50 mcg (2,000 unit) tablet TAKE 1 TABLET BY MOUTH EVERY DAY 04/21 completed Not Available Not Available Not Available Vitamin D3 50 mcg (2,000 unit) capsule TAKE 1 CAPSULE BY MOUTH EVERY DAY 04/12 completed Not Available Not Available Not Available Aerochamber Plus Flow-Vu USE WITH inhaler DIRECTED 04/21 completed Not Available Not Available Not Available Allergy Relief (fexofenadi ne) 180 mg tablet TAKE 1 TABLET BY MOUTH EVERY DAY 04/21 completed Not Available Not Available Not Available TRUEplus Lancets 33 gauge USE DIRECTED TO TEST BLOOD SUGAR FOUR TIMES DAILY active Not Available Not Available No t Available Trulicity 1.5 mg/0.5 mL subcutaneou s pen injector INJECT ONE PEN (=1.5MG) SUBCUTANE OUSLY ONCE A WEEK DIRECTED active Not Available Not Available No t Available Cosentyx 300 mg/2 Syringes (150 mg/mL) subcutaneou s syringe active Not Available Not Available No t Available Trulicity 3 mg/0.5 mL subcutaneou s pen injector INJECT ONE PEN (= 3MG) SUBCUTANE OUSLY ONCE A WEEK DIRECTED active Not Available Not Available No t Available Vitals Date Recorded Body height Body mass index (BMI) Body weight Provider Name and Address Organization Details Last Updated DateTime 07/14/2024 160.02 cm 28.3 kg/m2 77023.78 g KAYLIA L'HEUREUX [facility] 07/14/2024 09:48:04 Social History Question Answer Notes LastModified by [employer] Details LastModified Time Tobacco Smoking Status Never Smoker JULIA L'HEUREUX [facility] 07/13/2024 13:54:08 What Is Your Relationship Status? Single Information not available 07/13/2024 Sex: Unknown Functional Status Question Answer Note LastModified by [employer] Details LastModified Time Do you use any illicit or recreational drugs? No Information not available 07/13/2024 Do you or have you ever used any other forms of tobacco or nicotine? No Information not available 07/13/2024 What is your level of alcohol consumption? None Information not available 07/13/2024 Mental Status None recorded. Family History Nothing Reported. Medical History Condition Response Allergies/Hayfever N Coronary Artery Disease N Breathing or lung disorders N Anxiety/Depression Y Emphysema N Nerve Disorders N Thyroid Problems N COPD N Pacemaker N Kidney/Bladder Problems N Anemia N Vascular Disease N Heart Trouble N Heart Attack (MT) N Gastrointestinal Disease N Cholesterol N Diabetes Y Autoimmune disease N Inflammatory Joint disease Y Bleeding Disorder N Orthotics N Seizures/Epilepsy N Arthritis Y Blood Clot N AIDS/HIV N Congestive Heart Failure (CHF) N Acid Reflux (GERD) Y Cancer N Stroke N Asthma N Circulation Problems N Peripheral Vascular Disease N Sleep Apnea N Hepatitis N Heart Disease N Rheumatoid Arthritis N Pulmonary Embolism N Arrhythmia N Headaches Y Fibromyalgia N Hypertension N Osteoporosis N Gynecological HistoryNo gynecological history recorded. Obstetrics History GPAL:G 0 P 0 0 0 0 Past Encounters Encounter ID Performer Location Encounter Start Date Encounter Closed Date Diagnosis/Indication Diagnosis SNOMED-CT Code Diagnosis ICD10 Code Diagnosis Note [id number] Roselyn Sebastian PA-C [facility] [address] [facility] [place] [address] 07/14/2024 09:41:08 07/14/2024 10:16:21 Osteoarthritis of right knee joint 0379382634 91631 M17.11 Discussed continued conservati ve care vs. referral to {{Dr. Garcia* Dr. Letitia Zarco}} for considerat ion of total joint replacemen t. Patient is ready to move forward with more definitive care and elects for operative referral. Discussed the risks and benefits associated with operative vs. non-operat carmelo treatment. Reviewed in detail the operative, postoperat carmelo, recovery course, and postop expectatio ns involved in total joint replacemen t surgery. Patient expresses understand ing. Agrees to move forward. All questions and concerns were addressed and answered. Health Concerns Section Related Observation LastModified by Organization Detai ls LastModified Time None Recorded Concern Status LastModified by Organization Details LastModified Time None Recorded Payers Encounter Date Sequence Insurance Name Policy Number Policy Cantu Covered Member ID Cantu Member ID Guarantor Name 07/14/2024 1 [place] - [facility] (MEDICAID) Yumiko Taylor [id number] Yumiko Taylor Notes Date Note Type Note Provider Name and Address Organization Details Recorded Time 07/14/2024 text/html I am seeing the patient under the general supervision of {{Dr. Hernadez* Dr. Jose Osborn}} who was available but who did not see the patient. CC:Acute exacerbation of knee pain HPI:Patient presents today for acute exacerbation of {{Right* Left Bilate ral}} knee pain. Is known to have advanced medial compartment right knee osteoarthritis treated conservatively with intermittent cortisone injections in the past as needed. Reports recent acute exacerbation of symptoms including pain, swelling and difficulty participating in ADL's. No new fall, trauma or injury reported. Last injection(s) were {{ 04/12/24#}}. She states that cortisone injections are only lasting 10 days. She is tearful during her visit with complaints of pain. Roselyn Sebastian PA-C [address], [place], [address], [facility] 07/14/2024 10:16:20 OBGyn Episode No OBEpisode recorded.
--- OUTSIDE RECORDS SUMMARY | 2024-07-18 13:17 | XMS_ITS | Encounter Summary ---
Author Organization [employer] Address [address] [facility] 7t [place] [address] Care Team Providers Care Assistant Store Manager Sales Name Role Phone Viktoria Gage MD Primary Care Provide r [facility] Primary Care Provider [phone] Devi Live MANAGER WEB APPLICATION Primary Care Provider [phone] [facility] Primary Care Provider [phone] Elder Wheatley MANAGER WEB APPLICATION Unavailable Unavailable Reason for Visit * Reason Onset Date Comments Appointment Request 05/30/2022 Encounter Details Date Type Department Care Team ([facility] st Contact Info) Description 05/30/2022 Telephone [facility] MEDICINE [address] [place], [place] [phone] Viktoria Gage MD [address] [place], [place] [phone] Appointment Request Social History Tobacco Use Types [...] at 9:00 AM. Please contact pt at [phone] documented in this encounter Plan of Treatment Upcoming Encounters Date Type Department Care Team (Late st Contact Info) Description 09/14/2024 10:00 AM EDT Office Visit [facility] MEDICINE [address] [place] [address] Flor Jacinto FNP [address] [place] [address] documented as of this encounter Visit Diagnoses Not on filedocumented in this encounter Additional Health Concerns Assessment Noted Time PHQ-9 Depression Total Score: 5 04/10/19 23 11:06 AM EST documented as of this encounter Care Teams Assistant Store Manager Sales Relationship Specialty Start Date End Date Viktoria Gage MD [address] [place] [address] PCP - General Internal Medicine 05/23/22 06/23/22 BudaFlor FNP [address] [place] [address] PCP - General Family Medicine 06/24/22 08/07/22 Devi Live FNP [address] [place] [address] PCP - General Family Medicine 08/08/22 08/12/22 BudaFlor FNP [address] [place] [address] PCP - General Family Medicine 08/13/22 Elder Wheatley FNP [address] [place] [address] Nurse Practitioner Family Medicine 02/10/23 Marisela Bowling Chief Specialist [employer] Manager 08/06/23 documented as of this encounter
--- OUTSIDE RECORDS SUMMARY | 2024-07-18 13:17 | XMS_ITS | Encounter Summary ---
Author Organization [employer] Address [address] [facility] 7t [place] [address] Care Team Providers Care Email Administrator Name Role Phone [facility] Primary Care Provider [phone] Elder Wheatley BANK OFFICER Unavailable Unavailable Reason for Visit * Reason Onset Date Comments Nurse Triage 01/01/2023 Encounter Details Date Type Department Care Team ([facility] st Contact Info) Description 01/01/2023 Telephone [facility] MEDICINE [address] [place] [address] [facility] [address] [place] [address] Nurse Triage Social History Tobacco Use Types [...] Description 09/14/2024 10:00 AM EDT Office Visit [facility] MEDICINE [address] [place] [address] Flor Jacinto FNP [address] [place] [address] documented as of this encounter Visit Diagnoses Not on filedocumented in this encounter Additional Health Concerns Assessment Noted Time PHQ-9 Depression Total Score: 1 10/21/19 23 9:11 AM EDT documented as of this encounter Care Teams Email Administrator Relationship Specialty Start Date End Date Flor Jacinto FNP [address] [place] [address] PCP - General Family Medicine 08/13/22 Elder Wheatley FNP [address] [place] [address] Nurse Practitioner Family Medicine 02/10/23 Marisela Bowling Hemodialysis Lab TechnicianOutreach Associate 08/06/23 documented as of this encounter
--- OUTSIDE RECORDS SUMMARY | 2024-07-18 13:17 | XMS_ITS | Patient Health Record ---
Author Organization [facility] Address [address] [place] [address] Care Team Providers Care Security Trainer Name Role Phone [facility] Primary Care Provider Chaz Garcia [phone] Allergies Allergen (clinical drug ingredient) Drug/Non Drug Allergy documented on EMR Reaction Allergy Type Onset Date Status pet dander (uncoded) Unknown Allergy Active enviromental allergi es (uncoded) Unknown Allergy Active Results Component Value Reference Range Notes US abdomen comp w elastograp hy (Not yet reviewed by provider) Interpretation: Performing Lab: Notes/Report: [address] [address] Ultrasound Report Signed Patient: Gisell Pugh MR #: [id number] : 1970 Acct:[id number] Age/Sex: 53 / F ADM Date: 02/15/24 Loc: HO.US Attending Dr: Chaz Reynaga MD Ordering Physician: Chaz Reynaga MD Date of Service: 02/15/24 Procedure(s): US abdomen comp w elastography Accession Number(s): [id number] cc: Chaz Reynaga MD; [facility] EXAMINATION: US COMPLETE ABDOMEN WITH LIVER ELASTOGRAPHY CLINICAL INFORMATION: History of fatty liver and epigastric abdominal pain. COMPARISON: 06/12/2020, 11/18/2018. No prior elastography. TECHNIQUE: Real-time imaging of the abdominal viscera. Noninvasive ultrasound liver fibrosis assessment is performed using Siemens shear wave elastography (pSWE) with a C5-2 MHz transducer. Multiple elastography samples are obtained. 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 FINDINGS: PANCREAS: The visualized pancreatic head and [...] by: Anup Jarrett MD 04/01/2024 04:06 PM [facility] Dictated By: Anup Jarrett MD Signed By: <Electronically signed by Anup Jarrett MD in OV> 04/01/24 1606 DD/ 0811 TD/TT: 02/15/24 0836 Concrete Vibrator Operator: [place] [id number] Ultrasound Report Signed Patient: Gisell Pugh MR #: [id number] : 1970 Acct:[id number] Age/Sex: 53 / F ADM Date: 02/15/24 Loc: HO.US Attending Dr: Chaz Reynaga MD Ordering Physician: Chaz Reynaga MD Date of Service: 02/15/24 Procedure(s): US abd omen comp w elastography Accession Number(s): [id number] cc: Chaz Reynaga MD; [facility] EXAMINATION: US COMPLETE ABDOMEN WITH LIVER ELASTOGRAPHY CLINICAL INFORMATION: History of fatty cherie er and epigastric abdominal pain. COMPARISON: 06/12/2020, 11/18/2018. No prior elastography. TECHNIQUE: Real-time imaging of the abdominal viscera. Noninvasive ultrasound liver fibrosis asses sment is performed using Siemens shear wave elastography (pSWE) with a C5-2 MHz transducer. Multiple elastography samples are obtained. Exam submitted for shaina carterw 04/01/2024 3:05 PM CEO & FOUNDER. FINDINGS: PANCREAS: The visual ized pancreatic head [...] by: Anup Jarrett MD 04/01/2024 04:06 PM [facility] Dictated By: Anup Jarrett MD Signed By: <Mary Alice clark signed by Anup Jarrett MD in OV> 04/01/24 1606 DD/ 0811 TD/TT: 02/15/24 0836 Concrete Vibrator Operator: Reason For Referral No Information Medications Medication [...] Status Risk Notes Problem Colon cancer screening (233253736) Colon cancer screening (Z12.11) Active confirmed Problem 80933682 Epigastric abdominal pain (R10.13) Active confirmed Problem 877456700 Abdominal bloating (R14.0) Active confirmed Problem 52397777 Abdominal pain, epigastric (R10.13) Active confirmed Problem 567499358 Blood in stool (K92.1) Active confirmed Problem 642650577 Elevated liver enzymes (R74.8) Active confirmed Problem 620597291 Fatty liver (K76.0) Active confirmed Problem Family History of Cancer of Colon (Situation) (917441542) Family history of colon cancer (Z80.0) Active confirmed Problem 205856652 Helicobacter pylori ab+ (R76.8) Active confirmed Problem 29643444 Constipation, unspecified constipation type (K59.00) Active confirmed Problem Gastroesophageal reflux disease (903976010) GERD (gastroesophage al reflux disease) (K21.9) Active confirmed Problem 191060127 Irritable bowel syndrome with constipation (K58.1) Active confirmed Problem 613170197 RUQ pain (R10.11) Active confirmed Vital Signs Blood pressure diastolic 00 mm Hg 09/22/2023 Height 62 in 09/22/2023 Blood pressure systolic 00 mm Hg 09/22/2023 Weight 169 lbs 09/22/2023 BMI 30.91 kg/m2 09/22/2023 Encounters Encounter Location Date Provider Diagnosis [facility] [address] [place] [address] 09/22/2023 Chaz Reynaga Fatty liver K76.0 ; Abdominal pain, epigastric R10.13 ; Family history of colon cancer Z80.0 ; GERD (gastroesophageal reflux disease) K21.9 and Colon cancer screening Z12.11 [facility] [address] [place] [address] 10/01/2023 Chaz Reynaga [facility] [address] [place] [address] 01/21/2024 Chaz Reynaga [facility] [address] [place] [address] 04/19/2024 Chaz Reynaga GERD (gastroesophageal reflux disease) K21.9 [facility] [address] [place] [address] 05/04/2024 Chaz Reynaga Assessments Encounter Date Diagnosis [...] Provider Name:Chaz Reynaga , 08/29/2024 09:30:00 AM, [address] [place] [address] , [place], [place], [id number], Insurance Providers Payer Name Payer Address Payer Phone Subscriber Number Group Number Insured Name Patient Relationship to Insured Coverage Start Date Coverage End Date [employer] [address] [place] [phone] [id number] GISELL TREVINO Self - patient is the insured MEDICAID OF [facility] [address] [place] [address] [id number] [facility] GISELL TREVINO Self - patient is the insured Medical [...]
--- OUTSIDE RECORDS SUMMARY | 2024-07-18 13:18 | XMS_ITS | Clinical Summary ---
Author Organization [employer] Address [address] [place] [address] Care Team Providers Care Educational Program Assistant Name Role Phone Flor Jacinto DIETETIC INTERN Primary Care Provider [phone] Elder Wheatley DIETETIC INTERN Unavailable Unavailable Allergies No known active allergies Medications * This document contains information received from the source organization and may not represent a complete record from that organization. pregabalin (Lyrica) 50 MG capsule take 1 capsule by oral route 3 times every day 90 capsule 1 07/04/19 23 Active secukinumab (Cosentyx) 150 MG/ML syringe Inject under the skin. 06/21/19 22 Active Alcohol Swabs (Alcohol Prep) padsIndications :Type 2 diabetes mellitus with hyperglycemia, without long-term current use of insulin ([facility]) Use one pad each to prep skin prior to injection as directed 100 each 11 10/03/19 23 Active montelukast (Singulair) 10 MG tablet Take 1 tablet (10 mg) by mouth in the evening. 90 tablet 3 02/06/20 23 Active fexofenadine (Allergy Relief) 180 MG tablet TAKE 1 TABLET BY MOUTH EVERY DAY 90 tablet 1 02/18/20 23 Active albuterol 108 (90 Base) MCG/ACT inhalerIndicati ons:Cough in adult Inhale 2 puffs every 6 (six) hours if needed for wheezing. 18 g 11 04/03/19 24 Active Spacer/Aero-Hol ding Chambers deviceIndicatio ns:Cough in adult Use with inhaler 1 each 04/03/19 24 Active fluticasone (Flonase) 50 MCG/ACT nasal spray Administer 2 sprays into each nostril in the morning. Shake gently. Before first use, prime pump. After use, clean tip and replace cap. 16 g 2 04/07/19 24 Active albuterol 108 (90 Base) MCG/ACT inhaler Inhale 2 puffs every 4 (four) hours if needed for wheezing. 18 g 05/29/19 24 Active Omeprazole 20 MG tablet delayed-release Indications:Dys pepsia Take 20 mg by mouth 2 times daily. 30 tablet 2 07/10/19 24 Active dulaglutide (Trulicity) 1.5 MG/0.5ML solution pen-injectorInd ications:Type 2 diabetes mellitus with hyperglycemia, without long-term current use of insulin ([facility]) Inject 1.5 mg under the skin 1 (one) time per week. 4 pen 07/10/19 24 Active Diclofenac Sodium 1 % gel Apply 2 g topically if needed in the morning, at noon, in the evening, and at bedtime (pain). 150 g 09/02/19 24 Active lidocaine (Lidoderm) 5 % patch Apply 2 patches topically Once per day. Remove & discard patch within 12 hours or as directed by MD. 60 patch 09/02/19 Active TRUEplus Lancets 33G miscIndications :Type 2 diabetes mellitus with hyperglycemia, without long-term current use of insulin ([facility]) USE DIRECTED TO TEST BLOOD SUGAR FOUR TIMES DAILY 100 each 09/23/19 24 Active clonazePAM (KlonoPIN) 0.5 MG tabletIndicatio ns:Anxious depression Take 1 tablet (0.5 mg) by mouth every 12 (twelve) hours if needed for anxiety. 60 tablet 09/22/19 24 Active DULoxetine (Cymbalta) [address] capsuleIndicati ons:Anxious depression Take 1 capsule (60 mg) by mouth 2 times daily. 180 capsule 09/22/19 24 Active zolpidem (Ambien) 5 MG tabletIndicatio ns:Anxious depression Take 1 tablet (5 mg) by mouth if needed at bedtime for sleep. 30 tablet 09/22/19 24 Active hydrOXYzine HCl (Atarax) 25 MG tabletIndicatio ns:Anxious depression Take 1-2 tablets (25-50 mg) by mouth every 6 (six) hours if needed for anxiety. 150 tablet 09/22/19 24 Active buPROPion XL (Wellbutrin XL) 300 MG 24 hr tabletIndicatio ns:Mixed anxiety and depressive disorder Take 1 tablet (300 mg) by mouth in the morning. Do not crush, chew, or split. 90 tablet 3 01/04/20 24 025 Active acetaminophen (Tylenol) 500 MG tablet Take 2 tablets (1,000 mg) by mouth every 6 (six) hours if needed for moderate pain or fever for up to 25 doses. 50 tablet 02/17/20 24 Active famotidine (Pepcid) 20 MG tablet Take 1 tablet by mouth 2 times daily. 08/14/19 22 Active Sharps Container (BD Sharps Raisin Separator Operator) misc 01/13/20 24 Active cromolyn (NasalCrom) 5.2 MG/ACT nasal sprayIndication s:Viral upper respiratory infection Administer 1 spray into each nostril 3 times daily. 26 mL 12 06/01/19 25 026 Active FREESTYLE LITE test stripIndication s:Type 2 diabetes mellitus with hyperglycemia, without long-term current use of insulin ([facility]) Use to test blood sugar once daily 100 each 06/04/19 25 026 Active D3 Super Strength 50 MCG (2000 UT) capsule TAKE 1 CAPSULE BY MOUTH EVERY DAY 90 capsule 1 06/07/19 25 Active rosuvastatin (Crestor) 20 MG tabletIndicatio ns:Type 2 diabetes mellitus with hyperglycemia, without long-term current use of insulin ([facility]) Take 1 tablet (20 mg) by mouth Once per day. 30 tablet 11 06/14/19 25 026 Active olmesartan (Benicar) 5 MG tabletIndicatio ns:Essential hypertension Take 2 tablets (10 mg) by mouth Once per day. 180 tablet 3 06/21/19 25 026 Active tiZANidine (Zanaflex) 4 MG capsuleIndicati ons:Chronic neck pain Take 1 capsule (4 mg) by mouth if needed in the morning, at noon, and at bedtime for muscle spasms. 60 capsule 3 06/21/19 25 026 Active olmesartan (Benicar) 5 MG tabletIndicatio ns:Type 2 diabetes mellitus with hyperglycemia, without long-term current use of insulin ([facility]) Take 1 tablet (5 mg) by mouth in the morning. 90 tablet 3 04/03/19 24 025 Discontinued(R eorder (will not trigger notification to Pharmacy)) tiZANidine (Zanaflex) 4 MG capsule Take 1 capsule (4 mg) by mouth if needed in the morning, at noon, and at bedtime for muscle spasms. 60 capsule 3 09/02/19 24 025 Discontinued(R eorder (will not trigger notification to Pharmacy)) nabumetone (Relafen) 500 MG tablet Take 500 mg by mouth 2 times daily. 025 Discontinued ibuprofen 800 MG tabletIndicatio ns:Chronic left shoulder pain,Chronic neck pain Take 1 tablet (800 mg) by mouth every 8 (eight) hours if needed for mild pain for up to 10 days. 30 tablet 1 06/21/19 25 025 Active Problems Problem Noted Date Diagnosed Date Major depressive disorder 07/08/2024 Grief 06/13/2024 Assessment & Plan (06/13/2024 10:42 AM EDT): During IBH Consult Bernardo presenting with depressed mood, Tearful, crying spells , hopelessness, irritable mood, loss of interests/pleasure , sense of isolation/loneliness , isolating, change in appetite or weight reduce appetite, changes in sleep difficulty falling asleep, fatigue/loss of energy, difficulty concentrating, indecisiveness; for a period of 0-6 mo, for some symptoms in the context of and lack of OP support. Pt reported her mom last February. She states she couldn't process her grief and hasn't had time to do a proper closure. Pt with hx of visual hallucinations, saw Elder Wheatley in the past for medication management- PCP is currently managing meds. Pt identifies her family and sense of spirituality as strength. Bernardo will be referred for Teleheath services. clinician will provide ongoing support. [facility] information given. Hiatal hernia 06/13/2024 Chronic left shoulder pain 03/23/2024 Assessment & Plan (03/23/2024 9:53 AM EST): Advised pt to continue with RICE She may continue taking motrin 200 mg q4-6 hrs prn, tizanidine at bedtime, topical lidocaine patches and topical diclofenac gel for pain control. Pt plans to attend ortho appointment 04/18/24 for evaluation and will RTC prn for new or worsening condition. Bursitis 03/23/2024 Chronic low back pain 07/09/2023 Overview (03/23/2024): postlaminectomy syndrome L5-S1 as well as degenerative disc disease of levels above the fusion - [place] [facility] [place] postlaminectomy syndrome L5-S1 as well as degenerative disc disease of levels above the fusion - Followed [place] [facility] [place] [facility] Primary osteoarthritis of right knee [...] hx of abnormal pap. [facility] BMD: Routine age 67 Fibromyalgia 02/10/2023 02/10/2023 Overview (04/13/2023): ? Chronic pain/fibromyalgia-neck/back/feet/shoulders. Follow[place] [facility] [place] [facility]. Sx improvement with left SI joint injection 06/2022. On duloxetine, tizandine, pregabalin Essential hypertension 09/24/2022 Overview (06/20/2024): Chest pain/palpitations-had follow-up with cardiology at [facility]. Negative Holter monitor 04/2022 negative echocardiogram in 2021. Negative stress test 03/2022. No indication for additional testing at this time. Assessment & Plan (04/13/2023 9:48 AM EST): [...] smoking patient. FU with PCP next week Gissel landon 09/23/2022 Type 2 diabetes mellitus 05/05/2022 Overview [...] calorie/carb meals. Encouraged physical activity as tolerated. Bilateral sacroiliitis 03/17/2022 Overview (03/23/2024): Last Assessment [...] Problem Noted Date Diagnosed Date Resolved Date Viral upper respiratory infection 05/31/2024 06/20/2024 Assessment & Plan (05/31/2024 3:29 PM EDT): Covid, Flu and Strep negative. No evidence of respiratory distress. Symptoms mild. No evidence of dehydration. -Supportive care advised. -Isolation recommendations discussed. Nasal congestion 05/31/2024 06/20/2024 Assessment & Plan (05/31/2024 3:29 PM EDT): COVID, Flu and Strep negative. -prescribed cromolyn (NasalCrom) 5.2 MG/ACT nasal spray PRN for congestion relief. 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 Pt is aware that appts will be via televisit and that provider will not be an employee of [facility]. She gives permission to share PHI. [...] 2 months. She agrees with the plan. Fibromyositis 01/08/2015 09/02/2023 Encounters * This document contains information received from the source organization and may not represent a complete record from that organization. Date Type Department Care Team Description 06/20/2024 1:15 PM EDT Office Visit [facility] [address] [place] [address] Flor Jacinto FNP Essential hypertension (Primary Dx); Chronic left shoulder pain; Chronic neck pain 06/20/2024 Travel 06/20/2024 Telephone [facility] [address] [place] [address] Flor Jacinto FNP Nurse Triage 06/13/2024 9:00 AM EDT Office Visit [facility] [address] [place] [address] Flor Jacinto FNP Type 2 diabetes mellitus with hyperglycemia, without long-term current use of insulin (CMS/HCC) (Primary Dx); Left carpal tunnel syndrome; Steatosis of liver; Hiatal hernia; Dyspepsia; Encounter for immunization; Encounter for screening mammogram for breast cancer; Dietary counseling; Exercise counseling 06/13/2024 Telephone [facility] [address] [place] [address] Flor Jacinto FNP Care Coordination 06/13/2024 Travel 06/06/2024 Refill [facility] [address] [place] [address] Flor Jacinto FNP 06/03/2024 Refill [facility] [address] [place] [address] Flor Jacinto FNP Type 2 diabetes mellitus with hyperglycemia, without long-term current use of insulin (CMS/HCC) 06/03/2024 Patient Outreach [address] [address] Flor Jacinto FNP Pre-visit Planning (SDOH screening negative and tobacco screening negative) 05/31/2024 3:20 PM EDT Office Visit [facility] [address] [place] [phone] Deena Cagle MD Viral upper respiratory infection (Primary Dx); Nasal congestion 05/26/[address] [address] Flor Jacinto FNP Nurse Triage 05/25/[address] [address] Flor Jacinto FNP Nurse Triage 05/20/2024 Population Health Risk Score [facility] [address] [place] [phone] Provider, Population Health Generic 05/13/[address] [address] Flor Jacinto FNP No Show from Last 3 Months Immunizations Name Administration Dates Next Due Hep A, Adult 01/25/2004,08/24/2003,03/09/2003 Hep B, adult 01/08/2004, 4,08/24/2003,2003,08/08/2002 Influenza, IIV3, injectable 12/27/2007 Influenza, seasonal, injecta ble, preservative free 12/27/2007 Pneumococcal Conjugate PCV 13 11/25/2017 Pneumococcal Conjugate PCV 20 10/21/2022 TD (adult), 2 Lf tetanus tox oid, preservative free, adsorbed 01/25/2004,03/09/1993 Tdap 06/13/2024,01/14/2013 Social History Tobacco Use Types Packs/Day Years Used Date Smoking Tobacco: Never Passive Smoke Exposure: Never Smokeless Tobacco: Never Tobacco Cessation:Counseling Given: Not Answered Alcohol Use Standard Drinks/Week Comments Never 0 (1 standard drink = 0.6 oz pur e alcohol) Depression Answer Date Recorded Patient Health Questionnaire-9 Score 12 07/08/2024 Patient Health Questionnaire-9 Score 12 07/08/2024 Last PHQ-9: Questionnaire Data Not on file 0 07/08/2024 Housing Stability Answer Date Recorded What is [...] Answer Date Recorded Patient Health Questionnaire-2 Score 4 07/08/2024 Internet Access Answer Date Recorded Internet Access Q1 Yes 06/03/2024 Internet Access Q2 Not on file 06/03/2024 Comments Unknown Sex and Gender Information Value Date Recorded Sex Assigned at Female 01/06/2022 10:14 AM EDT Legal Sex Female 10:14 AM EDT Gender Identity Female 01/06/2022 10:14 AM EDT Sexual Orientation Straight 01/06/2022 10 :14 AM EDT Last Filed Vital Signs Vital Sign Reading Time Taken Comments Blood Pressure 130/90 06/20/2024 1:34 PM EDT Pulse 84 06/20/2024 1:19 PM EDT Temperature 36.6 ??C (97.8 ??F) 06/20/2024 1:19 PM ED T Respiratory Rate 20 06/20/2024 1:19 PM EDT Oxygen Saturation 99% 05/31/2024 3:01 PM EDT Inhaled Oxygen Concentration - - Weight 75.9 kg (167 lb 6.4 oz) 06/20/2024 1:19 P M EDT Height 160 cm (5' 3 ) 06/20/2024 1:19 PM EDT Body Mass Index 29.65 06/20/2024 1:19 PM EDT Plan of Treatment Upcoming Encounters Date Type Department Care Team (Late st Contact Info) Description 09/14/2024 10:00 AM EDT Office Visit [facility] [address] [place] [address] [facility] [address] [place] [address] Health Maintenance Due Date Last Done Comments CT Colonography 1970 Colonoscopy 1970 Colorectal Cancer Screening 1970 FIT DNA/Cologuard 1972 FIT 1970 FOBT 1970 Sigmoidoscopy 1972 Alcohol/Substance Use Screening 1984 Zoster Vaccines (1 of 2) 2022 COVID-19 Vaccine (1 - season) 2023 Influenza Vaccine (#1) 2023 12/27/2007, 2007 Mammogram 01/25/2024 01/24/2022, 04/15/2018 Diabetes: Urine Protein Screening 04/14/2024 04/14/2023, 10/02/2022 Lipid Panel 04/14/2024 04/14/2023, 10/02/2022 Diabetes: Foot Exam 07/09/2024 07/10/2023, 07/10/2023, 07/10/2023, Additional history exists Diabetes: Hemoglobin A1C 12/13/2024 025, 01/04/2024, 07/10/2023, Additional history exists SDOH Screening 06/03/2025 06/03/2024 Family Planning (PISQ) 06/13/2025 06/13/2024 Tobacco Screening 06/22/2025 06/22/2024 Depression Screening 07/08/2025 07/08/2024, 07/09/19 Eye Exam 11/07/2025 11/08/2023 Cervical Cancer Screening 08/20/2028 HPV/Cotest 08/20/2028 08/21/2023, 08/07, 06/23/2018 Pap Smear 08/20/2028 08/21/2023 DTaP/Tdap/Td Vaccines (3 - Td or Tdap) 06/13/2034 06/13/2024, 01/14/2013, 01/25/2004, Additional history exists RSV Patients and Patients Aged 60 years [...] Procedure Name Priority Date/Time Associated Diagnosis Comments AMB REFERRAL TO ORTHOPAEDIC SURGERY Routine 07/14/2024 Left carpal tunnel syndrome POCT GLUCOSE Routine 06/13/2024 9:28 AM EDT Type 2 diabetes mellitus with hyperglycemia, without long-term current use of insulin (CMS/HCC) POCT GLYCATED HEMOGLOBIN, TOTAL Routine 06/13/2024 9:28 AM EDT Type 2 diabetes mellitus with hyperglycemia, without long-term current use of insulin (CMS/[facility]) POCT INFLUENZA B (ID NOW RAPID MOLECULAR) Routine 05/31/2024 3:18 PM EDT Nasal congestion POCT INFLUENZA A (ID NOW RAPID MOLECULAR) Routine 05/31/2024 3:17 PM EDT Nasal congestion POCT RAPID STREP A Routine 05/31/2024 3: 07 PM EDT Nasal congestion POCT RAPID COVID ANTIGEN Routine 05/31/2024 3:03 PM EDT Nasal congestion HEPATITIS PANEL, GENERAL Routine 09/07/2023 11:08 AM EDT HPV MRNA E6/E7 REFLEX TO HPV 16, 18/45 Routine 08/21/2023 2:47 PM EDT PAP SMEAR Routine 08/21/2023 2:47 PM EDT Papanicolaou smear for cervical cancer screening ALBUMIN, RANDOM URINE W/CREATININE Routine 04/14/2023 9:45 AM EST Type 2 diabetes mellitus with hyperglycemia, without long-term current use of insulin ([facility]) HIV 1/2 ANTIGEN/ANTIBODY, FOURTH GENERATION W/RFL Routine 04/14/2023 9:41 AM EST Routine screening for STI (sexually transmitted infection) LIPID PANEL, STANDARD Routine 04/14/2023 9:41 AM EST Type 2 diabetes mellitus with hyperglycemia, without long-term current use of insulin (CMS/[facility]) MAMMOGRAM GENERIC Routine 01/24/2022 1:0 4 PM EST from Last 3 Months or Most Recently Relevant to Health Maintenance Results * Referral to Orthopaedic Surgery (07/14/2024) [facility] OUTPATIENT REFERRAL ORDERABLE S Final Result * (ABNORMAL) POCT HGB A1C (06/13/2024 9:28 AM EDT) Pathologist [facility] Hemoglobin A1C 6.1(A) 4.0 - 6.0 % QC Media Lot # [id number] Lot# Expiration Date Blood 06/13/2024 9:28 AM EDT [facility] POINT OF CARE TEST ENTER/EDIT ORDERABLES Final Result * POCT Glucose (06/13/2024 9:28 AM EDT) Pathologist [facility] Glucose Blood, POC 94 60 - 200 mg/dL Blood Capillary blood specimen / Unknown 06/13/2024 9:28 AM EDT Result [facility] POINT OF CARE TEST ENTER/EDIT ORDERABLES Final Result * Influenza B (ID NOW Rapid Molecular) (05/31/2024 3:18 PM EDT) Influenza B Negative Negative, Indeterminate [facility] Swab 05/31/2024 3:18 PM EDT Deena Cagle MD POINT OF CARE TEST ENTER/E DIT ORDERABLES Final Result [facility] [address] [place] [phone] * Influenza A (ID NOW Rapid Molecular) (05/31/2024 3:17 PM EDT) [facility] Influenza A Negative Negative, Indeterminate [facility] Swab 05/31/2024 3:17 PM EDT us Deena Cagle MD POINT OF CARE TEST ENTER/E DIT ORDERABLES Final Result [facility] [address] [place] [phone] * POCT rapid strep A manually resulted (05/31/2024 3:07 PM EDT) [facility] Rapid Strep A Screen Negative Negative, None Detected Swab 05/31/2024 3:07 PM EDT us Deena Cagle MD POINT OF CARE TEST ENTER/E DIT ORDERABLES Final Result * POCT Rapid COVID Ag (05/31/2024 3:03 PM EDT) [facility] Rapid COVID Ag Negative Swab 05/31/2024 3:03 PM EDT Deena Cagle MD POINT OF CARE TEST ENTER/E DIT ORDERABLES Final Result * Hepatitis Panel, General (09/07/2023 11:08 AM EDT) [facility] Hepatitis A IgM Nonreactive Nonreactive [facility] Comment:IgM antibodies to [place] V not detected; does not exclude earlyacute or recovered HAV infection. ~Hepatitis B Surface Antibody NONREACTIVE Nonreactive [facility] Comment:Nonreactive: < 8.00 mIU/mL Hepatitis B Core Antibody Nonreactive Nonreactive [facility] Hepatitis C Antibody Nonreactive Nonreactive [facility] Comment:Antibodies to HCV no t detected; does not exclude early acuteHCV infection. Hepatitis B Surface Ag Negative Negative [facility] 09/07/2023 11:0 8 AM EDT 09/07/2023 11:08 AM EDT Generic External Data Provider LAB BLOOD ORDERAB LES Final Result Performing Organization Address City/[facility]/ZIP Co de Phone Number [facility] [address] [place] [phone] * HPV mRNA E6/E7 w/Reflex to HPV Genotypes 16, 18/45 (08/21/2023 2:47 PM EDT) HPV nRNA E6/E7 Not Detected Not Detected [facility] Comment:Methodology: Transcr iption-Mediated AmplificationThis assay detects E6/E7 viral messenger RNA (mRNA) from 14high-risk HPV types (16,18,31,33,35,39,45,51,52,56,58,59,66,68).Cervical sources are required for HPV testing.If a vaginal source from a patient who has had atotal hysterectomy with removal of cervix wassubmitted, please contact the testing laboratoryfor alternative testing options.For additional information, please refer [email or web address](This link if provided for information/educational purposes only.)THIS TEST WAS PERFORMED AT:[employer] [place] [phone] PRICE MD HPV mRNA E6/E7 [facility] HPV 16 RNA [facility] HPV 18/45 RNA [facility] 08/21/2023 2:47 PM EDT 08/24/2023 10:40 AM EDT [facility] DIETETIC INTERN LAB CYTOLOGY ORDERABLES Final Result [facility] [address] [place] [phone] * Pap Smear (08/21/2023 2:47 PM EDT) Swab Cervical swab / Unknown 08/21/2023 2:47 PM EDT 08/24/2023 10:40 AM EDT Narrative [facility] - 09/07/2023 11:45 AM EDT ----- ------- Name: Bernardo Pugh ?Age/Sex: 52/F ? : 1970 Unit#: [id number] ?? Attend Dr: Flor Jacinto ?Re08/21/23 ?Status: DEP REF ? Location: [facility] ? Disch: ? ----- ------- SPEC : [id number] ?RECD: 08/24/23-1039 ? STATUS: ??SOUT ? REQ NUM: [id number] ? HUE: 08/21/23-2987 ? SUBM DR: Flor Jacinto ? ENTERED: ??08/24/23-110 ?SP TYPE: Pap Smr ?OTHR : ? ORDERED: ??Pap Smear ? Interpretation ?? Satisfactory for evaluation. ?? No endocervical cells seen. ?? Negative for intraepithelial lesion or malignancy. ? HPV mRNA E6/E7: ?NOT DETECTED ? This assay detects E6/E7 viral messenger RNA (mRNA) from 14 high-risk HPV types (16, 18, ?? 31, 33, 35, 39, 45, 51, 52, 56, 58, 59, 66, 68) ? HPV testing performed by [facility], [place], [place]. ??See reference laboratory ?? portion of the EMR for entire report. ?Clinical Information LMP: Postmenopausal Previous PAP test: Unknown date, Unknown findings ? Material Received ?? ThinPrep-Cervical ----- ------- Signed (signature on file) Ludy Crum Harmeet 09/07/23 3025 ? ----- ------- ? END OF REPORT ? [facility] LAB CYTOLOGY ORDERABLES Final Result Performing Organization Address [facility] de Phone Number [facility] [address] [place] [phone] * Albumin, Random Urine W/Creatinine (04/14/2023 9:45 AM EST) Creatinine, Urine 149.93 mg/dL [facility] Microalbumin Urine 11.0 mg/L [facility] Microalbum Creatinine Ratio Ur 7.3 <30 ug/mg cr [facility] Comment:Albumin/Creatinine R atio Reference Ranges: Normal: < 30 ug/mg creatinine Microalbuminuria: 30 - 300 ug/mg creatinineClinical Albuminuria: > 300 ug/mg creatinine Urine 04/14/2023 9:45 AM EST 04/14/2023 11:14 AM EST [facility] LAB URINE ORDERABLES Final Re sult Performing Organization Address [facility] Co de Phone Number [facility] [address] [place] [phone] * HIV-1/2 Antigen and Antibodies, Fourth Generation, with Reflexes (04/14/2023 9:41 AM EST) HIV AB/AG Nonreactive Nonreactive [facility] Comment:HIV-1 p24 Ag and/or HIV-1/HIV-2 Ab not detected.A test result that is nonreactive does not exclude thepossibility of exposure to or infection with HIV-1 and/orHIV-2. Nonreactive results in this assay for individualswith prior exposure to HIV-1 and/or HIV-2 may be due toantigen and antibody levels that are below the limit ofdetection of this assay.The Amicus HIV Ag/Ab Combo assay result andsupplemental assay results should be interpreted inconjunction with the patient's clinical presentation,history and other laboratory results. If the results areinconsistent with clinical evidence, additional testing issuggested to confirm the result. Blood Venous blood specimen / Unknown 04/14/2023 9:41 AM EST 04/14/2023 11:16 AM EST [facility] BLOOD ORDERABLES Final Re sult Performing Organization Address [facility] de Phone Number [facility] [address] [place] [phone] * (ABNORMAL) Lipid Panel, Standard (04/14/2023 9:41 AM EST) Triglycerides 142 <150 mg/dL [facility] Comment:Desirable Triglyceri de: less than 150 mg/dLBorderline High Triglyceride 150-199 mg/dLHigh Triglyceride: 200-499 mg/dLVery High Triglyceride: greater than or equal to 5OO mg/dL Cholesterol 210(H) <200 mg/dL [facility] Comment:Desirable Cholestero l: less than 200 mg/dLBorderline High Cholesterol: 200-239 mg/dLHigh Cholesterol: greater than 239 mg/dL LDL Cholesterol Calculated 132(H) <100 mg/dL [facility] Comment:Desirable LDL: less than 100 mg/dLNear Optimal/Above Optimal LDL: 110- 129 mg/dLBorderline High LDL: 130-159 mg/dLHigh LDL: 160-189 mg/dLVery High LDL: greater than or equal to 190 mg/dL HDL Cholesterol 50 >40 mg/dL [facility] Comment:Desirable HDL: great er than 40 mg/dL Note: This HDL assay may give artificially low results in patients with liver disease. Blood Venous blood specimen / Unknown 04/14/2023 9:41 AM EST 04/14/2023 11:16 AM EST [facility] BLOOD ORDERABLES Final Re sult Performing Organization Address [facility] Co de Phone Number [facility] [address] [place] [address] [phone] * Mammography Report 1 (01/24/2022 1:04 PM EST) Anatomical Region Laterality Modality Breast Bilateral Mammography 01/24/2022 1:04 PM EST Narrative 01/28/2022 9:22 AM EST Refer to the Notes tab for result details [facility] Procedure: Mammography Report 1 Procedure Note Provider, MD Nishi - 06/01/2022 Refer to the Notes tab for result details [facility] Procedure: Mammography Report 1 [facility] IM BI PROCEDURES Final Result from Last 3 Months or Most Recently Relevant to Health Maintenance Insurance [facility] C3 HSN [place] Care Teams Educational Program Assistant Relationship Specialty Start Date End Date Flor Jcainto FNP [address] [place] [address] PCP - General Family Medicine 08/13/22 Elder Wheatley FNP [address] [place] [address] Nurse Practitioner Family Medicine 02/10/23 Marisela Bowling Deal ArchitectVehicle Damage Appraiser 08/06/23
--- OUTSIDE RECORDS SUMMARY | 2024-07-18 13:18 | XMS_ITS | Clinical Summary ---
Author Organization [facility] Address [address] [place] [address] Phone Care Team Providers Care Aoc Director Combat Operations Officer Name Role Phone Monika Nagelfer Skyla STRONG Primary Care Provider [phone] Allergies No known active allergies Medications dexAMETHasone [...] Problem Noted Date Diagnosed Date Bilateral sacroiliitis ([facility] V24) 03/17/2022 Overview (02/07/2024): Last Assessment & [...] aqta) 19yo and older 01/25/2004,08/24/2003,03/09/2003 Hepatitis B (Hzdijhr-A-Zfwsb , Recombivax HB-Adult) 19yo and older 01/08/2004,10/03/2003,08/24/2003,2003,08/08/2002 [...] topic Insurance MEDICAID - [place] Care Teams Aoc Director Combat Operations Officer Relationship Specialty Start Date End Date Alessandra Nagel DO [address] [place], [place] PCP - General 11/17/23
--- OUTSIDE RECORDS SUMMARY | 2024-07-18 13:18 | XMS_ITS | Encounter Summary ---
Author Organization [employer] Address [address] [facility] 7t [place] [address] Care Team Providers Care Balancing Machine Set Up Worker Name Role Phone [facility] Primary Care Provider [phone] Elder Wheatley LIQUOR MERCHANT Unavailable Unavailable Reason for Visit * Reason Onset Date Comments Referral 08/31/2023 Encounter Details Date Type Department Care Team ([facility] st Contact Info) Description 08/31/2023 Telephone [facility] [address] [place] [address] [facility] [address] [place] [address] Referral Social History Tobacco Use Types Packs/Day [...] for orthopedic referral to be faxed to [phone] documented in this encounter Plan of Treatment Upcoming Encounters Date Type Department Care Team (Late st Contact Info) Description 09/14/2024 10:00 AM EDT Office Visit [facility] [address] [place] [address] Flor Jacinto FNP [address] [place] [address] documented as of this encounter Visit Diagnoses Not on filedocumented in this encounter Additional Health Concerns Assessment Noted Time PHQ-9 Depression Total Score: 0 07/10/19 24 2:37 PM EDT documented as of this encounter Care Teams Balancing Machine Set Up Worker Relationship Specialty Start Date End Date Flor Jacinto FNP [address] [place] [address] PCP - General Family Medicine 08/13/22 Elder Wheatley FNP [address] [place] [address] Nurse Practitioner Family Medicine 02/10/23 Marisela Bowling Rug RenovatorEnergy Projects Lead 08/06/23 documented as of this encounter
--- OUTSIDE RECORDS SUMMARY | 2024-07-18 13:18 | XMS_ITS | Encounter Summary ---
Author Organization [employer] Address [address] [facility] 7t [place] [address] Care Team Providers Care Braille Proofreader Name Role Phone Christiana Thomas MD Primary Care Provider Kirstie Gould Primary Care Provider Viktoria Gage MD Primary Care Provide r Viktoria Gage MD Primary Care Provide r [facility] TRANSMITTER CHIEF Primary Care Provider [phone] Devi Live TRANSMITTER CHIEF Primary Care Provider [phone] [facility] TRANSMITTER CHIEF Primary Care Provider [phone] Elder Wheatley TRANSMITTER CHIEF Unavailable Unavailable Reason for Visit * Reason Onset Date Comments Med Refill 03/11/2022 Encounter Details Date Type Department Care Team (Late st Contact Info) Description 03/11/2022 Telephone [facility] [address] [place], [place] [phone] Christiana Thomas MD Med Refill Social History [...] Description 09/14/2024 10:00 AM EDT Office Visit [facility] [address] [place] [address] Flor Jacinto FNP [address] [place] [address] documented as of this encounter Visit Diagnoses Not on filedocumented in this encounter Care Teams Braille Proofreader Relationship Specialty Start Date End Date Christiana Thomas MD PCP - General Family Medicine 09/28/19 03/19/22 [place] [address] PCP - General Family Medicine 03/20/22 05/05/22 Viktoria Gage MD [address] [place] [address] PCP - General Internal Medicine 05/06/22 05/22/22 Viktoria Gage MD [address] [place] [address] PCP - General Internal Medicine 05/23/22 06/23/22 OrvilleFlor motley FNP [address] [place] [address] PCP - General Family Medicine 06/24/22 08/07/22 Devi Live FNP [address] [place] [address] PCP - General Family Medicine 08/08/22 08/12/22 Flor Jacinto FNP [address] [place] [address] PCP - General Family Medicine 08/13/22 Elder Wheatley FNP [address] [place] [address] Nurse Practitioner Family Medicine 02/10/23 Marisela Bowling As400 OperatorNarrow Gauge Engineer 08/06/23 documented as of this encounter
--- OUTSIDE RECORDS SUMMARY | 2024-07-18 13:18 | XMS_ITS ---
Author Organization [facility] Address [address] [place] [address] Care Team Providers Care Felt Hooker Name Role Phone Union` VENEER MARKER, Flor Primary Care Provider Unava ilable Chaz Reynaga Unavailable [phone] Encounters Encounter Location Date Provider Diagnosis [facility] [address] [place] [address] 05/04/2024 Chaz Reynaga Plan Of Treatment Next Appt Details Provider Name:Chaz Reynaga , 08/29/2024 09:30:00 AM, [address] [place] [address] , [place], [place], [phone], Progress Notes * SELENA PARKSVIRGINIADOB:1970 (53 yo F)Acc No.[id number]:05/04/2024 Patient:?GISELL PARKS :1970???Age:53 Y???Sex:Female Address:[address] [place] [address] [address], [place] [address] * true * Date:? Generated for Printi janine/Joe/eTransmitting on:?07/18/2024 01:18 PM EDT
--- OUTSIDE RECORDS SUMMARY | 2024-07-18 13:18 | XMS_ITS | Encounter Summary ---
Author Organization [employer] Address [address] [facility] 7t [place] [address] Care Team Providers Care Crozer Name Role Phone [facility] Primary Care Provider [phone] Elder Wheatley Unavailable Unavailable Reason for Visit * Reason Comments Med Change Request Encounter Details Date Type Department Care Team (Late st Contact Info) Description 07/09/2023 Refill [facility] [address] [place] [address] Elder Wheatley FNP Anxious depression Social History [...] [facility] [address] [place] [address] Flor Jacinto FNP [address] [place] [address] documented as of this encounter Visit Diagnoses Diagnosis Anxious depression documented in this encounter Additional Health Concerns Assessment Noted Time PHQ-9 Depression Total Score: 6 07/09/19 24 3:28 PM EDT documented as of this encounter Care Teams Crozer Relationship Specialty Start Date End Date Flor Jacinto FNP [address] [place] [address] PCP - General Family Medicine 08/13/22 Elder Wheatley FNP [address] [place] [address] Nurse Practitioner Family Medicine 02/10/23 Marisela Bowling Coal Gasification TechnicianDrafting Clerk 08/06/23 documented as of this encounter
[2024-08-11 09:46] VITALS: BP 120/78; PULSE 67; RESP 12; TEMP 36.6; O2SAT 96; BMI 29.7
--- NOTE | 2024-08-11 09:58 | P.OP_ITS ---
Operative Note Operative Note Date of Service: 08/11/24 Narrative: Preop diagnosis: 1. Left Carpal tunnel syndrome Postop diagnosis: same Procedure: 1. Left Carpal tunnel release Surgeon: Rosanna Cardona MD Criminal Investigator Customs: Elvis VALDEZ Anesthesia: local block using 1% lidocaine with epinephrine Findings: Thickened transverse carpal ligament. EBL: Less than 5 mL Specimens: None Complications: None Disposition: Brought to recovery room in stable condition Plan: Follow-up for 10-14 days for wound check and suture removal Indications: The patient is 53 years old, with left carpal tunnel syndrome that has been unresponsive to nonoperative management. The risks and benefits of operative treatment including but not limited to risk of damage to blood vessels, nerves, tendons, infection, persistent pain, persistent symptoms, or possible need for additional surgery were discussed with the patient and the patient wishes to proceed with surgery. Procedure: Once consent was obtained a local block was performed using a combination of 1% lidocaine with epinephrine. The patient was then brought back to the operating suite and placed on the operative table in supine position. The left upper extremity was prepped and draped in a standard surgical fashion. Once assured that we had a good block, a 2.0 cm longitudinal incision was made centered over the carpal tunnel. The incision was made through the skin to the subcutaneous tissues using a #15 blade. Dissection was made down to the level of the transverse carpal ligament with care being taken to protect the palmar cutaneous nerve. Once the transverse carpal ligament was clearly visualized, a longitudinal incision was made in the transverse carpal ligament 1st using a #15 blade, then using tenotomy scissors under direct visualization. Care was taken to look for and protect the motor branch of the median nerve when seen in this area. Once satisfied with our carpal tunnel release the wound was copiously irrigated with normal saline and hemostasis was obtained with a brief period of local pressure. The skin edges were reapproximated with some 5.0 nylon suture material and a sterile dressing was applied. The patient appears to have tolerated the procedure well and with no complications. All digits were well vascularized at the conclusion of the case.
--- NOTE | 2024-08-11 09:58 | MHC.SHP ---
Pre-Procedural Eval Section A - 24 Hr Update-Section A only Date of Service: 08/11/24 The patient is an INPATIENT: No Changes since office visit: No Cold of Flu in the past 2 weeks, No New Medical Problems, No Changes in Medication and No Patient answered all questions The patient has been examined within 24 hours of the surgical procedure. The History & Physical has been completed within 30 days and I have reviewed it.: Yes Section B - Complete if H&P > 30 days Chief Complaint: Carpal tunnel syndrome, left upper limb Allergies: Allergies Allergy/AdvReac Type Severity Reaction Status Date / Time environmental allergies Allergy Intermediate hives/eye Verified 08/11/24 09:43 itchiness dog dander [DOG] Allergy Unknown HIVES Verified 08/11/24 09:43 Plan Diagnosis/Plan: Unchanged I have reviewed the history and physical and performed a pertinent physical examination on my patient. No changes have occurred unless specified. Time Spent With Patient Time: Total time managing care of this patient today ____ minutes.
[2024-08-11 11:15] VITALS: BP 110/81; PULSE 73; RESP 18; O2SAT 98
== END 2024-08-11 11:59 | disposition home or self-care (01) ==
PROVIDERS: PCP Registered Nurse; Visit Provider Orthopaedic Surgery
PROC: (CPT 64721; principal; 2024-08-11 10:20)
DX: G56.02 Carpal tunnel syndrome, left upper limb (principal); G89.4 Chronic pain syndrome; M19.012 Primary osteoarthritis, left shoulder; K21.9 Gastro-esophageal reflux disease without esophagitis; L40.50 Arthropathic psoriasis, unspecified; M51.369 Other intervertebral disc degeneration, lumbar region without mention of lumbar back pain or lower extremity pain; M96.1 Postlaminectomy syndrome, not elsewhere classified; K76.0 Fatty (change of) liver, not elsewhere classified; M79.7 Fibromyalgia; R00.2 Palpitations; Z98.890 Other specified postprocedural states; Z87.891 Personal history of nicotine dependence
CPT/HCPCS: 64721; J0171; J2003

== ENCOUNTER → 2024-08-11 08:48 | Outpatient (BNV) | payer MEDICAID, SELFPAY | PROVIDERS: PCP Registered Nurse; Visit Provider Orthopaedic Surgery | DX: G56.02 Carpal tunnel syndrome, left upper limb (principal) | CPT/HCPCS: 64721 ==

== ENCOUNTER 2024-08-24 11:29 | Outpatient (AMB) | payer MEDICAID, SELFPAY ==
--- NOTE | 2024-08-24 11:32 | A.OFFVIS_ITS ---
Vital Signs 08/24/24 11:33 Height 5 ft 3 in Weight 167 lb BMI 29.6 Handedness Right Intake Visit Reasons: PO LT CTR 08/11/24 AR Intake Note: Yumiko is a 53 year old right hand dominant female who presents today for a post operative visit status post left carpal tunnel release DOS: 08/11/[address] Rosanna Cardona. Sutures removed and steri strips applied. Allergies environmental allergies Allergy (Intermediate, Verified 08/24/24 11:33) hives/eye itchiness dog dander (DOG) Allergy (Unknown, Verified 08/24/24 11:33) HIVES HPI HPI PO LT CTR 08/11/24 AR: Details: Yumiko is a 53 year old right hand dominant female who presents today for a post operative visit status post left carpal tunnel release DOS: 08/11/[address] Rosanna Cardona. Reports good symptom resolution postoperatively. Sutures removed and steri strips applied. [facility] Medical History Hepatic steatosis Psoriatic arthritis Palpitations GERD (gastroesophageal reflux disease) Fatty liver Chronic pain syndrome Radiculopathy, lumbar region Disc degeneration, lumbar Postlaminectomy syndrome of lumbosacral region Osteoarthritis of left shoulder Fibromyalgia Arthritis Surgical History Hx of straightening of nasal septum History of back surgery Family History Mother No problems noted. Mother Advanced cirrhosis of liver Diabetes Low blood pressure Colon polyps Father Aneurysm Sister No problems noted. Sister No problems noted. Brother No problems noted. Son No problems noted. Son No problems noted. Daughter No problems noted. 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 Normal sensation to all other digits in the left hand toda y. Normal sensation in the tips of all digits of the right hand today. No thenar or intrinsic wasting. Good APB muscle firing and good finger cross. Vascular: Capillary refill brisk. ROM: Patient can make a fist and extend all their digits. Skin: No lacerations or abrasions noted. General: No ecchymosis. No erythema or evidence of infection. Assessment & Plan Assessment & Plan (1) Carpal tunnel syndrome of left wrist: Code(s): G56.02 - Carpal tunnel syndrome, left upper limb Category: Medical Plan 1. Status post left carpal tunnel release DOS 08/11/2024 Patient appears to be recovering well postoperatively Patient is educated about the typical recovery course At this time, patient is informed that there is no acute follow-up indicated, as she appears to be recovering very well postoperatively Patient is amenable to this plan Follow-up as needed Coding Level of Care Code Global (08023) Diagnoses Carpal tunnel syndrome of left wrist G56.02
[2024-08-24 11:33] VITALS: BMI 29.6
--- OUTSIDE RECORDS SUMMARY | 2024-08-24 13:26 | XMS_ITS | Patient Health Record ---
Author Organization [facility] Address [address] [place] [address] Care Team Providers Care Gas Furnace Installer Name Role Phone [facility] Primary Care Provider Chaz Garcia [phone] Allergies Allergen (clinical drug ingredient) Drug/Non Drug Allergy documented on EMR Reaction Allergy Type Onset Date Status pet dander (uncoded) Unknown Allergy Active enviromental allergi es (uncoded) Unknown Allergy Active Results Component Value Reference Range Notes US abdomen comp w elastograp hy (Not yet reviewed by provider) Interpretation: Performing Lab: Notes/Report: [address] [address] Ultrasound Report Signed Patient: Gisell Pugh MR #: [id number] : 1970 Acct:[id number] Age/Sex: 53 / F ADM Date: 02/15/24 Loc: HO.US Attending Dr: Chaz Reynaga MD Ordering Physician: Chaz Reynaga MD Date of Service: 02/15/24 Procedure(s): US abdomen comp w elastography Accession Number(s): [id number] cc: Chaz Reynaga MD; [facility] EXAMINATION: US COMPLETE ABDOMEN WITH LIVER ELASTOGRAPHY CLINICAL INFORMATION: History of fatty liver and epigastric abdominal pain. COMPARISON: 06/12/2020, 11/18/2018. No prior elastography. TECHNIQUE: Real-time imaging of the abdominal viscera. Noninvasive ultrasound liver fibrosis assessment is performed using Siemens shear wave elastography (pSWE) with a C5-2 MHz transducer. Multiple elastography samples are obtained. Exam submitted for review 04/01/2024 3:05 PM FIELD REPRESENTATIVES DIRECTOR. FINDINGS: PANCREAS: The visualized pancreatic head and [...] by: Anup Jarrett MD 04/01/2024 04:06 PM [facility] Dictated By: Anup Jarrett MD Signed By: <Electronically signed by Anup Jarrett MD in OV> 04/01/24 1606 DD/ 0811 TD/TT: 02/15/24 0836 Linux Server Engineer: [place] [id number] Ultrasound Report Signed Patient: Gisell Pugh MR #: [id number] : 1970 Acct:[id number] Age/Sex: 53 / F ADM Date: 02/15/24 Loc: HO.US Attending Dr: Chaz Reynaga MD Ordering Physician: Chaz Reynaga MD Date of Service: 02/15/24 Procedure(s): US abd omen comp w elastography Accession Number(s): [id number] cc: Chaz Reynaga MD; [facility] EXAMINATION: US COMPLETE ABDOMEN WITH LIVER ELASTOGRAPHY CLINICAL INFORMATION: History of fatty cherie er and epigastric abdominal pain. COMPARISON: 06/12/2020, 11/18/2018. No prior elastography. TECHNIQUE: Real-time imaging of the abdominal viscera. Noninvasive ultrasound liver fibrosis asses sment is performed using Siemens shear wave elastography (pSWE) with a C5-2 MHz transducer. Multiple elastography samples are obtained. Exam submitted for shaina carterw 04/01/2024 3:05 PM FIELD REPRESENTATIVES DIRECTOR. FINDINGS: PANCREAS: The visual ized pancreatic head [...] by: Anup Jarrett MD 04/01/2024 04:06 PM [facility] Dictated By: Anup Jarrett MD Signed By: <Mary Alice clark signed by Anup Jarrett MD in OV> 04/01/24 1606 DD/ 0811 TD/TT: 02/15/24 0836 Linux Server Engineer: Reason For Referral Referring Provider First Name [place] Referring Provider Last Name [facility] Referred Organization [facility] Referred Provider Chaz Reynaga Referred Address [address] [place] [phone], Referred Provider Specialty Gastroentero logy General Notes Kacy Hunter 2024 09:27:10 AM >requested a [facility] referral from [facility] for egd and colon with Dr. Ronnell whitney 6-23-25 [phone] Referral Priority Routine Medications Medication SIG (Take, Route, Frequency, Duration) [...] Status Risk Notes Problem Colon cancer screening (Z12.11) Active confirmed Problem 20752536 Epigastric abdominal pain (R10.13) Active confirmed Problem 223659276 Abdominal bloating (R14.0) Active confirmed Problem 73060724 Abdominal pain, epigastric (R10.13) Active confirmed Problem 127978696 Blood in stool (K92.1) Active confirmed Problem 611881760 Elevated liver enzymes (R74.8) Active confirmed Problem 395930036 Fatty liver (K76.0) Active confirmed Problem Family History of Cancer of Colon (Situation) (033074996) Family history of colon cancer (Z80.0) Active confirmed Problem 144231304 Helicobacter pylori ab+ (R76.8) Active confirmed Problem 58496157 Constipation, unspecified constipation type (K59.00) Active confirmed Problem Gastroesophageal reflux disease (583745121) GERD (gastroesophage al reflux disease) (K21.9) Active confirmed Problem 212577336 Irritable bowel syndrome with constipation (K58.1) Active confirmed Problem 407737058 RUQ pain (R10.11) Active confirmed Vital Signs Blood pressure diastolic 00 mm Hg 09/22/2023 Height 62 in 09/22/2023 Blood pressure systolic 00 mm Hg 09/22/2023 Weight 169 lbs 09/22/2023 BMI 30.91 kg/m2 09/22/2023 Encounters Encounter Location Date Provider Diagnosis [facility] [address] [place] [address] 09/22/2023 Chaz Reynaga Fatty liver K76.0 ; Abdominal pain, epigastric R10.13 ; Family history of colon cancer Z80.0 ; GERD (gastroesophageal reflux disease) K21.9 and Colon cancer screening Z12.11 [facility] [address] [place] [address] 10/01/2023 Chaz Reynaga [facility] [address] [place] [address] 01/21/2024 Chaz Reynaga [facility] [address] [place] [address] 04/19/2024 Chaz Reynaga GERD (gastroesophageal reflux disease) K21.9 [facility] [address] [facility] [place] [address] 05/04/2024 Chaz Reynaga Assessments Encounter Date Diagnosis [...] Appt Details Provider Name:Chaz Reynaga , 08/29/2024 09:40:00 AM, [address] [place] [address] , [place], [place], [phone], Insurance Providers Payer Name Payer Address Payer Phone Subscriber Number Group Number Insured Name Patient Relationship to Insured Coverage Start Date Coverage End Date MEDICAID OF [facility] [address] [place] [address] [id number] [facility] GISELL TREVINO Self - patient is [...] alpha-fetoprotein level, and normal liver profile in 2015; she had been on Jami in the past. Denies MS,DM,CVA,Lung disease,renal dise ase Fibromyalgia Psoriasis Anxiety/depression Colonoscopy in May of 2015 revealed on ly external hemorrhoids Positive H. pylori serology in July 16 Osteoarthritis Bursitis in left shoulder EGD in 10/2015--small HH, otherwise WNL-- normal gastric biopies--no H.pylori Neg GB U/S and HIDA with CCK in 2016 allergies Surgical History Surgery Date(Month/Year) Lower back surgeries x 3--transabdominal approach in 2009 Hemorrhoidectomy in 11/[address] Keenan garcia
== END 2024-08-24 11:47 | disposition home or self-care (01) ==
LOC: HO.HOS 11:29
PROVIDERS: PCP Registered Nurse
DX: G56.02 Carpal tunnel syndrome, left upper limb (principal)
CPT/HCPCS: 99024

== ENCOUNTER → 2024-08-24 11:29 | Outpatient (BNVA) | payer MEDICAID, SELFPAY | PROVIDERS: PCP Registered Nurse | DX: G56.02 Carpal tunnel syndrome, left upper limb (principal) | CPT/HCPCS: 99212 ==

== ENCOUNTER 2024-08-29 08:32 | Day surgery (SDC) | payer MEDICAID, SELFPAY ==
[2024-01-20 13:21] VITALS: BMI 30.9
--- NOTE | 2024-01-20 14:36 | HO.ANESPROP2 ---
HPI - Anesthesia Eval Consult details Narrative: 53yo F for Upper Endoscopy and Colonoscopy Anesthesia Pre-Procedure Meds Is the patient on any of the following meds?: GLP1/DPP4 PMFSH Active Problems Active Problems: All Active Problems Tear of medial meniscus of right knee (Acute) Hypokalemia (Acute) Left shoulder pain (Acute) Arthritis of shoulder region, left, degenerative (Acute) Elevated blood pressure reading (Acute) Preop cardiovascular exam (Acute) Palpitation (Acute) Chest pain (Acute) De Quervain's tenosynovitis, left (Acute) Digital mucous cyst of finger of right hand (Acute) Arthritis of left hip (Acute) Sacroiliac joint dysfunction of left side (Acute) Osteoarthritis of hands, bilateral (Acute) Long-term use of immunosuppressant medication (Acute) Carpal tunnel syndrome of left wrist (Acute) Left lateral epicondylitis (Acute) Obesity (Acute) Hepatic steatosis (Acute) Elevated LFTs (Acute) Psoriatic arthritis (Acute) Osteoarthritis of left shoulder (Acute) Fibromyalgia (Acute) Postlaminectomy syndrome of lumbosacral region (Acute) Past Medical History Medical History (Updated 01/20/24 @ 13:20 by Pauline Hanks RN) Hepatic steatosis Psoriatic arthritis Palpitations GERD (gastroesophageal reflux disease) Fatty liver Chronic pain syndrome Radiculopathy, lumbar region Disc degeneration, lumbar Postlaminectomy syndrome of lumbosacral region Osteoarthritis of left shoulder Fibromyalgia Arthritis Family History Family History Mother No problems noted. Mother Advanced cirrhosis of liver Diabetes Low blood pressure Colon polyps Father Aneurysm Sister No problems noted. Sister No problems noted. Brother No problems noted. Son No problems noted. Son No problems noted. Daughter No problems noted. 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 Meds Allergies Allergy/AdvReac Type Severity Reaction Status Date / Time environmental allergies Allergy Intermediate hives/eye Verified 01/20/24 13:17 itchiness dog dander [DOG] Allergy Unknown HIVES Verified 01/15/24 15:27 Home Medications ?Medication ?Instructions ?Recorded ?Confirmed ?Last Taken ?Type acetaminophen 500 mg tablet 1,000 mg PO Q6H PRN Pain 12/14/19 01/20/24 Unknown History (Tylenol Extra Strength) clonazepam 0.5 mg tablet 0.5 mg PO BID PRN Anxiety 12/14/19 01/20/24 Unknown History duloxetine 60 mg capsule,delayed 60 mg PO BID 12/14/19 01/20/24 Unknown History release (Cymbalta) fluticasone propionate 50 1 spray intranasal DAILY 12/14/19 01/20/24 Unknown History mcg/actuation nasal spray,suspension (Flonase Allergy Relief) montelukast 10 mg tablet 10 mg PO DAILY 12/14/19 01/20/24 Unknown History (Singulair) fexofenadine 180 mg tablet 180 mg PO DAILY 07/23/21 01/20/24 Unknown History hydroxyzine HCl 25 mg tablet 25 - 50 mg PO Q6H PRN anxiety 04/15/22 01/20/24 Unknown History lidocaine 5 % topical patch 1 - 2 patch topical DAILY PRN pain 04/15/22 01/20/24 12/23/22 04:18 History (Lidoderm) cholecalciferol (vitamin D3) 50 50 mcg PO DAILY 12/05/22 01/20/24 Unknown History mcg (2,000 unit) tablet dulaglutide 1.5 mg/0.5 mL 1.5 mg subcut QWEEK 12/05/22 01/20/24 Unknown History subcutaneous pen injector (Trulicity) tizanidine 2 mg tablet 2 mg PO Q6-8H PRN muscle spasm 05/05/23 01/20/24 Unknown History albuterol sulfate 90 mcg/actuation 2 puff inhalation Q6H PRN wheezing 05/12/23 01/20/24 Unknown History aerosol inhaler (Ventolin HFA) ibuprofen 600 mg tablet 600 mg PO Q8H PRN fever 05/12/23 01/20/24 Unknown History olmesartan 5 mg tablet 5 mg PO QAM 05/12/23 01/20/24 Unknown History zolpidem 5 mg tablet 5 mg PO BEDTIME PRN insomnia 06/15/23 01/20/24 Unknown History bupropion HCl 100 mg tablet 300 mg PO BID 01/15/24 01/20/24 Unknown History Exam Height,Weight and Vital Signs: Height 5 ft 2 in Weight 76.657 kg Assessment and Plan Assessment Anesthesia Assessment: Chart Reviewed
--- NOTE | 2024-05-03 08:47 | P.CONAN_ITS ---
HPI - Anesthesia Eval Consult details Narrative: 53yo F for Upper Endoscopy and Colonoscopy Eval by [facility] [place] for atypical CP with negative w/u for preop shoulder surgery - deemed optimized [facility] Active Problems Active Problems: All Active Problems Tear of medial meniscus of right knee (Acute) Hypokalemia (Acute) Left shoulder pain (Acute) Arthritis of shoulder region, left, degenerative (Acute) Elevated blood pressure reading (Acute) Preop cardiovascular exam (Acute) Palpitation (Acute) Chest pain (Acute) De Quervain's tenosynovitis, left (Acute) Digital mucous cyst of finger of right hand (Acute) Arthritis of left hip (Acute) Sacroiliac joint dysfunction of left side (Acute) Osteoarthritis of hands, bilateral (Acute) Long-term use of immunosuppressant medication (Acute) Carpal tunnel syndrome of left wrist (Acute) Left lateral epicondylitis (Acute) Obesity (Acute) Hepatic steatosis (Acute) Elevated LFTs (Acute) Psoriatic arthritis (Acute) Osteoarthritis of left shoulder (Acute) Fibromyalgia (Acute) Postlaminectomy syndrome of lumbosacral region (Acute) Past Medical History Medical History (Updated 01/20/24 @ 13:20 by Pauline Hanks RN) Hepatic steatosis Psoriatic arthritis Palpitations GERD (gastroesophageal reflux disease) Fatty liver Chronic pain syndrome Radiculopathy, lumbar region Disc degeneration, lumbar Postlaminectomy syndrome of lumbosacral region Osteoarthritis of left shoulder Fibromyalgia Arthritis Family History Family History Mother No problems noted. Mother Advanced cirrhosis of liver Diabetes Low blood pressure Colon polyps Father Aneurysm Sister No problems noted. Sister No problems noted. Brother No problems noted. Son No problems noted. Son No problems noted. Daughter No problems noted. Surgical History Surgical History Hx of straightening of nasal septum History of back surgery Social History Social History (Updated 01/20/24 @ 13:21 by Pauline Hanks RN) Alcohol intake: former Year quit: 7 Patient Tobacco Use Status: Former Tobacco user Years Smoked: 10 YEARS e-Cigarette/Vaping Use: Never Used Current occupational status: employed Current occupation: works as [employer] part-time- right handed Meds Allergies Allergy/AdvReac Type Severity Reaction Status Date / Time environmental allergies Allergy Intermediate hives/eye Verified 01/20/24 13:17 itchiness dog dander [DOG] Allergy Unknown HIVES Verified 01/15/24 15:27 Home Medications ?Medication ?Instructions ?Recorded ?Confirmed ?Last Taken ?Type acetaminophen 500 mg tablet 1,000 mg PO Q6H PRN Pain 12/14/19 01/20/24 Unknown History (Tylenol Extra Strength) clonazepam 0.5 mg tablet 0.5 mg PO BID PRN Anxiety 12/14/19 01/20/24 Unknown History duloxetine 60 mg capsule,delayed 60 mg PO BID 12/14/19 01/20/24 Unknown History release (Cymbalta) fluticasone propionate 50 1 spray intranasal DAILY 12/14/19 01/20/24 Unknown H istory mcg/actuation nasal spray,suspension (Flonase Allergy Relief) montelukast 10 mg tablet 10 mg PO DAILY 12/14/19 01/20/24 Unknown History (Singulair) fexofenadine 180 mg tablet 180 mg PO DAILY 07/23/21 01/20/24 Unknown History hydroxyzine HCl 25 mg tablet 25 - 50 mg PO Q6H PRN anxiety 04/15/22 01/20/24 Unknown History lidocaine 5 % topical patch 1 - 2 patch topical DAILY PRN pain 04/15/22 01/20/24 12/23/22 04:18 History (Lidoderm) cholecalciferol (vitamin D3) 50 50 mcg PO DAILY 12/05/22 01/20/24 Unknown History mcg (2,000 unit) tablet dulaglutide 1.5 mg/0.5 mL 1.5 mg subcut QWEEK 12/05/22 01/20/24 Unknown History subcutaneous pen injector (Trulicity) tizanidine 2 mg tablet 2 mg PO Q6-8H PRN muscle spasm 05/05/23 01/20/24 Unknown History albuterol sulfate 90 mcg/actuation 2 puff inhalation Q6H PRN wheezing 05/12/23 01/20/24 Unknown History aerosol inhaler (Ventolin HFA) ibuprofen 600 mg tablet 600 mg PO Q8H PRN fever 05/12/23 01/20/24 Unknown History olmesartan 5 mg tablet 5 mg PO QAM 05/12/23 01/20/24 Unknown History zolpidem 5 mg tablet 5 mg PO BEDTIME PRN insomnia 06/15/23 01/20/24 Unknown History bupropion HCl 100 mg tablet 300 mg PO BID 01/15/24 01/20/24 Unknown History Exam Height,Weight and Vital Signs: Height 5 ft 2 in Weight 76.657 kg Pertinent Lab Results Pertinent Lab Results: Laboratory Tests 02/24/24 12:03 WBC 4.8 Hgb 13.7 Hct 40.8 Plt Count 308 Sodium 141 Potassium 3.5 Chloride 107 Carbon Dioxide 26 BUN 7 L Creatinine 0.63 Assessment and Plan Assessment Anesthesia Assessment: Chart Reviewed
[2024-08-29 08:50] VITALS: BMI 30.2
[2024-08-29 09:12] VITALS: BP 139/77; PULSE 64; RESP 18; TEMP 36.8; O2SAT 98
[2024-08-29 09:17] LABS: Glucose, Whole Blood 198 mg/dL (60-115)
--- NOTE | 2024-08-29 09:30 | HO.ANESPROP2 ---
[facility] Active Problems Active Problems: All Active Problems (Updated 08/29/24 @ 08:48 by Jesise Oneal RN) Tear of medial meniscus of right knee (Acute) Hypokalemia (Acute) Left shoulder pain (Acute) Arthritis of shoulder region, left, degenerative (Acute) Elevated blood pressure reading (Acute) Preop cardiovascular exam (Acute) Palpitation (Acute) Chest pain (Acute) De Quervain's tenosynovitis, left (Acute) Digital mucous cyst of finger of right hand (Acute) Arthritis of left hip (Acute) Sacroiliac joint dysfunction of left side (Acute) Osteoarthritis of hands, bilateral (Acute) Long-term use of immunosuppressant medication (Acute) Carpal tunnel syndrome of left wrist (Acute) Left lateral epicondylitis (Acute) Obesity (Acute) Hepatic steatosis (Acute) Elevated LFTs (Acute) Psoriatic arthritis (Acute) Osteoarthritis of left shoulder (Acute) Fibromyalgia (Acute) Postlaminectomy syndrome of lumbosacral region (Acute) Past Medical History Medical History Menopause Hepatic steatosis Psoriatic arthritis Palpitations GERD (gastroesophageal reflux disease) Fatty liver Chronic pain syndrome Radiculopathy, lumbar region Disc degeneration, lumbar Postlaminectomy syndrome of lumbosacral region Osteoarthritis of left shoulder Fibromyalgia Arthritis Functional capacity: independent ambulation Patient : No Family History Family History Mother No problems noted. Mother Advanced cirrhosis of liver Diabetes Low blood pressure Colon polyps Father Aneurysm Sister No problems noted. Sister No problems noted. Brother No problems noted. Son No problems noted. Son No problems noted. Daughter No problems noted. Family history of problems with anesthesia: No Surgical History Surgical History Hx of straightening of nasal septum History of back surgery History of Problems with Anesthesia: No Social History Social History Are you a primary pharmacist critical care to a significant other at home: No Do you presently have visiting nurse or other home services: No Alcohol intake: former Year quit: 7 Comment: counts correct Patient Tobacco Use Status: Former Tobacco user Years Smoked: 10 YEARS e-Cigarette/Vaping Use: Never Used Have you been hit, kicked, punched, or otherwise hurt by someone within the past year? 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 Meds Allergies Allergy/AdvReac Type Severity Reaction Status Date / Time environmental allergies Allergy Intermediate hives/eye Verified 08/29/24 08:35 itchiness dog dander (DOG) Allergy Unknown HIVES Verified 08/29/24 08:35 Active Medications: Current Medications Lactated Ringer's (Lr) 1,000 mls @ 80 mls/hr IVCONT .[id number] ELIER Sodium Biphosphate/Sodium Phosphate (Sodium Phosphate,[place]-Dibasic 133 Ml Enema) 133 ml FL ONCE PRN PRN Reason: Poor Colonoscopy Prep Results Home Medications ?Medication ?Instructions ?Recorded ?Confirmed ?Last Taken ?Type acetaminophen 500 mg tablet 1,000 mg PO Q6H PRN Pain 12/14/19 08/11/24 Unknown History (Tylenol Extra Strength) clonazepam 0.5 mg tablet 0.5 mg PO BID PRN Anxiety 12/14/19 08/11/24 08/29/24 History duloxetine 60 mg capsule,delayed 60 mg PO BID 12/14/19 08/11/24 08/29/24 History release (Cymbalta) fluticasone propionate 50 1 spray intranasal DAILY 12/14/19 08/11/24 Unknown History mcg/actuation nasal spray,suspension (Flonase Allergy Relief) montelukast 10 mg tablet 10 mg PO DAILY 12/14/19 08/11/24 Unknown History (Singulair) fexofenadine 180 mg tablet 180 mg PO DAILY 07/23/21 08/11/24 Unknown History hydroxyzine HCl 25 mg tablet 25 - 50 mg PO Q6H PRN anxiety 04/15/22 08/11/24 Unknown History lidocaine 5 % topical patch 1 - 2 patch topical DAILY PRN pain 04/15/22 08/11/24 12/23/22 04:18 History (Lidoderm) cholecalciferol (vitamin D3) 50 50 mcg PO DAILY 12/05/22 08/11/24 Unknown History mcg (2,000 unit) tablet dulaglutide 1.5 mg/0.5 mL 1.5 mg subcut QWEEK 12/05/22 08/11/24 08/18/24 History subcutaneous pen injector (Trulicity) albuterol sulfate 90 mcg/actuation 2 puff inhalation Q6H PRN wheezing 05/12/23 08/11/24 Unknown History aerosol inhaler (Ventolin HFA) ibuprofen 600 mg tablet 600 mg PO Q8H PRN fever 05/12/23 08/11/24 Unknown History zolpidem 5 mg tablet 5 mg PO BEDTIME PRN insomnia 06/15/23 08/11/24 Unknown History bupropion HCl 100 mg tablet 300 mg PO ONCE 05/13/24 08/29/24 Unknown History tizanidine 2 mg tablet 4 mg PO Q6-8H PRN muscle spasm 05/13/24 08/29/24 Unknown History Exam Height,Weight and Vital Signs: Height 5 ft 2 in Weight 74.843 kg Last Vital Signs Temp 98.2 F 08/29/24 09:12 Pulse 64 08/29/24 09:12 Resp 18 08/29/24 09:12 BP 139/77 08/29/24 09:12 Pulse Ox 98 08/29/24 09:12 O2 Del Method Room Air 08/29/24 09:12 Pertinent Lab Results Pertinent Lab Results: Laboratory Tests 08/29/24 08:56 POC Glucose 198 H Airway Mallampati Class: II TM Dist: >3cm Heart: RRR Lungs: CTA Assessment and Plan Assessment Anesthesia Assessment: Anesthesia Plan Discussed Final Anesthetic Review Family History of Problems with Anesthesia: No History of Problems with Anesthesia: No NPO: Yes ASA Class: II Final Preanesthetic Review: Meds/Allgs Chart Reviewed, Consent Obtained/Reviewed and Anes Risks/Benef Reviewed Patient Risk: Low Procedure Risk: Low Anesthetic Plan Anesthetic Plan: MAC: Disposition: Standard PACU
[2024-08-29 10:59] VITALS: BP 121/86; PULSE 76; RESP 14; TEMP 36.1; O2SAT 93
--- NOTE | 2024-08-29 11:00 | P.BOP_ITS ---
Brief Operative Note Date of Service: 08/29/24 Pre-op diagnosis: GERD, Screening Post-op diagnosis: other (Hiatal hernia, Colon polyps) Procedure: EGD, Colonoscopy to the cecum with bx/removal of ascending colon polyp and hot snare polypectomy x 2 of distal rectal polyps Surgeon: Chaz Reynaga MD Was an Wrecker Driver used for this Procedure?: No Estimated blood loss (mL): 2.0 Pathology: other (A. Ascending colon polyp B. Distal rectal polyps) Condition: stable Disposition: PACU
[2024-08-29 11:14] VITALS: BP 138/94; PULSE 70; RESP 17; O2SAT 96
--- NOTE | 2024-08-29 11:16 | OP_ITS ---
DATE OF SERVICE: 08/29/2024 SURGEON: Chaz Reynaga MD INDICATIONS: The patient presents for evaluation of gastroesophageal reflux, family history of colorectal cancer and polyps, and colorectal cancer screening. Full consent obtained from her for this, including risks of bleeding and perforation. PREOPERATIVE DIAGNOSIS: POSTOPERATIVE DIAGNOSIS: PROCEDURE PERFORMED: Esophagogastroduodenoscopy, and colonoscopy to the cecum with biopsy and removal of ascending colon polyp, and hot snare polypectomy x 2 of distal rectal polyps. ESTIMATED BLOOD LOSS: COMPLICATIONS: ANESTHESIA: Monitored anesthesia care. ASSISTANTS: SPECIMENS: PREOPERATIVE DIAGNOSES: Colorectal cancer screening, family history of colorectal cancer and polyps, gastroesophageal reflux. POSTOPERATIVE DIAGNOSES: Colorectal cancer screening, family history of colorectal cancer and polyps, gastroesophageal reflux, small hiatal hernia, colon polyps, diverticulosis, and internal and external hemorrhoids. DESCRIPTION OF PROCEDURE: The patient was placed in the left lateral decubitus position. The Olympus video gastroscope was passed in the posterior oropharynx and upper esophagus under direct vision. The scope was passed slowly to the distal esophagus. The gastroesophageal junction appeared normal at 36 cm. There was no sign of any esophagitis nor Jaquez esophagus. The scope entered the stomach. There was a small hiatal hernia. The scope was advanced to pylorus and the duodenum was cannulated the descending portion. The duodenum including the bulb appeared normal without mass or ulceration. The scope was withdrawn back to the stomach. The gastric antrum and body appeared normal with good peristalsis. The scope was retroflexed visualizing the proximal stomach carefully, which appeared normal, without any sign of mass or ulceration. The scope was straightened and withdrawn back to the esophagus. The hiatal hernia mucosa appeared normal. The gastroesophageal junction appeared normal. The esophageal mucosa appeared normal. The scope was withdrawn from the patient, she was turned around for the colonoscopy. The digital rectal exam revealed external hemorrhoids. The Olympus video pediatric colonoscope was entered into the rectum and advanced easily to the cecum. Once in the cecum, I did identify normal-appearing cecal pouch with appendiceal orifice a normal-appearing ileocecal valve. The cecum did require some irrigation and suctioning, but ultimately preparation was very good and good visualization was obtained. The ileocecal valve and appendiceal orifice appeared normal. The scope was then slowly withdrawn assessing all mucosal surfaces carefully. For the most part, preparation was excellent, but also required a fair amount of irrigation and suctioning. In the ascending colon was an approximately 3 mm polyp, which was biopsied and completely removed with cold biopsy forceps. There was a mild amount of sigmoid diverticulosis. I did not visualize any sign of colitis nor angiodysplasia. In the rectum, scope was retroflexed visualizing internal hemorrhoids as well as 2 distal rectal polyps. Each polyp was approximately 6 to 8 mm in diameter and were both removed by hot snare polypectomy and then recovered by suction. The polypectomy sites appeared clean, without any sign of residual polyp nor bleeding. The scope was straightened and withdrawn from the patient. She tolerated the procedures well and was returned to recovery area in stable condition. IMPRESSION: 1. Colon polyps. 2. Diverticulosis. 3. Internal and external hemorrhoids. 4. Small hiatal hernia. PLAN: The results of biopsy will be checked. Given these findings and her family history, I would recommend a repeat colonoscopy in 5 years for further screening. She was advised not to use any aspirin and NSAIDs for 1 week. She was advised to continue her daily omeprazole at 40 mg as she does report that is working well for her previous symptoms of the reflux and discomfort. She was advised not to use any aspirin and NSAIDs for least 1 week. I would recommend a repeat colonoscopy in 5 years. She will see me within 1 year for followup of her underlying history of fatty liver. MD GEORGINA Connell/HEMALATHA / [id number] MTDD
[2024-08-29 11:29] VITALS: BP 133/91; PULSE 60; RESP 16; TEMP 36.1; O2SAT 95
--- NOTE | 2024-08-29 12:56 | HO.POSTANES ---
Post Anesthesia Evaluation Post Anesthesia Evaluation Date of Service: 08/29/24 Vital Signs: Vital Signs Temp Pulse Resp BP Pulse Ox O2 Del Method 08/29/24 11:29 97 F 60 16 133/91 H 95 Room Air 08/29/24 11:14 70 17 138/94 H 96 Room Air 08/29/24 10:59 97 F 76 14 121/86 93 Room Air 08/29/24 09:12 98.2 F 64 18 139/77 98 Room Air Anesthesia: Monitored Mental Status: Awake Pain Control: Satisfactory Nausea/Vomiting: None Hydration: Adequate Anesthesia-Related Issues: No Anes. Related Issues
== END 2024-08-29 12:25 | disposition home or self-care (01) ==
PROVIDERS: PCP Registered Nurse; Visit Provider Internal Medicine
PROC: (CPT 45385; principal; 2024-08-29 09:40)
DX: Z12.11 Encounter for screening for malignant neoplasm of colon (principal); D12.2 Benign neoplasm of ascending colon; K62.1 Rectal polyp; K57.30 Diverticulosis of large intestine without perforation or abscess without bleeding; K64.8 Other hemorrhoids; K64.4 Residual hemorrhoidal skin tags; Z83.719 Family history of colon polyps, unspecified; K21.9 Gastro-esophageal reflux disease without esophagitis; K44.9 Diaphragmatic hernia without obstruction or gangrene; R76.8 Other specified abnormal immunological findings in serum; K76.0 Fatty (change of) liver, not elsewhere classified; Z79.85 Long-term (current) use of injectable non-insulin antidiabetic drugs; Z79.899 Other long term (current) drug therapy
CPT/HCPCS: 45385; 45380; 43235; 82947; 88305; J2003; J2704

== ENCOUNTER 2024-09-20 09:47 | Outpatient (REF) | payer MEDICAID, SELFPAY ==
[2024-09-20 10:09] LABS: MANUAL DIFF FLAG NO
--- OUTSIDE RECORDS SUMMARY | 2024-09-20 10:30 | XMS_ITS | Encounter Summary ---
Author Organization [employer] Address [address] [place] [address] Care Team Providers Care Practice Business Asst Name Role Phone Viktoria Gage MD Primary Care Provide r [facility] Primary Care Provider Devi Live M1A1 TANK CREWMAN Primary Care Provider [phone] [facility] Primary Care Provider Elder Wheatley M1A1 TANK CREWMAN Unavailable Unavailable Reason for Visit * Reason Onset Date Comments Appointment Request 05/30/2022 Encounter Details Date Type Department Care Team (Late st Contact Info) Description 05/30/2022 Telephone [facility] [address], [place] [phone] Viktoria Gage MD [address] [place], [place] [phone] Appointment Request Social History Tobacco Use Types [...] at 9:00 AM. Please contact pt at [phone] documented in this encounter Plan of Treatment Not on file documented as of this encounter Visit Diagnoses Not on filedocumented in this encounter Additional Health Concerns Assessment Noted Time PHQ-9 Depression Total Score: 5 04/10/19 11:06 AM EST documented as of this encounter Care Teams Practice Business Asst Relationship Specialty Start Date End Date Viktoria Gage MD [address] [place] [address] PCP - General Internal Medicine 05/23/22 06/23/22 WittmannFlor FNP [address] [place] [address] PCP - General Family Medicine 06/24/22 08/07/22 Devi Live FNP [address] [place] [address] PCP - General Family Medicine 08/08/22 08/12/22 WittmannFlor FNP [address] [place] [address] PCP - General Family Medicine 08/13/22 Elder Wheatley FNP [address] [place] [address] Nurse Practitioner Family Medicine 02/10/23 Marisela Bowling Rn Mds CoordinatorElectronics Repair Technician 08/06/23 documented as of this encounter
--- OUTSIDE RECORDS SUMMARY | 2024-09-20 10:30 | XMS_ITS | Patient Health Record ---
Author Organization [facility] Address [address] [place] [address] Care Team Providers Care Merchant Patroller Name Role Phone [facility] Primary Care Provider Chaz Garcia [phone] Allergies Allergen (clinical drug ingredient) Drug/Non Drug Allergy documented on EMR Reaction Allergy Type Onset Date Status pet dander (uncoded) Unknown Allergy Active enviromental allergi es (uncoded) Unknown Allergy Active Results Component Value Reference Range Notes US abdomen comp w elastograp hy Reviewed date:08/28/2024 06:07:03 PM Interpretation: Performing Lab: Notes/Report: [address] [address] Ultrasound Report Signed Patient: Gisell Pugh MR #: [id number] : 1970 Acct:[id number] Age/Sex: 53 / F ADM Date: 02/15/24 Loc: HO.US Attending Dr: Cahz Rinaldi MD Ordering Physician: Chaz Rinaldi MD Date of Service: 02/15/24 Procedure(s): US abdomen comp w elastography Accession Number(s): [id number] cc: Chaz Rinaldi MD; [facility] EXAMINATION: US COMPLETE ABDOMEN WITH LIVER ELASTOGRAPHY CLINICAL INFORMATION: History of fatty liver and epigastric abdominal pain. COMPARISON: 06/12/2020, 11/18/2018. No prior elastography. TECHNIQUE: Real-time imaging of the abdominal viscera. Noninvasive ultrasound liver fibrosis assessment is performed using Siemens shear wave elastography (pSWE) with a C5-2 MHz transducer. Multiple elastography samples are obtained. Exam submitted for review 04/01/2024 3:05 PM CAMP TENDER. FINDINGS: PANCREAS: The visualized pancreatic head and [...] by: Anup Jarrett MD 04/01/2024 04:06 PM [facility] Dictated By: Anup Jarrett MD Signed By: <Electronically signed by Anup Jarrett MD in OV> 04/01/24 1606 DD/ TD/TT: 02/15/24 0836 Utility Locate Technician: Glucose, Whole Blood Reviewed date:08/29/2024 11:38:03 PM Interpretation: Performing Lab:[facility], [address] [place] [phone] Notes/Report: Glucose, Whole Blood 198 60-115 mg/dL METER # : [id number] Pathology (Not yet reviewed by provider) Interpretation: Performing Lab:[facility], [address] [place] [phone] Notes/Report: Reason For Referral Referring Provider First Name Flor Referring Provider Last Name [facility] Referred Organization [facility] Referred Provider Chaz Rinaldi Referred Address [address] [place] [address],[place] [address],[place], [place],[address],[place] Referred Provider Specialty Gastroentero logy General Notes Kacy Hunter 2024 10:35:26 AM > REQUESTED [place] REFERRAL FROM [facility] FOR VISIT WITH DR RINALDI ON [phone] Referral Priority Routine Medications Medication SIG (Take, [...] Status Risk Notes Problem Colon cancer screening (403088042) Colon cancer screening (Z12.11) Active confirmed Problem 33170966 Epigastric abdominal pain (R10.13) Active confirmed Problem 341051523 Abdominal bloating (R14.0) Active confirmed Problem 85390328 Abdominal pain, epigastric (R10.13) Active confirmed Problem 794361993 Blood in stool (K92.1) Active confirmed Problem 648918966 Elevated liver enzymes (R74.8) Active confirmed Problem 709206217 Fatty liver (K76.0) Active confirmed Problem Family History of Cancer of Colon (Situation) (629263752) Family history of colon cancer (Z80.0) Active confirmed Problem 845583268 Helicobacter pylori ab+ (R76.8) Active confirmed Problem 88484748 Constipation, unspecified constipation type (K59.00) Active confirmed Problem Gastroesophageal reflux disease (104818245) GERD (gastroesophage al reflux disease) (K21.9) Active confirmed Problem 719912229 Irritable bowel syndrome with constipation (K58.1) Active confirmed Problem 689278852 RUQ pain (R10.11) Active confirmed Vital Signs Blood pressure diastolic 00 mm Hg 09/22/2023 Height 62 in 09/22/2023 Blood pressure systolic 00 mm Hg 09/22/2023 Weight 169 lbs 09/22/2023 BMI 30.91 kg/m2 09/22/2023 Encounters Encounter Location Date Provider Diagnosis [facility] Outpatient [address] [place] [phone] 08/29/2024 Chaz Rinaldi Colon cancer screening Z12.11 ; Family history of colon cancer Z80.0 ; FH: colon polyps Z83.719 ; Colon polyps K63.5 ; Gastro-esophageal reflux disease without esophagitis K21.9 and Hiatal hernia K44.9 [facility] [address] [place] [phone] 09/22/2023 Chaz Rinaldi Fatty liver K76.0 ; Abdominal pain, epigastric R10.13 ; Family history of colon cancer Z80.0 ; GERD (gastroesophageal reflux disease) K21.9 and Colon cancer screening Z12.11 [facility] [address] [place] [phone] 10/01/2023 Chaz Rinaldi [facility] [address] [place] [phone] 01/21/2024 Chaz Rinaldi [facility] [address] [place] [phone] 04/19/2024 Chaz Rinaldi GERD (gastroesophageal reflux disease) K21.9 [facility] [address] [phone] 05/04/2024 Chaz Rinaldi Assessments Encounter Date Diagnosis (ICD Code) Assessment Notes Treatment Notes Treatment Clinical Notes Section Notes 08/29/2024 Colon cancer screening (ICD-10 - Z12.11) 08/29/2024 Family history of colon cancer (ICD-10 - Z80.0) 09/22/2023 Abdominal pain, epigastric (ICD-10 - R10.13) [...] you advised of her progress. 04/19/2024 GERD (gastroesophage al reflux disease) (ICD-10 - K21.9) 08/29/2024 FH: colon polyps (ICD-10 - Z83.719) 09/22/2023 Family history of colon cancer (ICD-10 [...] to keep you advised of her progress. 08/29/2024 Colon polyps (ICD-10 - K63.5) 09/22/2023 GERD (gastroesophage al reflux disease) (ICD-10 - K21.9) Overall, Gisell [...] to keep you advised of her progress. 08/29/2024 Gastro-esophage al reflux disease without esophagitis (ICD-10 - K21.9) 09/22/2023 Colon cancer screening (ICD-10 - Z12.11) [...] to keep you advised of her progress. 08/29/2024 Hiatal hernia (ICD-10 - K44.9) Plan Of Treatment Pending Test Test Name Order Date LIVER PROFILE 04/18/2019 AMYLASE 04/18/2019 LIPASE 04/18/2019 CBC w DIFF 04/18/2019 PROTHROMBIN TIME (PT, INR) 11/11/2018 ALPHA-FETOPROTEIN,TUMOR MARKER 9 ALPHA-FETOPROTEIN,TUMOR MARKER 0 NUC HIDA SCAN 11/05/2015 HCV LIVER FIBROSIS, FIBRO TEST 9 Alpha Fetoprotein 09/22/2023 Liver Fibrosis Pnl 09/22/2023 Pathology 08/29/2024 US abdomen comp w elastography 4 Future Test Test Name Order Date UPPER GI ENDOSCOPY 09/20/2015 UPPER GI ENDOSCOPY 09/22/2023 COLONOSCOPY 09/22/2023 Insurance Providers Payer Name Payer Address Payer Phone Subscriber Number Group Number Insured Name Patient Relationship to Insured Coverage Start Date Coverage End Date [place] [address] [place] RAMIREZ [phone] [id number] [facility] plan GISELL TREVINO Self - [...] been on Jami in the past. Denies HI,DM,CVA,Lung disease,renal dise ase Fibromyalgia Psoriasis Anxiety/depression Colonoscopy [...]
[2024-09-20 10:46] LABS: Hematocrit 39.8 % (37.0-47.0); Hemoglobin 13.4 g/dl (12.0-16.0); Imm Gran Abs Auto 0.01 X10*3/uL (0.00-0.03); Imm Gran Pct Auto 0.2 % (0.0-0.4); Lymphocytes Absolute Auto 1.9 X10*3/uL (1.2-4.9); Mean Corpuscular HGB Conc 33.7 g/dl (31.0-35.0); Mean Corpuscular Hemoglobin 29.4 pg (27.0-33.0); Mean Corpuscular Volume 87.3 fL (80.0-98.0); NRBC Abs Auto 0.000 X10*3/uL (0.0-0.012); NRBC Pct Auto 0.0 /100WBC (0.0-0.2); Platelet Count 304 X10*3/uL (160-400); Red Blood Count 4.56 X10*6/uL (4.20-5.50); White Blood Count 6.5 X10*3/uL (4.8-10.8)
[2024-09-20 11:08] LABS: Alanine Aminotransferase 16 U/L (0-31); Albumin Level 3.9 g/dL (3.5-5.0); Alkaline Phosphatase 65 U/L (39-117); Anion Gap 11 (12-20); Aspartate Amino Transferase 21 U/L (5-31); Blood Urea Nitrogen 7 mg/dL (9-16); Calcium 8.3 mg/dL (8.4-10.2); Carbon Dioxide 26 mmol/L (22-29); Chloride 109 mmol/L (96-108); Estimated Glomerular Filt Rate > 60; Potassium 3.6 mmol/L (3.3-5.1); Sodium 142 mmol/L (135-145); Total Protein 6.5 g/dL (6.5-8.0)
[2024-09-20 11:11] LABS: Cholesterol 201 mg/dL (<200); HDL Cholesterol 59 mg/dL (>40); Triglycerides 137 mg/dL (<150)
[2024-09-20 11:33] LABS: Microalbum/Creatinine Ratio Ur 5.7 ug/mg cr (<30)
== END 2024-09-20 09:48 | disposition home or self-care (01) ==
LOC: HO.LAB 09:47
PROVIDERS: Absent Provider Student in an Organized Health Care Education/Training Program; PCP Registered Nurse; Visit Provider Registered Nurse
DX: E11.65 Type 2 diabetes mellitus with hyperglycemia (principal); L40.50 Arthropathic psoriasis, unspecified
CPT/HCPCS: 36415; 80053; 80061; 82043; 82570; 85025; 85652; 86140

== ENCOUNTER 2025-02-13 12:40 | Outpatient (AMB) | payer MEDICAID, SELFPAY ==
[2025-02-13 12:43] VITALS: BP 124/68; PULSE 92; O2SAT 98; BMI 29.8
--- NOTE | 2025-02-13 12:43 | A.OFFVIS_ITS ---
Vital Signs 02/13/25 12:43 Height 5 ft 2 in Weight 163 lb BMI 29.8 BP 124/68 Blood Pressure Location Lt brachial Position Sitting Pulse 92 Pulse Source Pulse Oximeter Pulse Oximetry (%) 98 Oxygen Delivery Method Room Air Intake Visit Reasons: PsA Intake Note: Patient presents for PSA follow up. She was last seen in the office by Dr. Foster on 01/15/24. 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 She was diagnosed with psoriatic arthritis 10 years ago has been on Cosentyx since August 2018 Today, in terms of her joint pain she only has minimal joint pain in her hand mostly left 3rd DIPs. Her DIPs of the right hand are enlarged. She has left shoulder pain awaiting surgery on March 29. She underwent right knee surgery this year 10/26/2024. She had held her Cosentyx 2 weeks before the surgery and since that surgery has not had Cosentyx dose. She also had multiple back surgeries, last back surgery was in 2022 she had a diskectomy. She has bilateral ankle pain, worsen after standing. She has morning stiffness in these joints lasting for 30-40 minutes she takes Tylenol as needed right now. In terms of her skin, she has some psoriatic patches behind her left ear, and behind her neck. She has dryness of her fingers noted. Her knees and her elbows are clean. She was last seen by Dr. Foster last year at that time she was undergoing right knee steroid injection every 3 months which was helpful. She also gets injections in the left shoulder. For her fibromyalgia, she is on 60 mg of duloxetine daily, tizanidine, Lyrica 75 mg t.i.d. and naproxen 500 mg twice a day Previously for her psoriatic arthritis she was on methotrexate which caused hair loss, Humira which was ineffective, Enbrel which was ineffective. She has been on Cosentyx 300 mg every 4 weeks since August 2018 Review of systems. She denies photosensitivity, oral ulcers, bloody diarrhea or IBD like symptoms, ear infections, eye inflammation , redness, denies recurrent infections, no other skin lesions Last CBC , AST ALT creatinine within normal limits, ESR CRP negative PHYSICAL EXAM General: Comfortable CVS: RRR Respiratory: clear to auscultation bilaterally. Good respiratory effort Skin: Scaly rash seen behind the left ear And behind the neck MSK: On the right hand, patient has [place] nodes present, no active synovitis noted in the fingers. In the left hand, the 3rd DIPs seems to be enlarged, no active synovitis noted. Patient is able to make a fist. No tenderness on palpation to the PIPs or MCPs. Patient has full range of motion in the right shoulder ho wever she has limited range of motion in the left shoulder due to pain. Patient has normal range of motion in the hips and knees bilaterally. The right knee is recovering well. No active synovitis noted, no swelling in any of the joints. Some tenderness on palpation to the ankles. [facility] Medical History Menopause Hepatic steatosis Psoriatic arthritis Palpitations GERD (gastroesophageal reflux disease) Fatty liver Chronic pain syndrome Radiculopathy, lumbar region Disc degeneration, lumbar Postlaminectomy syndrome of lumbosacral region Osteoarthritis of left shoulder Fibromyalgia Arthritis Surgical History (Updated 02/13/25 @ 12:51 by Sabina Spears CMA) Hx of total knee replacement Hx of straightening of nasal septum History of back surgery Family History Mother No problems noted. Mother Advanced cirrhosis of liver Diabetes Low blood pressure Colon polyps Father Aneurysm Sister No problems noted. Sister No problems noted. Brother No problems noted. Son No problems noted. Son No problems noted. Daughter No problems noted. 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 Physical Exam Vital Signs: Last Vital Signs Pulse 92 02/13/25 12:43 BP 124/68 02/13/25 12:43 Pulse Ox 98 02/13/25 12:43 Oxygen Delivery Method Room Air 02/13/25 12:43 BMI result Body Mass Index 29.8 Assessment & Plan Assessment & Plan (1) Psoriatic arthritis: Comment: methotrexate 02/2017-04/2017 (hair loss), Humira 05/2017-09/2017 (ineffective), Enbrel 09/2017-10/2018 (failed).Cosentyx 300mg monthly since August 2018 Code(s): L40.50 - Arthropathic psoriasis, unspecified Category: Medical (2) Fibromyalgia: Code(s): M79.7 - Fibromyalgia Category: Medical (3) Osteoarthritis of left shoulder: Code(s): M19.012 - Primary osteoarthritis, left shoulder Category: Medical Plan 54-year-old female presenting as a new patient for psoriatic arthritis, psoriasis, and osteoarthritis of the left shoulder and right knee along with fibromyalgia. For her psoriatic arthritis, she will be resumed on Cosentyx 300 mg every 4 weeks. She has upcoming surgery of the left shoulder on March 29, therefore she is to hold her last dose 5 weeks prior to this surgery and then to resume her Cosentyx 2 weeks after surgery, as long as surgical site is healing. Therefore I explained to her that she will take her Cosentyx dose no later than February 21 and then hold the Cosentyx until surgery. She has and to resume her Cosentyx dosing 2 weeks after surgery. Patient understood and agreed Last QuantiFERON in 2023 was negative. CBC CMP repeated in September this year were within normal limits. Today, her fibromyalgia is under control she will continue to take her medications which are duloxetine 60 mg daily., Lyrica 75 mg t.i.d. In her next visit in 3 months, I will repeat CBC CMP as well as QuantiFERON. #snf treatment with IL 17 inhibitors: Levon (Secukinumab)/ Shaista (Ixekizumab) Risks and benefits of IL 17 inhibitors discussed with the patient. Risks include infections, injection site reactions, activation of inflammatory bowel disease. Benefits include improved disease activity. Discussed with patient that if she is feeling sick or having flu-like symptoms she is to hold the medication that week and resolved the following Medications: Refilled secukinumab (Cosentyx 300 mg/2 Syringes () 300 mg (2 mL) subcut Q4W 2 mL 4RF L40.50 - Arthropathic psoriasis, unspecified Coding Level of Care Code New Pt Level 4 (76328) Diagnoses Psoriatic arthritis L40.50 Fibromyalgia M79.7 Osteoarthritis of left shoulder M19.012
== END 2025-02-13 13:27 | disposition home or self-care (01) ==
LOC: HO.RHES 12:41
PROVIDERS: PCP Registered Nurse; Visit Provider Student in an Organized Health Care Education/Training Program
DX: M19.012 Primary osteoarthritis, left shoulder (principal); L40.50 Arthropathic psoriasis, unspecified; M79.7 Fibromyalgia
CPT/HCPCS: 99214

== ENCOUNTER → 2025-02-13 12:40 | Outpatient (BNVA) | payer MEDICAID, SELFPAY | PROVIDERS: PCP Registered Nurse; Visit Provider Student in an Organized Health Care Education/Training Program | DX: L40.50 Arthropathic psoriasis, unspecified (principal); M79.7 Fibromyalgia; M19.012 Primary osteoarthritis, left shoulder; Z79.899 Other long term (current) drug therapy; Z79.620 Long term (current) use of immunosuppressive biologic | CPT/HCPCS: 99212 ==

== ENCOUNTER 2025-02-14 16:44 | Inpatient (IN) | payer MEDICAID, SELFPAY ==
--- OUTSIDE RECORDS SUMMARY | 2024-05-04 05:40 | XMS_ITS ---
Author Organization [facility] Address [address] [place] [address] Care Team Providers Care Scientific Director Name Role Phone Delta CitySaurabh العلي, Flor Primary Care Provider Chaz Garcia [phone] REASON FOR VISIT epigastric pain,gerd Encounters Encounter Location Date Provider Diagnosis [facility] [place] [address] [facility] [facility] [place] [id number] 05/04/2024 Chaz Reynaga Plan Of Treatment No Information Progress Notes * GISELL PARKSDOB:1970 (54 yo F)Acc No.[id number]:05/04/2024 EGD and COL/MAC Patient: GISELL GALAVIZ Provider: Christy Reynaga MD :1970 A ge:53 Y S ex:Female Date:05/04/2024 Address:[address] [place] [address] [address] [id number] Pcp:Flor Delta CitySaurabh, CORE MICROARCHITECT Subjective: * Chief Complaints: * E pigastric pain,gerd Billing Information: * Procedure Codes: * The named appointment provid er may or may not be the originator of this progress note, and it is not deemed complete until electronically signed by the appointment provider. Sign off status: Pending * Provider: Christy Reynaga MD Date: 0 05/04/2024 Generated for Cherise mehta/Joe/Wooditting on: 04/17/2024 11:02 PM EST
--- OUTSIDE RECORDS SUMMARY | 2024-08-29 04:40 | XMS_ITS ---
Author Organization [facility] Address [address] [place] [address] Care Team Providers Care Religious Leader Name Role Phone [facility] HEAT SEALING MACHINE OPERATOR, Flor Primary Care Provider Unava Chaz Roberts Unavailable [phone] REASON FOR VISIT positive h. pylori, abd pain, screening Encounters Encounter Location Date Provider Diagnosis [facility] [place] [address] [place], [place] [id number] 08/29/2024 Chaz Reynaga Colon cancer scree saturnino Z12.11 ; Family history of colon cancer Z80.0 ; FH: colon polyps Z83.719 ; Colon polyps K63.5 ; Gastro-esophageal reflux disease without esophagitis K21.9 and Hiatal hernia K44.9 Assessments Encounter Date Diagnosis (ICD Code) Assessment Notes Treatment Notes Treatment Clinical Notes Section Notes 08/29/2024 Colon cancer screening (ICD-10 - Z12.11) 08/29/2024 Family history of colon cancer (ICD-10 - Z80.0) 08/29/2024 FH: colon polyps (ICD-10 - Z83.719) 08/29/2024 Colon polyps (ICD-10 - K63.5) 08/29/2024 Gastro-esophagea l reflux disease without esophagitis (ICD-10 - K21.9) 08/29/2024 Hiatal hernia (ICD-10 - K44.9) Plan Of Treatment No Information Progress Notes * GISELL PARKSDOB:1970 (54 yo F)Acc No.[id number]:08/29/2024 EGD and COL/MAC Patient: Skylar GISELL GRIFFIN Provider: Christy Reynaga MD :1970 A ge:53 Y S ex:Female Date:08/29/2024 Address:[address] [place], [place] [phone] Pcp:ZOHRA Michael Subjective: * Chief Complaints: * P ositive h. pylori, abd pain, screening Assessment: * Assessment: 1. C olon cancer screening - Z12.11 (Primary) 2 . F amily history of colon cancer - Z80.0 3 . F H: colon polyps - Z83.719 4 . C olon polyps - K63.5 5 . G azul-esophageal reflux disease without esophagitis - K21.9? 6. H iatal hernia - K44.9 Plan: * Procedure Codes: 4 5380 COLONOSCOPY [place] BIOPSY, Modifiers: [place] [address] UPPR GI ENDOSCOPY, DIAGNOSIS, Modifiers: 51 Billing Information: * Procedure Codes: 41965 COLONOSCOPY [place] BIOP[place]. [place]: [place] [address] UPPR GI ENDOSCOPY, DIAGNOSIS. Modifiers: 51 * The named appointment provid er may or may not be the originator of this progress note, and it is not deemed complete until electronically signed by the appointment provider. Sign off status: Pending * Provider: Christy Reynaga MD Date: 0 08/29/2024 Generated for Cherise mehta/Joe/Wooditting on: 04/17/2024 11:03 PM EST
--- NOTE | ~2025-02-14 | CT_ITS ---
CLINICAL HISTORY: Syncope versus seizure CT head without contrast Comparison: None provided Findings: No intra-axial mass, midline shift, hydrocephalus, or acute hemorrhage. No significant atrophy-like change or white matter disease. There is asymmetric CSF density of the right posterior frontal area series 2, image 42. The visualized paranasal sinuses and mastoid air cells are normal. The orbits are within normal limits. No skull fracture. IMPRESSION: Asymmetric CSF density of the right posterior frontal area could represent an arachnoid cyst. Correlation with MRI findings as indicated. This document has been electronically signed by: Tomer Barba MD on 02/14/2025 18:52:11
--- NOTE | ~2025-02-14 | MR_ITS ---
CLINICAL HISTORY: abn CT, new onset seizure motion, best obtainable, pt stopped before repeats obtained MRI Brain WO Contrast COMPARISON: CT/REG/SR - CT HEAD/BRAIN WO IV CON - 02/14/25 18:08 EST FINDINGS: Detail limited by motion artifacts. No evidence of acute infarction. No acute intracranial hemorrhage. Extra-axial T2 hyperintense, intermediate to low T1 signal right frontoparietal probable arachnoid cyst measuring 2.8 x 1.4 x 4.0 cm, indenting the subjacent cortex, with trace adjacent parenchymal FLAIR hyperintensity. No midline shift. No hydrocephalus. Clear paranasal sinuses. Clear mastoid air cells. Unremarkable orbits. IMPRESSION: Probable right frontoparietal arachnoid cyst with mild adjacent parenchymal edema or gliosis. This document has been electronically signed by: Foreign Hernandez MD on 02/14/2025 21:22:24
--- NOTE | ~2025-02-14 | XR_ITS ---
EXAMINATION: XR KNEE, RIGHT CLINICAL INFORMATION: Status post fall/seizure COMPARISON: June 10, 2023 TECHNIQUE: AP and lateral views of the right knee. FINDINGS: Metallic prosthesis well-seated in the osseous femoral condyles and tibial plateau. There is cement on the tibial component. No gross malalignment. No acute cortical disruption. No loosening. No subcutaneous emphysema. XR/XR knee RT 2V IMPRESSION: Status post total right knee arthroplasty. Satisfactory. Electronically signed by: Haroldo Hess MD 02/15/2025 06:56 AM JACOBY MENENDEZ
[2025-02-14 16:47] VITALS: BP 146/102; PULSE 123; O2SAT 95
--- NOTE | 2025-02-14 16:57 | ECG_ITS ---
Test Reason : SZ ACTIVITY Blood Pressure : */* mmHG Vent. Rate : 100 BPM Atrial Rate : 100 BPM P-R Int : 126 ms QRS Dur : 80 ms QT Int : 372 ms P-R-T Axes : 38 -22 40 degrees QTcB Int : 479 ms Normal sinus rhythm Moderate voltage criteria for LVH, may be normal variant ( R in aVL , Johnie product ) Nonspecific ST and T wave abnormality Abnormal ECG When compared with ECG of 17-Sep-2021 18:07, Nonspecific T wave abnormality has replaced inverted T waves in Inferior leads QT has lengthened Referred By: Marco Antonio Webber Electronically Signed By: ZEB HOLT MD
--- NOTE | 2025-02-14 16:59 | ED.GENADULT ---
HPI - General Adult General Chief complaint: Seizure Stated complaint: wit seizure 9- seconds, postical Time Seen by Provider: 02/14/25 16:50 Source: patient Mode of arrival: ambulatory Limitations: no limitations History of Present Illness ED Provider: DR. Webber HPI narrative: a 54-year-old female past medical history significant for fibromyalgia otherwise no other medical history patient stated that she has been feeling flu-like symptoms generalized body ache patient was exposed to her significant other who also been having flu-like symptoms patient was shopping at [email or web address] to buy [id number] cough medicine the last thing patient remember was shopping inside the store, then patient was witnessed by bystander going in circles with her shopping cart then fell down hitting her head with a questionable seizure activity as reported by EMS the event took few minutes, unclear if patient had postictal confusions period . Patient has no neck pain, no other complaints. Related Data Home Medications ?Medication ?Instructions ?Recorded ?Confirmed acetaminophen 500 mg tablet 1,000 mg PO Q6H PRN Pain 12/14/19 08/11/24 (Tylenol Extra Strength) clonazepam 0.5 mg tablet 0.5 mg PO BID PRN Anxiety 12/14/19 08/11/24 duloxetine 60 mg capsule,delayed 60 mg PO BID 12/14/19 08/11/24 release (Cymbalta) fluticasone propionate 50 1 spray intranasal DAILY 12/14/19 08/11/24 mcg/actuation nasal spray,suspension (Flonase Allergy Relief) montelukast 10 mg tablet 10 mg PO DAILY 12/14/19 08/11/24 (Singulair) fexofenadine 180 mg tablet 180 mg PO DAILY 07/23/21 08/11/24 hydroxyzine HCl 25 mg tablet 25 - 50 mg PO Q6H PRN anxiety 04/15/22 08/11/24 lidocaine 5 % topical patch 1 - 2 patch topical DAILY PRN pain 04/15/22 08/11/24 (Lidoderm) cholecalciferol (vitamin D3) 50 50 mcg PO DAILY 12/05/22 08/11/24 mcg (2,000 unit) tablet dulaglutide 1.5 mg/0.5 mL 1.5 mg subcut QWEEK 12/05/22 08/11/24 subcutaneous pen injector (Trulicity) albuterol sulfate 90 mcg/actuation 2 puff inhalation Q6H PRN wheezing 05/12/23 08/11/24 aerosol inhaler (Ventolin HFA) ibuprofen 600 mg tablet 600 mg PO Q8H PRN fever 05/12/23 08/11/24 zolpidem 5 mg tablet 5 mg PO BEDTIME PRN insomnia 06/15/23 08/11/24 bupropion HCl 100 mg tablet 300 mg PO ONCE 05/13/24 08/29/24 tizanidine 2 mg tablet 4 mg PO Q6-8H PRN muscle spasm 05/13/24 08/29/24 Previous Rx's ?Medication ?Instructions ?Recorded pregabalin 75 mg capsule 75 mg PO TID 90 days #270 caps 08/11/24 secukinumab 150 mg/mL subcutaneous 300 mg (2 mL) subcut Q4W #2 mL 02/13/25 syringe (Cosentyx 300 mg/2 Syringes () Allergies Allergy/AdvReac Type Severity Reaction Status Date / Time environmental allergies Allergy Intermediate hives/eye Verified 02/14/25 17:05 itchiness house dust mite Allergy Mild sneezing, Verified 02/14/25 17:05 watery eyes dog dander (DOG) Allergy Unknown HIVES Verified 02/14/25 17:05 Review of Systems Review of Systems: All other systems are reviewed and are negative Constitutional: Reports as per HPI and Reports no additional constitutional complaints Eyes: Reports as per HPI and Reports no additional eye complaints Reports system reviewed and no additional complaints, except as documented Cardiovascular: Reports as per HPI and Reports no additional cardiovascular complaints Respiratory: Reports as per HPI and Reports no additional respiratory complaints Gastrointestinal: Reports as per HPI and Reports no additional gastrointestinal complaints Genitourinary: Reports no additional female genitourinary complaints Musculoskeletal: Reports no additional musculoskeletal complaints Skin/Breast: Reports system reviewed and no additional complaints, except as docu Psychiatric: Reports no additional psychiatric complaints Endocrine: Reports no additional endocrine complaints Hematologic/Lymphatic: Reports no additional hematologic/lymphatic complaints Allergic/Immunologic: Reports no additional allergic/immunologic complaints Reports system reviewed and no additional complaints, except as documented and Reports Abnormal speech present PENDING SALE TO [facility] Past Medical History Medical History Menopause Hepatic steatosis Psoriatic arthritis Palpitations GERD (gastroesophageal reflux disease) Fatty liver Chronic pain syndrome Radiculopathy, lumbar region Disc degeneration, lumbar Postlaminectomy syndrome of lumbosacral region Osteoarthritis of left shoulder Fibromyalgia Arthritis Surgical History Hx of total knee replacement Hx of straightening of nasal septum History of back surgery Family History Family History Mother No problems noted. Mother Advanced cirrhosis of liver Diabetes Low blood pressure Colon polyps Father Aneurysm Sister No problems noted. Sister No problems noted. Brother No problems noted. Son No problems noted. Son No problems noted. Daughter No problems noted. 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 Blood pressure elevated. Heart rate normal. Respiratory rate normal. Temperature normal. Oxygen saturation normal. Appearance: Alert. Oriented X3. No acute distress. Head: Normal external exam. Normocephalic. Atraumatic. No Chung signs noted. No raccoon eyes noted Eyes: PERRLA. EOMI. Conjunctiva and sclera normal. Eyelids normal. ENT: TM's Normal. Pharynx normal. Uvula midline. Moist mucous membranes. No trismus noted. No drooling noted. No muffled voice noted. Neck: Normal inspection. Neck supple. FROM. No adenopathy. Thyroid Normal. No meningeal signs. No neck mass noted. CVS: Normal heart rate and rhythm. Heart sound normal. No murmurs noted. Pulses normal throughout. Respiratory: No respiratory distress. Painless inspiration. Breath sounds normal. No wheezes/rales/rhonchi noted. Chest nontender. No accessory muscle usage noted or decreased air movement noted. Abdomen: Soft and nontender. Bowel sounds normal in all 4 quadrants. No distention noted. No organomegaly noted. No visible injury noted. Back: No CVA tenderness. Full range of motion noted. Skin: Skin warm and dry. Normal skin color. Normal skin turgor. No rashes/lesions/lacerations noted. Extremities: No lower extremity edema. Extremities exhibit normal range of motion. Extremities nontender. Neuro: Mental status: Normal attention, orientation, memory, and affect. Cranial nerves: Pupils are equal, round and reactive to light, EOMI, visual dawson are fall, face is symmetric, facial sensations are normal. Motor examination normal muscle tone, strength to 4 extremities. DTR are +2, planter's are flexor. Sensory exam; normal coordination, no ataxia, gait stable. Cerebellar exam: [id number] and [id number] is normal. Extrapyramidal system: No tremors, no rigidity with normal facial expressions. Pronator drift not present Course Reevaluation(s) Reevaluation #1: 54-year-old female came in by ambulance for evaluation after had a brief period of LOC with questionable seizure activity, no known history of seizure, CT head is revealing possible arachnoid cyst, patient is is now AAO x3, will admit her for further evaluation of abnormal head CT and neurological evaluation. Time: 19:00 Medications Administered Discontinued Medications Generic Name Dose Route Start Last Admin Trade Name Freq PRN Reason Stop Dose Admin Levetiracetam 1,000 mg in 100 mls @ 400 mls/hr 02/14/25 16:56 02/14/25 18:25 Keppra IV 02/14/25 17:10 Infused ONCE ONE Infusion Medical Decision Making Differential Diagnosis Differential Diagnoses: The differential diagnosis associated with the presentation includes ( Intracranial hemorrhage, intracranial mass effect, syncope, electrolyte derangement, severe anemia, electrolyte derangement, dehydration.) Admission/Observation Consideration of admission/observation: Escalation of care including admission/observation considered Consult Healthcare Provider Management of the patient was discussed with: Hospitalist ( Dr. Richardson) Lab Data MDM Lab Attestation statement: I reviewed the patient's lab results. 02/14/25 17:37 02/14/25 17:37 Labs: Lab Results 02/14/25 Range/Units 17:37 WBC 5.5 (4.8-10.8) X10*3/uL RBC 4.97 (4.20-5.50) X10*6/uL Hgb 14.5 (12.0-16.0) g/dl Hct 42.4 (37.0-47.0) % MCV 85.3 (80.0-98.0) fL MCH 29.2 (27.0-33.0) pg MCHC 34.2 (31.0-35.0) g/dl RDW 12.2 (11.0-16.0) % Plt Count 295 (160-400) X10*3/uL MPV 9.1 L (9.4-12.3) fL Immature Gran % (Auto) 0.2 (0.0-0.4) % Neut % (Auto) 59.6 (45-73) % Lymph % (Auto) 30.2 (20-40) % Coles % (Auto) 8.4 (2-11) % Eos % (Auto) 0.7 (0-4) % Baso % (Auto) 0.9 (0-2) % Lymph # (Auto) 1.7 (1.2-4.9) X10*3/uL Coles # (Auto) 0.5 (0.1-1.2) X10*3/uL Eos # (Auto) 0.0 (0.0-0.4) X10*3/uL Baso # (Auto) 0.1 (0.0-0.2) X10*3/uL Abs Immat Gran (auto) 0.01 (0.00-0.03) X10*3/uL Absolute Neuts (auto) 3.3 (2.0-8.3) x10*3/uL Absolute Nucleated RBC 0.000 (0.0-0.012) X10*3/uL Nucleated RBC % (auto) 0.0 (0.0-0.2) /100WBC Sodium 143 (135-145) mmol/L Potassium 3.6 (3.3-5.1) mmol/L Chloride 106 (96-108) mmol/L Carbon Dioxide 26 (22-29) mmol/L Anion Gap 15 (12-20) BUN 6 L (9-16) mg/dL Creatinine 0.64 (0.5-1.4) mg/dL Estim Creat Clear Calc 107.6 Estimated GFR > 60 Random Glucose 93 (60-115) mg/dL Lactic Acid 2.8 H* (0.5-2.0) mmol/L Calcium 9.3 D (8.4-10.2) mg/dL Total Bilirubin 0.3 (0.0-1.0) mg/dL Direct Bilirubin 0.1 (0.0-0.5) mg/dL AST 35 H (5-31) U/L ALT 19 (0-31) U/L Alkaline Phosphatase 93 (39-117) U/L Total Creatine Kinase 88 (26-140) U/L Troponin I High Sens < 2.7 (<3.5-17.0) ng/L Total Protein 7.8 (6.5-8.0) g/dL Albumin 4.5 (3.5-5.0) g/dL Lipase 37 (8-78) U/L Influenza Type A (PCR) NEGATIVE (Negative) Influenza Type B (PCR) NEGATIVE (Negative) RSV RNA Qual (PCR) NEGATIVE (Negative) SARS-CoV-2 RNA (RT-PCR) NEGATIVE (Negative) Independent Interpretation I performed an independent interpretation of an: CT Scan ( head:Asymmetric CSF density of the right posterior frontal area could represent an arachnoid cyst. Correlation with MRI findings as indicated.) Radiology Impression Discussion of test interpretation with radiology: I have reviewed the radiologist's reading. Discharge Plan Discharge Clinical Impression: Syncope and collapse, New onset seizure Patient Disposition: Admitted As Inpatient Print Language: Georgian
[2025-02-14 17:01] VITALS: BP 134/83; PULSE 107; RESP 20; TEMP 36.8; O2SAT 95
[2025-02-14 17:02] VITALS: BP 134/83; PULSE 107; RESP 20; TEMP 36.8; O2SAT 95; BMI 27.3
[2025-02-14 17:42] LABS: MANUAL DIFF FLAG NO
[2025-02-14 17:44] LABS: Hematocrit 42.4 % (37.0-47.0); Hemoglobin 14.5 g/dl (12.0-16.0); Imm Gran Abs Auto 0.01 X10*3/uL (0.00-0.03); Imm Gran Pct Auto 0.2 % (0.0-0.4); Lymphocytes Absolute Auto 1.7 X10*3/uL (1.2-4.9); Mean Corpuscular HGB Conc 34.2 g/dl (31.0-35.0); Mean Corpuscular Hemoglobin 29.2 pg (27.0-33.0); Mean Corpuscular Volume 85.3 fL (80.0-98.0); NRBC Abs Auto 0.000 X10*3/uL (0.0-0.012); NRBC Pct Auto 0.0 /100WBC (0.0-0.2); Platelet Count 295 X10*3/uL (160-400); Red Blood Count 4.97 X10*6/uL (4.20-5.50); White Blood Count 5.5 X10*3/uL (4.8-10.8)
[2025-02-14] MEDS: levETIRAcetam in NaCl (iso-os) 1,000 MG/100 ML PIGGYBACK 400 MG IV (17:44)
[2025-02-14 18:03] LABS: Alanine Aminotransferase 19 U/L (0-31); Albumin Level 4.5 g/dL (3.5-5.0); Alkaline Phosphatase 93 U/L (39-117); Anion Gap 15 (12-20); Aspartate Amino Transferase 35 U/L (5-31); Blood Urea Nitrogen 6 mg/dL (9-16); Calcium 9.3 mg/dL (8.4-10.2); Carbon Dioxide 26 mmol/L (22-29); Chloride 106 mmol/L (96-108); Creatinine Clr Calc Pharmacy 107.6; Estimated Glomerular Filt Rate > 60; Lipase 37 U/L (8-78); Potassium 3.6 mmol/L (3.3-5.1); Sodium 143 mmol/L (135-145); Total Protein 7.8 g/dL (6.5-8.0)
[2025-02-14 18:10] LABS: Troponin-I High Sensitivity < 2.7 ng/L (<3.5-17.0)
[2025-02-14 18:21] LABS: Resp Syncy Virus RNA Qual PCR NEGATIVE (Negative); SARS COV2 PCR INHOUSE NEGATIVE (Negative)
--- NOTE | 2025-02-14 19:15 | PM.IMHP ---
History of Present Illness Date of Service: 02/14/25 Attending physician on admission: Isai Richardson Chief Complaint: seizure vs syncopal episode witnessed in store Patient is a 54-year-old female with past medical history fibromyalgia, carpal tunnel syndrome, osteoarthritis, hypertension, palpitations on Holter monitor 2023, GERD, prediabetes on Trulicity, hepatic steatosis, psoriatic arthritis on Cosentyx, generalized anxiety with panic attacks, multiple back surgeries last was in 2022/diskectomy, right knee meniscal repair was brought in by ambulance after having a witnessed possible seizure in the parking lot at [facility]. Bystander called 911 and patient received immediate treatment. Per bystander patient was going in circles with her cart and then fell to the ground. Patient appeared to be postictal per EMS and does not recall what happened after she was approaching her car. Patient stated that she did feel dizzy. Patient denies being on blood thinners or aspirin. Patient reports that she is on Trulicity, 3 mg weekly injected on Sundays and only ate a bowl of fruity popeye at 10:00 and had no lunch. This occurrence took place approximately 16:30. Patient denies any history of seizure activity or syncopal episodes. Patient does have intermittent episodes of dizziness. Patient was following with Cardiology in the past for palpitations and was on a Holter monitor and was cleared and now follows with Cardiology yearly. Currently patient denies any nausea, vomiting, abdominal pain, chest pain, shortness of breath at rest or with exertion. Patient was surprised to learn that she would be admitted and an explanation provided as we are considering syncopal episode versus seizure activity versus hypoglycemia versus arrhythmia. With education patient understood and agreed to be admitted. Workup in the ED included CT of the head which noted possible arachnoid cyst in the right post frontal area. Verbiage included asymmetric CSF density. EKG normal sinus rhythm with a QTC of 479. Lactic acid 2.8, repeat pending. Total CK 88. AST 35. Glucose 93. TSH 1.12. UA pending. Viral testing negative for COVID, flu and RSV. Patient currently alert and orientated x3, reporting mild knee pain from the fall. Patient has jeans on and unable to examine the site but we will do x-ray to ensure everything is okay. Patient does have good range of motion and is able to bear weight. Review of Systems Review of Systems: Patient currently denies any chest pain, shortness of breath at rest or with exertion, nausea, vomiting, abdominal pain. Patient is not having any issues with constipation or diarrhea noting that she is on Trulicity. [facility] Medical History Menopause Hepatic steatosis Psoriatic arthritis Palpitations GERD (gastroesophageal reflux disease) Fatty liver Chronic pain syndrome Radiculopathy, lumbar region Disc degeneration, lumbar Postlaminectomy syndrome of lumbosacral region Osteoarthritis of left shoulder Fibromyalgia Arthritis Cognitive capacity: Alert and orientated x3 Functional capacity: independent ambulation Family History Mother No problems noted. Mother Advanced cirrhosis of liver Diabetes Low blood pressure Colon polyps Father Aneurysm Sister No problems noted. Sister No problems noted. Brother No problems noted. Son No problems noted. Son No problems noted. Daughter No problems noted. Surgical History Hx of total knee replacement Hx of straightening of nasal septum History of back surgery Social History Are you a primary residential care officer to a significant other at home: No Do you presently have visiting nurse or other home services: No Alcohol intake: former Year quit: 7 Comment: counts correct Patient Tobacco Use Status: Former Tobacco user Years Smoked: 10 YEARS Smoked in Last 30 Days: No e-Cigarette/Vaping Use: Never Used Use of substances other than those prescribed or required for medical reasons: No Advance Directives: No Advance Directives Information Provided: No Nutrition Risks: No Nutritional Risk Current occupational status: employed 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 Ebola Risk: Travel/Contact With Anyone From Affected Area/s: No Has Patient Experienced Ebola Symptoms: No Meds Allergies Allergy/AdvReac Type Severity Reaction Status Date / Time environmental allergies Allergy Intermediate hives/eye Verified 02/14/25 17:05 itchiness house dust mite Allergy Mild sneezing, Verified 02/14/25 17:05 watery eyes dog dander (DOG) Allergy Unknown HIVES Verified 02/14/25 17:05 Home Medications ?Medication ?Instructions ?Recorded ?Confirmed ?Last Taken ?Type fexofenadine 180 mg tablet 180 mg PO DAILY 07/23/21 02/14/25 Unknown History hydroxyzine HCl 25 mg tablet 25 mg PO Q6H PRN anxiety 04/15/22 02/14/25 Unknown History albuterol sulfate 90 mcg/actuation 2 puff inhalation Q6H PRN wheezing 05/12/23 02/14/25 Unknown History aerosol inhaler (Ventolin HFA) bupropion HCl 300 mg 24 hr tablet, 300 mg PO DAILY 02/14/25 02/14/25 Unknown History extended release dulaglutide 3 mg/0.5 mL 3 mg subcut QWEEK 02/14/25 02/14/25 Unknown History subcutaneous pen injector (Trulicity) ondansetron 4 mg disintegrating 4 mg Q6H PRN nausea 02/14/25 02/14/25 Unknown History tablet pantoprazole 20 mg tablet,delayed 20 mg PO BID 02/14/25 02/14/25 Unknown History release polyethylene glycol 3350 17 17 g PO DAILY 02/14/25 02/14/25 Unknown History gram/dose oral powder rosuvastatin 20 mg tablet 20 mg PO DAILY 02/14/25 02/14/25 Unknown History tizanidine 4 mg tablet 4 mg PO TID PRN muscle spasm 02/14/25 02/14/25 Unknown History Physical Exam Vital Signs and Narrative: Vital Signs: Last Vital Signs Temp 98.3 F 02/14/25 17:02 Pulse 107 H 02/14/25 17:02 Resp 20 02/14/25 17:02 BP 134/83 02/14/25 17:02 Pulse Ox 95 02/14/25 17:02 O2 Del Method Room Air 02/14/25 17:02 BMI result Body Mass Index 27.3 Alert and orientated X3, able to give good history. Neuro: CN II-X11 intact, no deficits, visual acuity intact EYES: PERRLA, EOM intact, sclerae nonicteric ENT: hearing intact, no issues with swallowing, uvula midline, lips moist, nares patent no epistaxis Cardiac: S1 S2 RRR, no murmur, no JVD, no edema in Lower ext Pulmonary: lungs clear to auscultation B Abdominal: BS active in all 4 quadrants, no guarding, tenderness, rebounding MSK: strength 5/5 upper and lower extremities : no CVA tenderness no bladder distension Extremities: no edema in lower extremities, PT and DP pulses palpable +2 Psych: mood stable, judgement and insight good Skin: No new rashes or lesions, unable to examine right knee status post fall as patient has tight jeans on Results Labs 02/15/25 03:11 02/15/25 03:11 Labs: Laboratory Results - last 24 hr 02/14/25 17:37 MCV 85.3 MCH 29.2 MCHC 34.2 RDW 12.2 Plt Count 295 MPV 9.1 L Immature Gran % (Auto) 0.2 Neut % (Auto) 59.6 Lymph % (Auto) 30.2 Ingham % (Auto) 8.4 Eos % (Auto) 0.7 Baso % (Auto) 0.9 Lymph # (Auto) 1.7 Ingham # (Auto) 0.5 Eos # (Auto) 0.0 Baso # (Auto) 0.1 Abs Immat Gran (auto) 0.01 Absolute Neuts (auto) 3.3 Absolute Nucleated RBC 0.000 Nucleated RBC % (auto) 0.0 Anion Gap 15 Estim Creat Clear Calc 107.6 Estimated GFR > 60 Random Glucose 93 Lactic Acid 2.8 H* Calcium 9.3 D Total Bilirubin 0.3 Direct Bilirubin 0.1 AST 35 H ALT 19 Alkaline Phosphatase 93 Total Creatine Kinase 88 Troponin I High Sens < 2.7 Total Protein 7.8 Albumin 4.5 Lipase 37 Influenza Type A (PCR) NEGATIVE Influenza Type B (PCR) NEGATIVE RSV RNA Qual (PCR) NEGATIVE SARS-CoV-2 RNA (RT-PCR) NEGATIVE ECG Attestation: I personally reviewed and interpreted this ECG as follows: (Normal sinus rhythm QTC 479) Prior ECG tracings: available for review Imaging Radiologist's Impressions: CT of the head IMPRESSION: Asymmetric CSF density of the right posterior frontal area could represent an arachnoid cyst. Correlation with MRI findings as indicated. Assessment and Plan (1) New onset seizure: Status: Acute (2) Syncope and collapse: Status: Acute (3) Right knee pain: Qualifiers: Chronicity: acute Qualified Code(s): M25.561 - Pain in right knee Status: Acute Plan Patient is a 54-year-old female with past medical history fibromyalgia, carpal tunnel syndrome, osteoarthritis, hypertension, palpitations on Holter monitor 2024, GERD, prediabetes on Trulicity, hepatic steatosis, psoriatic arthritis on Cosentyx, generalized anxiety with panic attacks, multiple back surgeries last was in 2022/diskectomy, right knee meniscal repair was brought in by ambulance after having a witnessed possible seizure in the parking lot at [facility]. Bystander called 911 and patient received immediate treatment. Patient is being admitted for seizure versus syncopal episode and possible hypoglycemia while being on Trulicity (prediabetic) Possible witnessed seizure versus syncopal episode CT of the head notes possible arachnoid cyst, MRI of the brain ordered for the a.m. Neurology consulted ? EEG Seizure precautions in place Patient received 1000 mg of Keppra load, we will continue 500 mg b.i.d. in the a.m. Echocardiogram pending, consult Cardiology with any abnormalities Telemetry Orthostatics Q shift x3 Urine drug tox screen pending: Patient denies any history of illicit drug use, alcohol use or marijuana use Patient is on Trulicity 3 mg weekly, injected on Sundays: Appetite is minimal, patient only had 1 bowl of fruity popeye at 10:00, dizziness and episode occurred 16:30 Bupropion held: held as this medication can contribute to seizures Right knee pain with history of right meniscal repair status post fall X-ray of right knee pending Patient currently has good range of motion and able to bear weight Tylenol PRN for pain Fibromyalgia Patient currently on bupropion, Lyrica, and tizanidine - buproprion held as this medication can contribute to seizures Med rec pending QTC currently 479 Psoriatic arthritis Patient continues on Cosentyx No indication of poor immune status or active infection Generalized anxiety disorder/ history of panic attacks Patient continues on duloxetine, med rec pending Patient not currently requesting PRN Patient denies panic attack earlier today with episode DVT prophylaxis: Low risk, holding Lovenox for now until MRI is completed in the a.m. Med rec completed Full code status Patient likely require at least 1-2 midnight stay for continued monitoring and expert consultation with Neurology. Patient requires diagnostic workup including MRI and echo. Quality Stroke Does the patient have a stroke diagnosis?: No Reason for No Anti-thrombotic by Day Two: Drug treatment not indicated VTE Prior VTE?: No VTE Risk Level:: Medical - moderate - high VTE Device Contraindication: N/A - Device Ordered VTE Drug Contraindication: N/A - Med Ordered
[2025-02-14 19:41] LABS: Magnesium 2.3 mg/dL (1.6-2.6); Reflex Lactate? Lactic Acid Added
[2025-02-14 20:26] LABS: ~Lactic Acid-LAB USE ONLY 1.8 mmol/L (0.5-2.0)
--- NOTE | 2025-02-14 20:59 | PHA.MEDREC ---
Pharmacy Consult ? Medication Reconciliation Pharmacy has completed the medication reconciliation.
[2025-02-14 21:36] VITALS: BP 133/94; PULSE 74; RESP 16; TEMP 36.9; O2SAT 99
--- NOTE | 2025-02-14 22:04 | PC.NURSE ---
Pt requesting pain medication / home meds, med rec previously completed by pharmacy. Admitting provider Dorcas made aware, will order.
[2025-02-14 22:14] VITALS: BP 148/96; PULSE 80
[2025-02-14 22:15] VITALS: BP 129/90; BP 149/101; PULSE 80; PULSE 92
--- OUTSIDE RECORDS SUMMARY | 2025-02-14 23:02 | XMS_ITS | Patient Health Record ---
Author Organization [facility] Address [address] [place] [address] Care Team Providers Care Supervisor Ski Production Name Role Phone [facility] Primary Care Provider UnaChaz Braun [phone] Allergies Allergen (clinical drug ingredient) Drug/Non Drug Allergy documented on EMR Reaction Allergy Type Onset Date Status enviromental allergi es (uncoded) Unknown Allergy Active pet dander (uncoded) Unknown Allergy Active Results Component Value Reference Range Flag Notes US abdomen comp w elastograp hy Reviewed date:08/28/2024 06:07:03 PM Interpretation: Performing Lab: Notes/Report: [address] [address] Ultrasound Report Signed Patient: Gisell Pugh MR #: [id number] : 1970 Acct:[id number] Age/Sex: 53 / F ADM Date: 02/15/24 Loc: HO.US Attending Dr: Chaz Rinaldi MD Ordering Physician: Chaz Rinaldi MD Date of Service: 02/15/24 Procedure(s): US abdomen comp w elastography Accession Number(s): [id number] cc: Chaz Rinaldi MD; [facility] EXAMINATION: US COMPLETE ABDOMEN WITH LIVER ELASTOGRAPHY CLINICAL INFORMATION: History of fatty liver and epigastric abdominal pain. COMPARISON: 06/12/2020, 11/18/2018. No prior elastography. TECHNIQUE: Real-time imaging of the abdominal viscera. Noninvasive ultrasound liver fibrosis assessment is performed using Siemens shear wave elastography (pSWE) with a C5-2 MHz transducer. Multiple elastography samples are obtained. Exam submitted for review 04/01/2024 3:05 PM SOFTWARE SYSTEMS ARCHITECT. FINDINGS: PANCREAS: The visualized pancreatic head and [...] by: Anup Jarrett MD 04/01/2024 04:06 PM [facility] Dictated By: Anup Jarrett MD Signed By: <Electronically signed by Anup Jarrett MD in OV> 04/01/24 1606 DD/ TD/TT: 02/15/24 0836 Manager Travel: Glucose, Whole Blood Reviewed date:08/29/2024 11:38:03 PM Interpretation: Performing Lab:[facility], [address] [place] [phone] Notes/Report: Glucose, Whole Blood 198 60-115 mg/dL H ID TER #: [id number] Pathology Reviewed date:01/04/2025 01:44:20 AM Interpretation: Performing Lab:[facility], [address] [place] [phone] Notes/Report: Reason For Referral Referring Provider First Name Flor Referring Provider Last Name [facility] Referred Organization [facility] Referred Provider Chaz Rinaldi Referred Address [address] [place] [address],[place] [address],[place], [place],[address],[place] Referred Provider Specialty Gastroentero logy General Notes Kacy Hunter 2024 10:35:26 AM > REQUESTED [place] REFERRAL FROM [facility] FOR VISIT WITH DR RINALDI ON [phone] Referral Priority Routine Medications Medication SIG (Take, Route, Frequency, Duration) Notes Start Date End Date Status Trulicity 1.5 MG/0.5ML Solution Pen-injector INJECT ONE PEN (=1.5MG) SUBCUTANEOUSLY ONCE A WEEK DIRECTED Subcutaneous; Duration: 28 E1165,Unavail able Active Cosentyx (300 MG Dose) 150 MG/ML Solution Prefilled Syringe Subcutaneous; Duration: 28 Active Cymbalta 60 MG Capsule Delayed Release Particles 1 capsule Orally Twice a day Active Fexofenadine HCl 180 MG Tablet TAKE 1 TABLET BY MOUTH ONCE DAILY Oral; Duration: 30 Active Omeprazole 40 MG Capsule Delayed Release 1 Orally Once a day in the morning; Duration: 30 day(s) 09/22/2023 Active tiZANidine HCl Activ e buPROPion HCl Active Lyrica Active Ondansetron 4 MG Tablet Disintegrating 1 tablet on the tongue and allow to dissolve Orally Every 6 hours if needed for nausea; Duration: 30 days 01/04/2025 Active Immunizations Vaccine Route Administration Date Status Comme nts Influenza Unknown 11/11/2018 Refused Influenza Unknown 03/14/2020 Refused Social History Tobacco Use: Social History Observation Description Date Details (start date - stop date) Former Smoker NA - NA Social History Tobacco Use: Social Info Question Answer Notes Tobacco Use/Smoking Patient is a former smoker How long has it been since you last smoked? 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 Section Notes: Nonsmoker; no alcohol Nonsmoker; no alcohol Nonsmoker; no alcohol 3 cans of regular Coke every day Nonsmoker; no alcohol 3 cans of regular Coke every day Nonsmoker; no alcohol 1 or 2 cans of regular Coke every day Problems Problem Type SNOMED Code ICD Code Onset Dates Problem Status W/U Status Risk Notes Problem Colon cancer screening (590339344) Colon cancer screening (Z12.11) Active confirmed Problem Epigastric pain (64770376) Epigastric abdominal pain (R10.13) Active confirmed Problem Abdominal bloating (787093760) Abdominal bloating (R14.0) Active confirmed Problem Epigastric pain (69802005) Abdominal pain, epigastric (R10.13) Active confirmed Problem Blood in stool (955196077) Blood in stool (K92.1) Active confirmed Problem Elevated liver enzymes level (312507241) Elevated liver enzymes (R74.8) Active confirmed Problem Fatty liver (896191036) Fatty liver (K76.0) Active confirmed Problem Family History of Cancer of Colon (Situation) (348647837) Family history of colon cancer (Z80.0) Active confirmed Problem Helicobacter serology positive (420354846) Helicobacter pylori ab+ (R76.8) Active confirmed Problem Constipation (18693357) Constipation, unspecified constipation type (K59.00) Active confirmed Problem Gastroesophageal reflux disease (267909512) GERD (gastroesophage al reflux disease) (K21.9) Active confirmed Problem Irritable bowel syndrome characterized by constipation (191240809) Irritable bowel syndrome with constipation (K58.1) Active confirmed Problem Right upper quadrant pain (993150912) RUQ pain (R10.11) Active confirmed Encounters Encounter Location Date Provider Diagnosis [facility] Outpatient [address] [place] [id number] 08/29/2024 Chaz Rinaldi Colon cancer screening Z12.11 ; Family history of colon cancer Z80.0 ; FH: colon polyps Z83.719 ; Colon polyps K63.5 ; Gastro-esophageal reflux disease without esophagitis K21.9 and Hiatal hernia K44.9 [facility] [address] [place] [phone] 04/19/2024 Chaz Rinaldi GERD (gastroesophageal reflux disease) K21.9 [facility] [address] [address] 05/04/2024 Chaz Rinaldi [facility] [address] [address] 01/03/2025 Chaz Rinaldi Assessments Encounter Date Diagnosis (ICD Code) Assessment Notes Treatment Notes Treatment Clinical Notes Section Notes 08/29/2024 Colon cancer screening (ICD-10 - Z12.11) 08/29/2024 Family history of colon cancer (ICD-10 - Z80.0) 04/19/2024 GERD (gastroesophagea l reflux disease) (ICD-10 - K21.9) 08/29/2024 FH: [...] 09/22/2023 US abdomen comp w elastography 4 Future Test Test Name Order Date UPPER GI ENDOSCOPY 09/20/2015 UPPER GI ENDOSCOPY 09/22/2023 COLONOSCOPY 09/22/2023 Insurance Providers Payer Name Payer Address Payer Phone Subscriber Number Group Number Insured Name Patient Relationship to Insured Coverage Start Date Coverage End Date MEDICA[employer] OF [employer] [address] [place]IREZ [id number] caremAPPn plan LUANN Alfaro GISELL Self - patient is the insured [...] been on Jami in the past. Denies IN,DM,CVA,Lung disease,renal dise ase Fibromyalgia Psoriasis Anxiety/depression Colonoscopy [...]
--- OUTSIDE RECORDS SUMMARY | 2025-02-14 23:02 | XMS_ITS | Encounter Summary ---
Author Organization [employer] Address [address] [place] [address] Care Team Providers Care Web Database Developer Name Role Phone Viktoria Gage MD Primary Care Provide r [facility] Primary Care Provider Devi Live MOLDING PROCESS TECHNICIAN Primary Care Provider [phone] [facility] Primary Care Provider Elder Wheatley MOLDING PROCESS TECHNICIAN Unavailable Unavailable Reason for Visit * Reason Onset Date Comments Appointment Request 05/30/2022 Encounter Details Date Type Department Care Team (Late st Contact Info) Description 05/30/2022 Telephone [facility] [address], [place] [phone] Viktoria Gage MD [address] [place], [place] [phone] Appointment Request Social History Tobacco Use Types [...] at 9:00 AM. Please contact pt at [phone] documented in this encounter Plan of Treatment Upcoming Encounters Date Type Department Care Team (Late st Contact Info) Description 03/06/2025 10:30 AM EST Telemedicine [facility] [address] [place] [address] Flor Jacinto FNP [address] [place] [address] documented as of this encounter Visit Diagnoses Not on filedocumented in this encounter Additional Health Concerns Assessment Noted Time PHQ-9 Depression Total Score: 5 04/10/19 23 11:06 AM EST documented as of this encounter Care Teams Web Database Developer Relationship Specialty Start Date End Date Viktoria Gage MD [address] [place] [address] PCP - General Internal Medicine 05/23/22 06/23/22 BirminghamFlor FNP [address] [place] [address] PCP - General Family Medicine 06/24/22 08/07/22 Devi Live FNP [address] [place] [address] PCP - General Family Medicine 08/08/22 08/12/22 BirminghamlFor FNP [address] [place] [address] PCP - General Family Medicine 08/13/22 Elder Wheatley FNP [address] [place] [address] Nurse Practitioner Family Medicine 02/10/23 Marisela Bowling Bag BundlerCafe Site Attendant 08/06/23 documented as of this encounter
--- OUTSIDE RECORDS SUMMARY | 2025-02-14 23:03 | XMS_ITS | Encounter Summary ---
Author Organization [employer] Address [address] [place] [address] Care Team Providers Care Business Transformation Analyst Name Role Phone [facility] Primary Care Provider [phone] Elder Wheatley [facility] Unavailable Unavailable Reason for Visit * Reason Onset Date Comments Referral 08/31/2023 Encounter Details Date Type Department Care Team ([facility] st Contact Info) Description 08/31/2023 Telephone [facility] [address] [place] [address] [facility] [address] [place] [address] Referral Social History Tobacco Use Types Packs/Day [...] for orthopedic referral to be faxed to [phone] documented in this encounter Plan of Treatment Upcoming Encounters Date Type Department Care Team (Late st Contact Info) Description 03/06/2025 10:30 AM EST Telemedicine [facility] [address] [place] [address] Flor Jacinto FNP [address] [place] [address] documented as of this encounter Visit Diagnoses Not on filedocumented in this encounter Additional Health Concerns Assessment Noted Time PHQ-9 Depression Total Score: 0 07/10/19 24 2:37 PM EDT documented as of this encounter Care Teams Business Transformation Analyst Relationship Specialty Start Date End Date Flor Jacinto FNP [address] [place] [address] PCP - General Family Medicine 08/13/22 Elder Wheatley FNP [address] [place] [address] Nurse Practitioner Family Medicine 02/10/23 Marisela Bowling Automotive Product SpecialistBattery Wrecker Operator 08/06/23 documented as of this encounter
--- OUTSIDE RECORDS SUMMARY | 2025-02-14 23:03 | XMS_ITS | Clinical Summary ---
Author Organization [employer] Address [address] [place] [address] Care Team Providers Care Home Weatherizing Worker Name Role Phone Flor Jacinto [facility] Primary Care Provider [phone] Elder Wheatley PRINCIPAL ELECTRICAL ENGINEER Unavailable Unavailable Allergies No known active allergies [...] 06/21/19 22 Active Alcohol Swabs (Alcohol Prep) padsIndications: Type 2 diabetes mellitus with hyperglycemia, without long-term current use of insulin (HCC) Use one pad each to prep skin prior to injection as directed 100 each 11 10/03/19 23 Active montelukast (Singulair) 10 MG tablet Take 1 tablet (10 mg) by mouth in the evening. 90 tablet 3 02/06/20 23 Active albuterol 108 (90 Base) MCG/ACT inhalerIndicatio ns:Cough in adult Inhale 2 puffs every 6 (six) hours if needed for wheezing. 18 g 11 04/03/19 24 Active Spacer/Aero-Hold ing Chambers deviceIndication s:Cough in adult Use with inhaler 1 each [...] for wheezing. 18 g 05/29/19 24 Active lidocaine (Lidoderm) 5 % patch Apply 2 patches topically Once per day. Remove & discard patch within 12 hours or as directed by MD. 60 patch 3 09/02/19 24 Active TRUEplus Lancets 33G miscIndications: Type 2 diabetes mellitus with hyperglycemia, without long-term current use of insulin (HCC) USE DIRECTED TO TEST BLOOD SUGAR FOUR TIMES DAILY 100 each 11 09/23/19 24 Active DULoxetine (Cymbalta) [address] capsuleIndicatio ns:Anxious depression Take 1 capsule (60 mg) by mouth 2 times daily. 180 capsule 3 09/22/19 24 Active buPROPion XL (Wellbutrin XL) 300 MG 24 hr tabletIndication s:Mixed anxiety and depressive disorder Take 1 tablet (300 mg) by mouth in the morning. Do not crush, chew, or split. 90 tablet 3 01/04/20 24 Active Sharps Container (BD [employer] Administrator) misc 01/13/20 24 Active cromolyn (NasalCrom) 5.2 MG/ACT nasal sprayIndications :Viral upper respiratory infection Administer 1 spray into each nostril 3 times daily. 26 mL 12 06/01/19 25 026 Active FREESTYLE LITE test stripIndications :Type 2 diabetes mellitus with hyperglycemia, without long-term current use of insulin (HCC) Use to test blood sugar once daily 100 each 3 06/04/19 25 026 Active D3 Super Strength 50 MCG (1999 UT) capsule TAKE 1 CAPSULE BY MOUTH EVERY DAY 90 capsule 1 06/07/19 25 Active rosuvastatin (Crestor) 20 MG tabletIndication s:Type 2 diabetes mellitus with hyperglycemia, without long-term current use of insulin (HCC) Take 1 tablet (20 mg) by mouth Once per day. 30 tablet 11 06/14/19 25 026 Active olmesartan (Benicar) 5 MG tabletIndication s:Essential hypertension Take 2 tablets (10 mg) by mouth Once per day. 180 tablet 3 06/21/19 25 026 Active tiZANidine (Zanaflex) 4 MG capsuleIndicatio ns:Chronic neck pain Take 1 capsule (4 mg) by mouth if needed in the morning, at noon, and at bedtime for muscle spasms. 60 capsule 3 06/21/19 25 026 Active Dulaglutide (Trulicity) 3 MG/0.5ML solution auto-injectorInd ications:Type 2 diabetes mellitus with hyperglycemia, without long-term current use of insulin ([facility]) Inject 3 mg under the skin 1 (one) time per week. 2 mL 11 08/04/19 25 Active clonazePAM (KlonoPIN) 0.5 MG tabletIndication s:Anxious depression Take 1 tablet (0.5 mg) by mouth every 12 (twelve) hours if needed for anxiety for up to 28 days. 56 tablet 08/06/19 25 Active zolpidem (Ambien) 5 MG tabletIndication s:Anxious depression Take 1 tablet (5 mg) by mouth if needed at bedtime for sleep. 30 tablet 5 08/06/19 25 Active Blood Glucose Monitoring Suppl (ONE TOUCH ULTRA 2) w/Device kitIndications:T ype 2 diabetes mellitus with hyperglycemia, without long-term current use of insulin ([facility]) Use to test blood sugar one time daily 1 kit 08/25/19 25 Active acetaminophen (Tylenol) 500 MG tabletIndication s:Type 2 diabetes mellitus with hyperglycemia, without long-term current use of insulin ([facility]) Take 2 tablets (1,000 mg) by mouth every 6 (six) hours if needed for moderate pain or fever for up to 25 doses. 50 tablet 09/15/19 25 Active ibuprofen 800 MG tabletIndication s:Chronic left shoulder pain,Chronic neck pain TAKE 1 TABLET BY MOUTH EVERY 8 HOURS NEEDED FOR MILD PAIN 30 tablet 1 09/29/19 25 Active hydrOXYzine HCl (Atarax) 25 MG tabletIndication s:Anxious depression Take 1-2 tablets (25-50 mg) by mouth every 6 (six) hours if needed for anxiety. 150 tablet 5 10/05/19 25 Active Diclofenac Sodium 1 % gel Apply 2 g topically if needed in the morning, at noon, in the evening, and at bedtime (pain). 150 g 3 10/26/19 25 Active pantoprazole (Protonix) 20 MG EC tabletIndication s:Dyspepsia Take 1 tablet (20 mg) by mouth 2 times daily. Do not crush, chew, or split. 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 Toradol injection today, will continue Tylenol and tizanidine as needed. Take tramadol 12.5 up to 50 mg/D as needed severe pain, advised to take it after stretching exercises Patient understands that this is only temporarily solution which she gets through knee surgery in 2 weeks. She should address to orthopedics for long-term management or at least an intra-articular steroid injection that could bridge her until further arthroscopic procedure (diagnosis versus treatment Assessment & Plan (03/23/2024 9:53 AM EST): [...] levels above the fusion - Followed by [facility] pain mngmt postlaminectomy syndrome L5-S1 as well as degenerative disc disease of levels above the fusion - Followed by [facility] pain mngmt Primary osteoarthritis of right knee [...] hx of abnormal pap. Need records C-scope: [facility]. Need records BMD: Routine age 67 Fibromyalgia 02/10/2023 02/10/2023 Overview (04/13/2023): ? Chronic pain/fibromyalgia-neck/back/feet/shoulders. Followed by [facility] pain mngmt. Sx improvement with left SI joint injection 06/2022. On duloxetine, tizandine, pregabalin Essential hypertension 09/24/2022 Overview (06/20/2024): Chest pain/palpitations-had follow-up with cardiology at [facility]. Negative Holter monitor 04/2022 negative echocardiogram in 2021. Negative stress test 03/2022. No indication for additional testing at this time. Assessment & Plan (01/16/2025 3:53 PM EST): Minor elevation in the diastolic BP - Elevated reading with re-check, 150/100 - Encouraged to monitor BP readings 2 hours after medication intake, keep blood pressure log and return in 2 weeks for a BP nurse visit - Can consider an increase in the current BP regimen if the levels are elevated. Assessment & Plan (04/13/2023 9:48 AM EST): Pt meets diagnostic criteria for HTN. Discussed dx START olmesartan 5mg once daily. Reviewed administration, risks, side effects RN BP check 2 weeks Reviewed ED precautions to include chest pain, shortness of breath, severe headache, sudden vision changes or BP >=180/>=120 mmHg. Contact HC if three or more BP readings >140/90. Assessment & Plan (09/24/2022 11:50 AM EDT): no history of HTN, seems to have elevated BPs this month Counseled re low salt diet/increase moderate physical activity. Check home BP BIW and prn CP/STOCKTON/HYATT Non smoking patient. FU with PCP next week Gissel landon 09/23/2022 Type 2 diabetes mellitus 05/05/2022 Overview (09/19/2024): New dx-09/2022 Assessment & Plan (04/13/2023 9:13 AM EST): Lab Results Component Value Date HGBA1C 6.0 04/03/2023 Well controlled Continue current regimen Repeat fasting lipid panel. If remain elevated [...] as needed basis. Steatosis of liver 01/08/2015 Assessment & Plan (01/16/2025 3:53 PM EST): US Abdomen ultrasound 02/2024 indicated: LIVER: The liver demonstrates normal size, contour and mildly increased diffuse echogenicity. No focal lesion or intrahepatic biliary duct dilatation. Consideratio of a repeat abdominal ultrasound in 2025 Hemorrhoids 01/08/2015 Hypercholesterolemia 01/08/2015 Psoriasis 01/08/2015 Vitamin [...] disorder without psychotic features without prior episode ([facility]) 03/22/2024 06/20/2024 Muscle spasm 09/24/2022 06/20/2024 Assessment [...] retiringm, patient will be referred to new [facility] psychiatric provider. Pt is aware that appts will be via televisit and that provider will not be an employee of [facility]. She gives permission to share PHI. [...] with the plan. Fibromyositis 01/08/2015 09/02/2023 Encounters Date Type Department Care Team Description 02/14/2025 Orders Only GENERIC EXTERNAL DATA DEPARTMENT Provider, Generic External Data 02/07/2025 Travel 02/02/2025 Refill [facility] [address] Flor Jacinto FNP 01/16/2025 11:30 AM EST Office Visit [facility] [place] [address] Flor Jacinto FNP Discoloration of eye (Primary Dx); Essential hypertension; Steatosis of liver 01/16/2025 Travel 01/10/2025 Travel 01/10/2025 Telephone [facility] [address] [facility] [place] [address] Flor Jacinto FNP Nurse Triage 01/04/2025 10:15 AM EDT Office Visit [facility] [place] [address] Flor Jacinto FNP Dyspepsia (Primary Dx); Constipation, unspecified constipation type; Hiatal hernia 01/04/2025 Travel 01/04/[address] [address] Flor Jacinto FNP Nurse Triage 12/27/[address] [phone] Elizabeth Lyles MD Chronic left shoulder pain 12/15/[address] [phone] Flor Jacinto FNP chart prep 12/09/2024 Travel 12/08/2024 Patient Outreach [address] [phone] Flor Jacinto FNP Pre-visit Planning (SDOH screening completed on 06/03/2024) 11/21/2024 Patient Outreach [address] [phone] Flor Jacinto FNP Transition Of Care (Tcm) (HDF unscheduled) from Last 3 Months Immunizations Immunization Administration Dates Next Due Hep A, Adult [...] Q2 Not on file 06/03/2024 Comments Unknown Intention Date Recorded No desire to become (finding) 0 06/13/2024 Sex and Gender Information Value Date Recorded Sex Assigned at Female 01/06/2022 10:14 AM EDT Legal Sex Female 10:14 AM EDT Gender Identity Female 01/06/2022 10:14 AM EDT Sexual Orientation Straight 01/06/2022 10 :14 AM EDT Last Filed Vital Signs Vital Sign Reading Time Taken Comments Blood Pressure 128/90 01/16/2025 11:33 AM EST Pulse 84 01/16/2025 11:33 AM EST Temperature 36.2 C (97.2 F) 01/16/2025 11:33 AM EST Respiratory Rate 16 01/16/2025 11:33 AM EST Oxygen Saturation 98% 10/25/2024 10:47 AM EDT Inhaled Oxygen Concentration - - Weight 75 kg (165 lb 6.4 oz) 01/16/2025 11:33 AM EST Height 160 cm (5' 3 ) 01/16/2025 11:33 AM EST Body Mass Index 29.3 01/16/2025 11:33 AM EST Plan of Treatment Upcoming Encounters Date Type Department Care Team (Late st Contact Info) Description 03/06/2025 10:30 AM EST Telemedicine [facility] [address] [place] [address] OrvilleFlor motley, PRINCIPAL ELECTRICAL ENGINEER [address] [place] [address] Health Maintenance Due Date Last Done Comments CT Colonography 1972 FIT DNA/Cologuard 1972 FIT 1972 FOBT 1972 Sigmoidoscopy 1972 Alcohol/Substance Use Screening 1984 RSV Patients and Patients Aged 60 years or older (1 - Risk 50-74 years 1-dose series) 2022 Zoster Vaccines (1 of 2) 2022 Mammogram 01/25/2024 01/24/2022, 04/15/2018 COVID-19 Vaccine ( season) 2024 Influenza Vaccine (#1) 2024 12/27/2007, 2007 Depression Monitoring 01/08/2025 07/08/2024, 025 SDOH Screening 06/03/2025 06/03/2024 Family Planning (PISQ) 06/13/2025 06/13/2024 Disability Screening 09/13/2025 09/13/2024 Diabetes: Foot Exam 09/14/2025 09/14/2024, 09/14/2024, 09/14/2024, Additional history exists Diabetes: Urine Protein Screening 09/20/2025 09/20/2024, 09/20/2024, 04/14/2023, Additional history exists Lipid Panel 09/20/2025 09/20/2024, 02/0 08/2023, 10/02/2022 Eye Exam 11/07/2025 11/08/2023 Tobacco Screening 01/16/2026 01/16/2025 Diabetes: Hemoglobin A1C 09/15/2027 025, 06/13/2024, 01/04/2024, Additional history exists Cervical Cancer Screening 08/20/2028 HPV/Cotest 08/20/2028 08/21/2023, 08/07, 06/23/2018 Pap Smear 08/20/2028 08/21/2023 Colonoscopy 08/29/2029 08/29/2024, 08/29/2024 Colorectal Cancer Screening 08/29/2029 DTaP/Tdap/Td Vaccines (3 - Td or Tdap) 06/13/2034 06/13/2024, 01/14/2013, 01/25/2004, Additional history exists Hepatitis B Vaccines Completed 01/08/2004, 10/03/2003, 08/24/2003, [...] on patient's age to complete this topic Goals Goal Patient Goal Type Associated Problems Recent Progress Patient-Stated? Author Help patients manage their type 2 diabetes Care Plan Help patients manage their type 2 diabetes No Christina Fajardo RN Weekly blood pressure task Care Plan Weekly blood pressure task No Christina Fajardo RN Help patients manage their type 2 diabetes Care Plan Help patients manage their type 2 diabetes No Christina Fajardo RN Patient has chronic kidney disease Care Plan Patient has chronic kidney disease No Christina Fajardo RN Weekly blood pressure task Care Plan Weekly blood pressure task No Christina Fajardo RN Patient has chronic kidney disease Care Plan Patient has chronic kidney disease No Christina Fajardo RN Procedures Procedure Name Priority Date/Time Associated Diagnosis Comments MR BRAIN WO CONTRAST Routine 02/14/2025 9:[address] HEAD WO CONTRAST Routine 02/14/2025 6 :52 PM EST HIGH SENSITIVITY TROPONIN I Routine 02/14/2025 5:37 PM EST LACTIC ACID Routine 02/14/2025 5:37 PM EST LIPASE Routine 02/14/2025 5:37 PM EST CREATINE KINASE, TOTAL Routine 02/14/2025 5:37 PM EST BASIC METABOLIC PANEL Routine 02/14/2025 5:37 PM EST HEPATIC FUNCTION PANEL Routine 02/14/2025 5:37 PM EST CBC WITH AUTO DIFFERENTIAL Routine 02/14/2025 5:37 PM EST SARS COV2/INFLUENZA A/B AND RSV RNA QL NAAT Routine 02/14/2025 5:37 PM EST LIPID PANEL, STANDARD Routine 09/20/2024 9:55 AM EDT Type 2 diabetes mellitus with hyperglycemia, without long-term current use of insulin (CMS/HCC) ALBUMIN, RANDOM URINE W/CREATININE Routine 09/20/2024 9:52 AM EDT Type 2 diabetes mellitus with hyperglycemia, without long-term current use of insulin (CMS/HCC) POCT GLYCATED HEMOGLOBIN, TOTAL Routine 09/14/2024 10:17 AM EDT Type 2 diabetes mellitus with hyperglycemia, without long-term current use of insulin (CMS/HCC) HM COLONOSCOPY Routine 08/29/2024 HEPATITIS PANEL, GENERAL Routine 09/07/2023 11:08 AM EDT HPV MRNA E6/E7 REFLEX TO HPV 16, 18/45 Routine 08/21/2023 2:47 PM EDT PAP SMEAR Routine 08/21/2023 2:47 PM EDT Papanicolaou smear for cervical cancer screening HIV 1/2 ANTIGEN/ANTIBODY, FOURTH GENERATION W/RFL Routine 04/14/2023 9:41 AM EST Routine screening for STI (sexually transmitted infection) MAMMOGRAM GENERIC Routine 01/24/2022 1:0 4 PM EST from Last 3 Months or Most Recently Relevant to Health Maintenance Results * MR Brain w/o Contrast (02/14/2025 9:22 PM EST) Anatomical Region Laterality Modality Brain Magnetic Resonan ce 02/14/2025 9:22 PM EST Narrative 02/14/2025 9:23 PM EST [place] [address] Magnetic Resonance Report Signed Patient: Bernardo Pugh MR #: [id number] : 1970 Acct:[id number] Age/Sex: 54 / F ADM Date: 02/14/25 Loc: [facility]: Shawna QUINTERO Ordering Physician: Shawna Calle Date of Service: 02/14/25 Procedure(s): MR head/brain wo con Accession Number(s): [id number] cc: Shawna Calle; [facility] Reason for Exam: abn CT, new onset seizure CLINICAL HISTORY: abn CT, new onset seizure motion, best obtainable, pt stopped before repeats obtained MRI Brain WO Contrast COMPARISON: CT/REG/SR - CT HEAD/BRAIN WO IV CON - 02/14/25 18:08 EST FINDINGS: Detail limited by motion artifacts. No evidence of acute infarction. No acute intracranial hemorrhage. Extra-axial T2 hyperintense, intermediate to low T1 signal right frontoparietal probable arachnoid cyst measuring 2.8 x 1.4 x 4.0 cm, indenting the subjacent cortex, with trace adjacent parenchymal FLAIR hyperintensity. No midline shift. No hydrocephalus. Clear paranasal sinuses. Clear mastoid air cells. Unremarkable orbits. IMPRESSION: Probable right frontoparietal arachnoid cyst with mild adjacent parenchymal edema or gliosis. This document has been electronically signed by: Foreign Hernandez MD on 02/14/2025 21:22:24 Dictated By: Foreign Hernandez MD Signed By: <Electronically signed by Foreign Hernandez MD in OV> 02/14/252121 DD/ 21 TD/TT: 02/14/252121 Dog Races Manager: Procedure Note Donotuseinterpreter, Image - 02/14/2025 [place] [address] Magnetic Resonance Report Signed Patient: Bernardo PughMR #: [id number] : 1970Acct:[id number] Age/Sex: 54 / FADM Date: 02/14/25 Loc: [facility]: Shawna QUINTERO Ordering Physician: Shawan Calle Date of Service: 02/14/25 Procedure(s): MR head/brain wo con Accession Number(s): [id number] cc: Shawna Calle PRINCIPAL ELECTRICAL ENGINEER[facility]; [facility] Reason for Exam: abn CT, new onset seizure CLINICAL HISTORY: abn CT, new onset seizure motion, best obtainable, ptstopped before repeats obtained MRI Brain WO Contrast COMPARISON: CT/REG/SR - CT HEAD/BRAIN WO IV CON - 02/14/25 18:08 EST FINDINGS: Detail limited by motion artifacts. No evidence of acute infarction. No acute intracranial hemorrhage. Extra-axial T2 hyperintense, intermediate to low T1 signal right frontoparietal probable arachnoid cyst measuring 2.8 x 1.4 x 4.0 cm, indenting the subjacent cortex, with trace adjacent parenchymal FLAIR hyperintensity. No midline shift. No hydrocephalus. Clear paranasal sinuses. Clear mastoid air cells. Unremarkable orbits. IMPRESSION: Probable right frontoparietal arachnoid cyst with mild adjacent parenchymal edema or gliosis. This document has been electronically signed by: Foreign Hernandez MD on 02/14/2025 21:22:24 Dictated By: Foreign Hernandez MD Signed By: <Electronically signed by Foreign Hernandez MD in OV> 02/14/252121 DD/ 21 TD/TT: 02/14/252121 Dog Races Manager: us [facility] External Provider IMG MRI PROCEDURES Edited Result - Final * CT Head w/o Contrast (02/14/2025 6:52 PM EST) Anatomical Region Laterality Modality Head, Neck Computed Tomogra phy 02/14/2025 6:52 PM EST Narrative 02/14/2025 6:53 PM EST [address] [address] [address] Scan Report Signed Patient: Bernardo Pugh MR #: [id number] : 1970 Acct:[id number] Age/Sex: 54 / F ADM Date: 02/14/25 Loc: [facility].ED Attending Dr: Ordering Physician: Marco Antonio Webber MD Date of Service: 02/14/25 Procedure(s): CT head/brain wo IV con Accession Number(s): [id number] cc: Marco Antonio Webber MD; [facility] Report Number: [id number]: Total DLP = 721.00 mGy-cm Reason for Exam: Syncope versus seizure CLINICAL HISTORY: Syncope versus seizure CT head without contrast Comparison: None provided Findings: No intra-axial mass, midline shift, hydrocephalus, or acute hemorrhage. No significant atrophy-like change or white matter disease. There is asymmetric CSF density of the right posterior frontal area series 2, image 42. The visualized paranasal sinuses and mastoid air cells are normal. The orbits are within normal limits. No skull fracture. IMPRESSION: Asymmetric CSF density of the right posterior frontal area could represent an arachnoid cyst. Correlation with MRI findings as indicated. This document has been electronically signed by: Tomer Barba MD on 02/14/2025 18:52:11 Dictated By: Tomer Barba MD Signed By: <Electronically signed by Tomer Barba MD in OV> 02/14/251851 DD/ 51 TD/TT: 02/14/251851 Dog Races Manager: Procedure Note Donotuseinterpreter, Image - 02/14/[address] [address] [address] Scan Report Signed Patient: Bernardo PughMR #: [id number] : 1970Acct:[id number] Age/Sex: 54 / FADM Date: 02/14/25 Loc: [facility].ED Attending Dr: Ordering Physician: Marco Antonio Webber MD Date of Service: 02/14/25 Procedure(s): CT head/brain wo IV con Accession Number(s): [id number] cc: Marco Antonio Webber MD; [facility] Report Number: [id number]: Total DLP = 721.00 mGy-cm Reason for Exam: Syncope versus seizure CLINICAL HISTORY: Syncope versus seizure CT head without contrast Comparison: None provided Findings: No intra-axial mass, midline shift, hydrocephalus, or acute hemorrhage. No significant atrophy-like change or white matter disease. There is asymmetric CSF density of the right posterior frontal area series 2, image 42. The visualized paranasal sinuses and mastoid air cells are normal. The orbits are within normal limits. No skull fracture. IMPRESSION: Asymmetric CSF density of the right posterior frontal area could represent an arachnoid cyst. Correlation with MRI findings as indicated. This document has been electronically signed by: Tomer Barba MD on 02/14/2025 18:52:11 Dictated By: Tomer Barba MD Signed By: <Electronically signed by Tomer Barba MD in OV> 02/14/251851 DD/ 51 TD/TT: 02/14/251851 Dog Races Manager: [facility] External Provider IMG CT PROCEDURES Final Result * High Sensitivity Troponin I (02/14/2025 5:37 PM EST) TROPONIN I HIGH SENSITIVITY <2.7 <3.5 - 17.0 ng/L [facility] Comment:The Christine high sens itivity Troponin-I results should beused in conjunction with other diagnostic information suchas ECG, clinical observations and information, and patientsymptoms to aid in the diagnosis of PA. 02/14/2025 5:37 PM EST 02/14/2025 5:41 PM EST Generic External Data Provider LAB BLOOD ORDERAB LES Final Result Performing Organization Address [facility] de Phone Number [facility] [address] [place] [phone] * SARS-CoV-2 RNA, Influenza A/B, and RSV RNA, Ql NAAT (02/14/2025 5:37 PM EST) Pathologist [facility] Influenza A PCR NEGATIVE Negative [facility] Influenza B PCR NEGATIVE Negative [facility] Resp Syncy Virus RNA Qual PCR NEGATIVE Negative [facility] SARS COV2 PCR NEGATIVE Negative [facility] Comment:All test results mus t be correlated with clinical findings.Negative results do not preclude SARS-CoV2, influenza Avirus, influenza B virus and/or RSV infectionand should not be used as the sole basis for treatment orother patient management decisions. Negative results must becombined with clinical observations, patient history, andepidemiological information.This test has not been evaluated for monitoring treatment ofinfection.This test has been authorized by the FDA under an EmergencyUse Authorization (EUA) for use by authorized laboratories.Testing performed on the Flit GeneXpert utilizingreal-time RT-PCR.All SARS CoV2 and positive influenza A/B results arereported to [facility]. 02/14/2025 5:37 PM EST 02/14/2025 5:41 PM EST Generic External Data Provider LAB MICROBIOLOGY - GENERAL ORDERABLES Final Result Performing Organization Address [facility] [facility] Co de Phone Number [facility] [address] [place] [phone] * (ABNORMAL) CBC auto differential (02/14/2025 5:37 PM EST) White Blood Count 5.5 4.8 - 10.8 X10*3/uL [facility] Red Blood Count 4.97 4.20 - 5.50 X10*6/uL [facility] Hemoglobin 14.5 12.0 - 16.0 g/dl [facility] Hematocrit 42.4 37.0 - 47.0 % [facility] Mean Corpuscular Volume 85.3 80.0 - 98.0 fL [facility] Mean Corpuscular Hemoglobin 29.2 27.0 - 33.0 pg [facility] Mean Corpuscular HGB Conc 34.2 31.0 - 35.0 g/dl [facility] Red Cell Distribution Width 12.2 11.0 - 16.0 % [facility] Platelet Count 295 160 - 400 X10*3/uL [facility] Mean Platelet Volume 9.1(L) 9.4 - 12.3 fL [facility] Neutrophils Percent Auto 59.6 45 - 73 % [facility] Imm Gran Pct Auto 0.2 0.0 - 0.4 % [facility] Lymphocytes Percent Auto 30.2 20 - 40 % [facility] Monocytes Percent Auto 8.4 2 - 11 % [facility] Eosinophils Percent Auto 0.7 0 - 4 % [facility] Basophils Percent Auto 0.9 0 - 2 % [facility] NRBC Pct Auto 0.0 0.0 - 0.2 /100WBC [facility] Neutrophils Absolute Auto 3.3 2.0 - 8.3 x10*3/uL [facility] Imm Gran Abs Auto 0.01 0.00 - 0.03 X10*3/uL [facility] Lymphocytes Absolute Auto 1.7 1.2 - 4.9 X10*3/uL [facility] Monocytes Absolute Auto 0.5 0.1 - 1.2 X10*3/uL [facility] Eosinophils Absolute Auto 0.0 0.0 - 0.4 X10*3/uL [facility] Basophils Absolute Auto 0.1 0.0 - 0.2 X10*3/uL [facility] NRBC Abs Auto 0.000 0.0 - 0.012 X10*3/uL [facility] 02/14/2025 5:37 PM EST 02/14/2025 5:41 PM EST us Generic External Data Provider LAB BLOOD ORDERAB LES Final Result Performing Organization Address [facility] Co de Phone Number [facility] [address] [place] [phone] * Lipase (02/14/2025 5:37 PM EST) Lipase 37 8 - 78 U/L [facility] 02/14/2025 5:37 PM EST 02/14/2025 5:41 PM EST us Generic External Data Provider LAB BLOOD ORDERAB LES Final Result Performing Organization Address [facility] de Phone Number [facility] [address] [place] [phone] * (ABNORMAL) Lactic Acid (02/14/2025 5:37 PM EST) Lactic Acid 2.8(HH) 0.5 - 2.0 mmol/L [facility] Comment:Critical value for t est(s): LACTA Results called to juan back by: RAUL Person calling: JONNY Date: 02.14.25Time: 1805 02/14/2025 5:37 PM EST 02/14/2025 5:41 PM EST us Generic External Data Provider LAB BLOOD ORDERAB LES Final Result Performing Organization Address [facility] Co de Phone Number [facility] [address] [place] [address] [phone] * Creatine Kinase, Total (02/14/2025 5:37 PM EST) Creatine Kinase Total 88 26 - 140 U/L [facility] 02/14/2025 5:37 PM EST 02/14/2025 5:41 PM EST us Generic External Data Provider LAB BLOOD ORDERAB LES Final Result Performing Organization Address [facility] Co de Phone Number [facility] [address] [place] [phone] * (ABNORMAL) Hepatic Function Panel (02/14/2025 5:37 PM EST) Pathologist [facility] Bilirubin, Total 0.3 0.0 - 1.0 mg/dL [facility] Bilirubin, Direct 0.1 0.0 - 0.5 mg/dL [facility] Aspartate Amino Transferase 35(H) 5 - 31 U/L [facility] Comment:Slight Hemolysis.Int erpret result with caution. Alanine Aminotransferase 19 0 - 31 U/L [facility] Total Protein 7.8 6.5 - 8.0 g/dL [facility] Albumin Level 4.5 3.5 - 5.0 g/dL [facility] Alkaline Phosphatase 93 39 - 117 U/L [facility] 02/14/2025 5:37 PM EST 02/14/2025 5:41 PM EST Generic External Data Provider LAB BLOOD ORDERAB LES Final Result Performing Organization Address [facility] de Phone Number [facility] [address] [place] [phone] * (ABNORMAL) Basic Metabolic Panel (02/14/2025 5:37 PM EST) [facility] Sodium 143 135 - 145 mmol/L [facility] Potassium 3.6 3.3 - 5.1 mmol/L [facility] Comment:Slight Hemolysis.Int erpret result with caution. Chloride 106 96 - 108 mmol/L [facility] Carbon Dioxide 26 22 - 29 mmol/L [facility] Anion Gap 15 12 - 20 [facility] Urea Nitrogen (BUN) 6(L) 9 - 16 mg/dL [facility] Creatinine, Serum 0.64 0.5 - 1.4 mg/dL [facility] Creatinine Clr Calc Pharmacy 107.6 [facility] Comment:Provided height and weight: 167.64 cm,76.8 kg.eGFR (calculated from the MDRD study equation) and eCrCl(calculated from the Cockcroft-Gault equation) are based ondifferent parameters and may not yield comparable results.If eCrCl result is absurd, please check patient'sheight/weight. Estimated Glomerular Filt Rate >60 [facility] Comment:Chronic Kidney Disea se: Estimated GFR < 60 mL/min/1.61c9Beiepo Kidney Disease: Estimated GFR < 15 mL/min/1.73m2 Glucose 93 60 - 115 mg/dL [facility] Calcium 9.3 8.4 - 10.2 mg/dL [facility] 02/14/2025 5:37 PM EST 02/14/2025 5:41 PM EST us Generic External Data Provider LAB BLOOD ORDERAB LES Final Result [facility] [address] [place] [address] [phone] * (ABNORMAL) Lipid Panel, Standard (09/20/2024 9:55 AM EDT) Triglycerides 137 <150 mg/dL [facility] Comment:Desirable Triglyceri de: less than 150 mg/dLBorderline High Triglyceride 150-199 mg/dLHigh Triglyceride: 200-499 mg/dLVery High Triglyceride: greater than or equal to 5OO mg/dL Cholesterol 201(H) <200 mg/dL [facility] Comment:Desirable Cholestero l: less than 200 mg/dLBorderline High Cholesterol: 200-239 mg/dLHigh Cholesterol: greater than 239 mg/dL LDL Cholesterol Calculated 115(H) <100 mg/dL [facility] Comment:Desirable LDL: less than 100 mg/dLNear Optimal/Above Optimal LDL: 110- 129 mg/dLBorderline High LDL: 130-159 mg/dLHigh LDL: 160-189 mg/dLVery High LDL: greater than or equal to 190 mg/dL HDL Cholesterol 59 >40 mg/dL [facility] Comment:Desirable HDL: great er than 40 mg/dL Note: This HDL assay may give artificially low results in patients with liver disease. Blood Venous blood specimen / Unknown 09/20/2024 9:55 AM EDT 09/20/2024 9:55 AM EDT [facility] LAB BLOOD ORDERABLES Final Re sult Performing Organization Address [facility] de Phone Number [facility] [address] [place] [address] [phone] * Albumin, Random Urine W/Creatinine (09/20/2024 9:52 AM EDT) Creatinine, Urine 156.85 mg/dL [facility] Microalbumin Urine 9.0 mg/L [facility] Microalbum Creatinine Ratio Ur 5.7 <30 ug/mg cr [facility] Comment:Albumin/Creatinine R atio Reference Ranges: Normal: < 30 ug/mg creatinine Microalbuminuria: 30 - 300 ug/mg creatinineClinical Albuminuria: > 300 ug/mg creatinine Urine 09/20/2024 9:52 AM EDT 09/20/2024 10:44 AM EDT [facility] URINE ORDERABLES Final Re sult Performing Organization Address [facility] de Phone Number [facility] [address] [place] [address] [phone] * (ABNORMAL) POCT HGB A1C (09/14/2024 10:17 AM EDT) Hemoglobin A1C 6.0(A) 4.0 - 5.7 % QC Media Lot # [id number] Lot# Expiration Date Blood 09/14/2024 10:1 7 AM EDT [facility] POINT OF CARE TEST ENTER/EDIT ORDERABLES Final Result * (ABNORMAL) Hm Colonoscopy (08/29/2024) Pathologist [facility] Colonoscopy Abnormal( A) Normal Comment:Repeat 5 years due t o polyps us Historical Provider HEALTH MAINTENANCE Final Result * Hepatitis Panel, General (09/07/2023 11:08 AM EDT) Pathologist [facility] Hepatitis A IgM Nonreactive Nonreactive [facility] Comment:IgM antibodies to STOCKTON V not detected; does not exclude earlyacute or recovered HAV infection. ~Hepatitis B Surface Antibody NONREACTIVE Nonreactive [facility] Comment:Nonreactive: < 8.00 mIU/mL Hepatitis B Core Antibody Nonreactive Nonreactive [facility] Hepatitis C Antibody Nonreactive Nonreactive [facility] Comment:Antibodies to HCV no t detected; does not exclude early acuteHCV infection. Hepatitis B Surface Ag Negative Negative [facility] 09/07/2023 11:0 8 AM EDT 09/07/2023 11:08 AM EDT us Generic External Data Provider LAB BLOOD ORDERAB LES Final Result [facility] [address] [place] [address] [phone] * HPV mRNA E6/E7 w/Reflex to HPV Genotypes 16, 18/45 (08/21/2023 2:47 PM EDT) [facility] HPV nRNA E6/E7 Not Detected Not Detected [facility] Comment:Methodology: Transcr iption-Mediated AmplificationThis assay detects E6/E7 viral messenger RNA (mRNA) from 14high-risk HPV types (16,18,31,33,35,39,45,51,52,56,58,59,66,68).Cervical sources are required for HPV testing.If a vaginal source from a patient who has had atotal hysterectomy with removal of cervix wassubmitted, please contact the testing laboratoryfor alternative testing options.For additional information, please refer [email or web address]/[email or web address](This link if provided for information/educational purposes only.)THIS TEST WAS PERFORMED AT:[employer] [place] [phone] PRICE MD HPV mRNA E6/E7 TNP [facility] HPV 16 RNA TNP [facility] HPV 18/45 [facility] 08/21/2023 2:47 PM EDT 08/24/2023 10:40 AM EDT [facility] CYTOLOGY ORDERABLES Final Result [facility] [address] [place] [phone] * Pap Smear (08/21/2023 2:47 PM EDT) Swab Cervical swab / Unknown 08/21/2023 2:47 PM EDT 08/24/2023 10:40 AM EDT Narrative [facility] - 09/07/2023 11:45 AM EDT ----- ------- Name: Bernardo Pugh Age/Sex: 52/F : 1970 Unit#: [id number] Attend Dr: Flor Jacinto [facility] Re08/21/23 Status: DEP REF Location: [id number] Disch: ----- ------- SPEC : [id number] RECD: 08/24/23 STATUS: EDDI SCOTT NUM: [id number] HUE: 08/21/23-1447 [facility] DR: Flor Jacinto [facility] ENTERED: 08/24/23 SP TYPE: Pap Smr OTHR DR: ORDERED: Pap Smear Interpretation Satisfactory for evaluation. No endocervical cells seen. Negative for intraepithelial lesion or malignancy. HPV mRNA E6/E7: NOT DETECTED This assay detects E6/E7 viral messenger RNA (mRNA) from 14 high-risk HPV types (16, 18, 31, 33, 35, 39, 45, 51, 52, 56, 58, 59, 66, 68) HPV testing performed by [employer], [place], [place]. See reference laboratory portion of the EMR for entire report. Clinical Information LMP: Postmenopausal Previous PAP test: Unknown date, Unknown findings Material Received ThinPrep-Cervical ----- ------- Signed (signature on file) Ludy Ga 09/07/23 1145 ----- ------- END OF REPORT [facility] CYTOLOGY ORDERABLES Final Result [facility] [address] [place] [address] [phone] * HIV-1/2 Antigen and Antibodies, Fourth Generation, with Reflexes (04/14/2023 9:41 AM EST) HIV AB/AG Nonreactive Nonreactive [facility] Comment:HIV-1 p24 Ag and/or HIV-1/HIV-2 Ab not detected.A test result that is nonreactive does not exclude thepossibility of exposure to or infection with HIV-1 and/orHIV-2. Nonreactive results in this assay for individualswith prior exposure to HIV-1 and/or HIV-2 may be due toantigen and antibody levels that are below the limit ofdetection of this assay.The [email or web address] HIV Ag/Ab Combo assay result andsupplemental assay results should be interpreted inconjunction with the patient's clinical presentation,history and other laboratory results. If the results areinconsistent with clinical evidence, additional testing issuggested to confirm the result. Blood Venous blood specimen / Unknown 04/14/2023 9:41 AM EST 04/14/2023 11:16 AM EST [facility] LAB BLOOD ORDERABLES Final Re sult [facility] [address] [place] [address] [phone] * Mammography Report 1 (01/24/2022 1:04 PM EST) Anatomical Region Laterality Modality Breast Bilateral Mammography 01/24/2022 1:04 PM EST Narrative 01/28/2022 9:22 AM EST Refer to the Notes tab for result details [facility] Procedure: Mammography Report 1 Procedure Note ProviderNishi MD - 06/01/2022 Refer to the Notes tab for result details [facility] Procedure: Mammography Report 1 [facility] IM BI PROCEDURES Final Result from Last 3 Months or Most Recently Relevant to Health Maintenance Additional Health Concerns Active Problems Noted Date Diagnosed Date Help patients manage their type 2 diabetes 02/08 Weekly blood pressure task 02/08/2025 Help patients manage their type 2 diabetes 02/08 Patient has chronic kidney disease 02/08/2025 Weekly blood pressure task 02/08/2025 Patient has chronic kidney disease 02/08/2025 Insurance [facility] C3 Care Teams Home Weatherizing Worker Relationship Specialty Start Date End Date Flor Jacinto FNP [address] [place] [phone] PCP - General Family Medicine 08/13/22 Elder Wheatley FNP [address] [place] [address] Nurse Practitioner Family Medicine 02/10/23 Marisela Bowling Dough PannerMobile Homes Repairer 08/06/23
--- OUTSIDE RECORDS SUMMARY | 2025-02-14 23:03 | XMS_ITS | Clinical Summary ---
Author Organization [facility] Address [address] [place] [phone] Phone Care Team Providers Care Staff Physical Therapist Name Role Phone [facility] Primary Care Provider [phone] Allergies No known active allergies Medications dexAMETHasone [...] Overview (02/07/2024): Last Assessment & Plan: Ms. Parks is reporting ongoing transverse lower back pain [...] f/u on an as needed basis. Immunizations Immunization Administration Dates Next Due Hepatitis A Adult (Havrix; V aqta) 19yo and older 01/25/2004,08/24/2003,03/09/2003 Hepatitis B (Cmqwolx-Q-Nlwri , Recombivax HB-Adult) 19yo and older 01/08/2004,10/03/2003,08/24/2003,2003,08/08/2002 [...] on file Sexual Orientation Not on file Last Filed Vital Signs Vital Sign Reading Time Taken Comments Blood Pressure 127/89 10/12/2024 4:04 PM EDT Pulse 87 10/12/2024 4:04 PM EDT Temperature 36.7 C (98.1 F) 10/12/2024 4:04 PM EDT Respiratory Rate 20 10/12/2024 4:04 PM EDT Oxygen Saturation 100% 10/12/2024 4:04 PM EDT Inhaled Oxygen Concentration - - Weight 74.4 kg (164 lb) 10/12/2024 4:04 PM EDT Height 160 cm (5' 3 ) 10/12/2024 4:04 PM EDT Body Mass Index 29.05 10/12/2024 4:04 PM EDT Plan of Treatment Health Maintenance Due Date Last Done Comments Breast Cancer Screening 1970 Colorectal Cancer Screening: Colonoscopy 1970 Diabetes: Annual Foot Exam 1982 Diabetes: Annual Retina Eye Exam 1982 Hepatitis C Screening 02/09/2022 Social Influencers of Health Screening 02/09/2022 RSV Immunization Adult Patients (1 - Risk 50-74 years 1-dose series) 2022 Zoster Vaccines (1 of 2) 2022 Depression Screening 03/09/2024 Diabetes: Annual Urine Albumin-Creatinine Ratio (uACR) 10/13/2024 COVID-19 Vaccine ( season) 2024 Influenza Vaccine (#1) 2024 12/27/2007 Diabetes: Blood Sugar Control Test (HGBA1C) 03/17/2025 09/14/2024 Diabetes: Annual GFR (Glomerular Filtration Rate) 09/20/2025 09/20/2024 Hypertension/CHF/CAD Annual BMP Blood Test 09/20/2025 09/20/2024 Cervical Cancer Screening: Pap Smear 08/20/2026 08/21/2023 Cholesterol Screening (Lipid Panel) 09/20/2029 09/20/2024 DTaP,Tdap,and Td Vaccines (5 - Td or Tdap) 06/13/2034 06/13/2024, 01/14/2013, 01/25/2004, Additional history exists Hepatitis B Vaccines Completed 01/08/2004, 10/03/2003, 08/24/2003, Additional history exists Hepatitis A Vaccines Completed 01/25/2004, 08/24/2003, 03/09/2003 Pneumococcal Vaccine: 50+ Years Completed 10/21/2022, 11/25/2017 HIV Screening Completed 04/14/2023 HIB Vaccines Aged Out No longer eligi [...] topic Insurance MEDICAID - [place] Care Teams Staff Physical Therapist Relationship Specialty Start Date End Date Flor Jacinto [address] [place] [phone] PCP - General Family Medicine 10/12/24
--- OUTSIDE RECORDS SUMMARY | 2025-02-14 23:03 | XMS_ITS | Encounter Summary ---
Author Organization [employer] Address [address] [facility] [address] [place] [address] Care Team Providers Care Substation Operator Helper Generation Name Role Phone [place] [facility] Primary Care Provider [phone] Elder Wheatley BASEBALL SCOUT Unavailable Unavailable Reason for Visit * Reason Onset Date Comments Nurse Triage 01/01/2023 Encounter Details Date Type Department Care Team ([facility] st Contact Info) Description 01/01/2023 Telephone [facility] [address] [place] [phone] [facility] [address] [place] [address] Nurse Triage Social History Tobacco Use Types [...] Info) Description 03/06/2025 10:30 AM EST Telemedicine [facility] MED[facility]INE [address] [place] [address] Flor Jacinto FNP [address] [place] [address] documented as of this encounter Visit Diagnoses Not on filedocumented in this encounter Additional Health Concerns Assessment Noted Time PHQ-9 Depression Total Score: 1 10/21/19 23 9:11 AM EDT documented as of this encounter Care Teams Substation Operator Helper Generation Relationship Specialty Start Date End Date Flor Jacinto FNP [address] [place] [phone] PCP - General Family Medicine 08/13/22 Elder Wheatley FNP [address] [place] [phone] Nurse Practitioner Family Medicine 02/10/23 Marisela Bowling Voice Over ArtistGeneral Farm Manager 08/06/23 documented as of this encounter
--- OUTSIDE RECORDS SUMMARY | 2025-02-14 23:03 | XMS_ITS | Encounter Summary ---
Author Organization [employer] Address [address] [facility] [address] [place] [address] Care Team Providers Care Baggagemaster Name Role Phone [facility] Primary Care Provider [phone] Elder Wheatley Unavailable Unavailable Reason for Visit * Reason Comments Med Change Request Encounter Details Date Type Department Care Team ([facility] st Contact Info) Description 07/09/2023 Refill [facility] [address] [place] [address] Elder Wheatley FNP Anxious depression Social History [...] AM EDT documented as of this encounter Functional Status * Over the past 2 weeks, how often have you been bothered by any of the following problems? Question Answer Date of Assessment Author Patient Health Questionnaire-2 Score 0 07/10/2023 2:37 PM EDT Comfort Castillo [place] * How difficult have these problems made it for you to do your work, take care of things at home, or get along with other people? Answer Date of Assessment Author Not difficult at all 07/10/2023 2:37 PM EDT Comfort Hahn MA * Over the past 2 weeks, how often have you been bothered by any of the following problems? Question Answer Date of Assessment Author Little interest or pleasure in doing things Not at all 07/10/2023 2:37 PM EDT Comfort Castillo MA Feeling down, depressed, or hopeless Not at all 07/10/2023 2:37 PM EDT Comfort Castillo [place] Trouble falling or staying asleep, or sleeping too much Not at all 07/10/2023 2:37 PM EDT Comfort Chowdary MA Feeling tired or having little energy Not at all 07/10/2023 2:37 PM EDT Comfort Castillo [place] Poor appetite or overeating Not at all 07/10/2023 2: 37 PM EDT Comfort Castillo MA Feeling bad about yourself - or that you are a failure or have let yourself or your family down Not at all 07/10/2023 2:37 PM EDT Comfort Castillo MA Trouble concentrating on things, such as reading the newspaper or watching television Not at all 07/10/2023 2:37 PM EDT Comfort Castillo MA Moving or speaking so slowly that other people could have noticed? Or the opposite - being so fidgety or restless that you have been moving around a lot more than usual. 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
--- OUTSIDE RECORDS SUMMARY | 2025-02-14 23:03 | XMS_ITS | Encounter Summary ---
Author Organization [employer] Address [address] [facility] 7t [place] [address] Care Team Providers Care Deicer Repairer Electric Name Role Phone [facility] Primary Care Provider [phone] Elder Wheatley [facility] Unavailable Unavailable Reason for Visit * Reason Onset Date Comments Referral 07/29/2024 Encounter Details Date Type Department Care Team ([facility] st Contact Info) Description 07/29/2024 Telephone [facility] MEDICINE [address] [place] [address] [facility] [address] [place] [address] Referral Social History Tobacco Use Types Packs/Day [...] encounter Miscellaneous Notes * Telephone Encounter - Christina Fajardo RN - 08/02/2024 10:23 AM EDT TC returned to [facility], they confirm pt. Scheduled her own appt. For hemorrhoids and insurance referral is needed. Confirmed that appt. Will not be cancelled if referral is not received by tomorrow, and referral can be placed after as long as is it backdated for appt. Date on 08/03/24. Advised referral request would be sent to PCP for dx. Hemorrhoids. Noted pt. Also scheduled for colonoscopy 08/29/24 per [employer] * Telephone Encounter - Bernardo Frausto - 07/29/2024 3:17 PM EDT TC from [facility] with [facility] General Surgery DATE: 08/03/24 TIME: 09:30 Address: [address] [place] [address] Visits: Facility Name: [facility] Type of Specialist: General Surgery Pt requesting to be seen due to hemorrhoids Provider : Provider NPI : Facility Phone # : [phone] Fax #: [phone] documented in this encounter Plan of Treatment Upcoming Encounters Date Type Department Care Team (Late st Contact Info) Description 03/06/2025 10:30 AM EST Telemedicine [facility] MEDICINE [address] [place] [address] Flor Jacinto FNP [address] [place] [address] documented as of this encounter Visit Diagnoses Not on filedocumented in this encounter Additional Health Concerns Assessment Noted Time PHQ-9 Depression Total Score: 12 025 1:09 PM EDT documented as of this encounter Care Teams Deicer Repairer Electric Relationship Specialty Start Date End Date Flor Jacinto FNP [address] [place] [phone] PCP - General Family Medicine 08/13/22 Elder Wheatley FNP [address] [place] [phone] Nurse Practitioner Family Medicine 02/10/23 Marisela Bowling Vice President [employer] Roll Tender 08/06/23 documented as of this encounter
--- OUTSIDE RECORDS SUMMARY | 2025-02-14 23:03 | XMS_ITS | Encounter Summary ---
Author Organization [employer] Address [address] [facility] 7t [place] [address] Care Team Providers Care Middle [employer] Professional Name Role Phone Christiana Thomas MD Primary Care Provider Kirstie Gould Primary Care Provider [phone] Viktoria Gage MD Primary Care Provide r Viktoria Gage MD Primary Care Provide r [facility] CHIEF TELEPHONE OPERATOR Primary Care Provider [phone] Devi Live CHIEF TELEPHONE OPERATOR Primary Care Provider [phone] [facility] CHIEF TELEPHONE OPERATOR Primary Care Provider [phone] Elder Wheatley CHIEF TELEPHONE OPERATOR Unavailable Unavailable Reason for Visit * Reason Onset Date Comments Med Refill 03/11/2022 Encounter Details Date Type Department Care Team (Late st Contact Info) Description 03/11/2022 Telephone [facility] MEDICINE [address] [place] [address] Christiana Thomas MD Med Refill Social History [...] Info) Description 03/06/2025 10:30 AM EST Telemedicine [facility] MEDICINE [address] [place] [address] Flor Jacinto [facility] [address] [place] [address] documented as of this encounter Visit Diagnoses Not on filedocumented in this encounter Care Teams [employer] Professional Relationship Specialty Start Date End Date Christiana Thomas MD PCP - General Family Medicine 09/28/19 03/19/22 Kirstie [place] [address] PCP - General Family Medicine 03/20/22 05/05/22 Viktoria Gage MD [address] [place] [phone] PCP - General Internal Medicine 05/06/22 05/22/22 Viktoria Gage MD [address] [place] [address] PCP - General Internal Medicine 05/23/22 06/23/22 OrvilleFlor motley FNP [address] [place] [phone] PCP - General Family Medicine 06/24/22 08/07/22 Devi Live FNP [address] [place] [phone] PCP - General Family Medicine 08/08/22 08/12/22 Flor Jacinto FNP [address] [place] [address] PCP - General Family Medicine 08/13/22 Elder Wheatley FNP [address] [place] [address] Nurse Practitioner Family Medicine 02/10/23 Marisela Bowling Underwriting Sales RepresentativeSales Operations Consultant 08/06/23 documented as of this encounter
--- OUTSIDE RECORDS SUMMARY | 2025-02-14 23:03 | XMS_ITS | Encounter Summary ---
Author Organization [employer] Address [address] [facility] [address] 7t [place] [address] Care Team Providers Care Director Of Safety Name Role Phone [facility] [place] FINANCIAL INSTITUTION MANAGER Primary Care Provider [phone] Elder Wheatley FINANCIAL INSTITUTION MANAGER Unavailable Unavailable Encounter Details Date Type Department Care Team (Late st Contact Info) Description 02/14/2025 Orders Only GENERIC EXTERNAL DATA DEPARTMENT Provider, Generic External Data Social History Tobacco Use Types Packs/Day Years [...] t he electric, gas, oil or water [employer] threatened to shut off services in your [...] Info) Description 03/06/2025 10:30 AM EST Telemedicine [facility] MEDICINE [address] [place], [place] [phone] [facility] [address] [place] [address] documented as of this encounter Goals Goal Patient Goal Type Associated Problems [...] Care Plan Patient has chronic kidney disease Christina Ribeiro RN Weekly blood pressure task Care Plan Weekly blood pressure task Christina Ribeiro RN Patient has chronic kidney disease Care Plan Patient has chronic kidney disease No Christina Fajardo RN documented as of this encounter Procedures Procedure Name Priority Date/Time Associated Diagnosis Comments MR BRAIN WO CONTRAST Routine 02/14/2025 9:[address] HEAD WO CONTRAST Routine 02/14/2025 6 :52 PM EST HIGH SENSITIVITY TROPONIN I Routine 02/14/2025 5:37 PM EST SARS COV2/INFLUENZA A/B AND RSV RNA QL NAAT Routine 02/14/2025 5:37 PM EST CBC WITH AUTO DIFFERENTIAL Routine 02/14/2025 5:37 PM EST LIPASE Routine 02/14/2025 5:37 PM EST LACTIC ACID Routine 02/14/2025 5:37 PM EST CREATINE KINASE, TOTAL Routine 02/14/2025 5:37 PM EST HEPATIC FUNCTION PANEL Routine 02/14/2025 5:37 PM EST BASIC METABOLIC PANEL Routine 02/14/2025 5:37 PM EST documented in this encounter Results * MR Brain w/o Contrast (02/14/2025 9:22 PM EST) Anatomical Region Laterality Modality Brain Magnetic Resonan ce 02/14/2025 9:22 PM EST Narrative 02/14/2025 9:23 PM EST [place] [id number] Magnetic Resonance Report Signed Patient: Bernardo Pugh MR #: [id number] : 1970 Acct:[id number] Age/Sex: 54 / F ADM Date: 02/14/25 Loc: [facility] [address]: Shawna QUINTERO Ordering Physician: Shawna Calle Date of Service: 02/14/25 Procedure(s): MR head/brain wo con Accession Number(s): [id number] cc: Shawna Calle; [facility] Reason for Exam: abn CT, new [...] in OV> 02/14/252121 DD/ 21 TD/TT: 02/14/252121 Geriatrics Physician: Procedure Note Donotuseinterpreter, Image - 02/14/2025 [place] [address] Magnetic Resonance Report Signed Patient: Bernardo PughMR #: [id number] : 1970Acct:[id number] Age/Sex: 54 / FADM Date: 02/14/25 Loc: [facility]: Shawna QUINTERO Ordering Physician: Shawna Calle Date of Service: 02/14/25 Procedure(s): MR head/brain wo con Accession Number(s): [id number] cc: Shawna Calle; [facility] Reason for Exam: abn CT, new [...] in OV> 02/14/252121 DD/ 21 TD/TT: 02/14/252121 Geriatrics Physician: [facility] External Provider IMG MRI PROCEDURES Edited Result - Final * CT Head w/o Contrast (02/14/2025 6:52 PM EST) Anatomical Region Laterality Modality Head, Neck Computed Tomogra phy 02/14/2025 6:52 PM EST Narrative 02/14/2025 6:53 PM EST [place] [address] CT Scan Report Signed Patient: Bernardo Pugh MR #: [id number] : 1970 Acct:[id number] Age/Sex: 54 / F ADM Date: 02/14/25 Loc: [facility].ED Attending Dr: Ordering Physician: Marco Antonio Webber MD Date of Service: 02/14/25 Procedure(s): CT head/brain wo IV con Accession Number(s): [id number] cc: Marco Antonio Webber MD; [facility] Report Number: [id number]: Total DLP = 721.00 mGy-cm Reason for [...] in OV> 02/14/251851 DD/ 51 TD/TT: 02/14/251851 Geriatrics Physician: Procedure Note Dondelilahinterpreter, Image - 02/14/[address] [place] [address] [address] Scan Report Signed Patient: Bernardo PguhMR #: [id number] : 1970Acct:[id number] Age/Sex: 54 / FADM Date: 02/14/25 Loc: [facility].ED Attending Dr: Ordering Physician: Marco Antonio Webber MD Date of Service: 02/14/25 Procedure(s): CT head/brain wo IV con Accession Number(s): [id number] cc: Marco Antonio Webber MD; [facility] Report Number: [id number]: Total DLP = 721.00 mGy-cm Reason for [...] in OV> 02/14/251851 DD/ 51 TD/TT: 02/14/251851 Geriatrics Physician: [facility] External Provider IMG CT PROCEDURES Final Result * SARS-CoV-2 RNA, Influenza A/B, and RSV RNA, Ql NAAT (02/14/2025 5:37 PM EST) Influenza A PCR NEGATIVE Negative [facility] Influenza B PCR NEGATIVE Negative [facility] Resp Syncy Virus RNA Qual PCR NEGATIVE Negative [facility] SARS COV2 PCR NEGATIVE Negative [facility] Comment:All test results mus t be [...] use by authorized laboratories.Testing performed on the [employer] GeneXpert utilizingreal-time RT-PCR.All SARS CoV2 and positive influenza A/B results arereported to [facility]. 02/14/2025 5:37 PM EST 02/14/2025 5:41 PM EST Generic External Data Provider LAB MICROBIOLOGY - GENERAL ORDERABLES Final Result Performing Organization Address [facility] Co de Phone Number [facility] [address] [place] [phone] * High Sensitivity Troponin I (02/14/2025 5:37 PM EST) [facility] TROPONIN I HIGH SENSITIVITY <2.7 <3.5 - 17.0 ng/L [facility] Comment:The Christine high sens itivity Troponin-I results should beused in conjunction with other diagnostic information suchas ECG, clinical observations and information, and patientsymptoms to aid in the diagnosis of NV. 02/14/2025 5:37 PM EST 02/14/2025 5:41 PM EST Generic External Data Provider LAB BLOOD ORDERAB LES Final Result Performing Organization Address [facility] Co de Phone Number [facility] [address] [place] [phone] * (ABNORMAL) Lactic Acid (02/14/2025 5:37 PM EST) Lactic Acid 2.8(HH) 0.5 - 2.0 mmol/L [facility] Comment:Critical value for t est(s): LACTA Results called to juan back by: RAUL Person calling: JONNY Date: 02.14.25Time: 1805 02/14/2025 5:37 PM EST 02/14/2025 5:41 PM EST us Generic External Data Provider LAB BLOOD ORDERAB LES Final Result Performing Organization Address [facility] Co de Phone Number [facility] [address] [place] [phone] * Lipase (02/14/2025 5:37 PM EST) Lipase 37 8 - 78 U/L [facility] 02/14/2025 5:37 PM EST 02/14/2025 5:41 PM EST Generic External Data Provider LAB BLOOD ORDERAB LES Final Result Performing Organization Address [facility] Co co Phone Number [facility] [address] [place] [phone] * Creatine Kinase, Total (02/14/2025 5:37 PM EST) Creatine Kinase Total 88 26 - 140 U/L [facility] 02/14/2025 5:37 PM EST 02/14/2025 5:41 PM EST Generic External Data Provider LAB BLOOD ORDERAB LES Final Result Performing Organization Address [facility] Number [facility] [address] [place] [phone] * (ABNORMAL) Basic Metabolic Panel (02/14/2025 5:37 PM EST) Pathologist [facility] Sodium 143 135 - 145 mmol/L [facility] Potassium 3.6 3.3 - 5.1 mmol/L [facility] Comment:Slight Hemolysis.Int erpret result with caution. Chloride 106 96 - 108 mmol/L [facility] Carbon Dioxide 26 22 - 29 mmol/L [facility] Anion Gap 15 12 - 20 [facility] Urea Nitrogen (BUN) 6(L) 9 - 16 mg/dL [facility] Creatinine, Serum 0.64 0.5 - 1.4 mg/dL [facility] Creatinine Clr Calc Pharmacy 107.6 [facility] Comment:Provided height and weight: 167.64 cm,76.8 kg.eGFR (calculated from the MDRD study equation) and eCrCl(calculated from the Cockcroft-Gault equation) are based ondifferent parameters and may not yield comparable results.If eCrCl result is absurd, please check patient'sheight/weight. Estimated Glomerular Filt Rate >60 [facility] Comment:Chronic Kidney Disea se: Estimated GFR < 60 mL/min/1.76w4Ufawgz Kidney Disease: Estimated GFR < 15 mL/min/1.73m2 Glucose 93 60 - 115 mg/dL [facility] Calcium 9.3 8.4 - 10.2 mg/dL [facility] 02/14/2025 5:37 PM EST 02/14/2025 5:41 PM EST us Generic External Data Provider LAB BLOOD ORDERAB LES Final Result [facility] [address] [place] [phone] * (ABNORMAL) Hepatic Function Panel (02/14/2025 5:37 PM EST) Bilirubin, Total 0.3 0.0 - 1.0 mg/dL [facility] Bilirubin, Direct 0.1 0.0 - 0.5 mg/dL [facility] Aspartate Amino Transferase 35(H) 5 - 31 U/L [facility] Comment:Slight Hemolysis.Int erpret result with caution. Alanine Aminotransferase 19 0 - 31 U/L [facility] Total Protein 7.8 6.5 - 8.0 g/dL [facility] Albumin Level 4.5 3.5 - 5.0 g/dL [facility] Alkaline Phosphatase 93 39 - 117 U/L [facility] 02/14/2025 5:37 PM EST 02/14/2025 5:41 PM EST us Generic External Data Provider LAB BLOOD ORDERAB LES Final Result [facility] [address] [place], [place] [phone] * (ABNORMAL) CBC auto differential (02/14/2025 5:37 PM EST) White Blood Count 5.5 4.8 - 10.8 X10*3/uL [facility] Red Blood Count 4.97 4.20 - 5.50 X10*6/uL [facility] Hemoglobin 14.5 12.0 - 16.0 g/dl [facility] Hematocrit 42.4 37.0 - 47.0 % [facility] Mean Corpuscular Volume 85.3 80.0 - 98.0 fL [facility] Mean Corpuscular Hemoglobin 29.2 27.0 - 33.0 pg [facility] Mean Corpuscular HGB Conc 34.2 31.0 - 35.0 g/dl [facility] Red Cell Distribution Width 12.2 11.0 - 16.0 % [facility] Platelet Count 295 160 - 400 X10*3/uL [facility] Mean Platelet Volume 9.1(L) 9.4 - 12.3 fL [facility] Neutrophils Percent Auto 59.6 45 - 73 % [facility] Imm Gran Pct Auto 0.2 0.0 - 0.4 % [facility] Lymphocytes Percent Auto 30.2 20 - 40 % [facility] Monocytes Percent Auto 8.4 2 - 11 % [facility] Eosinophils Percent Auto 0.7 0 - 4 % [facility] Basophils Percent Auto 0.9 0 - 2 % [facility] NRBC Pct Auto 0.0 0.0 - 0.2 /100WBC [facility] Neutrophils Absolute Auto 3.3 2.0 - 8.3 x10*3/uL [facility] Imm Gran Abs Auto 0.01 0.00 - 0.03 X10*3/uL [facility] Lymphocytes Absolute Auto 1.7 1.2 - 4.9 X10*3/uL [facility] Monocytes Absolute Auto 0.5 0.1 - 1.2 X10*3/uL [facility] Eosinophils Absolute Auto 0.0 0.0 - 0.4 X10*3/uL [facility] Basophils Absolute Auto 0.1 0.0 - 0.2 X10*3/uL [facility] NRBC Abs Auto 0.000 0.0 - 0.012 X10*3/uL [facility] 02/14/2025 5:37 PM EST 02/14/2025 5:41 PM EST us Generic External Data Provider LAB BLOOD ORDERAB LES Final Result [facility] [address] [place] [phone] documented in this encounter Visit Diagnoses Not on filedocumented in this encounter Additional Health Concerns Active Problems Noted Date Diagnosed Date Help patients manage their type 2 diabetes 02/08 Weekly blood pressure task 02/08/2025 Help patients manage their type 2 diabetes 02/08 Patient has chronic kidney disease 02/08/2025 Weekly blood pressure task 02/08/2025 Patient has chronic kidney disease 02/08/2025 Assessment Noted Time PHQ-9 Depression Total Score: 12 025 1:09 PM EDT documented as of this encounter Care Teams Director Of Safety Relationship Specialty Start Date End Date Flor Jacinto FNP [address] [place] [phone] PCP - General Family Medicine 08/13/22 Elder Wheatley FNP [address] [place] [address] Nurse Practitioner Family Medicine 02/10/23 Marisela Bowling Welding TechnicianSales Broker 08/06/23 documented as of this encounter
[2025-02-15] VITALS (12 sets, daily range): BP systolic 105–145; BP diastolic 70–94; PULSE 61–75; RESP 15–18; TEMP 36–36.6; O2SAT 94–100; BMI 23.2
--- NOTE | 2025-02-15 | EEG_ITS ---
History: This is a 54-year-old female with past medical history fibromyalgia, carpal tunnel syndrome, osteoarthritis, hypertension, palpitations on Holter monitor 2023, GERD, prediabetes on Trulicity, hepatic steatosis, psoriatic arthritis on Cosentyx, generalized anxiety with panic attacks, multiple back surgeries last was in 2022/discectomy, right knee meniscal repair was brought in by ambulance after having a witnessed possible seizure in the parking lot at [facility]. Bystander called 911 and patient received immediate treatment. Per bystander patient was going in circles with her cart and then fell to the ground. Patient appeared to be postictal per EMS and does not recall what happened after she was approaching her car. Patient stated that she did feel dizzy. Patient denies being on blood thinners or aspirin. Patient reports that she is on Trulicity, 3 mg weekly injected on Sundays and only ate a bowl of fruity popeye at 10:00 and had no lunch. This occurrence took place approximately 16:30. Patient denies any history of seizure activity or syncopal episodes. Patient does have intermittent episodes of dizziness. Patient was following with Cardiology in the past for palpitations and was on a Holter monitor and was cleared and now follows with Cardiology yearly. Currently patient denies any nausea, vomiting, abdominal pain, chest pain, shortness of breath at rest or with exertion. Patient was surprised to learn that she would be admitted and an explanation provided as we are considering syncopal episode versus seizure activity versus hypoglycemia versus arrhythmia. MRI of the brain shows a right parietal area of encephalomalacia measuring 2.8 x 1.4 x 4 cm with some underlying gliosis of the cortex. She gives a history of falling out of the 3rd floor balcony at age 9 and having head trauma and staying in the hospital in a coma for about 12 days. Medication: fexofenadine, hydroxyzine HCl, albuterol sulfate, aerosol inhaler (Ventolin HFA), bupropion HCl, dulaglutide, ondansetron, pantoprazole, polyethylene glycol, rosuvastatin, tizanidine Technical Description Photic Stimulation: completed Hyperventilation: omitted Behavioral State: pleasant State of Consciousness: awake and sleep Skull Defect: none Sedation: none Handedness: right Duration: 23 min 13 sec Operational Communication Chief Comments: Last Meal: unknown Time / date of last symptom: 02/14/25 Description: This is a 16 channel EEG with an EKG lead. Patient is reported awake and asleep during the tracing. Background EEG rhythm is mixed theta beta with occasional somewhat asymmetric right hemispheric slowing. No definite sharp waves or spikes are noted. Photic stimulation did not produce any significant driving. Hyperventilation was not performed. Cardiac lead did not reveal any significant abnormality. Impression: Mildly abnormal EEG suggestive of right hemispheric structural dysfunction with no definite epileptic discharges. With above history, I recommend ambulatory 48 hour EEG for better definition. MTDD
--- NOTE | 2025-02-15 00:10 | PC.NURSE ---
assumed care of this Pt at 2300.
--- NOTE | 2025-02-15 00:21 | PC.NURSE ---
This typewriter aligner assumed care of this Pt at 2300. Pt A&Ox3, reports 8/10 all over body pain.
[2025-02-15] MEDS: 0.9 % Sodium Chloride Flush 3 ML SYRINGE IVFLUSH ×4 (00:24→21:39)
[2025-02-15 03:57] LABS: MANUAL DIFF FLAG NO
[2025-02-15 03:58] LABS: Hematocrit 41.4 % (37.0-47.0); Hemoglobin 14.1 g/dl (12.0-16.0); Imm Gran Abs Auto 0.02 X10*3/uL (0.00-0.03); Imm Gran Pct Auto 0.2 % (0.0-0.4); Lymphocytes Absolute Auto 2.1 X10*3/uL (1.2-4.9); Mean Corpuscular HGB Conc 34.1 g/dl (31.0-35.0); Mean Corpuscular Hemoglobin 29.1 pg (27.0-33.0); Mean Corpuscular Volume 85.4 fL (80.0-98.0); NRBC Abs Auto 0.000 X10*3/uL (0.0-0.012); NRBC Pct Auto 0.0 /100WBC (0.0-0.2); Platelet Count 305 X10*3/uL (160-400); Red Blood Count 4.85 X10*6/uL (4.20-5.50); White Blood Count 8.4 X10*3/uL (4.8-10.8)
[2025-02-15 04:22] LABS: Alanine Aminotransferase 18 U/L (0-31); Albumin Level 4.3 g/dL (3.5-5.0); Alkaline Phosphatase 90 U/L (39-117); Anion Gap 13 (12-20); Aspartate Amino Transferase 28 U/L (5-31); Blood Urea Nitrogen 5 mg/dL (9-16); Calcium 8.9 mg/dL (8.4-10.2); Carbon Dioxide 27 mmol/L (22-29); Chloride 106 mmol/L (96-108); Cholesterol 198 mg/dL (<200); Creatinine Clr Calc Pharmacy 111.0; Estimated Glomerular Filt Rate > 60; HDL Cholesterol 59 mg/dL (>40); Potassium 3.2 mmol/L (3.3-5.1); Sodium 143 mmol/L (135-145); Total Protein 7.2 g/dL (6.5-8.0); Triglycerides 143 mg/dL (<150)
[2025-02-15 09:01] LABS: Appearance Urine Hazy; Glucose Urine UA Negative (Negative); PH 6.5 (5.0-9.0); Specific Gravity - Urine 1.025 (1.005-1.025); UMIC TRIGGER UACC YES
--- NOTE | 2025-02-15 09:14 | PC.NURSE ---
Pt alert and oriented, breathing even and unlabored. pt ambulated steady with no issues, Pt only able to give small urine sample at this time. Pt took her morning meds and ate breakfast. Reporting baseline chronic pain. VSS. Plan of care ongoing.
--- NOTE | 2025-02-15 09:59 | HO.PM.IMPN ---
Subjective Subjective Date of Service: 02/15/25 Interval History: The patient was seen and evaluated at [facility]. At the time of the evaluation she didn't endorse any acute concerns except mild right knee discomfort occurring from the incident on 02/14/25. Physical Exam Vital Signs: Vital Signs: Last Vital Signs Temp 97.8 F 02/15/25 07:46 Pulse 68 02/15/25 07:46 Resp 16 02/15/25 07:46 BP 108/81 02/15/25 07:46 Pulse Ox 100 02/15/25 07:46 O2 Del Method Room Air 02/15/25 07:46 BMI result Body Mass Index 27.3 Const: General: cooperative and no acute distress Resp: Effort & Inspection: normal respiratory effort and able to speak in complete sentences Cardio: Rate: regular rate Rhythm: regular rhythm GI: Other: (+) BS, soft, NT, ND Neuro: Other: No focal neurological deficits at this time Extrem: Other: right lateral knee mild discomfort with palpation Objective Data Active Medications Acetaminophen (Acetaminophen 325 Mg Tablet) 650 mg PO Q6H PRN PRN Reason: Pain, Mild 1-3,fever,headache Albuterol/Ipratropium (Albuterol/Iprat 2.5/0.5mg 3 Ml Ampul.Neb) 3 ml INHALE Q4H PRN PRN Reason: Shortness of Breath/Wheezing Atorvastatin Calcium (Atorvastatin Calcium 80 Mg Tablet) 80 mg PO DAILY [facility] Last Admin: 02/15/25 08:59 Dose: 80 mg Documented By: YU Calcium Carbonate (Calcium Carbonate 750 Mg Tab.Chew) 750 mg PO Q4H PRN PRN Reason: Heartburn Hydroxyzine HCl (Hydroxyzine Hcl 25 Mg Tablet) 25 mg PO Q6H PRN PRN Reason: Anxiety Last Admin: 02/15/25 02:50 Dose: 25 mg Documented By: MELISA Potassium Chloride (Potassium Chloride/H20) 10 meq in 100 mls @ 100 mls/hr IV Q1H [facility] Stop: 02/15/25 12:59 Levetiracetam (Levetiracetam 500 Mg Tablet) 500 mg PO BID [facility] Last Admin: 02/15/25 08:59 Dose: 500 mg Documented By: YU Magnesium Hydroxide (Milk Of Magnesia 30 Ml Oral.Susp) 30 ml PO DAILY PRN PRN Reason: Constipation Melatonin (Melatonin 3 Mg Tablet) 6 mg PO BEDTIME PRN PRN Reason: Insomnia Omeprazole (Omeprazole 20 Mg Capsule.Dr) 20 mg PO BID@0630,1630 [facility] Last Admin: 02/15/25 05:53 Dose: Not Given Documented By: DONNIE Non-Admin Reason: Patient Refused Polyethylene Glycol (Polyethylene Glycol 3350 17 Gm Powd.Pack) 17 gm PO DAILY PRN PRN Reason: Constipation Polyethylene Glycol (Polyethylene Glycol 3350 17 Gm Powd.Pack) 17 gm PO DAILY [facility] Last Admin: 02/15/25 09:00 Dose: Not Given Documented By: YU Non-Admin Reason: Patient Refused Senna (Sennosides 8.6 Mg Tablet) 17.2 mg PO BEDTIME [facility] Last Admin: 02/14/25 21:57 Dose: Not Given Documented By: CHE Non-Admin Reason: Patient Refused Sodium Chloride (0.9 % Sodium Chloride Flush 3 Ml Syringe) 3 ml IVFLUSH QSHIFT [facility] Last Admin: 02/15/25 07:47 Dose: 3 ml Documented By: YU Tizanidine HCl (Tizanidine Hcl 4 Mg Tablet) 4 mg PO TID PRN PRN Reason: Muscle Spasm Last Admin: 02/15/25 02:50 Dose: 4 mg Documented By: LUIS AANX Labs 02/15/25 03:11 02/15/25 03:11 Labs: Laboratory Results - last 24 hr 02/14/25 02/14/25 02/15/25 17:37 20:05 03:11 MCV 85.3 85.4 MCH 29.2 29.1 MCHC 34.2 34.1 RDW 12.2 12.3 Plt Count 295 305 MPV 9.1 L 9.4 Immature Gran % (Auto) 0.2 0.2 Neut % (Auto) 59.6 63.5 Lymph % (Auto) 30.2 24.9 Evans % (Auto) 8.4 10.4 Eos % (Auto) 0.7 0.4 Baso % (Auto) 0.9 0.6 Lymph # (Auto) 1.7 2.1 Evans # (Auto) 0.5 0.9 Eos # (Auto) 0.0 0.0 Baso # (Auto) 0.1 0.1 Abs Immat Gran (auto) 0.01 0.02 Absolute Neuts (auto) 3.3 5.3 Absolute Nucleated RBC 0.000 0.000 Nucleated RBC % (auto) 0.0 0.0 Anion Gap 15 13 Estim Creat Clear Calc 107.6 111.0 Estimated GFR > 60 > 60 Random Glucose 93 81 Estimat Average Glucose 123 Hemoglobin A1c % 5.9 Lactic Acid 2.8 H* Lactic Acid F/U @ 2Hr 1.8 Calcium 9.3 D 8.9 Magnesium 2.3 Total Bilirubin 0.3 0.4 Direct Bilirubin 0.1 AST 35 H 28 ALT 19 18 Alkaline Phosphatase 93 90 Total Creatine Kinase 88 Troponin I High Sens < 2.7 Total Protein 7.8 7.2 Albumin 4.5 4.3 Triglycerides 143 Cholesterol 198 LDL Cholesterol, Calc 111 H HDL Cholesterol 59 Lipase 37 TSH 1.12 Urine Color Urine Appearance Urine pH Ur Specific [place] Urine Protein Urine Glucose (UA) Urine Ketones Urine Blood Urine Nitrite Ur Leukocyte Esterase Urine RBC Urine WBC Ur Squamous Epith Cells Urine Bacteria Hyaline Casts Influenza Type A (PCR) NEGATIVE Influenza Type B (PCR) NEGATIVE RSV RNA Qual (PCR) NEGATIVE SARS-CoV-2 RNA (RT-PCR) NEGATIVE 02/15/25 08:55 MCV MCH MCHC RDW Plt Count MPV Immature Gran % (Auto) Neut % (Auto) Lymph % (Auto) Evans % (Auto) Eos % (Auto) Baso % (Auto) Lymph # (Auto) Evans # (Auto) Eos # (Auto) Baso # (Auto) Abs Immat Gran (auto) Absolute Neuts (auto) Absolute Nucleated RBC Nucleated RBC % (auto) Anion Gap Estim Creat Clear Calc Estimated GFR Random Glucose Estimat Average Glucose Hemoglobin A1c % Lactic Acid Lactic Acid F/U @ 2Hr Calcium Magnesium Total Bilirubin Direct Bilirubin AST ALT Alkaline Phosphatase Total Creatine Kinase Troponin I High Sens Total Protein Albumin Triglycerides Cholesterol LDL Cholesterol, Calc HDL Cholesterol Lipase TSH Urine Color Yellow Urine Appearance Hazy Urine pH 6.5 Ur Specific [place] 1.025 Urine Protein 30 (1+) H Urine Glucose (UA) Negative Urine Ketones Negative Urine Blood Negative Urine Nitrite Negative Ur Leukocyte Esterase Large (3+) H Urine RBC TNP Urine WBC TNP Ur Squamous Epith Cells TNP Urine Bacteria TNP Hyaline Casts TNP Influenza Type A (PCR) Influenza Type B (PCR) RSV RNA Qual (PCR) SARS-CoV-2 RNA (RT-PCR) Assessment and Plan (1) New onset seizure: Status: Acute (2) Syncope and collapse: Status: Acute (3) Hypokalemia: Status: Acute (4) Right knee pain: Status: Acute Plan Syncope suspected to be new onset seizure - TTE to assess structure and LV function:pending - Neurology expertise appreciated: Routine EEG pending - Keppra 500 mg BID continued - Continue seizure precautions Right knee pain - Tylenol as needed Hypokalemia of unclear etiology; patient reported low serum potassium on recent outpatient laboratory results.? - Parental potassium transitioned to oral due to discomfort with IV administration (10 mEq IV and 20 mEq oral) - Repeat serum potassium ordered Quality Stroke Does the patient have a stroke diagnosis?: No Reason for No Anti-thrombotic by Day Two: Drug treatment not indicated VTE Prior VTE?: No VTE Risk Level:: Medical - moderate - high VTE Device Contraindication: N/A - Device Ordered VTE Drug Contraindication: N/A - Med Ordered
[2025-02-15] MEDS: Potassium Chloride/H20 10 MEQ/100 ML PIGGYBACK 100 MEQ IV (10:50)
--- NOTE | 2025-02-15 11:58 | PM.NEUROCN ---
History of Present Illness Data of Consult Service Date: 02/15/25 Primary Care Provider: [facility] Reason for consult: Seizure vs syncope This is a 54-year-old female with past medical history fibromyalgia, carpal tunnel syndrome, osteoarthritis, hypertension, palpitations on Holter monitor 2023, GERD, prediabetes on Trulicity, hepatic steatosis, psoriatic arthritis on Cosentyx, generalized anxiety with panic attacks, multiple back surgeries last was in 2022/discectomy, right knee meniscal repair was brought in by ambulance after having a witnessed possible seizure in the parking lot at [facility]. Bystander called 911 and patient received immediate treatment. Per bystander patient was going in circles with her cart and then fell to the ground. Patient appeared to be postictal per EMS and does not recall what happened after she was approaching her car. Patient stated that she did feel dizzy. Patient denies being on blood thinners or aspirin. Patient reports that she is on Trulicity, 3 mg weekly injected on Sundays and only ate a bowl of fruity popeye at 10:00 and had no lunch. This occurrence took place approximately 16:30. Patient denies any history of seizure activity or syncopal episodes. Patient does have intermittent episodes of dizziness. Patient was following with Cardiology in the past for palpitations and was on a Holter monitor and was cleared and now follows with Cardiology yearly. Currently patient denies any nausea, vomiting, abdominal pain, chest pain, shortness of breath at rest or with exertion. Patient was surprised to learn that she would be admitted and an explanation provided as we are considering syncopal episode versus seizure activity versus hypoglycemia versus arrhythmia. MRI of the brain shows a right parietal area of encephalomalacia measuring 2.8 x 1.4 x 4 cm with some underlying gliosis of the cortex. She gives a history of falling out of the 3rd floor balcony at age 9 and having head trauma and staying in the hospital in a coma for about 12 days. [facility] Past Medical History Medical History Menopause Hepatic steatosis Psoriatic arthritis Palpitations GERD (gastroesophageal reflux disease) Fatty liver Chronic pain syndrome Radiculopathy, lumbar region Disc degeneration, lumbar Postlaminectomy syndrome of lumbosacral region Osteoarthritis of left shoulder Fibromyalgia Arthritis Family History Family History Mother No problems noted. Mother Advanced cirrhosis of liver Diabetes Low blood pressure Colon polyps Father Aneurysm Sister No problems noted. Sister No problems noted. Brother No problems noted. Son No problems noted. Son No problems noted. Daughter No problems noted. Surgical History Surgical History Hx of total knee replacement Hx of straightening of nasal septum History of back surgery Social History Social History Are you a primary healthcare project manager to a significant other at home: No Do you presently have visiting nurse or other home services: No Alcohol intake: former Year quit: 7 Comment: counts correct Patient Tobacco Use Status: Former Tobacco user Years Smoked: 10 YEARS Smoked in Last 30 Days: No e-Cigarette/Vaping Use: Never Used Use of substances other than those prescribed or required for medical reasons: No Advance Directives: No Advance Directives Information Provided: No Nutrition Risks: No Nutritional Risk Current occupational status: employed 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 Travel History Ebola Risk: Travel/Contact With Anyone From Affected Area/s: No Has Patient Experienced Ebola Symptoms: No Meds Allergies Allergy/AdvReac Type Severity Reaction Status Date / Time environmental allergies Allergy Intermediate hives/eye Verified 02/14/25 17:05 itchiness house dust mite Allergy Mild sneezing, Verified 02/14/25 17:05 watery eyes dog dander (DOG) Allergy Unknown HIVES Verified 02/14/25 17:05 Active Medications: Current Medications Acetaminophen (Acetaminophen 325 Mg Tablet) 650 mg PO Q6H PRN PRN Reason: Pain, Mild 1-3,fever,headache Albuterol/Ipratropium (Albuterol/Iprat 2.5/0.5mg 3 Ml Ampul.Neb) 3 ml INHALE Q4H PRN PRN Reason: Shortness of Breath/Wheezing Atorvastatin Calcium (Atorvastatin Calcium 80 Mg Tablet) 80 mg PO DAILY [facility] Last Admin: 02/15/25 08:59 Dose: 80 mg Calcium Carbonate (Calcium Carbonate 750 Mg Tab.Chew) 750 mg PO Q4H PRN PRN Reason: Heartburn Hydroxyzine HCl (Hydroxyzine Hcl 25 Mg Tablet) 25 mg PO Q6H PRN PRN Reason: Anxiety Last Admin: 02/15/25 02:50 Dose: 25 mg Levetiracetam (Levetiracetam 500 Mg Tablet) 500 mg PO BID [facility] Last Admin: 02/15/25 08:59 Dose: 500 mg Magnesium Hydroxide (Milk Of Magnesia 30 Ml Oral.Susp) 30 ml PO DAILY PRN PRN Reason: Constipation Melatonin (Melatonin 3 Mg Tablet) 6 mg PO BEDTIME PRN PRN Reason: Insomnia Omeprazole (Omeprazole 20 Mg Capsule.Dr) 20 mg PO BID@0630,1630 [facility] Last Admin: 02/15/25 05:53 Dose: Not Given Polyethylene Glycol (Polyethylene Glycol 3350 17 Gm Powd.Pack) 17 gm PO DAILY PRN PRN Reason: Constipation Polyethylene Glycol (Polyethylene Glycol 3350 17 Gm Powd.Pack) 17 gm PO DAILY [facility] Last Admin: 02/15/25 09:00 Dose: Not Given Potassium Chloride (Potassium Chloride Packet 20 Meq Packet) 20 meq PO ONCE ONE Stop: 02/15/25 11:54 Senna (Sennosides 8.6 Mg Tablet) 17.2 mg PO BEDTIME [facility] Last Admin: 02/14/25 21:57 Dose: Not Given Sodium Chloride (0.9 % Sodium Chloride Flush 3 Ml Syringe) [facility] Last Admin: 02/15/25 07:47 Dose: 3 ml Tizanidine HCl (Tizanidine Hcl 4 Mg Tablet) 4 mg PO TID PRN PRN Reason: Muscle Spasm Last Admin: 02/15/25 02:50 Dose: 4 mg Home Medications ?Medication ?Instructions ?Recorded ?Confirmed ?Last Taken ?Type fexofenadine 180 mg tablet 180 mg PO DAILY 07/23/21 02/14/25 Unknown History hydroxyzine HCl 25 mg tablet 25 mg PO Q6H PRN anxiety 04/15/22 02/14/25 Unknown History albuterol sulfate 90 mcg/actuation 2 puff inhalation Q6H PRN wheezing 05/12/23 02/14/25 Unknown History aerosol inhaler (Ventolin HFA) bupropion HCl 300 mg 24 hr tablet, 300 mg PO DAILY 02/14/25 02/14/25 Unknown History extended release dulaglutide 3 mg/0.5 mL 3 mg subcut QWEEK 02/14/25 02/14/25 Unknown History subcutaneous pen injector (Trulicity) ondansetron 4 mg disintegrating 4 mg Q6H PRN nausea 02/14/25 02/14/25 Unknown History tablet pantoprazole 20 mg tablet,delayed 20 mg PO BID 02/14/25 02/14/25 Unknown History release polyethylene glycol 3350 17 17 g PO DAILY 02/14/25 02/14/25 Unknown History gram/dose oral powder rosuvastatin 20 mg tablet 20 mg PO DAILY 02/14/25 02/14/25 Unknown History tizanidine 4 mg tablet 4 mg PO TID PRN muscle spasm 02/14/25 02/14/25 Unknown History Physical Exam Vital Signs: Vital Signs: Last Vital Signs Temp 97.8 F 02/15/25 07:46 Pulse 68 02/15/25 07:46 Resp 16 02/15/25 07:46 BP 108/81 02/15/25 07:46 Pulse Ox 100 02/15/25 07:46 O2 Del Method Room Air 02/15/25 07:46 BMI result Body Mass Index 27.3 Neuro: Other: She is alert and oriented with normal intellectual functions. Her cranial nerves 2-12 are normal. Muscle tone and strength are normal in all 4 extremities. Deep tendon reflexes symmetrical and plantar responses are flexor. Results Labs 02/15/25 03:11 02/15/25 03:11 Labs: Short CBC 02/14/25 02/15/25 Range/Units 17:37 03:11 WBC 5.5 8.4 (4.8-10.8) X10*3/uL Hgb 14.5 14.1 (12.0-16.0) g/dl Hct 42.4 41.4 (37.0-47.0) % Plt Count 295 305 (160-400) X10*3/uL BMP 02/14/25 02/15/25 17:37 03:11 Sodium 143 143 Potassium 3.6 3.2 L Chloride 106 106 Carbon Dioxide 26 27 BUN 6 L 5 L Creatinine 0.64 0.62 Calcium 9.3 D 8.9 Cardiac Enzymes 02/14/25 Range/Units 17:37 Total Creatine Kinase 88 (26-140) U/L Liver Function 02/14/25 02/15/25 Range/Units 17:37 03:11 Total Bilirubin 0.3 0.4 (0.0-1.0) mg/dL Direct Bilirubin 0.1 (0.0-0.5) mg/dL AST 35 H 28 (5-31) U/L ALT 19 18 (0-31) U/L Alkaline Phosphatase 93 90 (39-117) U/L Albumin 4.5 4.3 (3.5-5.0) g/dL Urine 02/15/25 Range/Units 08:55 Urine Color Yellow Urine Appearance Hazy Urine pH 6.5 (5.0-9.0) Ur Specific [place] 1.025 (1.005-1.025) Urine Protein 30 (1+) H (Neg-Trace) mg/dL Urine Glucose (UA) Negative (Negative) mg/dL Assessment and Plan (1) New onset seizure: Status: Acute Plan I believe she had a new onset of seizure which is probably related to 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 There is no previous history of seizures. There was no preceding aura or symptoms. There was a prolonged postictal period. I have personally reviewed her imaging studies. Recommendation EEG. Start levetiracetam 500 mg b.i.d. Procedures Date of Service Date of Service: 02/15/25
[2025-02-15] MEDS: Potassium Chloride Packet 20 MEQ PACKET PO (12:13)
--- NOTE | 2025-02-15 12:35 | MHC.CM.PN ---
Patient lives alone in an apartment and her Daughter will transport at dc. Home/self care is Patient's goal and CM has initiated and will follow for dc planning. PCP is Flor Jacinto at [facility].
[2025-02-15 13:23] LABS: Appearance Urine Clear; Glucose Urine UA Negative (Negative); PH 7.5 (5.0-9.0); Specific Gravity - Urine 1.010 (1.005-1.025); UMIC TRIGGER UA YES
[2025-02-15 13:31] LABS: Cannabinoid Screen Urine Not Detected (Not Detect)
--- NOTE | 2025-02-15 14:36 | HO.NURTONUR ---
PER RN: Alert and oriented, ambulatory Admit: seizure new onset. Neuro consult Plan: EEG and Keppra IV: 20G in right hand Pills whole Reg diet, feeds self Seizure precautions in place Chronic pain from fibromyalgia, treating with PRN PER MD: Patient is a 54-year-old female with past medical history fibromyalgia, carpal tunnel syndrome, osteoarthritis, hypertension, palpitations on Holter monitor 2023, GERD, prediabetes on Trulicity, hepatic steatosis, psoriatic arthritis on Cosentyx, generalized anxiety with panic attacks, multiple back surgeries last was in 2022/diskectomy, right knee meniscal repair was brought in by ambulance after having a witnessed possible seizure in the parking lot at [facility]. Bystander called 911 and patient received immediate treatment. Per bystander patient was going in circles with her cart and then fell to the ground. Patient appeared to be postictal per EMS and does not recall what happened after she was approaching her car. Patient stated that she did feel dizzy. Patient denies being on blood thinners or aspirin. Patient reports that she is on Trulicity, 3 mg weekly injected on Sundays and only ate a bowl of fruity popeye at 10:00 and had no lunch. This occurrence took place approximately 16:30. Patient denies any history of seizure activity or syncopal episodes. Patient does have intermittent episodes of dizziness. Patient was following with Cardiology in the past for palpitations and was on a Holter monitor and was cleared and now follows with Cardiology yearly. Currently patient denies any nausea, vomiting, abdominal pain, chest pain, shortness of breath at rest or with exertion. Patient was surprised to learn that she would be admitted and an explanation provided as we are considering syncopal episode versus seizure activity versus hypoglycemia versus arrhythmia. With education patient understood and agreed to be admitted. Workup in the ED included CT of the head which noted possible arachnoid cyst in the right post frontal area. Verbiage included asymmetric CSF density. EKG normal sinus rhythm with a QTC of 479. Lactic acid 2.8, repeat pending. Total CK 88. AST 35. Glucose 93. TSH 1.12. UA pending. Viral testing negative for COVID, flu and RSV.
--- NOTE | 2025-02-15 15:48 | PC.NURSE ---
Pt currently undegoing bedside EEG
[2025-02-16] VITALS (7 sets, daily range): BP systolic 123–170; BP diastolic 81–111; PULSE 60–95; RESP 18; TEMP 36.4–37.2; O2SAT 96–99
--- NOTE | 2025-02-16 07:00 | CA_ITS ---
Transthoracic Echocardiogram Patient (Last, First, Middle): Yumiko Pugh, Gender: Female Date of : 1970 Age: 54 Procedure Date: 02/16/2025 Procedure Type: Transthoracic Echocardiogram [place] [facility] [place]: 167.64 cm Weight: 76.66 kg BSA: 1.86 m2 Heart Rate: 65 bpm BP: 120 / 90 mmHg Manager Mobility: EJNIFER Referring MD: Shawna Calle [facility] Contracts Analyst: Mohit Vargas MD Symptoms: syncope Study Quality: Adequate ECG Rhythm: Sinus Conclusions: - 1. Normal LV ejection fraction with grade 1 diastolic dysfunction 2. Normal cardiac valvular Dopplers 3. No gross pericardial effusion Findings Left Ventricle Normal left ventricular size, thickness, and systolic function. The visually estimated ejection fraction is between 65-70%. Spectral Doppler is indicative of an impaired relaxation filling pattern. E/E prime ratio is <8, consistent with normal filling pressures. Evidence suggests grade I (mild) diastolic dysfunction. Right Ventricle Normal right ventricular cavity size and systolic function. Atria Both atria are normal in size. There is no evidence of interatrial shunt. Aortic Valve Normal aortic valve structure and function. There is no aortic valve stenosis. There is no aortic valve regurgitation. Mitral Valve Normal mitral valve structure and function. There is trace mitral valve regurgitation. There is no mitral valve stenosis. Pulmonic Valve The pulmonic valve is likely normal. There is trace pulmonic valve regurgitation. Tricuspid Valve Normal tricuspid valve structure. Tricuspid regurgitation envelope is inadequate for calculation of right ventricular systolic pressure. Normal right atrial pressure. Great Vessels All visible segments of the aorta are normal in size. The pulmonary artery was not well visualized. There is no dilatation of the ascending aorta measuring 3.20 cm. Venous The inferior vena cava is normal in size and collapses greater than 50% with inspiration. Pericardium/Pleural There is no evidence of pericardial effusion. Prior Study Comparison No significant change compared to prior study dated: 01/06/2022. Measurements 2D Linear Measurements IVSd: 1.11 0.6-0.9/0.6-1.0 cm LVIDd: 4.51 3.9-5.3/4.2-5.9 cm LVIDd Index: 2.42 2.4-3.2/2.2-3.1 cm/m2 LVIDs: 2.70 2.0-3.6 cm LVPWd: 0.99 0.7-1.1 cm LA Diam: 3.50 2.7-3.8/3.0-4.0 cm LAIDs Index: 1.88 1.5-2.3 cm/m2 LV Mass: 205.09 67-162/88-224 g LV Mass Index: 110.26 43-95/49-115 g/m2 LVOT Diam: 2.10 3.0+(-)1.3 cm 2D Systolic Function EF 4C: 67.00 >55% EF 2C: 66.60 >55% EF BiP: 67.00 >55% Mitral Valve MV Pk E: 0.56 MV PK A: 0.54 MV Decel Time: 232.00 E/A: 1.00 E'Lateral: 8.81 E'Medial: 6.20 E/E' Med: 9.00 E/E' Lat: 6.40 PHT: 68.00 MVA PHT: 3.24 Decel Hubbard: 2.42 Aortic Valve AoV Pk Sotero: 1.08 AoV Pk Grad: 5.00 FRANNY: 3.19 LVOT LVOT Pk Sotero: 0.99 LVOT Mn Sotero: 0.64 LVOT VTI: 0.20 LVOT Pk Grad: 4.00 LVOT Mn Grad: 2.00 LVOT Diam: 2.10 LVOT Area: 3.46 Diastolic Function MV Pk E: 0.56 MV Pk A: 0.54 E/A: 1.00 E'Medial: 6.20 E/E' Med: 9.00 E' Laterial: 8.81 E/E' Lat: 6.40 Right Ventricle TAPSE (mm): 22.80 TVS' Sotero: 21.80 Great Vessels Aorta Sinus of Valsalva: 3.20 2.0-3.5 cm Ao Asc: 3.20 2.1-3.4 cm Ao Arch: 2.90 Ao Desc: 2.10 Pulmonary Veins Pulm Vein S/D 0.80 Pulmonary Valve PV Pk Sotero: 0.96 Peak PV Grad: 4.00 Updated in Other Vendor System with Status of Final Mohit Vargas MD electronically signed on 02/16/2025 1:10:29 PM with status of Final
--- NOTE | 2025-02-16 07:26 | HO.PM.IMPN ---
Subjective Subjective Date of Service: 02/16/25 Physical Exam Vital Signs: Vital Signs: Last Vital Signs Temp 97.6 F 02/16/25 03:16 Pulse 60 02/16/25 03:16 Resp 18 02/16/25 03:16 BP 146/86 H 02/16/25 03:16 Pulse Ox 99 02/16/25 03:16 O2 Del Method Room Air 02/16/25 03:16 BMI result Body Mass Index 23.2 Objective Data Active Medications Acetaminophen (Acetaminophen 325 Mg Tablet) 650 mg PO Q6H PRN PRN Reason: Pain, Mild 1-3,fever,headache Last Admin: 02/15/25 12:13 Dose: 650 mg Documented By: YU Albuterol/Ipratropium (Albuterol/Iprat 2.5/0.5mg 3 Ml Ampul.Neb) 3 ml INHALE Q4H PRN PRN Reason: Shortness of Breath/Wheezing Atorvastatin Calcium (Atorvastatin Calcium 80 Mg Tablet) 80 mg PO DAILY [facility] Last Admin: 02/15/25 08:59 Dose: 80 mg Documented By: YU Calcium Carbonate (Calcium Carbonate 750 Mg Tab.Chew) 750 mg PO Q4H PRN PRN Reason: Heartburn Hydroxyzine HCl (Hydroxyzine Hcl 25 Mg Tablet) 25 mg PO Q6H PRN PRN Reason: Anxiety Last Admin: 02/15/25 02:50 Dose: 25 mg Documented By: MELISA Levetiracetam (Levetiracetam 500 Mg Tablet) 500 mg PO BID [facility] Last Admin: 02/15/25 21:37 Dose: 500 mg Documented By: SHILO Magnesium Hydroxide (Milk Of Magnesia 30 Ml Oral.Susp) 30 ml PO DAILY PRN PRN Reason: Constipation Melatonin (Melatonin 3 Mg Tablet) 6 mg PO BEDTIME PRN PRN Reason: Insomnia Omeprazole (Omeprazole 20 Mg Capsule.Dr) 20 mg PO BID@0630,1630 [facility] Last Admin: 02/16/25 05:35 Dose: 20 mg Documented By: SHILO Polyethylene Glycol (Polyethylene Glycol 3350 17 Gm Powd.Pack) 17 gm PO DAILY PRN PRN Reason: Constipation Polyethylene Glycol (Polyethylene Glycol 3350 17 Gm Powd.Pack) 17 gm PO DAILY [facility] Last Admin: 02/15/25 09:00 Dose: Not Given Documented By: YU Non-Admin Reason: Patient Refused Senna (Sennosides 8.6 Mg Tablet) 17.2 mg PO BEDTIME [facility] Last Admin: 02/15/25 21:37 Dose: 17.2 mg Documented By: SHILO Sodium Chloride (0.9 % Sodium Chloride Flush 3 Ml Syringe) 3 ml IVFLUSH QSHIFT [facility] Last Admin: 02/15/25 21:39 Dose: 3 ml Documented By: SHILO Tizanidine HCl (Tizanidine Hcl 4 Mg Tablet) 4 mg PO TID PRN PRN Reason: Muscle Spasm Last Admin: 02/15/25 12:13 Dose: 4 mg Documented By: YU Labs 02/15/25 03:11 02/15/25 03:11 Labs: Laboratory Results - last 24 hr 02/15/25 02/15/25 02/15/25 08:55 12:24 13:13 Hold Purple Top Serum Potassium 3.8 Urine Color Yellow Yellow Urine Appearance Hazy Clear Urine pH 6.5 7.5 Ur Specific Spencer 1.025 1.010 Urine Protein 30 (1+) H Negative Urine Glucose (UA) Negative Negative Urine Ketones Negative Negative Urine Blood Negative Negative Urine Nitrite Negative Negative Ur Leukocyte Esterase Large (3+) H Moderate (2+) H Urine RBC TNP 0-2 Urine WBC TNP 6-10 H Ur Squamous Epith Cells TNP >20 Urine Bacteria TNP 3+ Hyaline Casts TNP 0-2 Urine Opiates Screen Not Detected Ur Buprenorphine Scrn Not Detected Ur Oxycodone Screen Not Detected Urine Methadone Screen Not Detected Urine Fentanyl Screen Not Detected Ur Barbiturates Screen Not Detected Ur Phencyclidine Scrn Not Detected Ur Amphetamines Screen Not Detected U Benzodiazepines Scrn Not Detected Urine Cocaine Screen Not Detected U Marijuana (THC) Screen Not Detected 02/16/25 06:27 Hold Purple Top SEE NOTE Serum Potassium 3.5 Urine Color Urine Appearance Urine pH Ur Specific Spencer Urine Protein Urine Glucose (UA) Urine Ketones Urine Blood Urine Nitrite Ur Leukocyte Esterase Urine RBC Urine WBC Ur Squamous Epith Cells Urine Bacteria Hyaline Casts Urine Opiates Screen Ur Buprenorphine Scrn Ur Oxycodone Screen Urine Methadone Screen Urine Fentanyl Screen Ur Barbiturates Screen Ur Phencyclidine Scrn Ur Amphetamines Screen U Benzodiazepines Scrn Urine Cocaine Screen U Marijuana (THC) Screen Quality Stroke Does the patient have a stroke diagnosis?: No Reason for No Anti-thrombotic by Day Two: Drug treatment not indicated VTE Prior VTE?: No VTE Risk Level:: Medical - moderate - high VTE Device Contraindication: N/A - Device Ordered VTE Drug Contraindication: N/A - Med Ordered
[2025-02-16] MEDS: 0.9 % Sodium Chloride Flush 3 ML SYRINGE IVFLUSH (08:16)
--- NOTE | 2025-02-16 15:45 | P.DS_ITS ---
DS: Providers Provider Date of admission: 02/14/25 19:12 Date of discharge: 02/16/25 Primary care physician: ZOHRA Ledesma Consults: 02/14/25 19:16 Consult to Neurology Routine Consulting Provider: [facility] Reason for consultation: new onset seizure, abn CT scan Has provider been notified: No DS: Diagnosis Discharge Diagnosis (1) New onset seizure: Status: Acute DS: Summary Hospital Course Hospital Course: Chief Complaint: seizure vs syncopal episode witnessed in store Patient is a 54-year-old female with past medical history fibromyalgia, carpal tunnel syndrome, osteoarthritis, hypertension, palpitations on Holter monitor 2023, GERD, prediabetes on Trulicity, hepatic steatosis, psoriatic arthritis on Cosentyx, generalized anxiety with panic attacks, multiple back surgeries last was in 2022/diskectomy, right knee meniscal repair was brought in by ambulance after having a witnessed possible seizure in the parking lot at [facility]. Bystander called 911 and patient received immediate treatment. Per bystander patient was going in circles with her cart and then fell to the ground. Patient appeared to be postictal per EMS and does not recall what happened after she was approaching her car. Patient stated that she did feel dizzy. Patient denies being on blood thinners or aspirin. Patient reports that she is on Trulicity, 3 mg weekly injected on Sundays and only ate a bowl of fruity popeye at 10:00 and had no lunch. This occurrence took place approximately 16:30. Patient denies any history of seizure activity or syncopal episodes. Patient does have intermittent episodes of dizziness. Patient was following with Cardiology in the past for palpitations and was on a Holter monitor and was cleared and now follows with Cardiology yearly. Currently patient denies any nausea, vomiting, abdominal pain, chest pain, shortness of breath at rest or with exertion. Patient was surprised to learn that she would be admitted and an explanation provided as we are considering syncopal episode versus seizure activity versus hypoglycemia versus arrhythmia. With education patient understood and agreed to be admitted. Workup in the ED included CT of the head which noted possible arachnoid cyst in the right post frontal area. Verbiage included asymmetric CSF density. EKG normal sinus rhythm with a QTC of 479. Lactic acid 2.8, repeat pending. Total CK 88. AST 35. Glucose 93. TSH 1.12. UA pending. Viral testing negative for COVID, flu and RSV. Patient currently alert and orientated x3, reporting mild knee pain from the fall. Patient has jeans on and unable to examine the site but we will do x-ray to ensure everything is okay. Patient does have good range of motion and is able to bear weight. Hospital course: The patient was admitted following a witnessed episode in a store parking lot, characterized by walking in circles, collapse, and a prolonged postictal state. There was no prior history of seizures or syncope. Initial evaluation included a CT head, which revealed a possible arachnoid cyst and evidence of right parietal encephalomalacia/gliosis, likely related to remote traumatic brain injury. EKG showed normal sinus rhythm with borderline prolonged QTc. Laboratory studies were unremarkable, including normal glucose and negative viral panel. During hospitalization, the patient remained neurologically stable with no recurrent events. She was started on levetiracetam 500 mg BID for seizure prophylaxis. EEG Mildly abnormal EEG suggestive of right hemispheric structural dysfunction with no definite epileptic discharges. With above history, I recommend ambulatory 48 hour EEG for better definition. Cardiac monitoring did not reveal arrhythmia. Right knee pain from the fall was evaluated with imaging, which showed no acute injury. She needs OP neurology F/up for 48 hours EEG monitoring which is to be done OP setting. Time spent discussing smoking cessation with patient: more than 10 minutes Status at Discharge Functional status at discharge: independent ambulation Overall status at discharge: patient is progressing back to baseline Time Attestation Discharge Coordination Time (in mins): 65 Quality: Safe Use of Opioids Does Pt have an Active Cancer Diagnosis on the Problem List?: Yes Opioid Measure Date for [facility] Report: 01/17/25 Opioid Measure Time for [facility] Report: 15:46 Quality: Stroke Does the patient have a stroke diagnosis?: No Physical Exam Vital Signs: Vital Signs: Last Vital Signs Temp 98 F 02/16/25 15:41 Pulse 64 02/16/25 15:41 Resp 18 02/16/25 15:41 BP 123/81 02/16/25 15:41 Pulse Ox 96 02/16/25 15:41 O2 Del Method Room Air 02/16/25 15:41 BMI result Body Mass Index 23.2 Const: General: cooperative and no acute distress Resp: Effort & Inspection: normal respiratory effort and able to speak in complete sentences Cardio: Rate: regular rate Rhythm: regular rhythm GI: Other: (+) BS, soft, NT, ND Neuro: Other: No focal neurological deficits at this time Extrem: Other: right lateral knee mild discomfort with palpation DS: Data Data Completed and Pending Labs on day of discharge: Laboratory Results - last 24 hr 02/16/25 06:27 Hold Purple Top SEE NOTE Serum Potassium 3.5 Discharge Plan Discharge Anticipated Discharge Date/Time: 02/16/25 15:38 Patient Disposition: Home, Self-Care Discharge Diagnosis: New onset seizure 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, right parietal area of encephalomalacia and gliosis Referrals: Braydon De Leon MD [Physician, Neurology] - 1 Week Flor Jacinto FNP [Primary Care Provider, Medical] - 1 Week Discharge Medications: New levetiracetam 500 mg Tablet 500 mg PO BID 30 Days Qty: 60 3RF polyethylene glycol 3350 17 gram Powder In Packet 17 g PO DAILY PRN (Reason: Constipation) Qty: 14 0RF sennosides [Senna Lax] 8.6 mg Tablet 17.2 mg PO BEDTIME 30 Days Qty: 60 3RF Continued tizanidine 4 mg tablet 4 mg PO TID PRN (Reason: muscle spasm) pantoprazole 20 mg tablet,delayed release (DR/EC) 20 mg PO BID polyethylene glycol 3350 17 gram/dose powder 17 g PO DAILY ondansetron 4 mg tablet,disintegrating 4 mg Q6H PRN (Reason: nausea) rosuvastatin 20 mg tablet 20 mg PO DAILY bupropion HCl 300 mg tablet extended release 24 hr 300 mg PO DAILY Trulicity 3 mg/0.5 mL pen injector 3 mg subcut QWEEK fexofenadine 180 mg tablet 180 mg PO DAILY hydroxyzine HCl 25 mg tablet 25 mg PO Q6H PRN (Reason: anxiety) albuterol sulfate [Ventolin HFA] 90 mcg/actuation HFA aerosol inhaler 2 puff inhalation Q6H PRN (Reason: wheezing) Cosentyx (2 Syringes) 150 mg/mL syringe 300 mg subcut Q4W Qty: 2 4RF Discharge Orders: Discharge Order (Routine); Ordered 02/16/25 Ordered By: Coco Garcia Diet: Advance to usual diet Activity on Discharge: As tolerated Stand Alone Forms: Patient Portal Discharge page Print Language: Argentine Care Plan Goals: 1.?Diagnosis * New onset seizure vs. syncope (acute) * Right knee pain, status post fall (acute, history of meniscal repair) * Multiple comorbidities: fibromyalgia, carpal tunnel syndrome, osteoarthritis, hypertension, palpitations, GERD, prediabetes (on dulaglutide), hepatic steatosis, psoriatic arthritis (on secukinumab), generalized anxiety with panic attacks, history of back surgeries, remote TBI with encephalomalacia 2.?Hospital Course Summary You were admitted after a witnessed episode in a public setting, where you were observed walking in circles and then collapsing. EMS noted a postictal state. You do not recall the event. Imaging revealed a right parietal encephalomalacia, likely related to remote childhood trauma. You were started on levetiracetam for seizure prophylaxis. Cardiac and neurological workup is ongoing. 3.?Medications at Discharge * Levetiracetam (Keppra) 500 mg twice daily?for seizure prevention. Take as prescribed. Do not skip doses. * Dulaglutide (Trulicity) 3 mg weekly?for prediabetes. Monitor for symptoms of hypoglycemia, especially if eating less. * Secukinumab (Cosentyx)?as previously prescribed for psoriatic arthritis. * Acetaminophen (Tylenol) as needed?for right knee pain. * Duloxetine?for anxiety and chronic pain. * Pregabalin (Lyrica)?and?tizanidine?for fibromyalgia. * Bupropion?has been held due to increased seizure risk. * Other home medications?as reviewed and reconciled. Note:?Do not resume bupropion or any other medication that may lower your seizu re threshold unless cleared by your neurologist. 4.?Seizure and Safety Precautions * No driving?or operating heavy machinery until cleared by neurology. * Avoid swimming, bathing unsupervised, or climbing heights. * Inform family/friends about your condition and what to do if you have another episode. * Wear a medical alert bracelet indicating your seizure history. * Maintain a seizure diary: record any further episodes, including time, duration, and description. 5.?Right Knee Care * X-ray was pending at discharge; follow up with orthopedics if pain persists or worsens. * Use acetaminophen as needed for pain. * Rest, ice, and elevate the knee as needed. * Gradually resume activity as tolerated; avoid high-impact activities until cleared. 6.?Diet and Hypoglycemia Prevention * Eat regular meals and snacks, especially on days you take dulaglutide. * Monitor for symptoms of low blood sugar: shakiness, sweating, confusion, dizziness. * If you feel symptoms of hypoglycemia, eat or drink a fast-acting carbohydrate (juice, regular soda, glucose tablets). 7.?Follow-Up Appointments * Neurology:?Within 1-2 weeks for further evaluation and EEG results. * Cardiology:?As scheduled, especially if you experience palpitations, chest pain, or new symptoms. * Primary Care:?Within 1 week for medication review and ongoing management. * Orthopedics:?If knee pain persists or worsens. * Psychiatry/Behavioral Health:?As needed for anxiety and medication management. 8.?When to Seek Immediate Medical Attention * Seizure lasting longer than 5 minutes or repeated seizures without regaining consciousness. * Severe injury, difficulty breathing, chest pain, or not returning to baseline after an episode. * New or worsening neurological symptoms (weakness, numbness, confusion, severe headache). * Signs of infection (fever, chills, new rash) while on immunosuppressive therapy. 9.?Additional Instructions * Continue all other home medications as reviewed unless otherwise instructed. * Avoid alcohol and recreational drugs. * Get adequate sleep and manage stress. * Bring your medication list and seizure diary to all follow-up appointments. Health Concerns: See above Plan of Treatment: See above Assessment: See above
== END 2025-02-16 19:00 | disposition home or self-care (01) | DRG 53 ==
LOC: HO.ED 19:03 → HO.EDOVER 19:18 → HO.IMC 02-15 16:45
PROVIDERS: Family Medicine; Admitting Provider Nurse Practitioner Family; Emergency Provider Emergency Medicine; PCP Registered Nurse; Visit Provider Student in an Organized Health Care Education/Training Program
DX: R56.9 Unspecified convulsions (principal); E87.6 Hypokalemia; M79.7 Fibromyalgia; Z20.822 Contact with and (suspected) exposure to COVID-19; Z87.891 Personal history of nicotine dependence; M25.561 Pain in right knee; Z79.899 Other long term (current) drug therapy
CPT/HCPCS: 36415; 70450; 70551; 73560; 80048; 80053; 80061; 80076; 80307; 81001; 81003; 82550; 83036; 83605; 83690; 83735; 84132; 84443; 84484; 85025; 87637; 93005; 93306; 95819; 99285; J1953; J3480; Q9957

== ENCOUNTER → 2025-02-14 16:57 | Outpatient (BNV) | payer MEDICAID, SELFPAY | PROVIDERS: Emergency Provider Emergency Medicine; Visit Provider Nuclear Medicine | DX: R56.9 Unspecified convulsions (principal); Z96.651 Presence of right artificial knee joint; Z04.3 Encounter for examination and observation following other accident | CPT/HCPCS: 70450; 70551; 73560 ==

== ENCOUNTER → 2025-02-14 16:57 | Outpatient (BNV) | payer MEDICAID, SELFPAY | PROVIDERS: Admitting Provider Nurse Practitioner Family; Emergency Provider Emergency Medicine; Visit Provider Internal Medicine Cardiovascular Disease | DX: R94.31 Abnormal electrocardiogram [ECG] [EKG] (principal); R56.9 Unspecified convulsions | CPT/HCPCS: 93010 ==

== ENCOUNTER 2025-02-14 19:12 | Outpatient (BNV) | payer MEDICAID, SELFPAY | END 2025-02-15 14:45 | PROVIDERS: Admitting Provider Nurse Practitioner Family; Emergency Provider Emergency Medicine; PCP Registered Nurse; Visit Provider Psychiatry & Neurology Neurology | DX: G40.89 Other seizures (principal) | CPT/HCPCS: 95819 ==

== ENCOUNTER 2025-02-14 19:12 | Outpatient (BNV) | payer MEDICAID, SELFPAY | END 2025-02-16 07:00 | PROVIDERS: Admitting Provider Nurse Practitioner Family; Emergency Provider Emergency Medicine; PCP Registered Nurse; Visit Provider Internal Medicine Cardiovascular Disease | DX: I51.89 Other ill-defined heart diseases (principal); R55 Syncope and collapse | CPT/HCPCS: 93306 ==

== ENCOUNTER → 2025-02-14 19:12 | Outpatient (BNV) | payer MEDICAID, SELFPAY | PROVIDERS: Admitting Provider Nurse Practitioner Family; Emergency Provider Emergency Medicine; Visit Provider Psychiatry & Neurology Neurology | DX: R56.9 Unspecified convulsions (principal) | CPT/HCPCS: 99223 ==

== ENCOUNTER → 2025-02-14 19:12 | Outpatient (BNV) | payer MEDICAID, SELFPAY | PROVIDERS: Admitting Provider Nurse Practitioner Family; Emergency Provider Emergency Medicine; Visit Provider Nurse Practitioner Family | DX: R56.9 Unspecified convulsions (principal); R55 Syncope and collapse; E87.6 Hypokalemia; M25.561 Pain in right knee | CPT/HCPCS: 99223; 99233 ==

== ENCOUNTER 2025-02-21 15:27 | Outpatient (AMB) | payer MEDICAID, SELFPAY ==
--- OUTSIDE RECORDS SUMMARY | 2024-05-04 05:40 | XMS_ITS ---
Author Organization [facility] Address [address] [place] [address] Care Team Providers Care Transition Program Manager Name Role Phone CrossroadsSaurabh العلي, Flor Primary Care Provider Chaz Garcia [phone] REASON FOR VISIT epigastric pain,gerd Encounters Encounter Location Date Provider Diagnosis [facility] [place] [address] [facility] [place] [id number] 05/04/2024 Chaz Reynaga Plan Of Treatment No Information Progress Notes * GISELL PARKSDOB:1970 (54 yo F)Acc No.[id number]:05/04/2024 EGD and COL/MAC Patient: GISELL GALAVIZ Provider: Christy Reynaga MD :1970 A ge:53 Y S ex:Female Date:05/04/2024 Address:[address] [place] [address] [address] [facility] Pcp:Flor CrossroadsSaurabh, PIN BALL MACHINE MECHANIC Subjective: * Chief Complaints: * E pigastric pain,gerd Billing Information: * Procedure Codes: * The named appointment provid er may or may not be the originator of this progress note, and it is not deemed complete until electronically signed by the appointment provider. Sign off status: Pending * Provider: Christy Reynaga MD Date: 0 05/04/2024 Generated for Cherise mehta/Joe/Wooditting on: 1 04/24/2024 07:39 PM EST
--- OUTSIDE RECORDS SUMMARY | 2024-08-29 04:40 | XMS_ITS ---
Author Organization [facility] Address [address] [place] [address] Care Team Providers Care Frame Stripper Name Role Phone [facility] ASSISTANT EDITOR, Flor Primary Care Provider Unava Chaz Roberts Unavailable [phone] REASON FOR VISIT positive h. pylori, abd pain, screening Encounters Encounter Location Date Provider Diagnosis [facility] [place] [address] [place], [place] [phone] 08/29/2024 Chaz Reynaga Colon cancer scree saturnino [...] Notes * GISELL PARKSDOB:1970 (54 yo F)Acc No.[id number]:08/29/2024 EGD and COL/MAC Patient: Skylar GISELL GRIFFIN Provider: Christy Reynaga MD :1970 A ge:53 Y S ex:Female Date:08/29/2024 Address:[address] [place] [address] [phone] Pcp:ZOHRA Michael Subjective: * Chief Complaints: * [...] 4 5380 COLONOSCOPY AND BIOPSY, Modifiers: [place] [address] UPPR GI ENDOSCOPY, DIAGNOSIS, Modifiers: 51 Billing Information: * Procedure Codes: 15245 COLONOSCOPY [place] BIOPSY. [place]: [place] 235[address] UPPR GI ENDOSCOPY, DIAGNOSIS. Modifiers: 51 * The named appointment provid er may or may not be the originator of this progress note, and it is not deemed complete until electronically signed by the appointment provider. Sign off status: Pending * Provider: Christy Reynaga MD Date: 0 08/29/2024 Generated for Cherise mehta/Joe/Wooditting on: 04/24/2024 07:39 PM EST
--- NOTE | 2025-02-21 15:47 | MHC.OFFVIS ---
Intake Visit Reasons: hospital followup Allergies environmental allergies Allergy (Intermediate, Verified 02/14/25 17:05) hives/eye itchiness house dust mite Allergy (Mild, Verified 02/14/25 17:05) sneezing, watery eyes dog dander (DOG) Allergy (Unknown, Verified 02/14/25 17:05) HIVES HPI Comments Details: 54 yo RH woman who fell from 3rd floor when she was 10 years old. She was comatosed for 12 days but did not remember having seizures. In Jan, she was brought to [facility] [place] with symptoms suggestive of seizrue disorder. Her head CT and brain MRI revealed a right parietal and left anterior temporal encephalomacia/gliotic lesions. EEG revealed right hemispheric slowing. She was started on levetiracetam. She is presenting for management of a seizure disorder. She has a history of a significant head injury at age 10 after falling from a third-floor window, which resulted in a 12-day coma. She did not experience seizures immediately after the trauma. In January, she presented to the [facility] emergency room with symptoms suggestive of a seizure. A head CT and brain MRI at that time revealed bilateral encephalomalacia in the right frontoparietal and left anterior temporal regions, consistent with old trauma. An EEG showed right hemispheric slowing, and she was started on levetiracetam. Her other medical history is significant for psoriatic arthritis and osteoarthritis. The patient reports recent memory issues. [facility] Medical History Menopause Hepatic steatosis Psoriatic arthritis Palpitations GERD (gastroesophageal reflux disease) Fatty liver Chronic pain syndrome Radiculopathy, lumbar region Disc degeneration, lumbar Postlaminectomy syndrome of lumbosacral region Osteoarthritis of left shoulder Fibromyalgia Arthritis Surgical History Hx of total knee replacement Hx of straightening of nasal septum History of back surgery Family History Mother No problems noted. Mother Advanced cirrhosis of liver Diabetes Low blood pressure Colon polyps Father Aneurysm Sister No problems noted. Sister No problems noted. Brother No problems noted. Son No problems noted. Son No problems noted. Daughter No problems noted. Social History Household Members: None Housing: Apartment Are you a primary career development counselor to a significant other at home: No Do you presently have visiting nurse or other home services: No Alcohol intake: former Year quit: 7 Comment: counts correct Patient Tobacco Use Status: Former Tobacco user Years Smoked: 10 YEARS e-Cigarette/Vaping Use: Never Used service: No Current occupational status: employed Current occupation: works as [employer] part-time- right handed Review of Systems Narrative - Neurological: Reports forgetfulness. - Denies a history of seizures prior to the recent event. - Musculoskeletal: Reports knee pain and a history of psoriatic arthritis and osteoarthritis. - Psychiatric: Reports feeling scared about her diagnosis. Physical Exam Neuro Other: Mental Status: Alert and oriented to person, place, and time. Normal attention. Normal spontaneous speech, fluency, and comprehension. Cranial Nerves: CN II: Visual dawson full to confrontation, visual acuity intact. CN III, IV, : Pupils equal, round, reactive to light and accommodation. Extraocular movements are normal. CN V: Facial sensation is normal. CN VII: Facial movements symmetrical. CN VIII: Hearing intact to bedside conversation is normal. CN IX, X: Palate elevates symmetrically. CN XI: Shoulder shrug and head turn symmetrical. CN XII: Tongue midline without atrophy or fasciculations. Extrapyramidal: Full facial expressions and blinking. No rigidity. Movements are appropriate with no tremor or abnormality. Speech: Normal; no dysarthria or tremor. Results Reviewed Results Reviewed: [address] [address] [address] Scan Report Signed Patient: Yumiko Pugh MR#: [id number] : 1970 Acct:[id number] Age/Sex: 54 / F ADM Date: 02/14/25 Loc: HO.ED CLINICAL HISTORY: Syncope versus seizure CT head without contrast Comparison: None provided Findings: No intra-axial mass, midline shift, hydrocephalus, or acute hemorrhage. No significant atrophy-like change or white matter disease. There is asymmetric CSF density of the right posterior frontal area series 2, image 42. The visualized paranasal sinuses and mastoid air cells are normal. The orbits are within normal limits. No skull fracture. IMPRESSION: Asymmetric CSF density of the right posterior frontal area could represent an arachnoid cyst. Correlation with MRI findings as indicated. MRI Brain WO Contrast COMPARISON: CT/REG/SR - CT HEAD/BRAIN WO IV CON - 02/14/25 18:08 EST FINDINGS: Detail limited by motion artifacts. No evidence of acute infarction. No acute intracranial hemorrhage. Extra-axial T2 hyperintense, intermediate to low T1 signal right frontoparietal probable arachnoid cyst measuring 2.8 x 1.4 x 4.0 cm, indenting the subjacent cortex, with trace adjacent parenchymal FLAIR hyperintensity. No midline shift. No hydrocephalus. Clear paranasal sinuses. Clear mastoid air cells. Unremarkable orbits. IMPRESSION: Probable right frontoparietal arachnoid cyst with mild adjacent parenchymal edema or gliosis. Assessment & Plan Assessment & Plan (1) Seizure disorder: Comment: EEG at [facility] in Jan 2025: R hemispheric slowing CT brain WO at [facility] [place] Jan 2025: R frontal and left temp encephalomalacia MRI brain WWO at [facility] [place] Jan 2025: R parietal and left temporal cystic/gliotic lesions Code(s): G40.909 - Epilepsy, unspecified, not intractable, without status epilepticus Category: Medical (2) Encephalomalacia: Code(s): G93.89 - Other specified disorders of brain Category: Medical Plan Impression: a: Post traumatic epilepsy b: R parietal and left anteior temporal encephalomalacia/gliosis Rec: a: continue levetiracetam 500mg bid b; 48 hr EEG I reviewed the patient's MRI findings with her, explaining that she has two areas of scarring on her brain, one in the right frontoparietal area and one in the left temporal area, which are the result of her fall as a child. I clarified that this old injury is the cause of her new-onset seizures and that it is not a tumor or an infection. I emphasized that the scarring is permanent and that continuing her seizure medication, levetiracetam, is critical for preventing future seizures. 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 I informed her that I am ordering a longer, take-home EEG to better assess her brain activity and that a prescription refill has been sent to her pharmacy. We will have a follow-up visit to review the results of the EEG. She is advised not to drive at this time and not be involved in an activity that could put her life in danger such as swimming alone or sitting in a soaking tub alone. Orders: Orders EEG 48hr Ambulatory Today G40.909 - Epilepsy, unspecified, not intractable, without status epilepticus Medications: Refilled levetiracetam 500 mg PO BID 180 tabs 1RF 30 days Coding Level of Care Code Est Pt Level 4 (37775) Diagnoses Seizure disorder G40.909 Encephalomalacia G93.89
--- OUTSIDE RECORDS SUMMARY | 2025-02-21 19:39 | XMS_ITS | Clinical Summary ---
Author Organization [facility] Address [address] [place] [id number] Phone Care Team Providers Care Track Helper Name Role Phone [facility] Primary Care Provider [phone] Allergies No known active allergies Medications dexAMETHasone [...] aqta) 19yo and older 01/25/2004,08/24/2003,03/09/2003 Hepatitis B (Orhnbll-J-Hbrbu , Recombivax HB-Adult) 19yo and older 01/08/2004,10/03/2003,08/24/2003,2003,08/08/2002 [...] topic Insurance [place] Care Teams Track Helper Relationship Specialty Start Date End Date Flor Jacinto [address] [place] [phone] PCP - General Family Medicine 10/12/24
--- OUTSIDE RECORDS SUMMARY | 2025-02-21 19:39 | XMS_ITS | Patient Health Record ---
Author Organization [facility] Address [address] [place] [address] Care Team Providers Care Shuffle Board Operator Name Role Phone [facility] Primary [facility] Provider Unava Chaz Roberts Unavailable [phone] Allergies Allergen (clinical drug ingredient) Drug/Non Drug Allergy documented on EMR Reaction Allergy Type Onset Date Status enviromental allergi es (uncoded) Unknown Allergy Active pet dander (uncoded) Unknown Allergy Active Results Component Value Reference Range Flag Notes Glucose, Whole Blood Reviewed date:08/29/2024 11:38:03 PM Interpretation: Performing Lab:[facility], [address] [place] [phone] Notes/Report: Glucose, Whole Blood 198 60-115 mg/dL H MA TER #: [id number] Pathology Reviewed date:01/04/2025 01:44:20 AM Interpretation: Performing Lab:[facility], [address] [place] [phone] Notes/Report: Reason For Referral Referring Provider First Name Flor Referring Provider Last Name [place]` Referred Organization [facility] Referred Provider Chaz Rinaldi Referred Address [address],[place], [place],[address], Referred Provider Specialty Gastroentero logy General Notes Kacy Hunter 2024 10:35:26 AM > REQUESTED [place] REFERRAL FROM [facility] FOR VISIT WITH DR RINALDI ON [phone] Referral Priority Routine Medications Medication SIG (Take, [...] Status Risk Notes Problem Colon cancer screening (346224288) Colon cancer screening (Z12.11) Active confirmed Problem Epigastric pain (05131916) Epigastric abdominal pain (R10.13) Active confirmed Problem Abdominal bloating (886779925) Abdominal bloating (R14.0) Active confirmed Problem Epigastric pain (69273398) Abdominal pain, epigastric (R10.13) Active confirmed Problem Blood in stool (210734679) Blood in stool (K92.1) Active confirmed Problem Elevated liver enzymes level (463958257) Elevated liver enzymes (R74.8) Active confirmed Problem Fatty liver (663086615) Fatty liver (K76.0) Active confirmed Problem Family History of Cancer of Colon (Situation) (071165293) Family history of colon cancer (Z80.0) Active confirmed Problem Helicobacter serology positive (550741508) Helicobacter pylori ab+ (R76.8) Active confirmed Problem Constipation (73574583) Constipation, unspecified constipation type (K59.00) Active confirmed Problem Gastroesophageal reflux disease (869517566) GERD (gastroesophage al reflux disease) (K21.9) Active confirmed Problem Irritable bowel syndrome characterized by constipation (736857589) Irritable bowel syndrome with constipation (K58.1) Active confirmed Problem Right upper quadrant pain (903513033) RUQ pain (R10.11) Active confirmed Encounters Encounter Location Date Provider Diagnosis [facility] Outpatient [address] [place] [id number] 08/29/2024 Chaz Rinaldi Colon cancer screening Z12.11 ; Family history of colon cancer Z80.0 ; FH: colon polyps Z83.719 ; Colon polyps K63.5 ; Gastro-esophageal reflux disease without esophagitis K21.9 and Hiatal hernia K44.9 [facility] [address] [place] [phone] 04/19/2024 Chaz Rinaldi GERD (gastroesophageal reflux disease) K21.9 [facility] [address] [phone] 05/04/2024 Chaz Rinaldi [facility] [address] [phone] 01/03/2025 Chaz Rinaldi Assessments Encounter Date Diagnosis [...] Start Date Coverage End Date [place] [employer] [address] [place] RAMIREZ [phone] [id number] [employer] LUANN Alfaro GISELL Self - patient [...] been on Jami in the past. Denies UT,DM,CVA,Lung disease,renal dise ase Fibromyalgia Psoriasis Anxiety/depression Colonoscopy [...]
== END 2025-02-21 16:03 | disposition home or self-care (01) ==
LOC: HO.HSM 15:28
PROVIDERS: PCP Registered Nurse; Visit Provider Psychiatry & Neurology Neurology
DX: G40.909 Epilepsy, unspecified, not intractable, without status epilepticus (principal); G93.89 Other specified disorders of brain
CPT/HCPCS: 99214

== ENCOUNTER → 2025-02-21 15:27 | Outpatient (BNVA) | payer MEDICAID, SELFPAY | PROVIDERS: PCP Registered Nurse; Visit Provider Psychiatry & Neurology Neurology | DX: G40.909 Epilepsy, unspecified, not intractable, without status epilepticus (principal); G93.89 Other specified disorders of brain; Z79.899 Other long term (current) drug therapy | CPT/HCPCS: 99212 ==